=== PATIENT | female | born 1990 | race Caucasian/White ===

== ENCOUNTER 2017-01-20 16:10 | Emergency (ER) | payer MEDICAID ==
[~2017-01-20] VITALS: Ht 160 cm; Wt 70.3 kg
[~2017-01-20 16:10] MED LIST: ACHYD1T PO; CPR500T PO; CYCL10TA9 PO; DCS100C PO; DIPH25CA79 PO; FRS325T PO; HYDR-3583 PO; HYDR118S10 PO; HYDR1TAB PO; IBP600T1 PO; LEVE500T PO; LORazepam INJ 2 MG/ML (ATIVAN) VIAL ONE; MELO-195 PO; NAPR-243 PO; OMEP-10 PO; ONDA4TAB8 PO; PENI500T PO; PHEN100C4 PO; PRD50T PO; PREG50C PO; TR1O15 TP; TRAM50TA2 PO; TRM50T PO
[2017-01-20] MEDS: LORazepam INJ 2 MG/ML (ATIVAN) VIAL IVP ONE (16:10)
[2017-01-20] MEDS: NS IV 1000 ML 1,000 ML ONE (16:11)
[2017-01-20 16:22] LABS: BASOPHILS % (AUTO) 0 % (0-10); EOSINOPHILS # (AUTO) 0.1 10^3/uL (0.0-0.3); EOSINOPHILS % (AUTO) 1 % (0-10); LYMPHOCYTES # (AUTO) 2.3 X 10^3 (1.0-4.0); LYMPHOCYTES % (AUTO) 20 % (12-44); MEAN CORPUSCULAR HEMOGLOBIN 23 PG (25-34); MEAN CORPUSCULAR HGB CONC 31 G/DL (32-36); MEAN CORPUSCULAR VOLUME 74 FL (80-99); MEAN PLATELET VOLUME 10.8 FL (7.4-10.4); MONOCYTES # (AUTO) 0.7 X 10^3 (0.0-1.0); MONOCYTES % (AUTO) 6 % (0-12); NEUTROPHILS # (AUTO) 8.2 X 10^3 (1.8-7.8); NEUTROPHILS % (AUTO) 72 % (42-75); PLATELET COUNT 557 10^3/uL (130-400); RED BLOOD COUNT 4.76 10^6/uL (4.35-5.85); RED CELL DISTRIBUTION WIDTH 18.2 % (10.0-14.5); WHITE BLOOD COUNT 11.3 10^3/uL (4.3-11.0)
[2017-01-20 16:26] LABS: BILIRUBIN,URINE NEGATIVE (NEGATIVE); KETONES,URINE NEGATIVE (NEGATIVE); LEUKOCYTE ESTERASE ,URINE NEGATIVE (NEGATIVE); NITRITE,URINE NEGATIVE (NEGATIVE); PH,URINE 7 (5-9); PROTEIN,URINE NEGATIVE (NEGATIVE); UROBILINOGEN,URINE NORMAL (NORMAL)
[2017-01-20] MEDS: DIAZEPAM INJ 10 MG/2 ML (VALIUM) SYR ONE ×2 (16:26→17:54)
[2017-01-20] MEDS: PROMETHAZINE INJ 25 MG/ML (PHENERGAN) AMP ONE (16:34)
[2017-01-20 16:36] LABS: ALANINE AMINOTRANSFERASE 39 U/L (0-55); ALBUMIN 4.4 G/DL (3.2-4.5); ANION GAP 11 MMOL/L (5-14); ASPARTATE AMINO TRANSFERASE 39 U/L (5-34); BILIRUBIN,TOTAL 0.3 MG/DL (0.1-1.0); BLOOD UREA NITROGEN 9 MG/DL (7-18); BUN/CREATININE RATIO 11; CALCIUM 9.1 MG/DL (8.5-10.1); CARBON DIOXIDE 21 MMOL/L (21-32); CHLORIDE 110 MMOL/L (98-107); CREATINE KINASE 1204 U/L (29-168); CREATININE SERUM 0.81 MG/DL (0.60-1.30); GFR ESTIMATED > 60; GLUCOSE 95 MG/DL (70-105); POTASSIUM 3.6 MMOL/L (3.6-5.0); SODIUM 142 MMOL/L (135-145); TOTAL PROTEIN 7.3 G/DL (6.4-8.2)
[2017-01-20 16:39] LABS: SQUAMOUS EPITHELIAL CELL,UR 0-2 /HPF; WBC,URINE RARE /HPF
[2017-01-20] MEDS: IOHEXOL 350 MG/ML 100 ML (OMNIPAQUE 350) VIAL IV ONE (17:55)
[2017-01-20] MEDS: NS 100 ML (IVPB) BAG IV ONE (17:55)
--- NOTE | 2017-01-20 18:11 | Diagnostic Imaging Report ---
PROCEDURE: CT abdomen and pelvis with and without contrast. TECHNIQUE: Precontrast acquisitions were acquired through the abdomen and pelvis. Multiple contiguous axial images were obtained through the abdomen and pelvis after the administration of intravenous contrast. INDICATION: Right-sided abdominal pain. FINDINGS: The lung bases are clear. There is diffuse fatty infiltration of the liver. The gallbladder is absent. The bile ducts are not dilated. The pancreas appears normal as does the spleen. The adrenal glands are normal. Kidneys show no evidence of obstruction or masses. There is normal enhancement of the abdominal organs and vessels following IV contrast. No retroperitoneal adenopathy. The stomach is not distended. There are isolated loops of dilated small bowel in the left midabdomen measuring approximately 3 cm. The ileum is not distended. Terminal ileum appears normal. The appendix is not identified. No dilated structures or appendicoliths are seen. No fluid is seen surrounding the terminal ileum or cecum. Pelvis shows Dobson catheter present with decompression of bladder. The uterus is not enlarged. There are no adnexal masses. Tampon is present in the vagina. There is no free air or free fluid. IMPRESSION: 1. Nonspecific mildly dilated loops of small bowel in the left midabdomen. No associated free fluid or free air. 2. The appendix not visualized though no changes are seen to indicate acute appendicitis. Dictated by: Dictated on workstation # [id number]
--- NOTE | 2017-01-20 18:13 | Diagnostic Imaging Report ---
PROCEDURE: CT head without contrast. TECHNIQUE: Multiple contiguous axial images were obtained through the brain without the use of intravenous contrast. INDICATION: Seizure. COMPARISON: 01/31/2015. FINDINGS: The ventricles appear normal. Cortical gyral pattern is normal. There is no intracranial hemorrhage or mass effect. There are no extra axial fluid collections. Basal cisterns and CP angles appear normal. Pituitary is not enlarged. Mastoid air cells are well-aerated. IMPRESSION: Negative CT head without contrast. No significant change has occurred since previous exam. Dictated by: Dictated on workstation # [id number]
[2017-01-20] MEDS ORDERED: CLONIDINE (18:16)
[2017-01-20] MEDS ORDERED: CLONAZEPAM (18:17)
[2017-01-20] MEDS ORDERED: GABAPENTIN (18:17)
[2017-01-20] MEDS ORDERED: AMOXICILLIN (18:17)
[2017-01-20] MEDS ORDERED: CLARITHROMYCIN (18:18)
[2017-01-20] MEDS: fentaNYL INJECTION 100 MCG/2 ML AMP IVP STA (18:50)
[2017-01-20] MEDS: FAMOTIDINE 20MG/2ML IV (PEPCID) IV STA (18:50)
--- NOTE | 2017-01-20 19:12 | ED Neurological Problem ---
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 STAFF LOWERED HER TO FLOOR. PT WAS DISCHARGED TODAY FROM [facility] TODAY DUE TO SEIZURES. PT RECIEVED A UNIT OF BLOOD YESTERDAY ET MOM STATES HER HMG TODAY WAS 6. PT REMAINED HAVING A SEIZURE WHILE COMING TO ER ON CART. PT HAS OXYGEN ON AT 15L VIA NRB. Nursing Sepsis Screen: No Definite Risk History of Present Illness Time seen by provider: 16:00 Initial Comments Patient brought on cart from the OB floor to emergency department for seizure activity. The patient was admitted at [facility] 01/13/17 until earlier today. She went home to [place] briefly and then came here to see her sister who delivered a baby yesterday. She has a history of seizure disorders, reported by her mother. She was sitting in a chair when she began to have some wheezing and snoring noises and then began to have seizure activity. History obtained by her mother as the patient is unable to respond. Severity: mild Associated Symptoms: seizures Allergies and Home Medications Allergies Coded Allergies: adhesive tape (Verified Allergy, Severe, RASH, 01/20/17) metoclopramide (Verified Allergy, Severe, HIVES, VOMITING, 01/20/17) ondansetron (Verified Allergy, Severe, HIVES, VOMITING, 01/20/17) Sulfa (Sulfonamide Antibiotics) (Verified Allergy, Unknown, 01/20/17) ketorolac (Verified Allergy, Unknown, 01/20/17) morphine (Verified Allergy, Unknown, 01/20/17) Home Medications [Amoxicillin] , (Reported) [Clarithromycin] , (Reported) [Clonazepam] , (Reported) [Clonidine] , (Reported) [Gabapentin] , (Reported) Constitutional: no symptoms reported, see HPI Eyes: No Symptoms Reported, See HPI Ears, Nose, Mouth, Throat: no symptoms reported, see HPI Respiratory: no symptoms reported, see HPI Cardiovascular: no symptoms reported, see HPI Gastrointestinal: no symptoms reported, see HPI Genitourinary: no symptoms reported, see HPI LMP: Jan 20, 2017 Musculoskeletal: no symptoms reported, see HPI Skin: no symptoms reported, see HPI Psychiatric/Neurological: See HPI, [place] Seizures Endocrine: No Symptoms Reported, See HPI Hematologic/Lymphatic: No Symptoms Reported, See HPI All Other Systems Reviewed Negative Unless Noted: Yes Past Ytcnttx-Jfwwpi-Vesjsw Hx Patient Social History Former Smoker/When Quit: Nov 14, 2011 Recent Foreign Travel: No Contact w/Someone Who Travel: No Recent Infectious Disease Expo: No Recent Hopitalizations: Yes Immunizations Up To Date Tetanus Booster (TDap): More than 5yrs PED Vaccines UTD: Yes Surgeries HX Surgeries: Yes (RUPTURED OVARIAN CYST) Surgeries: Section, Gallbladder, Tubal Ligation Respiratory Hx Respiratory Disorders: No Cardiovascular Hx Cardiac Disorders: No Neurological Hx Neurological Disorders: Yes Neurological Disorders: Seizure Disorder Reproductive System : No Hx Reproductive Disorders: Yes (CERVICAL DYSPLASIA--S/P LEEP) Female Reproductive Disorders: Denies Genitourinary Hx Genitourinary Disorders: No Genitourinary Disorders: Kidney Stones Gastrointestinal Hx Gastrointestinal Disorders: No Gastrointestinal Disorders: Ulcer Musculoskeletal Hx Musculoskeletal Disorders: Yes Musculoskeletal Disorders: Fibromyalgia Endocrine Hx Endocrine Disorders: No HEENT HX ENT Disorders: No Cancer Hx Cancer: No Psychosocial Hx Psychiatric Problems: No Integumentary HX Skin/Integumentary Disorder: No Blood Transfusions Hx Blood Disorders: No Adverse Reaction to a Blood Tr: No Reviewed Nursing Assessment Reviewed/Agree w Nursing PMH: Yes Family Medical History Family Medial History: Family history: Cardiovascular disease maternal gma Heart disease maternal gma No Family History of: Abdominal aortic aneurysm Dunn's disease Alcoholism Aphasia Cancer Cancer of colon Cataract Chest pain Congenital heart disease Congestive heart failure Cystic fibrosis Dementia Dysphagia Family history: Allergy Family history: Alzheimer's disease Family history: Arthritis Family history: Asthma Family history: Breast disease Family history: Coronary thrombosis Family history: Diabetes mellitus Family history: Gastrointestinal disease Family history: Glaucoma Family history: Hypertension Family history: Osteoporosis Family history: Thyroid disorder Headache Hearing loss Hereditary disease History of - anemia History of - disorder History of - respiratory disease History of drug abuse Human immunodeficiency virus (HIV) seropositivity Hypercholesterolemia Infertile Kidney disease Malignant neoplasm of lung Myocardial infarction Parkinson's disease Prostate cancer Psychotic disorder Seizure disorder Stroke Tuberculosis Visual impairment Physical Exam Vital Signs Vital Sign - Last 12Hours 01/20/17 16:10 Temp 98.0 Pulse 122 Resp 18 B/P (MAP) 173/141 Pulse Ox 100 O2 Delivery Non Rebreather O2 Flow Rate 15.00 Capillary Refill : Less Than 3 Seconds General Appearance: WD/WN, no apparent distress HEENT: normal ENT inspection, TMs normal, pharynx normal, other (PERRL, no ability to follow eye commands) Neck: normal inspection, No lymphadenopathy (R), No lymphadenopathy (L) Respiratory: chest non-tender, lungs clear, normal breath sounds Cardiovascular: normal peripheral pulses, regular rate, rhythm, no JVD Gastrointestinal: normal bowel sounds, non tender, soft Neurologic/Psychiatric: No alert, aphasia, No facial droop, motor weakness Crainal Nerves: No normal hearing, No normal speech Motor/Sensory: negative Babinski's sign, sensory deficit Skin: normal color, warm/dry Comments No verbal response, unable to follow commands with seizure-like activity present. Progress/Results/Core Measures Results/Orders Lab Results Laboratory Tests Test 01/20/17 16:10 01/20/17 16:20 Range/Units White Blood Count 11.3 H 4.3-11.0 10^3/uL Red Blood Count 4.76 4.35-5.85 10^6/uL Hemoglobin 10.9 L 11.5-16.0 G/DL Hematocrit 35 35-52 % Mean Corpuscular Volume 74 L 80-99 FL Mean Corpuscular Hemoglobin 23 L 25-34 PG Mean Corpuscular Hemoglobin Concent 31 L 32-36 G/DL Red Cell Distribution Width 18.2 H 10.0-14.5 % Platelet Count 557 H 130-400 10^3/uL Mean Platelet Volume 10.8 H 7.4-10.4 FL Neutrophils (%) (Auto) 72 42-75 % Lymphocytes (%) (Auto) 20 12-44 % Monocytes (%) (Auto) 6 0-12 % Eosinophils (%) (Auto) 1 0-10 % Basophils (%) (Auto) 0 0-10 % Neutrophils # (Auto) 8.2 H 1.8-7.8 X 10^3 Lymphocytes # (Auto) 2.3 1.0-4.0 X 10^3 Monocytes # (Auto) 0.7 0.0-1.0 X 10^3 Eosinophils # (Auto) 0.1 0.0-0.3 10^3/uL Basophils # (Auto) 0.0 0.0-0.1 10^3/uL Sodium Level 142 135-145 MMOL/L Potassium Level 3.6 3.6-5.0 MMOL/L Chloride Level 110 H 98-107 MMOL/L Carbon Dioxide Level 21 21-32 MMOL/L Anion Gap 11 5-14 MMOL/L Blood Urea Nitrogen 9 7-18 MG/DL Creatinine 0.81 0.60-1.30 MG/DL Estimat Glomerular Filtration Rate > 60 BUN/Creatinine Ratio 11 Glucose Level 95 70-105 MG/DL Calcium Level 9.1 8.5-10.1 MG/DL Total Bilirubin 0.3 0.1-1.0 MG/DL Aspartate Amino Transf (AST/SGOT) 39 H 5-34 U/L Alanine Aminotransferase (ALT/SGPT) 39 0-55 U/L Alkaline Phosphatase 84 40-136 U/L Total Creatine Kinase 1204 H 29-168 U/L Total Protein 7.3 6.4-8.2 G/DL Albumin 4.4 3.2-4.5 G/DL Serum Test, Qualitative NEGATIVE NEGATIVE Urine Color YELLOW Urine Clarity CLEAR Urine pH 7 5-9 Urine Specific [place] 1.005 L 1.016-1.022 Urine Protein NEGATIVE NEGATIVE Urine Glucose (UA) NEGATIVE NEGATIVE Urine Ketones NEGATIVE NEGATIVE Urine Nitrite NEGATIVE NEGATIVE Urine Bilirubin NEGATIVE NEGATIVE Urine Urobilinogen NORMAL NORMAL MG/DL Urine Leukocyte Esterase NEGATIVE NEGATIVE Urine RBC (Auto) NEGATIVE NEGATIVE Urine RBC RARE /HPF Urine WBC RARE /HPF Urine Squamous Epithelial Cells 0-2 /HPF Urine Crystals NONE /LPF Urine Bacteria NEGATIVE /HPF Urine Casts NONE /LPF Urine Mucus NEGATIVE /LPF Urine Culture Indicated NO Urine Opiates Screen NEGATIVE NEGATIVE Urine Oxycodone Screen NEGATIVE NEGATIVE Urine Methadone Screen NEGATIVE NEGATIVE Urine Propoxyphene Screen NEGATIVE NEGATIVE Urine Barbiturates Screen NEGATIVE NEGATIVE Ur Tricyclic Antidepressants Screen NEGATIVE NEGATIVE Urine Phencyclidine Screen NEGATIVE NEGATIVE Urine Amphetamines Screen NEGATIVE NEGATIVE Urine Methamphetamines Screen NEGATIVE NEGATIVE Urine Benzodiazepines Screen POSITIVE H NEGATIVE Urine Cocaine Screen NEGATIVE NEGATIVE Urine Cannabinoids Screen NEGATIVE NEGATIVE My Orders Orders - ANDRY,NIKKY [employer] Cbc With Automated Diff (01/20/17 16:14) Comprehensive Metabolic Panel (01/20/17 16:14) Creatine Kinase (01/20/17 16:14) Ua Culture If Indicated (01/20/17 16:14) Drug Screen Stat (Urine) (01/20/17 16:14) Diazepam Injection (Valium Injection) (01/20/17 16:19) Promethazine Injection (Phenergan Injec (01/20/17 16:27) Lorazepam Injection (Ativan Injection) (01/20/17 17:00) Lorazepam Injection (Ativan Injection) (01/20/17 16:05) Ct Head Wo (01/20/17 16:57) Diazepam Injection (Valium Injection) (01/20/17 16:58) Hcg,Qualitative Serum (01/20/17 17:03) Iohexol Injection (Omnipaque 350 Mg/Ml 1 (01/20/17 17:15) Ns (Ivpb) (Sodium Chloride 0.9% Ivpb Bag (01/20/17 17:15) Ct Abdomen/Pelvis W Wo (01/20/17 17:30) Famotidine Injection (Pepcid Injection) (01/20/17 18:34) Fentanyl Injection (Sublimaze Injection (01/20/17 18:34) Diphenhydramine Injection (Benadryl Inje (01/20/17 19:13) Medications Given in ED Current Medications Medications Dose Ordered Sig/Karolina Route Start Time Stop Time Status Last Admin Dose Admin Diazepam 10 mg STK-MED ONCE .ROUTE 01/20/17 16:19 01/20/17 16:24 DC 01/20/17 16:26 10 MG Diazepam 10 mg STK-MED ONCE .ROUTE 01/20/17 16:58 01/20/17 17:03 DC 01/20/17 17:54 5 MG Iohexol 100 ml ONCE ONCE IV 01/20/17 17:15 01/20/17 17:16 DC 01/20/17 17:55 100 ML Lorazepam 2 mg ONCE ONCE IVP 01/20/17 17:00 01/20/17 17:01 DC 01/20/17 16:10 2 MG Promethazine HCl 25 mg STK-MED ONCE .ROUTE 01/20/17 16:27 01/20/17 16:32 DC 01/20/17 16:34 25 MG Sodium Chloride 100 ml ONCE ONCE IV 01/20/17 17:15 01/20/17 17:16 DC 01/20/17 17:55 80 ML Sodium Chloride 1,000 ml @ ud STK-MED ONCE .ROUTE 01/20/17 16:10 01/20/17 16:16 DC 01/20/17 16:11 1,000 MLS/HR Vital Signs/I&O Vital Sign - Last 12Hours 01/20/17 01/20/17 16:10 20:00 Temp 98.0 98.0 Pulse 122 102 Resp 18 18 B/P (MAP) 173/141 Pulse Ox 100 100 O2 Delivery Non Rebreather O2 Flow Rate 15.00 Blood Pressure Mean: 152 Progress Note : Time: 16:00 Progress Note Initial evaluation started. Patient nonresponsive to painful or verbal stimuli. Patient's mother is present and history is obtained from her. She does report that her hemoglobin was low yesterday and she possibly received a blood transfusion yesterday at [facility]. She also had GI bleeding and had an EGD and colonoscopy. Prior to feeding at [facility], she was admitted to [facility]. 1610 IV access obtained, Ativan 2 mg IV given. Side rails padded, oxygen per nonrebreather mask. 1620 continued seizure-like activity, Valium 5 mg IV 1630 Phenergan 25 mg IV for nausea and gagging. Patient kept on right side and suction equipment ready. Labs are all essentially normal, WBC 11.3, hemoglobin 10.9, total CK 1204, toxicology negative except benzodiazepines. 1640 seizure activity ceased. Received records from [facility]. These were reviewed, HGB 9.[address] for [address] head and abdomen. She became coherent during this CT and answer questions appropriately. 1655 seizure-like activity resumed. 1700 Ativan 2 mg IV for continued seizure-like activity. 1710 seizure-like activity stopped. The patient was coherent and answering questions appropriately, she was alert and oriented 3. Pupils equal round reactive to light. She was able to follow incomplete all commands. Discussed the need for further neurological assessment of the patient. 1740 discussed the patient by phone with Dr. Diaz for consideration of admission for observation. She felt the patient would be better suited at a facility with neurological consultations. Contacted [facility] no beds available for transfer. The patient refused to be transferred [facility]. She sees a neurologist in [place] or [place], and would prefer to be transferred there. [address] Mac the attending hospitalist for [facility], agreed to accept the transfer. Spoke with the FANCY STITCHER, for hospitalist Dr. Bradshaw, agreed to accept transfer for neuro and psych evaluation and treatment of pseudoseizure disorder. 1820 discussed plans to transfer the patient to [facility] with patient and her mother, they agree with this plan of care. [facility] notified of transfer. 1830 Pepcid 20 mg IV for nausea and fentanyl 25 g IV for headache. 1920 Benadryl 50 mg IV for itching secondary to tape. Diagnostic Imaging Diagonstic Imaging: CT Plain Films/CT/US/NM/MRI: abdomen, pelvis Comments NAME: GOKUL LOCKWOOD [facility] REC#: [id number] PT STATUS: REG ER : 1990 PHYSICIAN: NIKKY WILDE ADMIT DATE: 01/20/17/ER Draft Date of Exam:01/20/17 CT ABDOMEN/PELVIS W WO PROCEDURE: CT abdomen and pelvis with and without contrast. TECHNIQUE: Precontrast acquisitions were acquired through the abdomen and pelvis. Multiple contiguous axial images were obtained through the abdomen and pelvis after the administration of intravenous contrast. INDICATION: Right-sided abdominal pain. FINDINGS: The lung bases are clear. There is diffuse fatty infiltration of the liver. The gallbladder is absent. The bile ducts are not dilated. The pancreas appears normal as does the spleen. The adrenal glands are normal. Kidneys show no evidence of obstruction or masses. There is normal enhancement of the abdominal organs and vessels following IV contrast. No retroperitoneal adenopathy. The stomach is not distended. There are isolated loops of dilated small bowel in the left midabdomen measuring approximately 3 cm. The ileum is not distended. Terminal ileum appears normal. The appendix is not identified. No dilated structures or appendicoliths are seen. No fluid is seen surrounding the terminal ileum or cecum. Pelvis shows Dobson catheter present with decompression of bladder. The uterus is not enlarged. There are no adnexal masses. Tampon is present in the vagina. There is no free air or free fluid. IMPRESSION: 1. Nonspecific mildly dilated loops of small bowel in the left midabdomen. No associated free fluid or free air. 2. The appendix not visualized though no changes are seen to indicate acute appendicitis. Dictated on workstation # [id number] Dict: 01/20/17 1801 Trans: 01/20/17 1811 [facility] [id number] Interpreted by: JENNIFER CHARLES MD Electronically signed by: Reviewed: Reviewed by Me Diagonstic Imaging: CT Plain Films/CT/US/NM/MRI: head Comments NAME: GOKUL LOCKWOOD [facility] REC#: [id number] PT STATUS: REG ER : 1990 PHYSICIAN: NIKKY WILDE ADMIT DATE: 01/20/17/ER Draft Date of Exam:01/20/17 CT HEAD WO PROCEDURE: CT head without contrast. TECHNIQUE: Multiple contiguous axial images were obtained through the brain without the use of intravenous contrast. INDICATION: Seizure. COMPARISON: 01/31/2015. FINDINGS: The ventricles appear normal. Cortical gyral pattern is normal. There is no intracranial hemorrhage or mass effect. There are no extra axial fluid collections. Basal cisterns and CP angles appear normal. Pituitary is not enlarged. Mastoid air cells are well-aerated. IMPRESSION: Negative CT head without contrast. No significant change has occurred since previous exam. Dictated on workstation # [id number] Dict: 01/20/17 1804 Trans: 01/20/17 1813 [facility] [id number] Interpreted by: JENNIFER CHARLES MD Electronically signed by: Reviewed: Reviewed by Me Departure Impression Impression: Primary Impression: Pseudoseizure Disposition: XFER SHT-TRM HOSP Condition: Stable Transfer Method of Transfer: EMS Departure-Patient Inst. Referrals: WASHINGTON COYNE DO (PCP/Family) Primary Care Physician NIKKY WILDE Jan 20, 2017 19:12
[2017-01-20] MEDS: diphenhydrAMINE 50 MG/ML INJ (BENADRYL) IV STA (19:21)
[2017-01-20 20:00] VITALS: BP 129/96
== END 2017-01-20 20:00 | disposition short-term general hospital (02) ==
LOC: EDUNIT# 16:10 → ER 16:11
DX: G40.909 Epilepsy, unspecified, not intractable, without status epilepticus (principal); R10.9 Unspecified abdominal pain
CPT/HCPCS: 36415; 51702; 70450; 74178; 80053; 80306; 81000; 82550; 84703; 85025

== ENCOUNTER 2017-04-10 15:38 | Emergency (ER) | payer MEDICAID ==
[~2017-04-10] VITALS: Ht 160 cm; Wt 70.4 kg
[~2017-04-10 15:38] MED LIST changes: +AMOXICILLIN; +CLARITHROMYCIN; +CLONAZEPAM; +CLONIDINE; +GABAPENTIN; -LORazepam INJ 2 MG/ML (ATIVAN) VIAL ONE
[2017-04-10] MEDS ORDERED: LORazepam INJ 2 MG/ML (ATIVAN) VIAL ONE ×2 (16:35→16:49)
[2017-04-10] MEDS ORDERED: AMMONIA INHALATION 0.33 ML AMP ONE (16:45)
[2017-04-10] MEDS ORDERED: NS IV 1000 ML 1,000 ML IV ONE (16:56)
[2017-04-10] MEDS ORDERED: LORazepam INJ 2 MG/ML (ATIVAN) VIAL IVP ONE (17:00)
[2017-04-10 17:02] LABS: BASOPHILS # (AUTO) 0.1 10^3/uL (0.0-0.1); BASOPHILS % (AUTO) 1 % (0-10); EOSINOPHILS # (AUTO) 0.2 10^3/uL (0.0-0.3); EOSINOPHILS % (AUTO) 2 % (0-10); LYMPHOCYTES # (AUTO) 2.9 X 10^3 (1.0-4.0); LYMPHOCYTES % (AUTO) 30 % (12-44); MEAN CORPUSCULAR HEMOGLOBIN 27 PG (25-34); MEAN CORPUSCULAR HGB CONC 32 G/DL (32-36); MEAN CORPUSCULAR VOLUME 84 FL (80-99); MEAN PLATELET VOLUME 10.8 FL (7.4-10.4); MONOCYTES # (AUTO) 0.6 X 10^3 (0.0-1.0); MONOCYTES % (AUTO) 6 % (0-12); NEUTROPHILS # (AUTO) 5.8 X 10^3 (1.8-7.8); NEUTROPHILS % (AUTO) 61 % (42-75); PLATELET COUNT 339 10^3/uL (130-400); RED BLOOD COUNT 4.19 10^6/uL (4.35-5.85); RED CELL DISTRIBUTION WIDTH 18.9 % (10.0-14.5); WHITE BLOOD COUNT 9.6 10^3/uL (4.3-11.0)
[2017-04-10 17:25] LABS: ALANINE AMINOTRANSFERASE 33 U/L (0-55); ALBUMIN 4.1 GM/DL (3.2-4.5); ALCOHOL < 10 MG/DL (<10); ANION GAP 14 MMOL/L (5-14); ASPARTATE AMINO TRANSFERASE 23 U/L (5-34); BILIRUBIN,TOTAL 0.1 MG/DL (0.1-1.0); BLOOD UREA NITROGEN 8 MG/DL (7-18); BUN/CREATININE RATIO 12; CARBON DIOXIDE 18 MMOL/L (21-32); CHLORIDE 106 MMOL/L (98-107); CREATININE SERUM 0.66 MG/DL (0.60-1.30); GFR ESTIMATED > 60; GLUCOSE 92 MG/DL (70-105); POTASSIUM 3.8 MMOL/L (3.6-5.0); SODIUM 138 MMOL/L (135-145); TOTAL PROTEIN 6.7 GM/DL (6.4-8.2)
[2017-04-10 17:26] LABS: ACETAMINOPHEN < 10 UG/ML (10-30)
[2017-04-10] MEDS ORDERED: LORazepam INJ 2 MG/ML (ATIVAN) VIAL IM ONE (17:30)
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
[2017-04-10 18:22] LABS: BILIRUBIN,URINE NEGATIVE (NEGATIVE); KETONES,URINE NEGATIVE (NEGATIVE); LEUKOCYTE ESTERASE ,URINE 2+ (NEGATIVE); NITRITE,URINE NEGATIVE (NEGATIVE); PH,URINE 7 (5-9); PROTEIN,URINE NEGATIVE (NEGATIVE); UROBILINOGEN,URINE NORMAL (NORMAL)
[2017-04-10 18:37] LABS: SQUAMOUS EPITHELIAL CELL,UR 0-2 /HPF
--- NOTE | 2017-04-10 19:12 | Diagnostic Imaging Report ---
INDICATION: Fall with right hand injury and pain. EXAMINATION: AP, oblique and lateral views of the right hand were obtained. COMPARISON: Study of 07/25/2011. FINDINGS: No acute fracture or dislocation is identified. No abnormal lytic or sclerotic focus is seen, and there is no radiopaque foreign body. IMPRESSION: No acute abnormality. Dictated by: Dictated on workstation # [id number]
[2017-04-10] MEDS ORDERED: FAMOTIDINE 20 MG (PEPCID) TABLET PO ONE (19:15)
[2017-04-10] MEDS ORDERED: PREGABALIN 75 MG (LYRICA) CAP PO ONE (19:15)
[2017-04-10] MEDS ORDERED: CEPH500C PO (19:22)
[2017-04-10 19:35] VITALS: BP 118/89
== END 2017-04-10 19:35 | disposition home or self-care (01) ==
LOC: EDUNIT# 15:38 → ER 15:39
DX: S60.221A Contusion of right hand, initial encounter (principal); G40.909 Epilepsy, unspecified, not intractable, without status epilepticus; N39.0 Urinary tract infection, site not specified; Z87.42 Personal history of other diseases of the female genital tract; Z87.11 Personal history of peptic ulcer disease; Z87.59 Personal history of other complications of pregnancy, childbirth and the puerperium; Z98.51 Tubal ligation status; W22.09XA Striking against other stationary object, initial encounter
CPT/HCPCS: 36415; 73130; 80053; 80306; 80320; 80329; 81000; 84443; 84703; 85025; 87077; 87088; 87186; 96360; 96361; 96372

== ENCOUNTER 2017-04-18 20:59 | Emergency (ER) | payer MEDICAID ==
[~2017-04-18] VITALS: Ht 160 cm; Wt 70.4 kg
[~2017-04-18 20:59] MED LIST changes: +CEPH500C PO
--- OUTSIDE RECORDS SUMMARY | 2017-04-18 21:04 | XMS REPORT | Referral Summary ---
Author Author [facility] Organization [facility] Address Unknown Phone Unavailable Encounter [facility] [id number] Date(s): 01/11/17 - 01/12/[address] [phone] Discharge Diagnosis: Left knee pain Discharge Diagnosis: Left ankle pain Final: Pain in left knee Final: Pain in left ankle and joints of left foot Final: Fall on same level, unspecified, initial encounter Discharge Disposition: 01 O/P Home Attending Physician: Rizwan James Admitting Physician: Rizwan James Vital Signs Most recent to 1 2 oldest [Reference Range]: Height FT 5.09 ft (01/11/17 10:26 PM) Height 155 cm (01/11/17 10:26 PM) Blood Pressure 124 / 85 Display (01/12/17 12:22 AM) Peripheral Pulse 96 bpm 108 bpm Rate [60-100 bpm] (01/12/17 12:21 AM) *HI* (01/11/17 10:26 PM) Temperature Oral 36.9 DegC 36.8 DegC [35.8-37.3 DegC] (01/12/17 12:21 AM) (01/11/17 10:26 PM) Problem List Condition Effective Dates Status Health Status Informant Tobacco use, Active continuous(Confirmed )1 1Automatically added based on charted X tobacco use status. Allergies, Adverse Reactions, Alerts Substance Reaction Severity Status Reglan Active Zofran Active Medications gabapentin 600 mg oral tablet 600 mg=1 tab, PO, TID, THERAPEUTIC DUPLICATION WITH LYRICA, # 270 tab, 0 Refill( s) Start Date: 11/13/16 Status: Ordered ibuprofen 800 mg oral tablet 800 mg=1 tab, PO, TID, for pain, # 30 tab, 0 Refill(s) Start Date: 11/13/16 Status: Ordered ibuprofen 800 mg oral tablet 800 mg=1 tab, PO, q8hr, with food or milk, X 10 day, # 30 tab, 0 Refill(s) Start Date: 01/11/17 Stop Date: 01/21/17 Status: Ordered lactobacillus acidophilus oral tablet 2 tab, PO, qDay, # 20 tab, 0 Refill(s) Start Date: 11/13/16 Stop Date: 11/23/16 Status: Ordered Lyrica 50 mg oral capsule 50 mg=1 cap, PO, TID, THERAPEUTIC DUPLICATION WITH GABAPENTIN, # 90 cap, 0 Refill(s) Start Date: 11/13/16 Status: Ordered Percocet 10/325 oral tablet 1 tab, PO, q6hr, # 20 tab, 0 Refill(s) Start Date: 11/13/16 Status: Ordered Phenergan 25 mg oral tablet 25 mg=1 tab, PO, q6hr, NAUSEA/VOMITING | for Nausea, # 30 tab, 2 Refill(s) Start Date: 11/13/16 Status: Ordered Phenergan 25 mg oral tablet 25 mg=1 tab, PO, q6hr, NAUSEA/VOMITING, # 10 tab, 0 Refill(s) Start Date: 01/11/17 Stop Date: 01/21/17 Status: Ordered phenytoin 100 mg oral capsule, extended release 100 mg=1 cap, PO, TID, #30 filled on 10/01/16 per Ernestina in [place], 0 Refill (s) Start Date: 11/13/16 Status: Ordered Zofran 4 mg oral tablet 4 mg=1 tab, PO, q8hr, Nausea/Vomiting, 0 Refill(s) Start Date: 11/13/16 Status: Ordered Results No data available for this section Immunizations No data available for this section Procedures No data available for this section Social History Social History Type Response Smoking Status Current some day smoker Functional Status COGNITIVE 01/11/17 Orientation Oriented x 3 Assessment and Plan No data available for this section Hospital Discharge Instructions Patient Education Ankle Pain Knee Pain Follow Up Care 01/11/2017 22:24:39 With: Alan Barreto Address: [address] [place] [id number] Business (1) When: 5 to 7 days Comments: Call the office to schedule follow up Return to ED for worsening symptoms Take medication as directed May apply ice to the left knee and ankle as needed May be weightbearing as tolerated at the left lower extremity May use left knee immobilizer and crutches as needed Elevate left knee and ankle above your heart Follow-up with orthopedics as discussed Follow-up with any change or worsening of symptoms"
--- OUTSIDE RECORDS SUMMARY | 2017-04-18 21:04 | XMS REPORT | Referral Summary ---
Author Author [facility] Organization [facility] Address Unknown Phone Unavailable Encounter [facility] [id number] Date(s): 02/12/17 - 02/13/[address] [phone] Discharge Diagnosis: Pseudoseizures Discharge Disposition: O/P Home Attending Physician: Khalif Dodd MD Admitting Physician: Khalif Dodd MD Vital Signs 1 2 3 Most recent to oldest [Reference Range]: 155 cm (02/12/17 11:46 PM) Height 127 / 99 (02/13/17 12:10 AM) 102 / 82 (02/12/17 11:46 PM) 94 / 68 (02/12/17 10:32 PM) Blood Pressure Display 96 bpm (02/13/17 12:09 AM) 100 bpm (02/12/17 11:46 PM) 99 bpm (02/12/17 10:32 PM) Peripheral Pulse Rate [60-100 bpm] Problem List Condition Effective Dates Status Health Status Informant Tobacco use, Active continuous(Confirmed )1 1Automatically added based on charted SHX tobacco use status. Allergies, Adverse Reactions, Alerts Substance Reaction Severity Status Reglan Active Zofran Active Medications gabapentin 600 mg oral tablet 600 mg=1 tab, PO, TID, THERAPEUTIC DUPLICATION WITH LYRICA, # 270 tab, 0 Refill( s) Start Date: 11/13/16 Status: Ordered ibuprofen 800 mg oral tablet 800 mg=1 tab, PO, TID, for pain, # 30 tab, 0 Refill(s) Start Date: 11/13/16 Status: Ordered lactobacillus acidophilus oral tablet 2 [...] 2 Refill(s) Start Date: 11/13/16 Status: Ordered phenytoin 100 mg oral capsule, extended release 100 mg=1 cap, PO, TID, #30 filled on 10/01/16 per [facility] in [place], 0 Refill (s) Start Date: 11/13/16 Status: Ordered Zofran 4 mg oral tablet 4 mg=1 tab, PO, q8hr, Nausea/Vomiting, 0 Refill(s) Start Date: 11/13/16 Status: Ordered Results No data available for this section Immunizations No data available for this section Procedures No data available for this section Social History Social History Type Response Smoking Status Current some day smoker Functional Status COGNITIVE 02/12/17 Orientation Not oriented to place Assessment and Plan No data available for this section Hospital Discharge Instructions Patient Education Nonepileptic Seizures Follow Up Care 02/12/2017 21:36:31 With: Follow up with primary care provider Address: Unknown When: 7-10 days Comments: Call the office to schedule follow up with your neurologist as scheduled."
--- OUTSIDE RECORDS SUMMARY | 2017-04-18 21:04 | XMS REPORT | Referral Summary ---
Author Author [facility] Organization [facility] Address Unknown Phone Unavailable Encounter Hospital Date(s): 11/27/16 - 11/27/[address] [phone] Discharge Diagnosis: Non-compliance Discharge Diagnosis: Seizure Discharge Diagnosis: Right elbow pain Discharge Disposition: 01 O/P Home Attending Physician: Aftab Figueroa DO Admitting Physician: Aftab Figueroa DO Vital Signs 1 2 3 Most recent to oldest [Reference Range]: 132 / 95 (11/27/16 8:34 PM) 126 / 94 (11/27/16 8:30 PM) 114 / 77 (11/27/16 7:09 PM) Blood Pressure Display 96 bpm (11/27/16 8:34 PM) 88 bpm (11/27/16 8:30 PM) 98 bpm (11/27/16 7:30 PM) Peripheral Pulse Rate [60-100 bpm] 36.9 DegC (11/27/16 5:40 PM) Temperature Oral [35.8-37.3 DegC] Problem List Condition Effective Dates Status Health Status Informant Tobacco use, Active continuous(Confirmed )1 1Automatically added based on charted X tobacco use status. Allergies, Adverse Reactions, Alerts Substance Reaction Severity Status Reglan Active Zofran Active Medications ciprofloxacin 500 mg oral tablet 500 mg=1 tab, PO, q12hr, from [facility], # 20 tab, 0 Refill(s) Start Date: 11/27/16 Stop Date: 12/07/16 Status: Ordered Colace 100 mg oral capsule 100 mg=1 cap, PO, BID, as needed for constipation, # 30 tab, 1 Refill(s) Start Date: 11/13/16 Stop Date: 12/13/16 Status: Ordered gabapentin 600 mg oral tablet 600 mg=1 tab, PO, TID, THERAPEUTIC DUPLICATION WITH LYRICA, # 270 tab, 0 Refill( s) Start Date: 11/13/16 Status: Ordered hyoscyamine 0.125 mg oral tablet 0.125 mg=1 tab, PO, QID, for spasm, # 40 tab, 0 Refill(s) Start Date: 11/13/16 Stop Date: 12/13/16 Status: Ordered ibuprofen 800 mg oral tablet 800 mg=1 tab, PO, TID, for pain, # 30 tab, 0 Refill(s) Start Date: 11/13/16 Status: Ordered lactobacillus acidophilus oral tablet 2 tab, PO, qDay, # 20 tab, 0 Refill(s) Start Date: 11/13/16 Stop Date: 11/23/16 Status: Ordered Lortab 5 mg-325 mg oral tablet 1 tab, PO, q6hr, from [facility], X 3 Day(s) day Start Date: 11/27/16 Stop Date: 11/30/16 Status: Ordered Lyrica 50 mg oral capsule 50 mg=1 cap, PO, TID, THERAPEUTIC DUPLICATION WITH GABAPENTIN, # 90 cap, 0 Refill(s) Start Date: 11/13/16 Status: Ordered Butternut 5 mg-325 mg oral tablet 1 tab, PO, q4hr, [id number], X 3 Day(s) day, # 18 tab, 0 Refill(s) Start Date: 11/27/16 Stop Date: 11/30/16 Status: Ordered Percocet 10/325 oral tablet 1 tab, PO, q6hr, # 20 tab, 0 Refill(s) Start Date: 11/13/16 Status: Ordered Phenergan 25 mg oral tablet 25 mg=1 tab, PO, q6hr, NAUSEA/VOMITING | for Nausea, # 30 tab, 2 Refill(s) Start Date: 11/13/16 Status: Ordered phenytoin 100 mg oral capsule, extended release 300 mg=3 cap, PO, qHS, # 90 cap, 0 Refill(s) Start Date: 11/27/16 Stop Date: 12/27/16 Status: Ordered phenytoin 100 mg oral capsule, extended release 100 mg=1 cap, PO, TID, #30 filled on 10/01/16 per [facility] [place], 0 Refill (s) Start Date: 11/13/16 Status: Ordered Protonix 40 mg oral delayed release tablet 40 mg=1 tab, PO, acBreakfst, # 30 tab, 0 Refill(s) Start Date: 11/13/16 Status: Ordered sertraline 50 mg oral tablet 50 mg=1 tab, PO, qAM, # 30 tab, 0 Refill(s) Start Date: 11/13/16 Status: Ordered Zofran 4 mg oral tablet 4 mg=1 tab, PO, q8hr, Nausea/Vomiting, 0 Refill(s) Start Date: 11/13/16 Status: Ordered Results Hematology Most recent to 1 oldest [Reference Range]: WBC Count [4.0-10.5 8.3 x10^3 cmm x10^3 cmm] (11/27/16 6:00 PM) RBC Count [4.00-5.40 3.91 X10^6 cmm X10^6 cmm] *LOW* (11/27/16 6:00 PM) Hemoglobin 8.9 g/dL [12.0-16.0 g/dL] *LOW* (11/27/16 6:00 PM) Hematocrit 29.4 % [37.0-47.0 %] *LOW* (11/27/16 6:00 PM) MCV [78-100 fL] 75.2 fL *LOW* (11/27/16 6:00 PM) MCH [27.0-31.0 pg] 22.8 pg *LOW* (11/27/16 6:00 PM) MCHC [32.0-36.0 30.3 g/dL g/dL] *LOW* (11/27/16 6:00 PM) RDW [11.5-14.0 %] 16.9 % *HI* (11/27/16 6:00 PM) Platelet Count 455 x10^3 cmm [150-450 x10^3 cmm] *HI* (11/27/16 6:00 PM) MPV [8.0-11.7 fL] 11.0 fL (11/27/16 6:00 PM) Neutrophil % 56.3 % [43.0-65.0 %] (11/27/16 6:00 PM) Lymphocyte % 35.3 % [20.5-45.5 %] (11/27/16 6:00 PM) Monocyte % [5.5-11.7 6.2 % %] (11/27/16 6:00 PM) Eosinophil % 1.3 % [0.9-2.9 %] (11/27/16 6:00 PM) Basophil % [0.2-1.0 0.8 % %] (11/27/16 6:00 PM) Immature Granulocyte 0.1 % (11/27/16 6:00 PM) Immature Grans 0.0 X10^3 Absolute [0.00-0.05 (11/27/16 6:00 PM) X10^3] Neutrophil Abs Auto 4.7 X10^3 [1.72-6.83 X10^3] (11/27/16 6:00 PM) Lymphocyte Abs Auto 2.9 X10^3 [0.84-4.83 X10^3] (11/27/16 6:00 PM) Monocyte Abs Auto 0.5 X10^3 [0.24-1.26 X10^3] (11/27/16 6:00 PM) Eosinophil Abs Auto 0.1 X10^3 [0.04-0.32 X10^3] (11/27/16 6:00 PM) Basophil Abs Auto 0.1 X10^3 [0.00-0.11 X10^3] (11/27/16 6:00 PM) Differential Type AUTOMATED (11/27/16 6:00 PM) Chemistry Most recent to 1 oldest [Reference Range]: Sodium [135-145 134 mmol/L mmol/L] *LOW* (11/27/16 6:00 PM) Potassium [3.6-5.0 3.7 mmol/L mmol/L] (11/27/16 6:00 PM) Chloride [101-111 99 mmol/L mmol/L] *LOW* (11/27/16 6:00 PM) Carbon Dioxide Total 19 mmol/L [21-31 mmol/L] *LOW* (11/27/16 6:00 PM) Anion Gap 16 mmol/L 1 (11/27/16 6:00 PM) Glucose Level 89 mg/dL [70-100 mg/dL] (11/27/16 6:00 PM) Blood Urea Nitrogen 9 mg/dL [6-20 mg/dL] (11/27/16 6:00 PM) Creatinine [0.5-1.2 0.7 mg/dL mg/dL] (11/27/16 6:00 PM) Calcium [8.5-10.5 8.6 mg/dL mg/dL] (11/27/16 6:00 PM) Total Protein 7.2 g/dL [6.0-8.0 g/dL] (11/27/16 6:00 PM) Albumin [3.2-5.5 4.3 g/dL g/dL] (11/27/16 6:00 PM) Alkaline Phosphatase 97 unit/L [42-121 unit/L] (11/27/16 6:00 PM) AST (SGOT) [10-42 15 unit/L unit/L] (11/27/16 6:00 PM) ALT (SGPT) [10-60 14 unit/L unit/L] (11/27/16 6:00 PM) Bilirubin Total <0.2 mg/dL [0.2-1.0 mg/dL] *LOW* (11/27/16 6:00 PM) Calculated GFR [>60] >60.0 2 (11/27/16 6:00 PM) 1Result Comment: ANION GAP CALCULATION=NA-(CL+CO2) No reference range has been established. Value needs to be correlated with clinical evaluation. 2Result Comment: AVERAGE GFR FOR 20-29 YEARS OLD=116 mL/min/1.73 square meters CHRONIC KIDNEY DISEASE <60 mL/min/1.73 square meters KIDNEY FAILURE <15 mL/min/1.73 square meters MULTIPLY RESULT BY 1.210 IF PATIENT IS . GFR calculation (based on the modified MDRD Study Equation for IDMS calibrated creatinine) includes creatinine, age and sex only. This may NOT be accurate in cases of acute kidney failure, extremes in body size or muscle mass or unusually low or high creatine intake. Immunizations No data available for this section Procedures No data available for this section Social History Social History Type Response Smoking Status Current every day smoker Functional Status COGNITIVE 11/27/16 Orientation Oriented x 3 Assessment and Plan No data available for this section Hospital Discharge Instructions Patient Education Acute Compartment Syndrome Nonepileptic Seizures Follow Up Care 11/27/2016 17:39:50 With: Grover Hall Address: [address] [place], [place] [phone] Business (1) When: 2-3 days Comments: Call the office to schedule follow up Return to ED for worsening symptoms Take your seizure medication as prescribed. You can use ice on your elbow 20 minutes out of the hour, do not leave it on longer than 20 minutes at a time. Keep her arm elevated to prevent further swelling. Do not take Tylenol in addition to the Butternut you were prescribed. With: [facility] Address: [address] [place] [address] [address] [place] [phone] Business (1) When: 7-10 days Comments: Call the office to schedule follow up Return to ED for worsening symptoms"
--- OUTSIDE RECORDS SUMMARY | 2017-04-18 21:04 | XMS REPORT | Referral Summary ---
Author Author [facility] Organization [facility] Address Unknown Phone Unavailable Encounter [facility] [id number] Date(s): 11/13/16 - 11/13/16 [facility] [address] [place] [phone] Discharge Diagnosis: Acute abdominal pain syndrome Discharge Diagnosis: Seizure-like activity Discharge Disposition: 01 O/P Home Attending Physician: Keanu Purdy MD Admitting Physician: Keanu Purdy MD Vital Signs 1 2 3 Most recent to oldest [Reference Range]: 155 cm (11/13/16 6:28 PM) 155 cm (11/13/16 6:05 PM) 155 cm (11/13/16 5:30 PM) Height 121 / 80 (11/13/16 6:40 PM) 134 / 92 (11/13/16 5:41 PM) 96 / 63 (11/13/16 2:39 PM) Blood Pressure Display 77 bpm (11/13/16 6:28 PM) 84 bpm (11/13/16 6:05 PM) 117 bpm *HI* (11/13/16 5:30 PM) Peripheral Pulse Rate [60-100 bpm] Problem List Condition Effective Dates Status Health Status Informant Tobacco use, Active continuous(Confirmed )1 1Automatically added based on charted X tobacco use status. Allergies, Adverse Reactions, Alerts No Known Medication Allergies Medications Colace 100 mg oral capsule 100 mg=1 [...] 0 Refill(s) Start Date: 11/13/16 Status: Ordered ondansetron 8 mg oral tablet, disintegrating 8 mg=1 tab, SL, q6hr, Nausea/Vomiting, # 10 tab, 1 Refill(s) Start Date: 11/13/16 Stop Date: 12/13/16 Status: Ordered Percocet 10/325 oral tablet 1 tab, PO, q6hr, # 20 tab, 0 Refill(s) Start Date: 11/13/16 Status: Ordered Phenergan 25 mg oral tablet 25 mg=1 tab, PO, q6hr, NAUSEA/VOMITING | for Nausea, # 30 tab, 2 Refill(s) Start Date: 11/13/16 Status: Ordered phenytoin 100 mg oral capsule, extended release 100 mg=1 cap, PO, TID, #30 filled on 10/01/16 per [facility] in [place], 0 Refill (s) Start Date: 11/13/16 Status: [...] 1 oldest [Reference Range]: WBC Count [4.0-10.5 9.9 x10^3 cmm x10^3 cmm] (4/1/17 2:36 PM) RBC Count [4.00-5.40 4.15 X10^6 cmm X10^6 cmm] (11/13/16 2:36 PM) Hemoglobin 9.5 g/dL [12.0-16.0 g/dL] *LOW* (11/13/16 2:36 PM) Hematocrit 30.7 % [37.0-47.0 %] *LOW* (11/13/16 2:36 PM) MCV [78-100 fL] 74.0 fL *LOW* (11/13/16 2:36 PM) MCH [27.0-31.0 pg] 22.9 pg *LOW* (11/13/16 2:36 PM) MCHC [32.0-36.0 30.9 g/dL g/dL] *LOW* (11/13/16 2:36 PM) RDW [11.5-14.0 %] 17.2 % *HI* (11/13/16 2:36 PM) Platelet Count 342 x10^3 cmm [150-450 x10^3 cmm] (11/13/16 2:36 PM) MPV [8.0-11.7 fL] 10.8 fL (11/13/16 2:36 PM) Neutrophil % 54.2 % [43.0-65.0 %] (11/13/16 2:36 PM) Lymphocyte % 35.1 % [20.5-45.5 %] (11/13/16 2:36 PM) Monocyte % [5.5-11.7 8.5 % %] (11/13/16 2:36 PM) Eosinophil % 1.4 % [0.9-2.9 %] (11/13/16 2:36 PM) Basophil % [0.2-1.0 0.6 % %] (11/13/16 2:36 PM) Immature Granulocyte 0.2 % (11/13/16 2:36 PM) Immature Grans 0.0 X10^3 Absolute [0.00-0.05 (11/13/16 2:36 PM) X10^3] Neutrophil Abs Auto 5.4 X10^3 [1.72-6.83 X10^3] (11/13/16 2:36 PM) Lymphocyte Abs Auto 3.5 X10^3 [0.84-4.83 X10^3] (11/13/16 2:36 PM) Monocyte Abs Auto 0.8 X10^3 [0.24-1.26 X10^3] (11/13/16 2:36 PM) Eosinophil Abs Auto 0.1 X10^3 [0.04-0.32 X10^3] (11/13/16 2:36 PM) Basophil Abs Auto 0.1 X10^3 [0.00-0.11 X10^3] (11/13/16 2:36 PM) Differential Type AUTOMATED (11/13/16 2:36 PM) Chemistry Most recent to 1 oldest [Reference Range]: Sodium [135-145 141 mmol/L mmol/L] (11/13/16 2:36 PM) Potassium [3.6-5.0 3.7 mmol/L mmol/L] (11/13/16 2:36 PM) Chloride [101-111 105 mmol/L mmol/L] (11/13/16 2:36 PM) Carbon Dioxide Total 20 mmol/L [21-31 mmol/L] *LOW* (11/13/16 2:36 PM) Anion Gap 16 mmol/L 1 (11/13/16 2:36 PM) Glucose Level 82 mg/dL [70-100 mg/dL] (11/13/16 2:36 PM) Blood Urea Nitrogen 8 mg/dL [6-20 mg/dL] (11/13/16 2:36 PM) Creatinine [0.5-1.2 0.5 mg/dL mg/dL] (11/13/16 2:36 PM) Calcium [8.5-10.5 8.3 mg/dL mg/dL] *LOW* (11/13/16 2:36 PM) Total Protein 7.2 g/dL [6.0-8.0 g/dL] (11/13/16 2:36 PM) Albumin [3.2-5.5 4.2 g/dL g/dL] (11/13/16 2:36 PM) Alkaline Phosphatase 86 unit/L [42-121 unit/L] (11/13/16 2:36 PM) AST (SGOT) [10-42 24 unit/L unit/L] (11/13/16 2:36 PM) ALT (SGPT) [10-60 17 unit/L unit/L] (11/13/16 2:36 PM) Bilirubin Total <0.2 mg/dL [0.2-1.0 mg/dL] *LOW* (11/13/16 2:36 PM) Lipase [8-57 unit/L] 50 unit/L (11/13/16 2:36 PM) Calculated GFR [>60] >60.0 2 (11/13/16 2:36 PM) Procalcitonin <0.05 ng/mL 3 [0.00-0.49 ng/mL] (11/13/16 2:36 PM) 1Result Comment: ANION GAP CALCULATION=NA-(CL+CO2) No [...] or unusually low or high creatine intake. 3Result Comment: Concentrations <0.5 ng/mL represent a low risk of severe sepsis and/or septic shock. Concentrations >2 ng/mL represent a high risk of severe sepsis and/or septic shock. Nevertheless, concentrations <0.5 ng/mL do not exclude an infection, on account of localized infections (without systemic signs) which can be associated with such low concentrations, or a systemic infection in its initial stages (<6 hours). Furthermore, increased procalcitonin can occur without infection. PCT concentrations between 0.5 and 2.0 ng/mL should be interpreted taking into account the patient's history. It is recommended to retest PCT within 6 to 24 hours if any concentrations <2 ng/mL are obtained. Immunizations No data available for this section Procedures No data available for this section Social History Social History Type Response Smoking Status Current every day smoker Functional Status COGNITIVE 11/13/16 Orientation Oriented x 3 Assessment and Plan No data available for this section Hospital Discharge Instructions Patient Education Abdominal Pain, Adult Follow Up Care 11/13/2016 14:35:04 With: [facility] Address: [address] [place] [address] [address] [place] [address] Business (1) When: As Needed With: [facility] Address: [address] [place] [address] [address] [place] [address] Business (1) When: This week Comments: Return to ED for worsening symptoms"
--- OUTSIDE RECORDS SUMMARY | 2017-04-18 21:04 | XMS REPORT | Continuity of Care Document ---
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 Diagnosis 07/18/2016 [facility] Anxiety (finding) Active Problem 07/21/2016 [facility], [facility] Dissociative convulsions (disorder) Active Problem 2015 [facility], [facility] Medications Medication Details Route Status Patient Instructions Ordering Provider Order Date Source No Known Medications No known medications Active [facility] Allergies, Adverse Reactions, Alerts Substance Category Reaction Severity Reaction type Status Date Reported Comments Source Metoclopramide Assertion "makes me sick" and "anxious, hot, N/V, felt like I wanted to run away", makes her sick Drug allergy [facility], [facility] Ondansetron Assertion Drug allergy [facility], [facility] Immunizations Immunization Date Given Site Status Last Updated Comments Source No data available for this section No data available for this section [facility], [facility] Results Vital Signs Encounters Location Location Details Encounter Type Encounter Number Reason For Visit Attending Provider ADM Date DC Date Status Source OM [id number] Inpatient [id number] Arely Jennings 07/12/2016 07/14/2016 Active [facility], [facility] [id number] Emergency [id number] Maximus Garcia 07/16/2016 07/16/2016 Active [facility], [facility]. Emergency [id number] . No Family Physician 11/22/2016 11/24/2016 [facility], [facility]. [facility] [id number] Emergency [id number] Kilo Callawayricci 01/07/2017 01/07/2017 Active [facility], [facility]. [facility] Cancel/No Show [id number] Nyasia Dave 01/13/2017 01/13/2017 [facility] Procedures Procedure Code Date Perfomer Comments Source No data available for this section [facility] delivery [id number] [facility], [facility]. Cholecystectomy; [id number] [facility], [facility]. tubal ligation [facility] Plan of Care Social History Assessment and Plan Family History Value Date Source Advance Directives Order Name Results Value Date Source
--- OUTSIDE RECORDS SUMMARY | 2017-04-18 21:04 | XMS REPORT | Referral Summary ---
Author Author [facility] Organization [facility] Address Unknown Phone Unavailable Encounter [facility] [id number] Date(s): 07/11/16 - 07/11/16 [facility] [address] [place] [phone] Discharge Diagnosis: Medication refill Discharge Disposition: 01 O/P Home Attending Physician: Ag Harper PA-C Admitting Physician: Ag Harper PA-C Vital Signs Most recent to 1 oldest [Reference Range]: Height 155 cm (07/11/16 3:25 PM) Blood Pressure 135 / 93 Display (07/11/16 3:29 PM) BMI 25.39 (07/11/16 3:29 PM) Peripheral Pulse 64 bpm Rate [60-100 bpm] (07/11/16 3:25 PM) Temperature Oral 36.2 DegC [35.8-37.3 DegC] (07/11/16 3:25 PM) Problem List No data available for this section Allergies, Adverse Reactions, Alerts No Known Medication Allergies Medications Dilantin 100 mg oral capsule, extended release 100 mg=1 cap, PO, TID, # 90 cap, 0 Refill(s) Start Date: 07/11/16 Stop Date: 08/10/16 Status: Ordered gabapentin 600 mg oral tablet 600 mg=1 tab, PO, TID, # 90 tab, 0 Refill(s) Start Date: 07/11/16 Stop Date: 08/10/16 Status: Ordered Results No data available for this section Immunizations No data available for this section Procedures No data available for this section Social History No data available for this section Functional Status COGNITIVE 07/11/16 Orientation Oriented x 3 Assessment and Plan No data available for this section Hospital Discharge Instructions Patient Education Medicine Refill at the Emergency Department Follow Up Care 07/11/2016 15:22:44 With: Rogerio Cobb Address: [address] [place] [phone] Business (1) When: 5 to 7 days Comments: Call the office to schedule follow up Return to ED for worsening symptoms or concerns TAKE MEDICINES DIRECTED FOLLOW UP WITH PCP FOR FURTHER EVALUATION AND MEDICATION REFILLS
--- OUTSIDE RECORDS SUMMARY | 2017-04-18 21:05 | XMS REPORT ---
Author Ruthie Carlisle [facility] Address [address] [place] [address] Care Team Providers Care Orthopedic Designer Name Role Phone Ruthie Oliavs Unavailable PROBLEMS Type Condition ICD9-CM Code [id number] Code Onset Dates Condition Status SNOMED Code Problem Asthma exacerbation J45.901 Active 080345998 Problem Bipolar 1 disorder F31.9 Active 975034927 Problem Fibromyalgia M79.7 Active 163357706 Problem Seizure disorder G40.909 Active 920885855 ALLERGIES Unknown Allergies SOCIAL HISTORY No smoking Hx information available PLAN OF CARE VITAL SIGNS MEDICATIONS Unknown Medications RESULTS No Results PROCEDURES No Known procedures IMMUNIZATIONS No Known Immunizations
--- OUTSIDE RECORDS SUMMARY | 2017-04-18 21:05 | XMS REPORT ---
Author Ruthie Carlisle [facility] Address [address] [place] [address] Care Team Providers Care Embedded Software Developer Name Role Phone Ruthie Olivas Unavailable PROBLEMS Type Condition ICD9-CM Code LTO06-HL Code Onset Dates Condition Status SNOMED Code Problem Asthma exacerbation J45.901 Active 829985470 Problem Bipolar 1 disorder F31.9 Active 990564060 Problem Fibromyalgia M79.7 Active 409188772 Problem Seizure disorder G40.909 Active 408588494 ALLERGIES Substance Reaction Event Type Date Status N.K.D.A. Unknown Non Drug Allergy Jan, Unknown SOCIAL HISTORY No smoking Hx information available PLAN OF CARE Activity Details Follow Up prn Reason: VITAL SIGNS Heart Rate 74 /min 2017-02-10 Respiratory Rate 17 /min 2017-02-10 Oximetry 99 % 2017-02-10 BMI 34.63 kg/m2 2017-02-10 Height 55 in 2017-02-10 Weight 149 lbs 2017-02-10 Blood pressure systolic 102 mm Hg 2017-02-10 Blood pressure diastolic 80 mm Hg 2017-02-10 MEDICATIONS Medication Instructions Dosage Frequency Start Date End Date Duration Status Lyrica 50 MG Orally Three times a day with a 25 mg for total of 75 mg 1 capsule Active Hyoscyamine Sulfate 0.125 MG Orally every 4 hrs 1 tablet on the tongue and allow to dissolve before meals as needed 4h 10 Nov, 2016 Active Omeprazole 20 MG Orally Twice a day 1 capsule 12h 18 Nov, 2016 14 day(s ) Active Pantoprazole Sodium 40 MG Orally Once a day 1 tablet 24h Active Dilantin 100 MG Orally Three times a day 1 capsule 8h Active Gabapentin 600 MG Orally Three times a day 1 tablet 8h Aug, Active Promethazine HCl 25 MG Orally every 12 hrs 1 tablet as needed 12h Active Hyoscyamine Sulfate 0.125 MG Orally every 4 hrs 1 tablet on the tongue and allow to dissolve before meals as needed 4h Active Omeprazole 20 MG Orally Twice a day 1 capsule 12h 14 Active Sertraline HCl 50 MG Orally Once a day 1 tablet 24h 30 Jul, 2016 Active Lyrica 75 MG Orally Three times a day 1 capsule 8h 19 Nov, 2016 Active ProAir HFA 108 (90 Base) MCG/ACT Inhalation every 4 - 6 hrs as needed 2 puffs December, Active RESULTS No Results PROCEDURES Procedure Date Ordered Related Diagnosis Body Site OFFICEOUTPATIENT VISIT EST OFFICE OR OTHER OUTPATIENT VISIT FOR THE EVALUATION AND MANAGEMENT OF AN ESTABLISHED PATIENT, WHICHREQUIRES AT LEAST 2 OF THESE 3 LARSON COMPONENTS, AN EXPANDED PROBLEM FOCUSED HISTORY,AN EXPANDED PROBLEM FOCUSED EXAMINATION February 10, 2017 IMMUNIZATIONS No Known Immunizations
--- OUTSIDE RECORDS SUMMARY | 2017-04-18 21:05 | XMS REPORT ---
Author Ruthie Carlisle [facility] Address [address] [place] [address] Care Team Providers Care Pain Management Physician Name Role Phone Ruthie Olivas Unavailable PROBLEMS Type Condition ICD9-CM Code IIA84-NI Code Onset Dates Condition Status SNOMED Code Problem Asthma exacerbation J45.901 Active 726968588 Problem Bipolar 1 disorder F31.9 Active 994898766 Problem Fibromyalgia M79.7 Active 447075335 Problem Seizure disorder G40.909 Active 334886301 ALLERGIES Unknown Allergies SOCIAL HISTORY No smoking Hx information available PLAN OF CARE VITAL SIGNS MEDICATIONS Medication Instructions Dosage Frequency Start Date End Date Duration Status Gabapentin 600 MG Orally Three times a day 1 tablet 8h Aug, Active Omeprazole 20 MG Orally Twice a day 1 capsule 12h 14 Active Hyoscyamine Sulfate 0.125 MG Orally every 4 hrs 1 tablet on the tongue and allow to dissolve before meals as needed 4h Active Promethazine HCl 25 MG Orally every 12 hrs 1 tablet as needed 12h Active Dilantin 100 MG Orally Three times a day 1 capsule 8h Active Lyrica 75 MG Orally Three times a day 1 capsule 8h Nov, Active Hyoscyamine Sulfate 0.125 MG Orally every 4 hrs 1 tablet on the tongue and allow to dissolve before meals as needed 4h 10 Nov, 2016 Active Pantoprazole Sodium 40 MG Orally Once a day 1 tablet 24h Active ProAir HFA 108 (90 Base) MCG/ACT Inhalation every 4 - 6 hrs as needed 2 puffs December, Active Sertraline HCl 50 MG Orally Once a day 1 tablet 24h 30 Jul, 2016 Active Omeprazole 20 MG Orally Twice a day 1 capsule 12h Nov, 14 day(s ) Active RESULTS No Results PROCEDURES No Known procedures IMMUNIZATIONS No Known Immunizations
--- OUTSIDE RECORDS SUMMARY | 2017-04-18 21:05 | XMS REPORT | Clinical Summary ---
Author Author [facility] Organization [facility] Address Unknown Phone Unavailable Care Team Providers Care Cloth Dyeing Range Tender Name Role Phone PCP Unavailable Source Comments Some departments are not documenting in the electronic medical record. If you do not see the information that you expected, contact Release of Information in the Health Information Management department at [phone] for further assistance in locating additional records.[facility] Allergies Active Allergy Reactions Severity Noted Date Comments Ondansetron HIVES Medium 11/16/2016 Metoclopramide SEE COMMENTS Low 07/27/2016 Causes nausea, vomiting, diarhea Current Medications Prescription Sig. Disp. Refills Start End Date Status Date pregabalin (LYRICA) 100 Take 100 mg by mouth Active mg capsule twice daily. gabapentin (NEURONTIN) Take 100 mg by mouth Active 100 mg capsule every 8 hours. TREPROSTINIL DIOLAMINE PO Take by mouth. Active CLONAZEPAM (KLONOPIN PO) Take by mouth. Active Active Problems Problem Noted Date Epilepsy (HCC) 07/27/2016 Fibromyalgia 07/27/2016 Social History Tobacco Use Types Packs/Day Years Used Date Current Some Day Smoker Cigarettes 1 Alcohol Use Drinks/Week oz/Week Comments No 0 Standard 0.0 drinks or equivalent Sex Assigned at Date Recorded Not on file Last Filed Vital Signs Vital Sign Reading Time Taken Blood Pressure 142/73 01/13/2017 10:00 AM CDT Pulse 91 11/16/2016 10:30 PM CDT Temperature 36.8 C (98.2 F) 01/13/2017 9:20 AM CDT Respiratory Rate - - Oxygen Saturation 99% 01/13/2017 10:00 AM CDT Inhaled Oxygen - - Concentration Weight 66.2 kg (146 lb) 01/13/2017 9:20 AM CDT Height 157.5 cm (5' 2") 01/13/2017 9:20 AM CDT Body Mass Index 26.7 01/13/2017 9:20 AM CDT Plan of Treatment Health Maintenance Due Date Last Done Comments PHYSICAL (COMPREHENSIVE) 11/03/1995 EXAM PERTUSSIS VACCINE 11/03/1999 TETANUS VACCINE 2005 CERVICAL CANCER SCREENING 2009 INFLUENZA VACCINE 04/15/2017 Results Not on filefrom Last 3 Months
--- OUTSIDE RECORDS SUMMARY | 2017-04-18 21:06 | XMS REPORT | Continuity of Care Document ---
Author Author [facility] Organization [facility] Address [address] [place] [address] Phone Unavailable Care Team Providers Care Primer Assembler Name Role Phone SEAMUS BARBER APRN PCP tel: Advance Directives Directive Response Recorded Date/Time Advance Directives No 02/15/17 7:49pm Advance Directive on File No 02/15/17 7:15pm Durable POA for HC No 02/15/17 7:15pm Power of Pharmaceutical Botanist No 02/15/17 7:15pm Organ Donor Yes 02/15/17 7:15pm Living Will No 02/15/17 7:15pm Chief Complaint and Reason for Visit Chief Complaint Seizure Reason for Visit Minor head injury Seizure disorder Problems Active Problems Medical Problem Onset Date Status Minor head injury Unknown Acute Seizure disorder Unknown Acute Medications No medication information available. Social History Social History Problem Response Recorded Date/Time Smoking Status Current every day smoker 02/15/2017 7:17pm Smoked in the last 12 months? Yes 02/15/2017 7:17pm Do you dip or chew tobacco? No 02/15/2017 7:17pm Approx how many cigs per day? 2 02/15/2017 7:17pm Level of Dependence Low 02/15/2017 7:17pm Former smoker, last day smoked? T 02/15/2017 7:17pm Query Response Start Date Stop Date Smoking Status Current every day smoker 02/16/2017 Hospital Discharge Instructions No hospital discharge instructions. Plan of Care Discharge Date 02/15/17 10:50pm Disposition 01 D/C HOME Condition at Discharge Stable and Improved Instructions/Education Provided Recurrent Seizures in Adults (ED) Forms Provided ER Discharge Phone Call Check Prescriptions See Medication Section Referrals SEAMUS BARBER APRN - Additional Instructions/Education Since you have declined admission (transfer to neurology) I want you to call your neurologist in the morning to schedule rapid follow up Get plenty of sleep Do not miss your seizure medication Return to ED as needed for any worsening or concerning symptoms Functional Status Query Response Date Recorded Activities of Daily Living Performs w/o Assistance February 15, 2017 7:15pm Cognitive Function Intact February 15, 2017 7:15pm Allergies, Adverse Reactions, Alerts Allergen Type Severity Reaction Status Last Updated Metoclopramide Allergy Intermediate NAUSEA Active 02/15/17 Ondansetron Allergy Intermediate RASH, ITCHY Active 02/15/17 Immunizations No immunization records. Vital Signs Acute Vital Signs Vital Response Date/Time Temperature (Fahrenheit) 98.1 degrees F (97.6 - 99.5) 02/15/2017 10:30pm Temperature (Calculated Celsius) 36.31981 degrees C (36.4 - 37.5) 02/15/2017 10:30pm Temperature Source Temporal Artery Scan 02/15/2017 10:30pm Pulse Pulse Ox Pulse Rate (adult) 74 beats per minute (60 - 90) 02/15/2017 10:30pm Pulse Location Modifier Left 02/15/2017 10:30pm Oxygen Saturation Respiratory Rate 16 breaths per minute (12 - 24) 02/15/2017 10:30pm O2 Sat by Pulse Oximetry 96 % (90 - 100) 02/15/2017 10:30pm Blood Pressure 132/91 mm Hg 02/15/2017 10:30pm Blood Pressure Mean 105 mm Hg 02/15/2017 10:30pm Height 5 ft 2 in Weight 130 lb Body Mass Index 23.8 kg/m^2 Results Laboratory Results Test Name Result Units Flags Reference Collection Date/Time Result Date/ Time Comments White Blood Count 9.1 x10^3/uL 4.0-11.0 02/15/2017 7:30pm 02/15/2017 7: 57pm Red Blood Count 4.31 10^6/uL 3.80-5.80 02/15/2017 7:30pm 02/15/2017 7: 57pm Hematocrit 34.4 % L 37.0-47.0 02/15/2017 7:30pm 02/15/2017 7:57pm Mean Corpuscular Volume 80 fl 76-96 02/15/2017 7:30pm 02/15/2017 7: 57pm Mean Corpuscular Hemoglobin 24.8 pg *L 27.0-32.0 02/15/2017 7:30pm 2016 7:57pm Mean Corpuscular Hemoglobin Concent 31.1 g/dl 31.0-35.0 02/15/2017 7: 30pm 02/15/2017 7:57pm Red Cell Distribution Width 22.5 % H 11.0-16.0 02/15/2017 7:30pm 2016 7:57pm Platelet Count 333 10^3/uL 150-500 02/15/2017 7:30pm 02/15/2017 7:57pm Mean Platelet Volume 11.2 fl H 6.0-10.0 02/15/2017 7:30pm 02/15/2017 7: 57pm Neutrophils (%) (Auto) 79.6 % *H 45.0-70.0 02/15/2017 7:30pm 02/15/2017 7 :57pm Lymphocytes (%) (Auto) 13.3 % *L 20.0-40.0 02/15/2017 7:30pm 02/15/2017 7 :57pm Monocytes (%) (Auto) 6.9 % 3.0-10.0 02/15/2017 7:30pm 02/15/2017 7: 57pm Eosinophils (%) (Auto) 0.0 % L 1.0-5.0 02/15/2017 7:30pm 02/15/2017 7: 57pm Basophils (%) (Auto) 0.2 % 0.0-0.5 02/15/2017 7:30pm 02/15/2017 7:57pm Neutrophils # (Auto) 7.22 x10^3/uL 2.00-7.50 02/15/2017 7:30pm 2016 7:57pm Lymphocytes # (Auto) 1.21 x10^3/uL L 1.50-4.00 02/15/2017 7:30pm 2016 7:57pm Monocytes # (Auto) 0.63 x10^3/uL 0.20-0.80 02/15/2017 7:30pm 2016 7:57pm Eosinophils # (Auto) 0.00 x10^3/uL L 0.04-0.40 02/15/2017 7:30pm 2016 7:57pm Basophils # (Auto) 0.02 x10^3/uL 0.02-0.10 02/15/2017 7:30pm 2016 7:57pm Volume Urine Centrifuged 12 ml 02/15/2017 7:30pm 02/15/2017 10:45pm Test based ON 12 ml volume. Urine Color STRAW STRAW 02/15/2017 7:30pm 02/15/2017 10:45pm Urine Clarity CLEAR CLEAR 02/15/2017 7:30pm 02/15/2017 10:45pm Urine Specific [place] 1.025 A 1.010-1.020 02/15/2017 7:30pm 2016 10:45pm Urine pH 6.0 5.0-6.0 02/15/2017 7:30pm 02/15/2017 10:45pm Urine Leukocyte Esterase NEGATIVE NEGATIVE 02/15/2017 7:30pm 2016 10:45pm Urine Nitrite NEGATIVE NEGATIVE 02/15/2017 7:30pm 02/15/2017 10:45pm Urine Protein TRACE A NEGATIVE 02/15/2017 7:30pm 02/15/2017 10:45pm Urine Glucose (UA) NEGATIVE NEGATIVE 02/15/2017 7:30pm 02/15/2017 10: 45pm Urine Ketones NEGATIVE NEGATIVE 02/15/2017 7:30pm 02/15/2017 10:45pm Urine Urobilinogen 0.2 0.2-1.0 02/15/2017 7:30pm 02/15/2017 10:45pm Urine Bilirubin NEGATIVE NEGATIVE 02/15/2017 7:30pm 02/15/2017 10: 45pm Urine Occult Blood NEGATIVE NEGATIVE 02/15/2017 7:30pm 02/15/2017 10: 45pm Urine WBC NONE #/HPF OCCASIONAL 02/15/2017 7:30pm 02/15/2017 10:45pm Urine RBC NONE #/HPF OCCASIONAL 02/15/2017 7:30pm 02/15/2017 10:45pm Urine Epithelial Cells NONE #/HPF OCCASIONAL 02/15/2017 7:30pm 2016 10:45pm Urine Other Casts NONE #/LPF NEGATIVE 02/15/2017 7:3002/15/2017 10: 45pm Urine Bacteria NONE NONE 02/15/2017 7:3002/15/2017 10:45pm Urine Other Crystals NONE NONE 02/15/2017 7:3002/15/2017 10:45pm Urine Mucus NONE NONE 02/15/2017 7:3002/15/2017 10:45pm Urine Culture Indicated NO NO 02/15/2017 7:3002/15/2017 10:45pm Sodium Level 142 mmol/L 137-145 02/15/2017 7:02/15/2017 8:08pm Potassium Level 3.7 mmol/L 3.5-5.1 02/15/2017 7:3002/15/2017 8:08pm Carbon Dioxide Level 23.3 mmol/L 02/15/2017 7:02/15/2017 8: 08pm Anion Gap 16.4 mEq/L H 8-16 02/15/2017 7:02/15/2017 8:08pm Blood Urea Nitrogen 10 mg/dL 02-2802/15/2017 7:02/15/2017 8:08pm Creatinine 0.95 mg/dl 0.52-1.04 02/15/2017 7:02/15/2017 8:08pm Est Glomerular Filtrat Rate mL/min 70.05 02/15/2017 7:2016 8:08pm GFR NORMALS: Stage I: GFR >90 Stage II GFR 60-89 Stage III GFR 30-60 Stage IV: GFR 15-29 Stage V: GFR <15 BUN/Creatinine Ratio 10.52 02/15/2017 7:02/15/2017 8:08pm Glucose Level 145 mg/dL H 74-106 02/15/2017 7:02/15/2017 8:08pm Calculated Osmolality 295.5 mosm/kg 273-304 02/15/2017 7:2016 8:08pm Calcium Level 8.2 mg/dL L 8.4-10.2 02/15/2017 7:02/15/2017 8:08pm Magnesium Level 2.1 mg/dl 1.6-2.3 02/15/2017 7:02/15/2017 8:08pm Total Bilirubin 0.2 mg/dL 0.2-1.3 02/15/2017 7:30pm 02/15/2017 8:08pm Aspartate Amino Transf (AST/SGOT) 24 U/L 14-36 02/15/2017 7:30pm 2016 8:08pm Alanine Aminotransferase (ALT/SGPT) 39 U/L 9-52 02/15/2017 7:30pm 02/15 8:08pm Alkaline Phosphatase 128 U/L H 38-126 02/15/2017 7:30pm 02/15/2017 8: 08pm Total Protein 7.2 g/dL 6.4-8.4 02/15/2017 7:30pm 02/15/2017 8:08pm Albumin 3.6 g/dL 3.4-5.5 02/15/2017 7:30pm 02/15/2017 8:08pm Globulin 3.6 H 2.3-3.5 02/15/2017 7:30pm 02/15/2017 8:08pm Albumin/Globulin Ratio 1.000 02/15/2017 7:30pm 02/15/2017 8:08pm Phencyclidine (PCP) Screen NEGATIVE NEGATIVE 02/15/2017 7:30pm 2016 10:46pm Propoxyphene Screen NEGATIVE NEGATIVE 02/15/2017 7:30pm 02/15/2017 10 :46pm Procedures No known history of procedures. Encounters Encounter Location Arrival/Admit Date Discharge/Depart Date Attending Provider Registered Emergency Room [facility] 02/15/17 7:12pm JEN AREVALO PA-C Recent Diagnosis
--- OUTSIDE RECORDS SUMMARY | 2017-04-18 21:06 | XMS REPORT ---
Author Ruthie Carlisle [facility] Address [address] [place] [address] Care Team Providers Care Supervisor Boat Outfitting Name Role Phone Ruthie Olivas Unavailable PROBLEMS Type Condition ICD9-CM Code [id number] Code Onset Dates Condition Status SNOMED Code Problem Asthma exacerbation J45.901 Active 389078349 Problem Bipolar 1 disorder F31.9 Active 171370215 Problem Fibromyalgia M79.7 Active 629876048 Problem Seizure disorder G40.909 Active 547772023 ALLERGIES Unknown Allergies SOCIAL HISTORY No smoking Hx information available PLAN OF CARE VITAL SIGNS MEDICATIONS Unknown Medications RESULTS No Results PROCEDURES No Known procedures IMMUNIZATIONS No Known Immunizations
--- OUTSIDE RECORDS SUMMARY | 2017-04-18 21:06 | XMS REPORT ---
Author Ruthie Carlisle [facility] Address [address] [place] [address] Care Team Providers Care Consulting Psychologist Name Role Phone Ruthie Olivas Unavailable PROBLEMS Type Condition ICD9-CM Code [id number] Code Onset Dates Condition Status SNOMED Code Problem Asthma exacerbation J45.901 Active 567254562 Problem Bipolar 1 disorder F31.9 Active 579758578 Problem Fibromyalgia M79.7 Active 855263026 Problem Seizure disorder G40.909 Active 595766834 ALLERGIES Unknown Allergies SOCIAL HISTORY No smoking Hx information available PLAN OF CARE VITAL SIGNS MEDICATIONS Medication Instructions Dosage Frequency Start Date End Date Duration Status Promethazine HCl 25 MG Orally every 12 hrs 1 tablet as needed 12h Active Gabapentin 600 MG Orally Three times a day 1 tablet 8h Aug, Active Hyoscyamine Sulfate 0.125 MG Orally every 4 hrs 1 tablet on the tongue and allow to dissolve before meals as needed 4h Active Dilantin 100 MG Orally Three times a day 1 capsule 8h Active Hyoscyamine Sulfate 0.125 MG Orally every 4 hrs 1 tablet on the tongue and allow to dissolve before meals as needed 4h Nov, Active Lyrica 75 MG Orally Three times a day 1 capsule 8h Nov, Active Pantoprazole Sodium 40 MG Orally Once a day 1 tablet 24h Active ProAir HFA 108 (90 Base) MCG/ACT Inhalation every 4 - 6 hrs as needed 2 puffs December, Active Sertraline HCl 50 MG Orally Once a day 1 tablet 24h Jul, Active RESULTS No Results PROCEDURES No Known procedures IMMUNIZATIONS No Known Immunizations
--- OUTSIDE RECORDS SUMMARY | 2017-04-18 21:06 | XMS REPORT ---
Author Ruthie Carlisle [facility] Address [address] [place] [address] Care Team Providers Care Esl Tutor Name Role Phone Ruthie Olivas Unavailable PROBLEMS Type Condition ICD9-CM Code IOU09-PF Code Onset Dates Condition Status SNOMED Code Problem Asthma exacerbation J45.901 Active 199708218 Problem Bipolar 1 disorder F31.9 Active 770191624 Problem Fibromyalgia M79.7 Active 545581929 Problem Seizure disorder G40.909 Active 040474113 ALLERGIES Unknown Allergies SOCIAL HISTORY No smoking Hx information available PLAN OF CARE VITAL SIGNS MEDICATIONS Unknown Medications RESULTS No Results PROCEDURES No Known procedures IMMUNIZATIONS No Known Immunizations
[2017-04-18] MEDS ORDERED: SERT100T8 (21:18)
[2017-04-18] MEDS ORDERED: CLON1TAB3 (21:18)
[2017-04-18] MEDS ORDERED: NS IV 1000 ML 1,000 ML IV ONE (21:19)
[2017-04-18] MEDS ORDERED: PANTOPRAZOLE 40 MG/10 ML (PROTONIX) VIAL IV ONE (21:30)
[2017-04-18] MEDS ORDERED: PROMETHAZINE INJ 25 MG/ML (PHENERGAN) AMP IVP ONE (21:30)
[2017-04-18 21:39] LABS: BASOPHILS % (AUTO) 1 % (0-10); EOSINOPHILS # (AUTO) 0.1 10^3/uL (0.0-0.3); EOSINOPHILS % (AUTO) 2 % (0-10); LYMPHOCYTES # (AUTO) 2.2 X 10^3 (1.0-4.0); LYMPHOCYTES % (AUTO) 32 % (12-44); MEAN CORPUSCULAR HEMOGLOBIN 27 PG (25-34); MEAN CORPUSCULAR HGB CONC 33 G/DL (32-36); MEAN CORPUSCULAR VOLUME 83 FL (80-99); MEAN PLATELET VOLUME 10.7 FL (7.4-10.4); MONOCYTES # (AUTO) 0.5 X 10^3 (0.0-1.0); MONOCYTES % (AUTO) 7 % (0-12); NEUTROPHILS % (AUTO) 59 % (42-75); PLATELET COUNT 369 10^3/uL (130-400); RED CELL DISTRIBUTION WIDTH 17.5 % (10.0-14.5); WHITE BLOOD COUNT 6.9 10^3/uL (4.3-11.0)
[2017-04-18 21:49] LABS: INR 0.9 (0.8-1.4); PROTHROMBIN TIME PATIENT 12.5 SEC (12.2-14.7)
[2017-04-18 22:06] LABS: ACETAMINOPHEN < 10 UG/ML (10-30); ALANINE AMINOTRANSFERASE 14 U/L (0-55); ALBUMIN 4.1 GM/DL (3.2-4.5); ALCOHOL < 10 MG/DL (<10); AMYLASE 36 U/L (25-125); ANION GAP 12 MMOL/L (5-14); ASPARTATE AMINO TRANSFERASE 18 U/L (5-34); BILIRUBIN,TOTAL 0.3 MG/DL (0.1-1.0); BLOOD UREA NITROGEN 10 MG/DL (7-18); BUN/CREATININE RATIO 15; CALCIUM 8.8 MG/DL (8.5-10.1); CARBON DIOXIDE 18 MMOL/L (21-32); CHLORIDE 110 MMOL/L (98-107); CREATININE SERUM 0.66 MG/DL (0.60-1.30); GFR ESTIMATED > 60; GLUCOSE 95 MG/DL (70-105); LIPASE 12 U/L (8-78); MAGNESIUM 2.3 MG/DL (1.8-2.4); POTASSIUM 4.1 MMOL/L (3.6-5.0); SODIUM 140 MMOL/L (135-145); TOTAL PROTEIN 6.8 GM/DL (6.4-8.2)
[2017-04-18] MEDS ORDERED: LORazepam INJ 2 MG/ML (ATIVAN) VIAL ONE (22:07)
[2017-04-18 22:19] VITALS: BP 118/99
[2017-04-18] MEDS ORDERED: diphenhydrAMINE 50 MG/ML INJ (BENADRYL) IVP ONE (22:45)
[2017-04-18 22:59] LABS: BILIRUBIN,URINE NEGATIVE (NEGATIVE); KETONES,URINE 1+ (NEGATIVE); LEUKOCYTE ESTERASE ,URINE 3+ (NEGATIVE); NITRITE,URINE NEGATIVE (NEGATIVE); PH,URINE 6 (5-9); PROTEIN,URINE 1+ (NEGATIVE); UROBILINOGEN,URINE NORMAL (NORMAL)
[2017-04-18 23:09] LABS: WBC,URINE 25-50 /HPF
[2017-04-18] MEDS ORDERED: NS 100 ML (IVPB) BAG IV ONE (23:30)
[2017-04-18] MEDS ORDERED: IOHEXOL 350 MG/ML 100 ML (OMNIPAQUE 350) VIAL IV ONE (23:30)
[2017-04-19] MEDS ORDERED: RX-HYOSCYAMINE 0.125 MG SL (LEVSIN) PPK#6 SL STA (00:27)
[2017-04-19] MEDS ORDERED: RX-NITROFURANTOIN 100 MG (MACROBID) CAP PPK#2 PO STA (00:27)
[2017-04-19] MEDS ORDERED: RX-PHENERGAN 25 MG SUPP PPK#3 PR STA (00:27)
[2017-04-19] MEDS ORDERED: RX-NITROFURANTOIN 100 MG (MACROBID) CAP PPK#2 PO ONE (00:54)
[2017-04-19] MEDS ORDERED: RX-HYOSCYAMINE 0.125 MG SL (LEVSIN) PPK#6 ONE (00:55)
[2017-04-19] MEDS ORDERED: RX-PHENERGAN 25 MG SUPP PPK#3 ONE (00:55)
[2017-04-19] MEDS ORDERED: PANT40TA2 PO (00:58)
[2017-04-19] MEDS ORDERED: HYOS0.1283 SL (00:58)
[2017-04-19] MEDS ORDERED: PROM25SU43 RC (00:58)
[2017-04-19] MEDS ORDERED: NITR-65 PO (00:58)
--- NOTE | 2017-04-19 00:58 | ED GI ---
General Chief Complaint: Abdominal/GI Problems Stated Complaint: VOMITING BLOOD,DIZZINESS Nursing Triage Note: c/o hematemesis Sepsis Screen: No Definite Risk Allergies and Home Medications Allergies Coded Allergies: adhesive tape (Verified Allergy, Severe, RASH, 01/20/17) metoclopramide (Verified Allergy, Severe, HIVES, VOMITING, 01/20/17) ondansetron (Verified Allergy, Severe, HIVES, VOMITING, 01/20/17) Sulfa (Sulfonamide Antibiotics) (Verified Allergy, Unknown, 01/20/17) ketorolac (Verified Allergy, Unknown, 01/20/17) morphine (Verified Allergy, Unknown, 01/20/17) Home Medications Clonazepam 1 Mg Tablet, (Reported) Sertraline HCl 100 Mg Tablet, (Reported) Past Vojxnkj-[id number]-Vvzltd Hx Patient Social History Alcohol Use: Denies Use Recreational Drug Use: No Recent Foreign Travel: No Contact w/Someone Who Travel: No Recent Infectious Disease Expo: No Recent Hopitalizations: No Physical Abuse: No Sexual Abuse: No Immunizations Up To Date Tetanus Booster (TDap): More than 5yrs PED Vaccines UTD: Yes Surgeries History of Surgeries: Yes (RUPTURED OVARIAN CYST) Surgeries: Section, Gallbladder, Tubal Ligation Respiratory History of Respiratory Disorde: No Cardiovascular History of Cardiac Disorders: No Neurological History of Neurological Disord: Yes Neurological Disorders: Seizure Disorder Reproductive System Hx Reproductive Disorders: Yes (CERVICAL DYSPLASIA--S/P LEEP) Female Reproductive Disorders: Denies Genitourinary History of Genitourinary Disor: Yes Genitourinary Disorders: Kidney Stones Gastrointestinal History of Gastrointestinal Di: Yes (WENDY AMAYA SYNDROME) Gastrointestinal Disorders: Ulcer Musculoskeletal History of Musculoskeletal Dis: Yes Musculoskeletal Disorders: Fibromyalgia Endocrine History of Endocrine Disorders: No Cancer History of Cancer: No Psychosocial History of Psychiatric Problem: No Suicide Risk Score: 0 Integumentary History of Skin or Integumenta: No Blood Transfusions History of Blood Disorders: No Adverse Reaction to a Blood Tr: No Family Medical History Family Medial History: Family history: Cardiovascular disease maternal gma Heart disease maternal gma No Family History of: Abdominal aortic aneurysm Orion's disease Alcoholism Aphasia Cancer Cancer of colon Cataract Chest pain Congenital heart disease Congestive heart failure Cystic fibrosis Dementia Dysphagia Family history: Allergy Family history: Alzheimer's disease Family history: Arthritis Family history: Asthma Family history: Breast disease Family history: Coronary thrombosis Family history: Diabetes mellitus Family history: Gastrointestinal disease Family history: Glaucoma Family history: Hypertension Family history: Osteoporosis Family history: Thyroid disorder Headache Hearing loss Hereditary disease History of - anemia History of - disorder History of - respiratory disease History of drug abuse Human immunodeficiency virus (HIV) seropositivity Hypercholesterolemia Infertile Kidney disease Malignant neoplasm of lung Myocardial infarction Parkinson's disease Prostate cancer Psychotic disorder Seizure disorder Stroke Tuberculosis Visual impairment Physical Exam Vital Signs VS - Last 72 Hours, by Label 04/18/17 04/18/17 04/18/17 21:09 21:51 22:19 Temp 97.4 Pulse 96 82 82 103 122 Resp 18 18 B/P (MAP) 146/96 118/99 Pulse Ox 98 100 O2 Delivery Room Air Non Rebreather Capillary Refill : Less Than 3 Seconds Progress/Results/Core Measures Results/Orders Lab Results Laboratory Tests Test 04/18/17 21:30 04/18/17 22:47 Range/Units White Blood Count 6.9 4.3-11.0 10^3/uL Red Blood Count 4.30 L 4.35-5.85 10^6/uL Hemoglobin 11.7 11.5-16.0 G/DL Hematocrit 36 35-52 % Mean Corpuscular Volume 83 80-99 FL Mean Corpuscular Hemoglobin 27 25-34 PG Mean Corpuscular Hemoglobin Concent 33 32-36 G/DL Red Cell Distribution Width 17.5 H 10.0-14.5 % Platelet Count 369 130-400 10^3/uL Mean Platelet Volume 10.7 H 7.4-10.4 FL Neutrophils (%) (Auto) 59 42-75 % Lymphocytes (%) (Auto) 32 12-44 % Monocytes (%) (Auto) 7 0-12 % Eosinophils (%) (Auto) 2 0-10 % Basophils (%) (Auto) 1 0-10 % Neutrophils # (Auto) 4.0 1.8-7.8 X 10^3 Lymphocytes # (Auto) 2.2 1.0-4.0 X 10^3 Monocytes # (Auto) 0.5 0.0-1.0 X 10^3 Eosinophils # (Auto) 0.1 0.0-0.3 10^3/uL Basophils # (Auto) 0.0 0.0-0.1 10^3/uL Prothrombin Time 12.5 12.2-14.7 SEC INR Comment 0.9 0.8-1.4 Activated Partial Thromboplast Time 33 24-35 SEC Sodium Level 140 135-145 MMOL/L Potassium Level 4.1 3.6-5.0 MMOL/L Chloride Level 110 H 98-107 MMOL/L Carbon Dioxide Level 18 L 21-32 MMOL/L Anion Gap 12 5-14 MMOL/L Blood Urea Nitrogen 10 7-18 MG/DL Creatinine 0.66 0.60-1.30 MG/DL Estimat Glomerular Filtration Rate > 60 BUN/Creatinine Ratio 15 Glucose Level 95 70-105 MG/DL Calcium Level 8.8 8.5-10.1 MG/DL Magnesium Level 2.3 1.8-2.4 MG/DL Total Bilirubin 0.3 0.1-1.0 MG/DL Aspartate Amino Transf (AST/SGOT) 18 5-34 U/L Alanine Aminotransferase (ALT/SGPT) 14 0-55 U/L Alkaline Phosphatase 70 40-136 U/L Total Protein 6.8 6.4-8.2 GM/DL Albumin 4.1 3.2-4.5 GM/DL Amylase Level 36 25-125 U/L Lipase 12 8-78 U/L Serum Test, Qualitative NEGATIVE NEGATIVE Acetaminophen Level < 10 L 10-30 UG/ML Serum Alcohol < 10 <10 MG/DL Urine Color YELLOW Urine Clarity SLIGHTLY CLOUDY Urine pH 6 5-9 Urine Specific [place] 1.015 L 1.016-1.022 Urine Protein 1+ H NEGATIVE Urine Glucose (UA) NEGATIVE NEGATIVE Urine Ketones 1+ H NEGATIVE Urine Nitrite NEGATIVE NEGATIVE Urine Bilirubin NEGATIVE NEGATIVE Urine Urobilinogen NORMAL NORMAL MG/DL Urine Leukocyte Esterase 3+ H NEGATIVE Urine RBC (Auto) 4+ H NEGATIVE Urine RBC 5-10 H /HPF Urine WBC 25-50 H /HPF Urine Squamous Epithelial Cells 2-5 /HPF Urine Crystals NONE /LPF Urine Bacteria NEGATIVE /HPF Urine Casts NONE /LPF Urine Mucus SMALL H /LPF Urine Culture Indicated YES Urine Opiates Screen POSITIVE H NEGATIVE Urine Oxycodone Screen NEGATIVE NEGATIVE Urine Methadone Screen NEGATIVE NEGATIVE Urine Propoxyphene Screen NEGATIVE NEGATIVE Urine Barbiturates Screen NEGATIVE NEGATIVE Ur Tricyclic Antidepressants Screen NEGATIVE NEGATIVE Urine Phencyclidine Screen NEGATIVE NEGATIVE Urine Amphetamines Screen NEGATIVE NEGATIVE Urine Methamphetamines Screen NEGATIVE NEGATIVE Urine Benzodiazepines Screen POSITIVE H NEGATIVE Urine Cocaine Screen NEGATIVE NEGATIVE Urine Cannabinoids Screen NEGATIVE NEGATIVE My Orders Orders - GOKUL SARMIENTO DO Saline Lock/Iv-Start (04/18/17 21:19) Orthostatic Vital Signs (04/18/17 21:19) Monitor-Rhythm Ecg Trace Only (04/18/17 21:19) Acetaminophen (04/18/17 21:19) Alcohol (04/18/17 21:19) Amylase (04/18/17 21:19) Cbc With Automated Diff (04/18/17 21:19) Comprehensive Metabolic Panel (04/18/17 21:19) Drug Screen Stat (Urine) (04/18/17 21:19) Hcg,Qualitative Serum (04/18/17 21:19) Lipase (04/18/17 21:19) Magnesium (04/18/17 21:19) Protime With Inr (04/18/17 21:19) Partial Thromboplastin Time (04/18/17 21:19) Saline Lock/Iv-Start (04/18/17 21:19) Ns Iv 1000 Ml (Sodium Chloride 0.9%) (04/18/17 21:19) Pantoprazole Injection (Protonix Injecti (04/18/17 21:30) Promethazine Injection (Phenergan Injec (04/18/17 21:30) Ua Culture If Indicated (04/18/17 21:39) Lorazepam Injection (Ativan Injection) (04/18/17 22:07) Ct Chest/Abdomen/Pelvis W (04/18/17 22:36) Diphenhydramine Injection (Benadryl Inje (04/18/17 22:45) Urine Culture (04/18/17 22:47) Iohexol Injection (Omnipaque 350 Mg/Ml 1 (04/18/17 23:30) Ns (Ivpb) (Sodium Chloride 0.9% Ivpb Bag (04/18/17 23:30) Wrist, Right, 3 Views Or More (04/19/17 00:27) Hand, Right, 3 Views (04/19/17 00:27) Rx-Nitrofurantoin [place] (Rx-Macrobid) (04/19/17 00:27) Rx-Hyoscyamine Tab (Rx-Levsin Sl) (04/19/17 00:27) Rx-Promethazine Hcl (Rx-Phenergan Supp) (04/19/17 00:27) Medications Given in ED Current Medications Medications Dose Ordered Sig/Karolina Route Start Time Stop Time Status Last Admin Dose Admin Diphenhydramine HCl 50 mg ONCE ONCE IVP 04/18/17 22:45 04/18/17 22:46 DC 04/18/17 23:03 50 MG Iohexol 100 ml ONCE ONCE IV 04/18/17 23:30 04/18/17 23:31 DC 04/18/17 23:25 100 ML Lorazepam 2 mg STK-MED ONCE .ROUTE 04/18/17 22:07 04/18/17 22:15 DC 04/18/17 22:17 2 MG Pantoprazole 80 mg ONCE ONCE IV 04/18/17 21:30 04/18/17 21:31 DC 04/18/17 21:43 80 MG Promethazine HCl 25 mg ONCE ONCE IVP 04/18/17 21:30 04/18/17 21:31 DC 04/18/17 21:43 25 MG Sodium Chloride 100 ml ONCE ONCE IV 04/18/17 23:30 04/18/17 23:31 DC 04/18/17 23:25 80 ML Sodium Chloride 1,000 ml @ 0 mls/hr Q0M ONCE IV 04/18/17 21:19 04/18/17 21:22 DC 04/18/17 21:43 0 MLS/HR Vital Signs/I&O Vital Sign - Last 12Hours 04/18/17 04/18/17 04/18/17 21:09 21:51 22:19 Temp 97.4 Pulse 96 82 82 103 122 Resp 18 18 B/P (MAP) 146/96 118/99 Pulse Ox 98 100 O2 Delivery Room Air Non Rebreather Blood Pressure Mean: 105 Departure Impression Impression: Primary Impression: Gastroenteritis Additional Impressions: SELF-REPORTED HEMATEMESIS Observed seizure-like activity RIGHT WRIST/HAND STRAIN UTI (urinary tract infection) Departure-Patient Inst. Referrals: WASHINGTON COYNE DO (PCP/Family) Primary Care Physician Patient Instructions: Common Wrist Injuries (DC), [id number], Gastritis (DC), Urinary Tract Infection, Adult (DC) Add. Discharge Instructions: CLEAR LIQUIDS--WATER, BROTH, JELLO, GATORADE TOMORROW IF YOU ARE BETTER, ADD BRATS DIET TO CLEAR LIQUIDS--BANANAS, RICE, APPLESAUCE, TOAST, SALTINES TAKE YOUR REGULAR MEDICATIONS PRESCRIBED FOLLOW UP WITH DR COYNE THIS WEEK FOR RECHECK All discharge instructions reviewed with patient and/or family. Voiced understanding. Scripts Nitrofurantoin Monohyd/M-Cryst (Macrobid 100 mg Capsule) 100 Mg Capsule 100 MG PO BID, #30 CAP Prov: GOKUL SARMIENTO DO 04/19/17 Hyoscyamine Sulfate (Levsin-Sl) 0.125 Mg Tab.subl 1-2 TAB SL Q4H for Abdominal Pain, #15 TAB Prov: GOKUL SARMIENTO DO 04/19/17 Promethazine HCl (Phenergan) 25 Mg Supp.rect 25 MG RC Q4H for Nausea/Vomiting, #10 SUPP.RECT Prov: GOKUL SARMIENTO DO 04/19/17 Pantoprazole Sodium (Protonix) 40 Mg Tablet. 40 MG PO DAILY, #15 TAB Prov: GOKUL SARMIENTO DO 04/19/17 GOKUL SARMIENOT DO Apr 19, 2017 00:58
[2017-04-19] MEDS ORDERED: ACETAMINOPHEN 500 MG TAB (TYLENOL) PO ONE (01:00)
[2017-04-19 01:10] VITALS: BP 115/88
--- NOTE | 2017-04-19 06:46 | Diagnostic Imaging Report ---
PROCEDURE: CT chest, abdomen, and pelvis with contrast. TECHNIQUE: Multiple contiguous axial images were obtained through the chest, abdomen, and pelvis after the administration of intravenous contrast. INDICATION: Hematemesis CT chest: Lungs are clear, bilaterally. There is no evidence of pleural or pericardial fluid. No pathologic adenopathy is seen in the chest. Osseous structures are unremarkable. There is no CT evidence of esophageal abnormality. IMPRESSION: Unremarkable thoracic CT CT abdomen and pelvis: Comparison is made to study of 01/20/2017. There is low-density throughout the liver. No focal hepatic or splenic lesion is identified. Gallbladder surgically absent. There is no evidence of adrenal gland, pancreatic or gastric abnormality. There appears to be minimal nonobstructing calculi in the central right kidney. There is no hydronephrosis or ureteric stone. No free fluid is seen in the abdomen or pelvis. There is no evidence of appendiceal inflammation. No organized fluid collection is seen to indicate an abscess. IMPRESSION: Probable nonobstructing calculi within the right kidney. Otherwise, no acute abnormality is identified. Dictated by: Dictated on workstation # [id number]
--- NOTE | 2017-04-19 08:08 | Diagnostic Imaging Report ---
INDICATION: Pain. TECHNIQUE: Three views were obtained. FINDINGS: The alignment is normal. There is no fracture or dislocation. Soft tissues are unremarkable. IMPRESSION: No acute fracture or dislocation. Dictated by: Dictated on workstation # [id number]
--- NOTE | 2017-04-19 08:10 | Diagnostic Imaging Report ---
INDICATION: Pain after fall. TECHNIQUE: Three views of the right wrist were obtained. FINDINGS: The alignment is normal. There is no fracture or dislocation. Soft tissues are unremarkable. IMPRESSION: No acute fracture or dislocation. Dictated by: Dictated on workstation # [id number]
== END 2017-04-19 01:10 | disposition home or self-care (01) ==
LOC: EDUNIT# 20:59 → ER 21:00
DX: K52.9 Noninfective gastroenteritis and colitis, unspecified (principal); N39.0 Urinary tract infection, site not specified; M25.531 Pain in right wrist; G40.909 Epilepsy, unspecified, not intractable, without status epilepticus; Z87.11 Personal history of peptic ulcer disease; Z98.51 Tubal ligation status; Z87.59 Personal history of other complications of pregnancy, childbirth and the puerperium; Z87.42 Personal history of other diseases of the female genital tract; Z82.49 Family history of ischemic heart disease and other diseases of the circulatory system
CPT/HCPCS: 36415; 71260; 73110; 73130; 74177; 80053; 80306; 80320; 80329; 81000; 82150; 83690; 83735; 84703; 85025; 85610; 85730; 87088; 93041; 96361; 96374; 96375

== ENCOUNTER 2017-05-19 00:31 | Emergency (ER) | payer MEDICAID ==
[~2017-05-19] VITALS: Ht 154.9 cm; Wt 65.8 kg
[~2017-05-19 00:31] MED LIST changes: +CLON1TAB3; +HYOS0.1283 SL; +NITR-65 PO; +PANT40TA2 PO; +PROM25SU43 RC; +SERT100T8
--- NOTE | 2017-05-19 00:43 | ED Neurological Problem ---
General Stated Complaint: SEIZURE Source: patient, other (boyfriend) Exam Limitations: no limitations History of Present Illness Time seen by provider: 00:35 Initial Comments Patient came to the ER with her boyfriend for his workup then stepped outside for a brief moment when she came back in the boyfriend went to the bathroom when he came back to the room he said she looked like she was fighting a seizure so he had her lay down in the bed and that she began to have a tonic- clonic seizure. Boyfriend says she has a history of seizures for which she uses gabapentin and Lyrica. He says there is an issue with her having ran out of medicines and they're waiting on a refill from the primary care physician but is not sure how long its been because she lives in [place], [place]. He says she has not had a seizure in front of him for several weeks. She did not fall to floor nor did she strike her head and has had no vomiting. After coming to the patient admits that she was seeing Dr. Jones in over from [place] but he recently left and she has not been reassigned to a new neurologist so she has not had any refills on her medications. Allergies and Home Medications Allergies Coded Allergies: adhesive tape (Verified Allergy, Severe, RASH, 01/20/17) metoclopramide (Verified Allergy, Severe, HIVES, VOMITING, 01/20/17) ondansetron (Verified Allergy, Severe, HIVES, VOMITING, 01/20/17) Sulfa (Sulfonamide Antibiotics) (Verified Allergy, Unknown, 01/20/17) ketorolac (Verified Allergy, Unknown, 01/20/17) morphine (Verified Allergy, Unknown, 01/20/17) Home Medications Clonazepam 1 Mg Tablet, (Reported) Gabapentin 300 Mg Capsule, 300 MG PO TID for 30 Days, #90 Ref 0 Prescribed by: GRIFFIN TYLER on 05/19/17 005 Hyoscyamine Sulfate 0.125 Mg Tab.subl, 1-2 TAB SL Q4H, #15 Prescribed by: GOKUL SARMIENTO on 04/19/17 0058 Nitrofurantoin Monohyd/M-Cryst 100 Mg Capsule, 100 MG PO BID, #30 Prescribed by: GOKUL SARMIENTO on 04/19/17 0058 Pantoprazole Sodium 40 Mg Tablet.dr, 40 MG PO DAILY, #15 Prescribed by: GOKUL SARMIENTO on 04/19/1757 Promethazine HCl 25 Mg Supp.rect, 25 MG RC Q4H, #10 Prescribed by: GOKUL SARMIENTO on 04/19/1757 Sertraline HCl 100 Mg Tablet, (Reported) Constitutional: see HPI (unable to obtain secondary to the patient's clinical status.) Past Dvqwxcg-[id number]-Cuhrpq Hx Patient Social History Recent Foreign Travel: No Contact w/Someone Who Travel: No Recent Hopitalizations: No Immunizations Up To Date Tetanus Booster (TDap): More than 5yrs PED Vaccines UTD: Yes Surgeries History of Surgeries: Yes (RUPTURED OVARIAN CYST; X 1) Surgeries: Section, Gallbladder, Tubal Ligation Respiratory History of Respiratory Disorde: No Cardiovascular History of Cardiac Disorders: No Neurological History of Neurological Disord: Yes (PSUEDOSEIZURES) Neurological Disorders: Seizure Disorder Reproductive System Hx Reproductive Disorders: Yes (CERVICAL DYSPLASIA--S/P LEEP) Female Reproductive Disorders: Denies Genitourinary History of Genitourinary Disor: Yes Genitourinary Disorders: Kidney Stones Gastrointestinal History of Gastrointestinal Di: Yes ("ULI OLIVA SYNDROME" PER PT; S/P FRANCO ) Gastrointestinal Disorders: Ulcer, Gall Bladder Disease Musculoskeletal History of Musculoskeletal Dis: Yes Musculoskeletal Disorders: Fibromyalgia Endocrine History of Endocrine Disorders: No HEENT History of HEENT Disorders: No Cancer History of Cancer: No Psychosocial History of Psychiatric Problem: Yes Behavioral Health Disorders: Pseudo Seizures, Anxiety Integumentary History of Skin or Integumenta: No Blood Transfusions History of Blood Disorders: No Adverse Reaction to a Blood Tr: No Family Medical History Family Medial History: Family history: Cardiovascular disease maternal gma Heart disease maternal gma No Family History of: Abdominal aortic aneurysm Orion's disease Alcoholism Aphasia Cancer Cancer of colon Cataract Chest pain Congenital heart disease Congestive heart failure Cystic fibrosis Dementia Dysphagia Family history: Allergy Family history: Alzheimer's disease Family history: Arthritis Family history: Asthma Family history: Breast disease Family history: Coronary thrombosis Family history: Diabetes mellitus Family history: Gastrointestinal disease Family history: Glaucoma Family history: Hypertension Family history: Osteoporosis Family history: Thyroid disorder Headache Hearing loss Hereditary disease History of - anemia History of - disorder History of - respiratory disease History of drug abuse Human immunodeficiency virus (HIV) seropositivity Hypercholesterolemia Infertile Kidney disease Malignant neoplasm of lung Myocardial infarction Parkinson's disease Prostate cancer Psychotic disorder Seizure disorder Stroke Tuberculosis Visual impairment Physical Exam Vital Signs Capillary Refill : General Appearance: WD/WN, mild distress HEENT: PERRL/EOMI, pharynx normal Neck: non-tender, normal inspection Respiratory: chest non-tender, lungs clear, normal breath sounds Cardiovascular: normal peripheral pulses, regular rate, rhythm, no edema Gastrointestinal: normal bowel sounds, non tender, soft Extremities: non-tender, normal capillary refill Neurologic/Psychiatric: other (not postictal) Progress/Results/Core Measures Results/Orders My Orders Orders - GRIFFIN TYLER Lorazepam Injection (Ativan Injection) (05/19/17 00:45) Diphenhydramine Tablet (Benadryl Tablet) (05/19/17 01:00) Gabapentin Capsule/Tablet (Neurontin Cap (05/19/17 01:00) Progress Note : Time: 00:49 Progress Note Patient experienced about 5 minutes of seizure total before 2 mg of Ativan were given. No vomitus, incontinence, tongue or cheek biting, postictal state. Patient experiencing some itching which she says is usually due to the Ativan and would like some Benadryl for this. She says she typically takes 300 mg gabapentin 3-4 times a day and recently was started on Lyrica 75 mg a day. She does not feel the Lyrica helps. She says she's been off the gabapentin for about 30 days now. Departure Impression Impression: Primary Impression: Observed seizure-like activity Disposition: 01 HOME, SELF-CARE Condition: Stable Departure-Patient Inst. Decision time for Depature: 00:51 Referrals: WASHINGTON COYNE DO (PCP/Family) Primary Care Physician Patient Instructions: Seizures, Adult (DC) Add. 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 Contact your neurology clinic and get an appointment to be followed up this month. Scripts Gabapentin (Gabapentin) 300 Mg Capsule 300 MG PO TID for 30 Days, #90 CAP 0 Refills Prov: GRIFFIN TYLER 05/19/17 Copy Copies To 1: WASHINGTON COYNE TITUS J May 19, 2017 00:43
[2017-05-19] MEDS ORDERED: LORazepam INJ 2 MG/ML (ATIVAN) VIAL IM ONE (00:45)
[2017-05-19] MEDS ORDERED: GABA-488 PO (00:55)
--- OUTSIDE RECORDS SUMMARY | 2017-05-19 00:58 | XMS REPORT | Continuity of Care Document ---
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 Diagnosis 07/18/2016 [facility] Anxiety (finding) Active Problem 07/21/2016 [facility], [facility] Dissociative convulsions (disorder) Active Problem 2015 [facility], [facility] Medications Medication Details Route Status Patient Instructions Ordering Provider Order Date Source No Known Medications No known medications Active [facility] Allergies, Adverse Reactions, Alerts Substance Category Reaction Severity Reaction type Status Date Reported Comments Source Metoclopramide Assertion "makes me sick" and "anxious, hot, N/V, felt like I wanted to run away", makes her sick Drug allergy [facility], [facility] Ondansetron Assertion Drug allergy [facility], [facility] Immunizations Immunization Date Given Site Status Last Updated Comments Source No data available for this section No data available for this section [facility] Results Vital Signs Encounters Location Location Details Encounter Type Encounter Number Reason For Visit Attending Provider ADM Date DC Date Status Source OM [id number] Inpatient [id number] Arely Jennings 07/12/2016 07/14/2016 Active [facility], [facility] [id number] Emergency [id number] Maximus Garcia 07/16/2016 07/16/2016 Active [facility], [facility]. Emergency [id number] . No Family Physician 11/22/2016 11/24/2016 [facility]. [facility] [id number] Emergency [id number] Kilo Callawayricci 01/07/2017 01/07/2017 Active [facility], [facility]. [facility] Cancel/No Show [id number] Nyasia Dave 01/13/2017 01/13/2017 [facility] Procedures Procedure Code Date Perfomer Comments Source No data available for this section [facility] delivery [id number] [facility]. Cholecystectomy; [address] [facility], [facility]. tubal ligation [facility] Plan of Care Social History Assessment and Plan Family History Value Date Source Advance Directives Order Name Results Value Date Source
--- OUTSIDE RECORDS SUMMARY | 2017-05-19 00:59 | XMS REPORT | Clinical Summary ---
Author Author [facility] Organization [facility] Address Unknown Phone Unavailable Care Team Providers Care Slab Grinder Name Role Phone PCP Unavailable Source Comments Some departments are not documenting in the electronic medical record. If you do not see the information that you expected, contact Release of Information in the Health Information Management department at [phone] for further assistance in locating additional records.[facility] Allergies Active Allergy Reactions Severity Noted [...] 2005 CERVICAL CANCER SCREENING 2009 INFLUENZA VACCINE 05/15/2017 Results Not on filefrom Last 3 Months
[2017-05-19] MEDS ORDERED: diphenhydrAMINE 25 MG TAB (BENADRYL) PO ONE (01:00)
[2017-05-19] MEDS ORDERED: GABAPENTIN 300 MG (NEURONTIN) CAP PO ONE (01:00)
--- OUTSIDE RECORDS SUMMARY | 2017-05-19 01:00 | XMS REPORT ---
Author Ruthie Carlisle Organization [facility] Address [address] [place] [address] Care Team Providers Care Cleaner And Presser Name Role Phone Ruthie Olivas Unavailable PROBLEMS Type Condition ICD9-CM Code [id number] Code Onset Dates Condition Status SNOMED Code Problem Asthma exacerbation J45.901 Active 620428085 Problem Bipolar 1 disorder F31.9 Active 761186805 Problem Fibromyalgia M79.7 Active 785681153 Problem Seizure disorder G40.909 Active 825682597 ALLERGIES Unknown Allergies SOCIAL HISTORY No smoking Hx information available PLAN OF CARE VITAL SIGNS MEDICATIONS Medication Instructions Dosage Frequency Start Date End Date Duration Status Pantoprazole Sodium 40 MG Orally Once a [...] as needed 4h 10 Nov, 2016 Active Sertraline HCl 50 MG Orally Once a day 1 tablet 24h 30 Jul, 2016 Active ProAir HFA 108 (90 Base) MCG/ACT Inhalation every 4 - 6 hrs as needed 2 puffs December, Active RESULTS No Results PROCEDURES No Known procedures IMMUNIZATIONS No Known Immunizations
--- OUTSIDE RECORDS SUMMARY | 2017-05-19 01:00 | XMS REPORT ---
Author Ruthie Carlisle Organization [facility] Address [address] [place] [address] Care Team Providers Care Substitute Crossing Guard Name Role Phone Ruthie Olivas Unavailable PROBLEMS Type Condition ICD9-CM Code [id number] Code Onset Dates Condition Status SNOMED Code Problem Asthma exacerbation J45.901 Active 384229633 Problem Bipolar 1 disorder F31.9 Active 824007562 Problem Fibromyalgia M79.7 Active 642365413 Problem Seizure disorder G40.909 Active 921991177 ALLERGIES No Information SOCIAL HISTORY Never Assessed PLAN OF CARE VITAL SIGNS MEDICATIONS Unknown Medications RESULTS No Results PROCEDURES No Known procedures IMMUNIZATIONS No Known Immunizations MEDICAL (GENERAL) HISTORY Type Description Date Medical History Fibromyalgia Medical History seizures Surgical History cyst removal Surgical History Surgical History tubal ligation Surgical History gallbladder Hospitalization History seizures Hospitalization History [facility] seizures 06/2016 Hospitalization History [facility] 5 dys for seizures 10/[address] [facility] seizures 01/13-01/24
--- OUTSIDE RECORDS SUMMARY | 2017-05-19 01:01 | XMS REPORT ---
Author Ruthie Carlisle Organization [facility] Address [address] [place] [address] Care Team Providers Care Insurance Salesperson Name Role Phone Ruthie Olivas Unavailable PROBLEMS Type Condition ICD9-CM Code [id number] Code Onset Dates Condition Status SNOMED Code Problem Asthma exacerbation J45.901 Active 894057243 Problem Bipolar 1 disorder F31.9 Active 699156291 Problem Fibromyalgia M79.7 Active 556504024 Problem Seizure disorder G40.909 Active 467261942 ALLERGIES No Information SOCIAL HISTORY Never Assessed [...]
[2017-05-19] MEDS ORDERED: PROMETHAZINE INJ 25 MG/ML (PHENERGAN) AMP IM ONE (01:15)
[2017-05-19 01:25] VITALS: BP 136/79
== END 2017-05-19 01:25 | disposition home or self-care (01) ==
LOC: EDUNIT# 00:37 → ER 00:39
DX: R25.8 Other abnormal involuntary movements (principal); F41.9 Anxiety disorder, unspecified; Z87.19 Personal history of other diseases of the digestive system; Z98.51 Tubal ligation status; Z87.59 Personal history of other complications of pregnancy, childbirth and the puerperium
CPT/HCPCS: 96372; 99284

== ENCOUNTER 2017-12-16 11:51 | Emergency (ER) | payer MEDICAID ==
[~2017-12-16] VITALS: Ht 160 cm; Wt 72.6 kg
[~2017-12-16 11:51] MED LIST changes: +GABA-488 PO
--- OUTSIDE RECORDS SUMMARY | 2017-12-16 11:57 | XMS REPORT | Referral Summary ---
Author Author [facility] Organization [facility] Address Unknown Phone Unavailable Encounter [facility] [phone] Date(s): 06/18/17 - 06/24/[address] [phone] Discharge Diagnosis: Acute renal failure Discharge Diagnosis: Rhabdomyolysis Discharge Diagnosis: Severe sepsis Discharge Diagnosis: Toxic encephalopathy Discharge Diagnosis: Metabolic acidosis Discharge Diagnosis: Clostridium difficile colitis Discharge Diagnosis: Infected dental caries Discharge Disposition: 01 I/P Home Attending Physician: Jose Alfredo Mejía MD Admitting Physician: Jose Alfredo Mejía MD Vital Signs 1 2 3 Most recent to oldest [Reference Range]: 5.09 ft (06/18/17 8:15 PM) Height FT 155 cm (06/23/17 2:28 AM) 155 cm (06/22/17 5:00 AM) 155 cm (06/21/17 4:13 AM) Height 147.05 lb (06/18/17 8:15 PM) 134.48 lb (06/18/17 4:19 PM) Weight LBS 65.1 kg (06/23/17 2:28 AM) 69.7 kg (06/22/17 5:00 AM) 64.6 kg (06/21/17 4:13 AM) Weight, Measured 139 / 94 (06/24/17 11:43 AM) 149 / 96 (06/24/17 8:27 AM) 122 / 93 (06/24/17 4:00 AM) Blood Pressure Display 27.10 (06/23/17 2:28 AM) 29.01 (06/22/17 5:00 AM) 26.89 (06/21/17 4:15 AM) BMI 70 bpm (06/23/17 2:28 AM) 71 bpm (06/22/17 11:23 PM) 61 bpm (06/22/17 7:12 PM) Peripheral Pulse Rate [60-100 bpm] 36.2 DegC (06/23/17 2:28 AM) Temperature Axillary [35.2-36.7 DegC] 36.5 DegC (06/24/17 11:42 AM) 36.4 DegC (06/24/17 8:26 AM) 36.8 DegC (06/24/17 3:59 AM) Temperature Oral [35.8-37.3 DegC] 37.5 DegC (06/18/17 4:19 PM) Temperature Rectal [36.3-37.8 DegC] 36.9 DegC (06/22/17 8:07 AM) 36.8 DegC (06/22/17 7:54 AM) 36.8 DegC (06/22/17 6:00 AM) Temperature Core [36.3-37.8 DegC] Problem List Condition Effective Dates Status Health Status Informant Clostridium Active difficile carrier(Confirmed)1 Tobacco use, Active continuous(Confirmed )2 1Automatically added due to a confirmed lab result. 2Automatically added based on charted SHX tobacco use status. Allergies, Adverse Reactions, Alerts Substance Reaction Severity Status Reglan Active Zofran Active Medications Augmentin 500 mg-125 mg oral tablet 1 tab, PO, BID, X 10 Day(s) day, # 20 tab, 0 Refill(s) Start Date: 06/24/17 Stop Date: 07/04/17 Status: Ordered clonazePAM 1 mg oral tablet 1 mg=1 tab, PO, BID, ANXIETY, 0 Refill(s) Start Date: 06/18/17 Status: Ordered docusate-senna 50 mg-8.6 mg oral tablet 1 tab, PO, BID, Take while taking pain pills., # 60 tab, 0 Refill(s), Pharmacy [facility] Start Date: 06/24/17 Status: Ordered [place] 10 mg-325 mg oral tablet 1 tab, PO, q4hr, PRN: PAIN SEVERE, # 24 tab, 0 Refill(s) Start Date: 06/24/17 Status: Ordered Phenergan 25 mg oral tablet 25 mg=1 tab, PO, q6hr, NAUSEA/VOMITING | for Nausea, # 30 tab, 0 Refill(s) Start Date: 06/24/17 Status: Ordered vancomycin 125 mg oral capsule 125 mg=1 cap, PO, q6hr, # 40 cap, 0 Refill(s), Pharmacy: [facility] Start Date: 06/24/17 Stop Date: 07/04/17 Status: Ordered Results Hematology Most recent to 1 oldest [Reference Range]: WBC Count [4.0-10.5 12.2 x10^3 cmm x10^3 cmm] *HI* (06/24/17 3:57 AM) RBC Count [4.00-5.40 2.75 X10^6 cmm X10^6 cmm] *LOW* (06/24/17 3:57 AM) Hemoglobin 7.3 g/dL [12.0-16.0 g/dL] *LOW* (06/24/17 3:57 AM) Hematocrit 21.5 % [37.0-47.0 %] *LOW* (06/24/17 3:57 AM) MCV [78-100 fL] 78.2 fL (06/24/17 3:57 AM) MCH [27.0-31.0 pg] 26.5 pg *LOW* (06/24/17 3:57 AM) MCHC [32.0-36.0 34.0 g/dL g/dL] (06/24/17 3:57 AM) RDW [11.5-14.0 %] 16.5 % *HI* (06/24/17 3:57 AM) Platelet Count 194 x10^3 cmm [150-450 x10^3 cmm] (06/24/17 3:57 AM) MPV [8.0-11.7 fL] 11.6 fL (06/24/17 3:57 AM) Nucleated RBC's [0 0.1 #/100 WBC #/100 WBC] *HI* (06/19/17 4:05 AM) Nucleated RBC 0.0 x10^3 cmm Absolute [0 x10^3 (06/19/17 4:05 AM) cmm] Neutrophil % 68.5 % [43.0-65.0 %] *HI* (06/24/17 3:57 AM) Lymphocyte % 17.4 % [20.5-45.5 %] *LOW* (06/24/17 3:57 AM) Monocyte % [5.5-11.7 7.6 % %] (06/24/17 3:57 AM) Eosinophil % 4.3 % [0.9-2.9 %] *HI* (06/24/17 3:57 AM) Basophil % [0.2-1.0 0.2 % %] (06/24/17 3:57 AM) Immature Granulocyte 2.0 % (06/24/17 3:57 AM) Immature Grans 0.2 X10^3 Absolute [0.00-0.05 *HI* X10^3] (06/24/17 3:57 AM) Neutrophil Abs Auto 8.4 X10^3 [1.72-6.83 X10^3] *HI* (06/24/17 3:57 AM) Lymphocyte Abs Auto 2.1 X10^3 [0.84-4.83 X10^3] (06/24/17 3:57 AM) Monocyte Abs Auto 0.9 X10^3 [0.24-1.26 X10^3] (06/24/17 3:57 AM) Eosinophil Abs Auto 0.5 X10^3 [0.04-0.32 X10^3] *HI* (06/24/17 3:57 AM) Basophil Abs Auto 0.0 X10^3 [0.00-0.11 X10^3] (06/24/17 3:57 AM) Nucleated RBC, 1 #/100 WBC Manual (06/18/17 5:56 PM) Neutrophil [43-65 %] 95 % *HI* (06/19/17 4:05 AM) Band Neutrophil [0-7 2 % %] (06/19/17 4:05 AM) Lymphocyte [21-46 %] 2 % *LOW* (06/19/17 4:05 AM) Monocyte [6-12 %] 1 % *LOW* (06/19/17 4:05 AM) Abs Neutrophil 16.9 X10^3 [2.2-4.8 X10^3] *HI* (06/19/17 4:05 AM) Abs Lymph [1.3-2.9 0.3 X10^3 X10^3] *LOW* (06/19/17 4:05 AM) Abs Monocyte 0.2 X10^3 [0.3-0.8 X10^3] *LOW* (06/19/17 4:05 AM) Differential Type AUTOMATED (06/24/17 3:57 AM) Anisocytosis SLIGHT (06/18/17 5:56 PM) [place] Cell MODERATE (06/19/17 4:05 AM) Ovalocytes SLIGHT (06/19/17 4:05 AM) Poikolocytosis MODERATE (06/19/17 4:05 AM) Polychromasia OCCASIONAL (06/18/17 5:56 PM) Vacuolated Cytoplasm SLIGHT (06/19/17 4:05 AM) Platelet Morphology NORMAL (06/19/17 4:05 AM) Platelet Estimate ADEQUATE (06/19/17 4:05 AM) Chemistry Most recent to 1 oldest [Reference Range]: Sodium [135-145 141 mmol/L mmol/L] (06/24/17 3:57 AM) Potassium [3.6-5.0 3.8 mmol/L mmol/L] (06/24/17 3:57 AM) Chloride [101-111 105 mmol/L mmol/L] (06/24/17 3:57 AM) Carbon Dioxide Total 24 mmol/L [21-31 mmol/L] (06/24/17 3:57 AM) Anion Gap 12 mmol/L 1 (06/24/17 3:57 AM) Glucose Level 93 mg/dL [70-100 mg/dL] (06/24/17 3:57 AM) Blood Urea Nitrogen 63 mg/dL [6-20 mg/dL] *HI* (06/24/17 3:57 AM) Creatinine [0.5-1.2 4.8 mg/dL mg/dL] *HI* (06/24/17 3:57 AM) Phosphorous [2.5-4.6 5.0 mg/dL mg/dL] *HI* (06/24/17 3:57 AM) Calcium [8.5-10.5 7.4 mg/dL mg/dL] *LOW* (06/24/17 3:57 AM) Total Protein 5.3 g/dL [6.0-8.0 g/dL] *LOW* (06/22/17 4:07 AM) Albumin [3.2-5.5 2.7 g/dL g/dL] *LOW* (06/24/17 3:57 AM) Alkaline Phosphatase 93 unit/L [42-121 unit/L] (06/22/17 4:07 AM) AST (SGOT) [10-42 78 unit/L unit/L] *HI* (06/22/17 4:07 AM) ALT (SGPT) [10-60 57 unit/L unit/L] (06/22/17 4:07 AM) Bilirubin Total 0.2 mg/dL [0.2-1.0 mg/dL] (06/22/17 4:07 AM) Calculated GFR [>60] 10.8 2 *LOW* (06/24/17 3:57 AM) Lactic Acid [0.5-2.0 0.4 mmol/L mmol/L] *LOW* (06/19/17 4:05 AM) Procalcitonin 2.86 ng/mL 3 [0.00-0.49 ng/mL] *HI* (06/19/17 4:05 AM) Magnesium [1.8-2.5 2.0 mg/dL mg/dL] (06/23/17 3:13 AM) 1Result Comment: ANION GAP CALCULATION=NA-(CL+CO2) No reference [...] to 24 hours if any concentrations <2 ng /mL are obtained. Cardiac Studies Most recent to 1 oldest [Reference Range]: Creatine Kinase 5676 unit/L [22-269 unit/L] *HI* (06/21/17 5:12 AM) Coagulation Most recent to 1 oldest [Reference Range]: PT [11.5-14.5 16.00 second second] *HI* (06/19/17 7:34 AM) INR Calculation 1.28 ratio 1 [0.85-1.13 ratio] *HI* (06/19/17 7:34 AM) 1Result Comment: RECOMMENDED INR FOR ORAL ANTICOAGULANT FOR MECHANICAL HEART VALVES AND RECURRENT SYSTEMIC EMBOLISM: 2.5 TO 3.5...FOR ALL OTHER INDICATIONS : 2.0 TO 3.0. Urine Studies Most recent to 1 oldest [Reference Range]: Color, UA [YELL] LIGHT YELLOW *ABN* (06/18/17 6:07 PM) Clarity, UA [Clear] SLIGHTLY CLOUDY (06/18/17 6:07 PM) Glucose, UA [NEG] NEGATIVE (06/18/17 6:07 PM) Bilirubin, UA [NEG] NEGATIVE (06/18/17 6:07 PM) Ketones, UA [NEG >150 mg/dL mg/dL] *ABN* (06/18/17 6:07 PM) Specific [place], UA 1.012 [1.003-1.030] (06/18/17 6:07 PM) Blood, UA [NEG] MODERATE *ABN* (06/18/17 6:07 PM) pH, UA [5.0-9.0] 6.5 (06/18/17 6:07 PM) Protein, UA [NEG 200 mg/dL mg/dL] *ABN* (06/18/17 6:07 PM) Urobilinogen, UA NORMAL [NORM] (06/18/17 6:07 PM) Nitrites, UA [NEG] NEGATIVE (06/18/17 6:07 PM) Leukocyte Esterase, LARGE UA [NEG] *ABN* (06/18/17 6:07 PM) WBC's, UA [OFIVE] 50 to 100 *ABN* (06/18/17 6:07 PM) RBC, UA [OFIVE] 0-5 (06/18/17 6:07 PM) Bacteria, UA [NEG] FEW *ABN* (06/18/17 6:07 PM) Squamous NEG - FEW Epithelials, UA (06/18/17 6:07 PM) [NEGFEW] Urine Culture SENT FOR CULTURE Indicated [NOCULT] *ABN* (06/18/17 6:07 PM) Blood Gas Most recent to 1 oldest [Reference Range]: pH [7.37-7.44] 7.18 1 *LLOW* (06/19/17 5:00 AM) PCO2 [31-45 mmHG] 21 mmHG *LOW* (06/19/17 5:00 AM) PO2 [75-100 mmHG] 87 mmHG (06/19/17 5:00 AM) HCO3 [20-26 mmol/L] 8 mmol/L *LOW* (06/19/17 5:00 AM) Base Excess, Blood -19 [Neg 2 to 2] (06/19/17 5:00 AM) O2 Saturation [95-98 96 % %] (06/19/17 5:00 AM) O2 Flow Rate ROOM AIR (06/19/17 12:25 AM) O2 Delivery ROOM AIR (06/19/17 5:00 AM) Source ARTERIAL (06/19/17 5:00 AM) Ph, Venous 7.44 [7.31-7.41] *HI* (06/20/17 7:37 AM) PCO2, Venous [40-52 31 mmHG mmHG] *LOW* (06/20/17 7:37 AM) PO2, Venous 92 mmHG 2 (06/20/17 7:37 AM) HCO3, Venous [22-28 21 mmol/L mmol/L] *LOW* (06/20/17 7:37 AM) Venous O2 Saturation 96 % 3 (06/20/17 7:37 AM) Site of Collection ARTERIAL (06/19/17 5:00 AM) 1Result Comment: Successful Call: PH called 06/19/2017 05:14 AM to ICU ([id number]/ LUPE HAIRSTON) by [id number]. Read Back: Yes 2Result Comment: NO REFERENCE RANGE ESTABLISHED 3Result Comment: NO REFERENCE RANGE ESTABLISHED Fecal Studies Most recent to 1 oldest [Reference Range]: C. Difficile by PCR, POSITIVE Toxigenic Strain *ABN* [NEG] (06/20/17 7:50 PM) C. Difficile PRESUMPTIVE NEGATIVE FOR EPIDEMIC STRAIN NAP1/027 Epidemic (06/20/17 7:50 PM) Strain/NAP1/027 [NEPI] Blood Bank Most recent to 1 oldest [Reference Range]: Blood Bank Hold DRAWN (06/18/17 5:56 PM) Specimen Or Xm 06/21/2017 Expiration (06/18/17 5:56 PM) Microbiology Reports TEST: Blood Culture STATUS: Order in Progress BODY SITE: SOURCE: Blood COLLECTED DATE/TIME: 06/20/17 11:39 AM Culture NO GROWTH 4 DAYS ORGANISM:No Growth 4 Days TEST: Blood Culture STATUS: Auth (Verified) BODY SITE: SOURCE: Blood COLLECTED DATE/TIME: 06/18/17 6:20 PM Culture STREPTOCOCCUS MITIS/STREPTOCOCCUS ORALIS (1 of 4 bottles) Gram stain called to Dr. Rachael Lane 11 12 [phone] yoseph readback STREP PNEUMONIAE detected note Strep mitis can cross react with Strep pneumo probes molecular results called to Jesus Manuel Dodd in pharmacy 11 12 29 1310 yoseph readback okay <NOTE> Verigene Gram positive blood culture nucleic acid test detects the following organisms and resistance markers: Staph aureus, Staph epidermidis, Staph lugdunensis, Strep pneumoniae, Strep pyogenes, Strep agalactiae, Strep anginosus group, Ec faecalis, Ec faecium, Listeria species, mecA(MRSA), VRE(Farhat and vanB). 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 PLEASE REPEAT IF CLINICALLY INDICATED. ORGANISM:Mixed gram positive joe TEST: Blood Culture STATUS: Auth (Verified) BODY SITE: SOURCE: Blood COLLECTED DATE/TIME: 06/18/17 5:56 PM Report Status FINAL 06/23/2017 ORGANISM:No Growth 5 Days Immunizations No data available for this section Procedures Procedure Date Related Diagnosis Body Site Arterial puncture, withdrawal of blood for 06/19/17 diagnosis Arterial puncture, withdrawal of blood for 06/19/17 diagnosis Arterial puncture, withdrawal of blood for 06/19/17 diagnosis Arterial puncture, withdrawal of blood for 06/18/17 diagnosis Insertion of non-tunneled centrally inserted 06/18/17 central venous catheter; age 5 years or older Insertion of non-tunneled centrally inserted 06/18/17 central venous catheter; age 5 years or older Placement of needle for intraosseous infusion 06/18/17 Placement of needle for intraosseous infusion 06/18/17 Cholecystectomy Tubal ligation Social History Social History Type Response Smoking Status Current some day smoker Functional Status FUNCTIONAL 06/24/17 Bed Mobility Assistance Independent 06/23/17 Ambulation Assistance Independent COGNITIVE 06/24/17 Level of Consciousness Alert Orientation Oriented x 3 Assessment and Plan No data available for this section Hospital Discharge Instructions Patient Education Bacteremia Follow Up Care 06/18/2017 16:16:57 With: Mari Martinez Address: [address] [place] [address] [address] [place] [address] Business (1) When: 1 to 2 weeks Comments: office should call with an appoinment time. With: Warner Sanchez Address: [address] [place] [address] [address] [place] [address] Business (1) When: 7-10 days Comments: office should call with an appoinment time."
--- OUTSIDE RECORDS SUMMARY | 2017-12-16 11:57 | XMS REPORT | Clinical Summary ---
Author Author 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 Disp. Refills Start End Date Status Date sertraline (ZOLOFT) 100 Take 100 mg by mouth 2 0 06/13/20 Active MG tablet (two) times daily. 17 DOK PLUS 50-8.6 MG 06/24/20 Active 17 promethazine (PHENERGAN) Take 25 mg by mouth every 06/24/20 Active 25 MG tablet 8 (eight) hours as 17 needed. LYRICA 75 MG capsule Take 75 mg by mouth 3 06/26/20 Active (three) times daily. 17 hydrocodone-acetaminophen 06/24/20 Active (NORCO) 10-325 MG 17 clonazePAM (KLONOPIN) 1 Take 1 mg by mouth 2 0 07/04/20 Active MG tablet (two) times daily. 17 doxepin (SINEQUAN) 25 MG TK 1 C PO QHS 0 06/13/20 Active capsule 17 gabapentin (NEURONTIN) TK 1 T PO Q 8 H 0 05/30/20 Active 600 MG tablet 17 VYVANSE 30 MG capsule TK 1 C PO QAM 0 06/15/20 Active 17 Active Problems Problem Noted Date MOLINA (acute kidney injury) (HCC) 07/15/2017 History of rhabdomyolysis 07/15/2017 Social History Tobacco Use Types Packs/Day Years Used Date Current Some Day Smoker Cigarettes Smokeless Tobacco: Never Used Alcohol Use Drinks/Week oz/Week Comments No Sex Assigned at Date Recorded Not on file Last Filed Vital Signs Vital Sign Reading Time Taken Blood Pressure 112/68 07/15/2017 4:11 PM [employer]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 Pulse 80 07/15/2017 4:11 PM [employer]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 Temperature - - Respiratory Rate - - Oxygen Saturation - - Inhaled Oxygen - - Concentration Weight 68.5 kg (151 lb) 07/15/2017 4:11 PM AV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 Height 151.9 cm (4' 11.8") 07/15/2017 4:11 PM AV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 Body Mass Index 29.68 07/15/2017 4:11 PM AV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 Plan of Treatment Health Maintenance Due Date Last Done Comments Varicella Vaccines (1 of 2001 2 - 2 Dose Adolescent Series) DTaP,Tdap,and Td Vaccines 11/03/2007 (1 - Tdap) CERVICAL CANCER SCREENING 2009 Influenza Vaccine (Season 04/15/2018 Ended) Results Not on filefrom Last 3 Months
--- OUTSIDE RECORDS SUMMARY | 2017-12-16 11:58 | XMS REPORT | Referral Summary ---
Author Author [facility] Organization [facility] Address Unknown Phone Unavailable Care Team Providers Care Opener Verifier [employer] Name Role Phone Akash Rader PCP Encounter Hospital [facility] [phone] Date(s): 10/07/17 - 10/08/17 [facility] [address] [place] [address] [phone] Discharge Diagnosis: Rt flank pain Discharge Diagnosis: Microscopic hematuria Discharge Diagnosis: Right knee sprain Discharge Diagnosis: H/O fall Discharge Diagnosis: Pseudoseizure Discharge Disposition: 01 O/P Home Attending Physician: Ramiro Adams MD Admitting Physician: Ramiro Adams MD Vital Signs 1 2 3 Most recent to oldest [Reference Range]: 122 / 97 (10/08/17 12:18 AM) 116 / 95 (10/07/17 11:42 PM) 116 / 106 (10/07/17 11:08 PM) Blood Pressure Display 115 bpm *HI* (10/08/17 12:18 AM) 131 bpm *HI* (10/07/17 11:30 PM) 95 bpm (10/07/17 11:00 PM) Peripheral Pulse Rate [60-100 bpm] 36.3 DegC (10/08/17 12:18 AM) Temperature Oral [35.8-37.3 DegC] Problem List Condition Effective Dates Status Health Status Informant Clostridium Active difficile carrier(Confirmed)1 Tobacco use, Active continuous(Confirmed )2 1Automatically added due to a confirmed lab result. 2Automatically added based on charted SHX tobacco use status. Allergies, Adverse Reactions, Alerts Substance Reaction Severity Status Keppra1 Unknown Active Reglan Active Zofran Active 1"makes her really sick" per mother Medications clonazePAM 1 mg oral tablet 1 mg=1 tab, PO, BID, ANXIETY, 0 Refill(s) Start Date: 06/18/17 Status: Ordered Dilantin 100 mg oral capsule, extended release See Instructions, 1 cap PO BID x 3 days then 1 cap PO Q day x 3 days, # 8 cap, 0 Refill(s), [facility] [id number] Start Date: 07/02/17 Status: Ordered docusate-senna 50 mg-8.6 mg oral tablet 1 tab, PO, BID, PRN: CONSTIPATION, # 60 tab, 0 Refill(s), Pharmacy [facility] Start Date: 06/24/17 Status: Ordered Phenergan 25 mg oral tablet 25 mg=1 tab, PO, q6hr, NAUSEA/VOMITING | for Nausea, # 30 tab, 0 Refill(s) Start Date: 06/24/17 Status: Ordered vancomycin 125 mg oral capsule 125 mg=1 cap, PO, q6hr, # 40 cap, 0 Refill(s), Pharmacy: [facility] Start Date: 06/24/17 Stop Date: 07/04/17 Status: Ordered Zoloft 50 mg oral tablet 50 mg=1 tab, PO, qAM Start Date: 07/02/17 Status: Ordered Results Hematology Most recent to 1 oldest [Reference Range]: WBC Count [4.0-10.5 14.2 x10^3 cmm x10^3 cmm] *HI* (10/07/17 8:05 PM) RBC Count [4.00-5.40 4.27 X10^6 cmm X10^6 cmm] (10/07/17 8:05 PM) Hemoglobin 11.5 g/dL [12.0-16.0 g/dL] *LOW* (10/07/17 8:05 PM) Hematocrit 35.1 % [37.0-47.0 %] *LOW* (10/07/17 8:05 PM) MCV [78-100 fL] 82.2 fL (10/07/17 8:05 PM) MCH [27.0-31.0 pg] 26.9 pg *LOW* (10/07/17 8:05 PM) MCHC [32.0-36.0 32.8 g/dL g/dL] (10/07/17 8:05 PM) RDW [11.5-14.0 %] 14.4 % *HI* (10/07/17 8:05 PM) Platelet Count 405 x10^3 cmm [150-450 x10^3 cmm] (10/07/17 8:05 PM) MPV [8.0-11.7 fL] 10.8 fL (10/07/17 8:05 PM) Neutrophil % 69.7 % [43.0-65.0 %] *HI* (10/07/17 8:05 PM) Lymphocyte % 22.9 % [20.5-45.5 %] (10/07/17 8:05 PM) Monocyte % [5.5-11.7 4.9 % %] *LOW* (10/07/17 8:05 PM) Eosinophil % 1.6 % [0.9-2.9 %] (10/07/17 8:05 PM) Basophil % [0.2-1.0 0.6 % %] (10/07/17 8:05 PM) Immature Granulocyte 0.3 % (10/07/17 8:05 PM) Immature Grans 0.0 X10^3 Absolute [0.00-0.05 (10/07/17 8:05 PM) X10^3] Neutrophil Abs Auto 9.9 X10^3 [1.72-6.83 X10^3] *HI* (10/07/17 8:05 PM) Lymphocyte Abs Auto 3.2 X10^3 [0.84-4.83 X10^3] (10/07/17 8:05 PM) Monocyte Abs Auto 0.7 X10^3 [0.24-1.26 X10^3] (10/07/17 8:05 PM) Eosinophil Abs Auto 0.2 X10^3 [0.04-0.32 X10^3] (10/07/17 8:05 PM) Basophil Abs Auto 0.1 X10^3 [0.00-0.11 X10^3] (10/07/17 8:05 PM) Differential Type AUTOMATED (10/07/17 8:05 PM) Chemistry Most recent to 1 oldest [Reference Range]: Sodium [135-145 134 mmol/L mmol/L] *LOW* (10/07/17 8:38 PM) Potassium [3.6-5.0 4.4 mmol/L mmol/L] (10/07/17 8:38 PM) Chloride [101-111 97 mmol/L mmol/L] *LOW* (10/07/17 8:38 PM) Carbon Dioxide Total 23 mmol/L [21-31 mmol/L] (10/07/17 8:38 PM) Anion Gap 14 mmol/L 1 (10/07/17 8:38 PM) Glucose Level 82 mg/dL [70-100 mg/dL] (10/07/17 8:38 PM) Blood Urea Nitrogen 11 mg/dL [6-20 mg/dL] (10/07/17 8:38 PM) Creatinine [0.5-1.2 <0.2 mg/dL mg/dL] *LOW* (10/07/17 8:38 PM) Calcium [8.5-10.5 8.3 mg/dL mg/dL] *LOW* (10/07/17 8:38 PM) Total Protein 6.5 g/dL [6.0-8.0 g/dL] (10/07/17 8:38 PM) Albumin [3.2-5.5 4.1 g/dL g/dL] (10/07/17 8:38 PM) Alkaline Phosphatase 102 unit/L [42-121 unit/L] (10/07/17 8:38 PM) AST (SGOT) [10-42 35 unit/L 2 unit/L] (10/07/17 8:38 PM) ALT (SGPT) [10-60 110 unit/L 3 unit/L] *HI* (10/07/17 8:38 PM) Bilirubin Total <0.2 mg/dL [0.2-1.0 mg/dL] *LOW* (10/07/17 8:38 PM) Calculated GFR [>60] UNABLE TO CALCULATE 4 (10/07/17 8:38 PM) 1Result Comment: ANION GAP CALCULATION=NA-(CL+CO2) No reference range has been established. Value needs to be correlated with clinical evaluation. 2Result Comment: MODERATE LIPEMIA 3Result Comment: MODERATE LIPEMIA 4Result Comment: AVERAGE GFR FOR 20-29 YEARS OLD=116 [...] or unusually low or high creatine intake. Urine Studies Most recent to 1 oldest [Reference Range]: HCG, Urine Qual NEGATIVE 1 [NEG] (10/07/17 10:06 PM) Specific [place], 1.002 Urine (10/07/17 10:06 PM) Color, UA [YELL] COLORLESS *ABN* (10/07/17 10:06 PM) Clarity, UA [Clear] CLEAR (10/07/17 10:06 PM) Glucose, UA [NEG] NEGATIVE (10/07/17 10:06 PM) Bilirubin, UA [NEG] NEGATIVE (10/07/17 10:06 PM) Ketones, UA [NEG] NEGATIVE (10/07/17 10:06 PM) Specific [place], UA 1.002 [1.003-1.030] *LOW* (10/07/17 10:06 PM) Blood, UA [NEG] LARGE *ABN* (10/07/17 10:06 PM) pH, UA [5.0-9.0] 6.0 (10/07/17 10:06 PM) Protein, UA [NEG] NEGATIVE (10/07/17 10:06 PM) Urobilinogen, UA NORMAL [NORM] (10/07/17 10:06 PM) Nitrites, UA [NEG] NEGATIVE (10/07/17 10:06 PM) Leukocyte Esterase, MODERATE UA [NEG] *ABN* (10/07/17 10:06 PM) WBC's, UA [OFIVE] 10 to 25 *ABN* (10/07/17 10:06 PM) RBC, UA [OFIVE] PACKED *ABN* (10/07/17 10:06 PM) Bacteria, UA [NEG] NEGATIVE (10/07/17 10:06 PM) Squamous NEG - FEW Epithelials, UA (10/07/17 10:06 PM) [NEGFEW] Urine Culture SENT FOR CULTURE Indicated [NOCULT] *ABN* (10/07/17 10:06 PM) 1Result Comment: DILUTE URINE SPECIMENS MAY NOT HAVE DIAGNOSTIC LEVELS OF hCG. Microbiology Reports TEST: Urine Culture With [place] Count STATUS: Order in Progress BODY SITE: SOURCE: Urine COLLECTED DATE/TIME: 10/07/17 10:06 PM Culture NO GROWTH. CULTURE REINCUBATED. ORGANISM:No growth. Culture reincubated Immunizations No data available for this section Procedures Procedure Date Related Diagnosis Body Site Cholecystectomy Tubal ligation Social History Social History Type Response Smoking Status Current some day smoker Functional Status COGNITIVE 10/07/17 Orientation Oriented x 3 Assessment and Plan No data available for this section Hospital Discharge Instructions Patient Education Flank Pain, [id number] Knee Sprain Urinary Tract Infection, Tapy-[id number] Follow Up Care 10/07/2017 19:49:25 With: Man Gabriel Address: [address] [place] [id number] [facility] (1) When: 10/11/2017 Comments: Call the orthopedic office on Tuesday and arrange follow up for knee injury Wear immobilizer when you are up and ambulatory. Ice packs as desired With: Follow up with primary care provider Address: Unknown When: 5 to 7 days Comments: Follow up with your primary physician for a repeat urine test to be done in 5-7 days to reasses that infection and blood have cleared
--- OUTSIDE RECORDS SUMMARY | 2017-12-16 11:58 | XMS REPORT | Referral Summary ---
Author Author Organization Address Unknown Phone Unavailable Care Team Providers Care Lithographic Plate Maker Name Role Phone Akash Rader PCP Encounter Hospital [facility] [id number] Date(s): 09/16/17 - 09/16/[address] [address] [phone] Discharge Diagnosis: Pseudoseizures Discharge Disposition: 01 O/P Home Attending Physician: Ramiro Adams MD Admitting Physician: Ramiro Adams MD Vital Signs 1 2 3 Most recent to oldest [Reference Range]: 158 cm (09/16/17 1:24 PM) 158 cm (09/16/17 10:14 AM) 158 cm (09/16/17 8:48 AM) Height 112 / 78 (09/16/17 5:19 PM) 114 / 84 (09/16/17 4:43 PM) 108 / 82 (09/16/17 4:43 PM) Blood Pressure Display 63 bpm (09/16/17 5:19 PM) 73 bpm (09/16/17 4:42 PM) 76 bpm (09/16/17 4:00 PM) Peripheral Pulse Rate [60-100 bpm] 36.7 DegC (09/16/17 7:30 AM) Temperature Oral [35.8-37.3 DegC] Problem List [...] days, # 8 cap, 0 Refill(s), Pharmacy: [id number] Start Date: 07/02/17 Status: Ordered docusate-senna 50 mg-8.6 mg oral tablet 1 tab, PO, BID, PRN: CONSTIPATION, # 60 tab, 0 Refill(s), Pharmacy [facility] Start Date: 06/24/17 Status: Ordered Phenergan 25 mg oral tablet 25 mg=1 tab, PO, q6hr, NAUSEA/VOMITING | for Nausea, # 30 tab, 0 Refill(s) Start Date: 06/24/17 Status: Ordered vancomycin 125 mg oral capsule 125 mg=1 cap, PO, q6hr, # 40 cap, 0 Refill(s), Pharmacy: [facility] Start Date: 06/24/17 Stop Date: 07/04/17 Status: Ordered Zoloft 50 mg oral tablet 50 mg=1 tab, PO, qAM Start Date: 07/02/17 Status: Ordered Results Hematology Most recent to 1 oldest [Reference Range]: WBC Count [4.0-10.5 9.7 x10^3 cmm x10^3 cmm] (09/16/17 7:18 AM) RBC Count [4.00-5.40 3.95 X10^6 cmm X10^6 cmm] *LOW* (09/16/17 7:18 AM) Hemoglobin 10.8 g/dL [12.0-16.0 g/dL] *LOW* (09/16/17 7:18 AM) Hematocrit 32.4 % [37.0-47.0 %] *LOW* (09/16/17 7:18 AM) MCV [78-100 fL] 82.0 fL (09/16/17 7:18 AM) MCH [27.0-31.0 pg] 27.3 pg (09/16/17 7:18 AM) MCHC [32.0-36.0 33.3 g/dL g/dL] (09/16/17 7:18 AM) RDW [11.5-14.0 %] 15.1 % *HI* (09/16/17 7:18 AM) Platelet Count 309 x10^3 cmm [150-450 x10^3 cmm] (09/16/17 7:18 AM) MPV [8.0-11.7 fL] 11.6 fL (09/16/17 7:18 AM) Neutrophil % 65.1 % [43.0-65.0 %] *HI* (09/16/17 7:18 AM) Lymphocyte % 26.4 % [20.5-45.5 %] (09/16/17 7:18 AM) Monocyte % [5.5-11.7 6.5 % %] (09/16/17 7:18 AM) Eosinophil % 0.9 % [0.9-2.9 %] (09/16/17 7:18 AM) Basophil % [0.2-1.0 0.9 % %] (09/16/17 7:18 AM) Immature Granulocyte 0.2 % (09/16/17 7:18 AM) Immature Grans 0.0 X10^3 Absolute [0.00-0.05 (09/16/17 7:18 AM) X10^3] Neutrophil Abs Auto 6.3 X10^3 [1.72-6.83 X10^3] (09/16/17 7:18 AM) Lymphocyte Abs Auto 2.6 X10^3 [0.84-4.83 X10^3] (09/16/17 7:18 AM) Monocyte Abs Auto 0.6 X10^3 [0.24-1.26 X10^3] (09/16/17 7:18 AM) Eosinophil Abs Auto 0.1 X10^3 [0.04-0.32 X10^3] (09/16/17 7:18 AM) Basophil Abs Auto 0.1 X10^3 [0.00-0.11 X10^3] (09/16/17 7:18 AM) Differential Type AUTOMATED (09/16/1718 AM) Chemistry Most recent to 1 oldest [Reference Range]: Sodium [135-145 138 mmol/L mmol/L] (09/16/17 7:18 AM) Potassium [3.6-5.0 3.7 mmol/L mmol/L] (09/16/17 7:18 AM) Chloride [101-111 105 mmol/L mmol/L] (09/16/17 7:18 AM) Carbon Dioxide Total 19 mmol/L [21-31 mmol/L] *LOW* (09/16/17 7:18 AM) Anion Gap 14 mmol/L 1 (09/16/17 7:18 AM) Glucose Level 90 mg/dL [70-100 mg/dL] (09/16/17 7:18 AM) Blood Urea Nitrogen 25 mg/dL [6-20 mg/dL] *HI* (09/16/17 7:18 AM) Creatinine [0.5-1.2 0.7 mg/dL mg/dL] (09/16/17 7:18 AM) Calcium [8.5-10.5 8.8 mg/dL mg/dL] (09/16/17 7:18 AM) Total Protein 7.0 g/dL [6.0-8.0 g/dL] (09/16/17 7:18 AM) Albumin [3.2-5.5 4.0 g/dL g/dL] (09/16/17 7:18 AM) Alkaline Phosphatase 106 unit/L [42-121 unit/L] (09/16/17 7:18 AM) AST (SGOT) [10-42 16 unit/L unit/L] (09/16/17 7:18 AM) ALT (SGPT) [10-60 26 unit/L unit/L] (09/16/17 7:18 AM) Bilirubin Total <0.2 mg/dL [0.2-1.0 mg/dL] *LOW* (09/16/17 7:18 AM) Calculated GFR [>60] >60.0 2 (09/16/17 7:18 AM) 1Result Comment: ANION GAP CALCULATION=NA-(CL+CO2) No [...] or unusually low or high creatine intake. Cardiac Studies Most recent to 1 oldest [Reference Range]: Creatine Kinase 24 unit/L [22-269 unit/L] (09/16/17 7:18 AM) Urine Studies Most recent to 1 oldest [Reference Range]: Color, UA [YELL] LIGHT YELLOW *ABN* (09/16/17 7:25 AM) Clarity, UA [Clear] CLEAR (09/16/17 7:25 AM) Glucose, UA [NEG] NEGATIVE (09/16/17 7:25 AM) Bilirubin, UA [NEG] NEGATIVE (09/16/17 7:25 AM) Ketones, UA [NEG] NEGATIVE (09/16/17 7:25 AM) Specific [place], UA 1.022 [1.003-1.030] (09/16/17 7:25 AM) Blood, UA [NEG] NEGATIVE (09/16/17 7:25 AM) pH, UA [5.0-9.0] 6.0 (09/16/17 7:25 AM) Protein, UA [NEG 20 mg/dL mg/dL] *ABN* (09/16/17 7:25 AM) Urobilinogen, UA NORMAL [NORM] (09/16/17 7:25 AM) Nitrites, UA [NEG] NEGATIVE (09/16/17 7:25 AM) Leukocyte Esterase, NEGATIVE UA [NEG] (09/16/17 7:25 AM) WBC's, UA [OFIVE] 0-5 (09/16/17 7:25 AM) RBC, UA [OFIVE] 0-5 (09/16/17 7:25 AM) Bacteria, UA [NEG] NEGATIVE (09/16/17 7:25 AM) Squamous MODERATE Epithelials, UA *ABN* [NEGFEW] (09/16/17 7:25 AM) Hyaline Casts [NEG] 5 to 10 *ABN* (09/16/17 7:25 AM) Immunizations No data available for this section Procedures Procedure Date Related Diagnosis Body Site Cholecystectomy Tubal ligation Social History Social History Type Response Smoking Status Current some day smoker Functional Status COGNITIVE 09/16/17 Orientation Oriented x 3 Assessment and Plan No data available for this section Hospital Discharge Instructions Patient Education Nonepileptic Seizures Follow Up Care 09/16/2017 06:52:29 With: Follow up with primary care provider Address: Unknown When: As Needed Comments: If Needed Call the office to schedule follow up
--- OUTSIDE RECORDS SUMMARY | 2017-12-16 11:58 | XMS REPORT | Referral Summary ---
Author Author [facility] Organization [facility] Address Unknown Phone Unavailable Care Team Providers Care Procurement Professional Name Role Phone Akash Rader PCP Encounter Hospital [facility] [phone] Date(s): 06/27/17 - 06/27/17 [facility] [address] [place] [address] Discharge Diagnosis: Pseudoseizures Discharge Diagnosis: Myofacial muscle pain Discharge Diagnosis: Anemia Discharge Diagnosis: Hypomagnesemia Discharge Disposition: 01 O/P Home Attending Physician: Kirstie Golden DO Admitting Physician: Kirstie Golden DO Vital Signs 1 2 3 Most recent to oldest [Reference Range]: 159.83 lb (06/27/17 8:22 AM) Weight LBS 72.5 kg (06/27/17 8:22 AM) Weight, Measured 134 / 97 (06/27/17 11:01 AM) 125 / 95 (06/27/17 10:24 AM) 149 / 99 (06/27/17 9:35 AM) Blood Pressure Display 95 bpm (06/27/17 11:01 AM) 95 bpm (06/27/17 10:24 AM) 98 bpm (06/27/17 9:34 AM) Peripheral Pulse Rate [60-100 bpm] 36.5 DegC (06/27/17 8:22 AM) Temperature Oral [35.8-37.3 DegC] Problem List [...] pills., # 60 tab, 0 Refill(s), Pharmacy [facility] Start Date: 06/24/17 Status: Ordered [place] 10 mg-325 mg oral tablet 1 tab, PO, q4hr, PRN: PAIN SEVERE, # 24 tab, 0 Refill(s) Start Date: 06/24/17 Status: Ordered Phenergan 25 mg oral tablet 25 mg=1 tab, PO, q6hr, NAUSEA/VOMITING | for Nausea, # 30 tab, 0 Refill(s) Start Date: 06/24/17 Status: Ordered vancomycin 125 mg oral capsule 125 mg=1 cap, PO, q6hr, # 40 cap, 0 Refill(s), Pharmacy: [facility] Start Date: 06/24/17 Stop Date: 07/04/17 Status: Ordered Results Hematology Most recent to 1 oldest [Reference Range]: WBC Count [4.0-10.5 9.2 x10^3 cmm x10^3 cmm] (06/27/17 9:21 AM) RBC Count [4.00-5.40 2.84 X10^6 cmm X10^6 cmm] *LOW* (06/27/17 9:21 AM) Hemoglobin 7.5 g/dL [12.0-16.0 g/dL] *LOW* (06/27/17 9:21 AM) Hematocrit 22.8 % [37.0-47.0 %] *LOW* (06/27/17 9:21 AM) MCV [78-100 fL] 80.3 fL (06/27/17 9:21 AM) MCH [27.0-31.0 pg] 26.4 pg *LOW* (06/27/17 9:21 AM) MCHC [32.0-36.0 32.9 g/dL g/dL] (06/27/17 9:21 AM) RDW [11.5-14.0 %] 17.4 % *HI* (06/27/17 9:21 AM) Platelet Count 266 x10^3 cmm [150-450 x10^3 cmm] (06/27/17 9:21 AM) MPV [8.0-11.7 fL] 12.0 fL *HI* (06/27/17 9:21 AM) Neutrophil % 69.4 % [43.0-65.0 %] *HI* (06/27/17 9:21 AM) Lymphocyte % 13.0 % [20.5-45.5 %] *LOW* (06/27/17 9:21 AM) Monocyte % [5.5-11.7 14.0 % %] *HI* (06/27/17 9:21 AM) Eosinophil % 1.6 % [0.9-2.9 %] (06/27/17 9:21 AM) Basophil % [0.2-1.0 0.2 % %] (06/27/17 9:21 AM) Immature Granulocyte 1.8 % (06/27/17 9:21 AM) Immature Grans 0.2 X10^3 Absolute [0.00-0.05 *HI* X10^3] (06/27/17 9:21 AM) Neutrophil Abs Auto 6.4 X10^3 [1.72-6.83 X10^3] (06/27/17 9:21 AM) Lymphocyte Abs Auto 1.2 X10^3 [0.84-4.83 X10^3] (06/27/17 9:21 AM) Monocyte Abs Auto 1.3 X10^3 [0.24-1.26 X10^3] *HI* (06/27/17 9:21 AM) Eosinophil Abs Auto 0.2 X10^3 [0.04-0.32 X10^3] (06/27/17 9:21 AM) Basophil Abs Auto 0.0 X10^3 [0.00-0.11 X10^3] (06/27/17 9:21 AM) Differential Type AUTOMATED (06/27/17 9:21 AM) Chemistry Most recent to 1 oldest [Reference Range]: Sodium [135-145 144 mmol/L mmol/L] (11/13/17 9:21 AM) Potassium [3.6-5.0 3.7 mmol/L mmol/L] (06/27/17 AM) Chloride [101-111 104 mmol/L mmol/L] (06/27/17 AM) Carbon Dioxide Total 20 mmol/L [21-31 mmol/L] *LOW* (06/27/17) Anion Gap 20 mmol/L 1 (06/27/17 AM) Glucose Level 85 mg/dL [70-100 mg/dL] (06/27/17 AM) Blood Urea Nitrogen 39 mg/dL [6-20 mg/dL] *HI* (06/27/17 AM) Creatinine [0.5-1.2 3.6 mg/dL mg/dL] *HI* (06/27/17 AM) Calcium [8.5-10.5 8.3 mg/dL mg/dL] *LOW* (06/27/17 AM) Total Protein 6.2 g/dL [6.0-8.0 g/dL] (06/27/17 AM) Albumin [3.2-5.5 3.2 g/dL g/dL] (06/27/17 AM) Alkaline Phosphatase 100 unit/L [42-121 unit/L] (06/27/17 AM) AST (SGOT) [10-42 14 unit/L unit/L] (06/27/17 AM) ALT (SGPT) [10-60 22 unit/L unit/L] (06/27/17 AM) Bilirubin Total <0.2 mg/dL [0.2-1.0 mg/dL] *LOW* (06/27/17 AM) Calculated GFR [>60] 15.1 2 *LOW* (06/27/17 AM) Lactic Acid [0.5-2.0 0.9 mmol/L mmol/L] (06/27/17: AM) Magnesium [1.8-2.5 1.6 mg/dL mg/dL] *LOW* (06/27/17 AM) 1Result Comment: ANION GAP CALCULATION=NA-(CL+CO2) No [...] or unusually low or high creatine intake. Coagulation Most recent to 1 oldest [Reference Range]: PT [11.5-14.5 13.70 second second] (06/27/17 9:21 AM) INR Calculation 1.06 ratio 1 [0.85-1.13 ratio] (06/27/17 9:21 AM) 1Result Comment: RECOMMENDED INR FOR ORAL ANTICOAGULANT FOR MECHANICAL HEART VALVES AND RECURRENT SYSTEMIC EMBOLISM: 2.5 TO 3.5...FOR ALL OTHER INDICATIONS : 2.0 TO 3.0. Urine Studies Most recent to 1 oldest [Reference Range]: Color, UA [YELL] COLORLESS *ABN* (06/27/17 10:15 AM) Clarity, UA [Clear] CLEAR (06/27/17 10:15 AM) Glucose, UA [NEG] NEGATIVE (06/27/17 10:15 AM) Bilirubin, UA [NEG] NEGATIVE (06/27/17 10:15 AM) Ketones, UA [NEG] NEGATIVE (06/27/17 10:15 AM) Specific [place], UA 1.005 [1.003-1.030] (06/27/17 10:15 AM) Blood, UA [NEG] NEGATIVE (06/27/17 10:15 AM) pH, UA [5.0-9.0] 6.5 (06/27/17 10:15 AM) Protein, UA [NEG] NEGATIVE (06/27/17 10:15 AM) Urobilinogen, UA NORMAL [NORM] (06/27/17 10:15 AM) Nitrites, UA [NEG] NEGATIVE (06/27/17 10:15 AM) Leukocyte Esterase, TRACE UA [NEG] *ABN* (11/13/17 10:15 AM) WBC's, UA [OFIVE] 5 to 10 *ABN* (06/27/17 10:15 AM) RBC, UA [OFIVE] 0-5 (06/27/17 10:15 AM) Bacteria, UA [NEG] NEGATIVE (06/27/17 10:15 AM) Squamous NEG - FEW Epithelials, UA (06/27/17 10:15 AM) [NEGFEW] Urine Culture SENT FOR CULTURE Indicated [NOCULT] *ABN* (06/27/17 10:15 AM) Immunizations No data available for this section Procedures Procedure Date Related Diagnosis Body Site Cholecystectomy Tubal ligation Social History Social History Type Response Smoking Status Current some day smoker Functional Status COGNITIVE 06/27/17 Orientation Oriented x 3 Assessment and Plan No data available for this section Hospital Discharge Instructions Patient Education Anemia, Nonspecific Muscle Pain, Adult Follow Up Care 06/27/2017 08:20:54 With: Akash Rader Address: [address] [place] [id number] [phone] Business (1) When: 2-3 days Comments: Call the office to schedule follow up Do not use Advil or ibuprofen, Aleve or Naprosyn for your pain. You may use acetaminophen or Tylenol one or 2 extra strength every 6 hours for pain. Do not exceed 3 g in any 24-hour period Alternate ice and heat to your back and neck. Continue to take your antibiotics as directed Follow-up with nephrology, infectious disease and your behavioral health caregivers as scheduled."
--- OUTSIDE RECORDS SUMMARY | 2017-12-16 11:58 | XMS REPORT | Referral Summary ---
Author Author [facility] Organization [facility] Address Unknown Phone Unavailable Care Team Providers Care Solar Project Engineer Name Role Phone Akash Rader PCP Encounter Hospital [facility] [id number] Date(s): 07/04/17 - 07/04/17 [facility] [address] [place] [address] Discharge Diagnosis: Seizure Discharge Diagnosis: Pseudoseizure Discharge Disposition: 01 O/P Home Attending Physician: Ramiro Adams MD Admitting Physician: Ramiro Adams MD Vital Signs 1 2 3 Most recent to oldest [Reference Range]: 121 / 75 (07/04/17 5:31 PM) 113 / 87 (07/04/17 5:14 PM) 127 / 93 (07/04/17 4:46 PM) Blood Pressure Display 96 bpm (07/04/17 5:30 PM) 93 bpm (07/04/17 5:00 PM) 85 bpm (07/04/17 4:45 PM) Peripheral Pulse Rate [60-100 bpm] 36.6 DegC (07/04/17 2:20 PM) Temperature Rectal [36.3-37.8 DegC] Problem List Condition Effective Dates [...] 0 Refill(s) Start Date: 06/18/17 Status: Ordered clonazePAM 1 mg oral tablet 1 mg=1 tab, PO, BID, # 60 tab, 0 Refill(s) Start Date: 07/04/17 Stop Date: 08/03/17 Status: Ordered Dilantin 100 mg oral capsule, extended release See Instructions, 1 cap PO BID x 3 days then 1 cap PO Q day x 3 days, # 8 cap, 0 Refill(s), Pharmacy: [id number] Start Date: 07/02/17 Status: Ordered docusate-senna 50 mg-8.6 mg oral tablet 1 tab, PO, BID, PRN: CONSTIPATION, # 60 tab, 0 Refill(s), Pharmacy [facility] Start Date: 06/24/17 Status: Ordered [place] 5 mg-325 mg oral tablet 1 tab, PO, q6hr, PRN: PAIN MODERATE, # 20 tab, 0 Refill(s) Start Date: 07/02/17 Stop Date: 07/08/17 Status: Ordered Phenergan 25 mg oral tablet 25 mg=1 tab, PO, q6hr, NAUSEA/VOMITING | for Nausea, # 30 tab, 0 Refill(s) Start Date: 06/24/17 Status: Ordered vancomycin 125 mg oral capsule 125 mg=1 cap, PO, q6hr, # 40 cap, 0 Refill(s), Pharmacy: [facility] Start Date: 06/24/17 Stop Date: 07/04/17 Status: Ordered Zoloft 50 mg oral tablet 50 mg=1 tab, PO, qAM Start Date: 07/02/17 Status: Ordered Results Hematology Most recent to 1 oldest [Reference Range]: WBC Count [4.0-10.5 9.7 x10^3 cmm x10^3 cmm] (07/04/17 2:46 PM) RBC Count [4.00-5.40 3.38 X10^6 cmm X10^6 cmm] *LOW* (07/04/17 2:46 PM) Hemoglobin 9.2 g/dL [12.0-16.0 g/dL] *LOW* (07/04/17 2:46 PM) Hematocrit 28.0 % [37.0-47.0 %] *LOW* (07/04/17 2:46 PM) MCV [78-100 fL] 82.8 fL (07/04/17 2:46 PM) MCH [27.0-31.0 pg] 27.2 pg (07/04/17 2:46 PM) MCHC [32.0-36.0 32.9 g/dL g/dL] (07/04/17 2:46 PM) RDW [11.5-14.0 %] 17.6 % *HI* (07/04/17 2:46 PM) Platelet Count 302 x10^3 cmm [150-450 x10^3 cmm] (07/04/17 2:46 PM) MPV [8.0-11.7 fL] 11.8 fL *HI* (07/04/17 2:46 PM) Neutrophil % 69.2 % [43.0-65.0 %] *HI* (07/04/17 2:46 PM) Lymphocyte % 21.4 % [20.5-45.5 %] (07/04/17 2:46 PM) Monocyte % [5.5-11.7 6.0 % %] (07/04/17 2:46 PM) Eosinophil % 1.0 % [0.9-2.9 %] (07/04/17 2:46 PM) Basophil % [0.2-1.0 1.1 % %] *HI* (07/04/17 2:46 PM) Immature Granulocyte 1.3 % (07/04/17 2:46 PM) Immature Grans 0.1 X10^3 Absolute [0.00-0.05 *HI* X10^3] (07/04/17 2:46 PM) Neutrophil Abs Auto 6.7 X10^3 [1.72-6.83 X10^3] (07/04/17 2:46 PM) Lymphocyte Abs Auto 2.1 X10^3 [0.84-4.83 X10^3] (07/04/17 2:46 PM) Monocyte Abs Auto 0.6 X10^3 [0.24-1.26 X10^3] (07/04/17 2:46 PM) Eosinophil Abs Auto 0.1 X10^3 [0.04-0.32 X10^3] (07/04/17 2:46 PM) Basophil Abs Auto 0.1 X10^3 [0.00-0.11 X10^3] (07/04/17 2:46 PM) Differential Type AUTOMATED (07/04/17 2:46 PM) Chemistry Most recent to 1 oldest [Reference Range]: Sodium [135-145 135 mmol/L mmol/L] (07/04/17 2:46 PM) Potassium [3.6-5.0 5.1 mmol/L 1 mmol/L] *HI* (07/04/17 2:46 PM) Chloride [101-111 101 mmol/L mmol/L] (07/04/17 2:46 PM) Carbon Dioxide Total 18 mmol/L [21-31 mmol/L] *LOW* (07/04/17 2:46 PM) Anion Gap 16 mmol/L 2 (07/04/17 2:46 PM) Glucose Level 91 mg/dL [70-100 mg/dL] (07/04/17 2:46 PM) Blood Urea Nitrogen 21 mg/dL [6-20 mg/dL] *HI* (07/04/17 2:46 PM) Creatinine [0.5-1.2 1.1 mg/dL mg/dL] (07/04/17 2:46 PM) Calcium [8.5-10.5 8.6 mg/dL mg/dL] (07/04/17 2:46 PM) Total Protein 6.9 g/dL [6.0-8.0 g/dL] (07/04/17 2:46 PM) Albumin [3.2-5.5 3.5 g/dL g/dL] (07/04/17 2:46 PM) Alkaline Phosphatase 109 unit/L [42-121 unit/L] (07/04/17 2:46 PM) AST (SGOT) [10-42 36 unit/L 3 unit/L] (07/04/17 2:46 PM) ALT (SGPT) [10-60 35 unit/L unit/L] (07/04/17 2:46 PM) Bilirubin Total <0.2 mg/dL [0.2-1.0 mg/dL] *LOW* (07/04/17 2:46 PM) Calculated GFR [>60] 59.1 4 *LOW* (07/04/17 2:46 PM) Lactic Acid [0.5-2.0 1.0 mmol/L mmol/L] (07/04/17 3:03 PM) Procalcitonin 0.12 ng/mL 5 [0.00-0.49 ng/mL] (07/04/17 2:46 PM) 1Result Comment: SLIGHT HEMOLYSIS 2Result Comment: ANION GAP CALCULATION=NA-(CL+CO2) No reference range has been established. Value needs to be correlated with clinical evaluation. 3Result Comment: SLIGHT HEMOLYSIS 4Result Comment: AVERAGE GFR FOR 20-29 YEARS [...] or unusually low or high creatine intake. 5Result Comment: Concentrations <0.5 ng/mL represent a low [...] any concentrations <2 ng /mL are obtained. Coagulation Most recent to 1 oldest [Reference Range]: PT [11.5-14.5 12.40 second second] (07/04/17 2:46 PM) INR Calculation 0.93 ratio 1 [0.85-1.13 ratio] (07/04/17 2:46 PM) 1Result Comment: RECOMMENDED INR FOR ORAL ANTICOAGULANT FOR MECHANICAL HEART VALVES AND RECURRENT SYSTEMIC EMBOLISM: 2.5 TO 3.5...FOR ALL OTHER INDICATIONS : 2.0 TO 3.0. Urine Studies Most recent to 1 oldest [Reference Range]: Color, UA [YELL] LIGHT YELLOW *ABN* (07/04/17 3:25 PM) Clarity, UA [Clear] CLEAR (07/04/17 3:25 PM) Glucose, UA [NEG] NEGATIVE (07/04/17 3:25 PM) Bilirubin, UA [NEG] NEGATIVE (07/04/17 3:25 PM) Ketones, UA [NEG] NEGATIVE (07/04/17 3:25 PM) Specific [place], UA 1.008 [1.003-1.030] (07/04/17 3:25 PM) Blood, UA [NEG] NEGATIVE (07/04/17 3:25 PM) pH, UA [5.0-9.0] 6.0 (07/04/17 3:25 PM) Protein, UA [NEG] NEGATIVE (07/04/17 3:25 PM) Urobilinogen, UA NORMAL [NORM] (07/04/17 3:25 PM) Nitrites, UA [NEG] NEGATIVE (07/04/17 3:25 PM) Leukocyte Esterase, NEGATIVE UA [NEG] (07/04/17 3:25 PM) Urine Culture NO CULTURE NEEDED Indicated [NOCULT] (07/04/17 3:25 PM) Immunizations No data available for this section Procedures Procedure Date Related Diagnosis Body Site Cholecystectomy Tubal ligation Social History Social History Type Response Smoking Status Current some day smoker Functional Status COGNITIVE 07/04/17 Orientation Oriented x 3 Assessment and Plan No data available for this section Hospital Discharge Instructions Patient Education Nonepileptic Seizures Seizure, Adult Follow Up Care 07/04/2017 14:12:58 With: Return to Emergency Department Address: Unknown When: As Needed Comments: If Needed Return to ED for worsening symptoms See your therapist as scheduled Resume dilantin at previous dosess With: Emery Terrell Address: [address] [place] [id number] Accruent (1) When: 7-10 days Comments: Call the office to schedule follow up for neurological consulatation
--- OUTSIDE RECORDS SUMMARY | 2017-12-16 11:59 | XMS REPORT | Clinical Summary ---
Author Author [facility] Organization [facility] Address Unknown Phone Unavailable Care Team Providers Care Community Assistant Name Role Phone Ruthie Olivas APRN PCP Source Comments Some departments are not documenting in the electronic medical record. If you do not see the information that you expected, contact Release of Information in the Health Information Management department at [phone] for further assistance in locating additional records.[facility] Allergies Active Allergy Reactions Severity Noted Date Comments Metoclopramide SEE COMMENTS Low 07/27/2016 Causes nausea, vomiting, diarhea Ondansetron HIVES Medium 11/16/2016 Current Medications Prescription Sig. Disp. Refills Start [...] PHYSICAL (COMPREHENSIVE) 11/03/1995 EXAM PERTUSSIS VACCINE 11/03/1999 HIV SCREENING 11/03/2003 TETANUS VACCINE 2005 CERVICAL CANCER SCREENING 2009 INFLUENZA VACCINE 05/15/2018 Results Not on filefrom Last 3 Months
--- OUTSIDE RECORDS SUMMARY | 2017-12-16 11:59 | XMS REPORT ---
Author Author [facility] Organization [facility] Address Unknown Phone Unavailable Care Team Providers Care Flute Teacher Name Role Phone No Family Physician, . PCP Unavailable Encounter [id number] Date(s): 07/16/16 - 07/17/16 [facility] [phone] [place] [address] [facility] Discharge Disposition: Home Attending Physician: Maximus Garcia MD Admitting Physician: Maximus Garcia MD Referring Physician: No Family Physician, . Non-Staff Vital Signs No data available for this section Problem List Condition Effective Dates Status Health Status Informant Anxiety(Confirmed) Active Pseudoseizure(Confir Active med) Diagnosis Diagnosis Type Effective Dates Health Status Clinical Service Informant History of Discharge 07/16/16 Non-Specified pseudoseizure Diagnosis Allergies, Adverse Reactions, Alerts Substance Reaction Severity Status Reglan "makes me sick" and "anxious, hot, N/V, felt Active like I wanted to run away" makes her sick Medications No data available for this section Results No data available for this section Immunizations No data available for this section Procedures No data available for this section Social History No data available for this section Assessment and Plan No data available for this section
--- OUTSIDE RECORDS SUMMARY | 2017-12-16 11:59 | XMS REPORT ---
Author 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 PCP Unavailable Encounter [facility] [id number] Date(s): 07/12/16 - 07/14/16 [facility] [address] [address] Discharge Disposition: Home Attending Physician: Arely Jennings MD Admitting Physician: Arely Jennings MD Referring Physician: No Family Physician, . Non-Staff Vital Signs No data available for this section Problem List Condition Effective Dates Status Health Status Informant Anxiety(Confirmed) Active Pseudoseizure(Confir Active med) Diagnosis Diagnosis Type Effective Dates Health Status Clinical Service Informant Anxiety Discharge 07/14/16 Non-Specified Diagnosis Pseudoseizure Discharge 07/14/16 Non-Specified Diagnosis Allergies, Adverse Reactions, Alerts Substance Reaction Severity Status Reglan "makes me sick" and "anxious, hot, N/V, felt Active like I wanted to run away" makes her sick Medications No data available for this section Results No data available for this section Immunizations No data available for this section Procedures Procedure Date Related Diagnosis Body Site delivery Cholecystectomy; tubal ligation Social History No data available for this section Assessment and Plan No data available for this section
--- OUTSIDE RECORDS SUMMARY | 2017-12-16 11:59 | XMS REPORT | Continuity of Care Document ---
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/2016 Diagnosis 07/18/2016 [facility] Anxiety (finding) Active Problem 01/17/2017 [facility] Dissociative convulsions (disorder) Active Problem 2016 [facility] Medications Medication Details Route Status Patient Instructions Ordering Provider Order Date Source No Known Medications No known medications [facility] Allergies, Adverse Reactions, Alerts Substance Category Reaction Severity Reaction type Status Date Reported Comments Source Metoclopramide Assertion "makes me sick" and "anxious, hot, N/V, felt like I wanted to run away", makes her sick Drug allergy [facility] Ondansetron Assertion Drug allergy [facility] Immunizations Results Vital Signs Encounters Location Location Details Encounter Type Encounter Number Reason For Visit Attending Provider ADM Date DC Date Status Source [facility] [id number] Inpatient [id number] Arely Jennings 07/12/2016 07/14/2016 [id number] Inpatient [id number] Arely Jennings 07/12/2016 07/14/2016 Active [facility] [id number] Emergency [id number] Maximus Garcia 07/16/2016 07/16/2016 Active [facility] [id number] Emergency [id number] Maximus Garcia 07/16/2016 07/16/2016 Active [facility] [id number] Emergency [id number] Anum Salomon 11/22/201605/2017 Active [facility]. [facility] [id number] Emergency [id number] Kilo Parks 01/07/2017 01/07/2017 Active [facility]. [facility] Cancel/No Show [id number] Nyasia Dave 01/13/2017 01/13/2017 [facility] [id number] Emergency [id number] Lance Bernardo 10/08/2017 Active [facility] Procedures Procedure Code Date Perfomer Comments Source delivery only; 34492 [facility]. Cholecystectomy; 18513 [facility]. tubal ligation [facility]. Plan of Care Social History Assessment and Plan Family History Advance Directives Functional Status
--- OUTSIDE RECORDS SUMMARY | 2017-12-16 11:59 | XMS REPORT | Referral Summary ---
Author Author [facility] Organization [facility] Address Unknown Phone Unavailable Care Team Providers Care Clinical Data Assistant Name Role Phone Akash Rader PCP Encounter Hospital [facility] [id number] Date(s): 06/29/17 - 07/02/17 [facility] [address] [place] [address] Discharge Diagnosis: Status epilepticus Discharge Diagnosis: Grand mal seizure Discharge Diagnosis: MOLINA (acute kidney injury) Discharge Diagnosis: Facial cellulitis Discharge Diagnosis: Pseudoseizure Discharge Diagnosis: Pneumothorax Discharge Diagnosis: Hypomagnesemia Discharge Diagnosis: Metabolic encephalopathy Discharge Disposition: 01 I/P Home Attending Physician: Sherlyn Arechiga DO Admitting Physician: Sherlyn Arechiga DO Vital Signs 1 2 3 Most recent to oldest [Reference Range]: 5.18 ft (06/29/17 3:30 PM) Height FT 158 cm (07/01/17 4:12 AM) 158 cm (06/30/17 5:20 AM) 158 cm (06/29/17 3:30 PM) Height 160.94 lb (06/29/17 3:30 PM) Weight LBS 73.3 kg (07/01/17 4:12 AM) 73 kg (06/30/17 5:20 AM) 73 kg (06/29/17 3:30 PM) Weight, Measured 123 / 79 (07/02/17 4:20 AM) 131 / 91 (07/01/17 9:36 PM) 123 / 78 (07/01/17 3:20 PM) Blood Pressure Display 29.36 (07/01/17 4:12 AM) 29.24 (06/30/17 5:20 AM) 29.24 (06/29/17 3:31 PM) BMI 72 bpm (07/02/17 4:17 AM) 80 bpm (07/01/17 9:36 PM) 83 bpm (07/01/17 3:20 PM) Peripheral Pulse Rate [60-100 bpm] 37.0 DegC *HI* (07/02/17 4:17 AM) Temperature Axillary [35.2-36.7 DegC] 37.1 DegC (07/01/17 9:36 PM) 36.6 DegC (07/01/17 3:20 PM) 36.7 DegC (07/01/17 7:59 AM) Temperature Oral [35.8-37.3 DegC] 37.8 DegC (06/30/17 3:59 PM) 37.1 DegC (06/30/17 12:20 PM) 37.5 DegC (06/30/17 12:00 PM) Temperature Core [36.3-37.8 DegC] Problem List Condition Effective Dates Status Health Status Informant Clostridium Active difficile carrier(Confirmed)1 Tobacco use, Active continuous(Confirmed )2 1Automatically added due to a confirmed lab result. 2Automatically added based on charted SHX tobacco use status. Allergies, Adverse Reactions, Alerts Substance Reaction Severity Status Keppra1 Unknown Active Reglan Active Zofran Active 1"makes her really sick" per mother Medications Augmentin 500 mg-125 mg oral tablet [...] days, # 8 cap, 0 Refill(s), Pharmacy: [id number] Start Date: 07/02/17 Status: Ordered docusate-senna 50 mg-8.6 mg oral tablet 1 tab, PO, BID, PRN: CONSTIPATION, # 60 tab, 0 Refill(s), Pharmacy [facility] Start Date: 06/24/17 Status: Ordered Jay 5 mg-325 mg oral tablet 1 tab, [...] q6hr, # 40 cap, 0 Refill(s), Pharmacy: [facility] Start Date: 06/24/17 Stop Date: 07/04/17 Status: Ordered Zoloft 50 mg oral tablet 50 mg=1 tab, PO, qAM Start Date: 07/02/17 Status: Ordered Results Hematology Most recent to 1 oldest [Reference Range]: WBC Count [4.0-10.5 10.9 x10^3 cmm x10^3 cmm] *HI* (07/02/17 6:36 AM) RBC Count [4.00-5.40 3.07 X10^6 cmm X10^6 cmm] *LOW* (07/02/17 6:36 AM) Hemoglobin 8.4 g/dL [12.0-16.0 g/dL] *LOW* (07/02/17 6:36 AM) Hematocrit 24.9 % [37.0-47.0 %] *LOW* (07/02/17 6:36 AM) MCV [78-100 fL] 81.1 fL (07/02/17 6:36 AM) MCH [27.0-31.0 pg] 27.4 pg (07/02/17 6:36 AM) MCHC [32.0-36.0 33.7 g/dL g/dL] (07/02/17 6:36 AM) RDW [11.5-14.0 %] 17.1 % *HI* (07/02/17 6:36 AM) Platelet Count 314 x10^3 cmm [150-450 x10^3 cmm] (07/02/17 6:36 AM) MPV [8.0-11.7 fL] 11.5 fL (07/02/17 6:36 AM) Neutrophil % 83.2 % [43.0-65.0 %] *HI* (06/30/17 1:58 PM) Lymphocyte % 10.7 % [20.5-45.5 %] *LOW* (06/30/17 1:58 PM) Monocyte % [5.5-11.7 4.3 % %] *LOW* (06/30/17 1:58 PM) Eosinophil % 1.0 % [0.9-2.9 %] (06/30/17 1:58 PM) Basophil % [0.2-1.0 0.2 % %] (06/30/17 1:58 PM) Immature Granulocyte 0.6 % (06/30/17 1:58 PM) Immature Grans 0.1 X10^3 Absolute [0.00-0.05 *HI* X10^3] (06/30/17 1:58 PM) Neutrophil Abs Auto 9.8 X10^3 [1.72-6.83 X10^3] *HI* (06/30/17 1:58 PM) Lymphocyte Abs Auto 1.3 X10^3 [0.84-4.83 X10^3] (06/30/17 1:58 PM) Monocyte Abs Auto 0.5 X10^3 [0.24-1.26 X10^3] (06/30/17 1:58 PM) Eosinophil Abs Auto 0.1 X10^3 [0.04-0.32 X10^3] (06/30/17 1:58 PM) Basophil Abs Auto 0.0 X10^3 [0.00-0.11 X10^3] (06/30/17 1:58 PM) Differential Type AUTOMATED (06/30/17 1:58 PM) Chemistry Most recent to 1 oldest [Reference Range]: Sodium [135-145 136 mmol/L mmol/L] (07/02/17 6:36 AM) Potassium [3.6-5.0 3.6 mmol/L mmol/L] (07/02/17 6:36 AM) Chloride [101-111 98 mmol/L mmol/L] *LOW* (07/02/17 6:36 AM) Carbon Dioxide Total 24 mmol/L [21-31 mmol/L] (07/02/17 6:36 AM) Anion Gap 14 mmol/L 1 (07/02/17 6:36 AM) Glucose Level 78 mg/dL [70-100 mg/dL] (07/02/17 6:36 AM) Blood Urea Nitrogen 20 mg/dL [6-20 mg/dL] (07/02/17 6:36 AM) Creatinine [0.5-1.2 1.4 mg/dL mg/dL] *HI* (07/02/17 6:36 AM) Phosphorous [2.5-4.6 4.2 mg/dL mg/dL] (07/02/17 6:36 AM) Calcium [8.5-10.5 8.3 mg/dL mg/dL] *LOW* (07/02/17 6:36 AM) Total Protein 5.6 g/dL [6.0-8.0 g/dL] *LOW* (06/30/17 3:11 AM) Albumin [3.2-5.5 3.1 g/dL g/dL] *LOW* (07/02/17 6:36 AM) Alkaline Phosphatase 85 unit/L [42-121 unit/L] (06/30/17 3:11 AM) AST (SGOT) [10-42 16 unit/L unit/L] (06/30/17 3:11 AM) ALT (SGPT) [10-60 12 unit/L unit/L] (06/30/17 3:11 AM) Bilirubin Total <0.2 mg/dL [0.2-1.0 mg/dL] *LOW* (06/30/17 3:11 AM) Calculated GFR [>60] 44.8 2 *LOW* (07/02/17 6:36 AM) Magnesium [1.8-2.5 1.5 mg/dL mg/dL] *LOW* (07/02/17 6:36 AM) Iron [42-135 mcg/dL] 54 mcg/dL (06/30/17 6:42 AM) Total Iron Binding 200 mcg/dL Capacity Calculated *LOW* [250-400 mcg/dL] (06/30/17 6:42 AM) Transferrin 27 % 3 Saturation (06/30/17 6:42 AM) 1Result Comment: ANION GAP CALCULATION=NA-(CL+CO2) No [...] low or high creatine intake. 3Result Comment: NO REFERENCE RANGE ESTABLISHED Cardiac Studies Most recent to 1 oldest [Reference Range]: Creatine Kinase 147 unit/L [22-269 unit/L] (06/29/17 12:05 PM) Urine Studies Most recent to 1 oldest [Reference Range]: Color, UA [YELL] COLORLESS *ABN* (06/30/17 1:45 PM) Clarity, UA [Clear] CLEAR (06/30/17 1:45 PM) Glucose, UA [NEG] NEGATIVE (06/30/17 1:45 PM) Bilirubin, UA [NEG] NEGATIVE (06/30/17 1:45 PM) Ketones, UA [NEG] NEGATIVE (06/30/17 1:45 PM) Specific [place], UA 1.003 [1.003-1.030] (06/30/17 1:45 PM) Blood, UA [NEG] NEGATIVE (06/30/17 1:45 PM) pH, UA [5.0-9.0] 7.0 (06/30/17 1:45 PM) Protein, UA [NEG] NEGATIVE (06/30/17 1:45 PM) Urobilinogen, UA NORMAL [NORM] (06/30/17 1:45 PM) Nitrites, UA [NEG] NEGATIVE (06/30/17 1:45 PM) Leukocyte Esterase, NEGATIVE UA [NEG] (06/30/17 1:45 PM) Urine Culture NO CULTURE NEEDED Indicated [NOCULT] (06/30/17 1:45 PM) Blood Gas Most recent to 1 oldest [Reference Range]: pH [7.37-7.44] 7.37 (06/29/17 4:20 PM) PCO2 [31-45 mmHG] 38 mmHG (06/29/17 4:20 PM) PO2 [75-100 mmHG] 109 mmHG *HI* (06/29/17 4:20 PM) HCO3 [20-26 mmol/L] 21 mmol/L (06/29/17 4:20 PM) Base Excess, Blood -4 [Neg 2 to 2] (06/29/17 4:20 PM) O2 Saturation [95-98 97 % %] (06/29/17 4:20 PM) O2 % Administered 30% (06/29/17 4:20 PM) O2 Delivery VENT (06/29/17 4:20 PM) Source ARTERIAL (06/29/17 4:20 PM) Ph, Venous 7.45 [7.31-7.41] *HI* (06/30/17 3:12 AM) PCO2, Venous [40-52 33 mmHG mmHG] *LOW* (06/30/17 3:12 AM) PO2, Venous 97 mmHG 1 (06/30/17 3:12 AM) HCO3, Venous [22-28 22 mmol/L mmol/L] (06/30/17 3:12 AM) Venous O2 Saturation 97 % 2 (06/30/17 3:12 AM) Site of Collection LEFT RADIAL ARTERY (06/29/17 4:20 PM) 1Result Comment: NO REFERENCE RANGE ESTABLISHED 2Result Comment: NO REFERENCE RANGE ESTABLISHED Fecal Studies Most recent to 1 oldest [Reference Range]: C. Difficile by PCR, NEGATIVE Toxigenic Strain (06/30/17 8:22 PM) [NEG] C. Difficile PRESUMPTIVE NEGATIVE FOR EPIDEMIC STRAIN NAP1/027 Epidemic (06/30/17 8:22 PM) Strain/NAP1/027 [NEPI] Blood Bank Most recent to 1 oldest [Reference Range]: ABO/Rh O POS (06/30/17 8:04 AM) Antibody Screen NEG (06/30/17 8:04 AM) Specimen Or Xm 07/03/2017 Expiration (06/30/17 8:04 AM) Blood Component Type PCLR (06/30/17 8:04 AM) Unit Number [id number] (06/30/17 8:04 AM) Unit Division 00 (06/30/17 8:04 AM) Crossmatch Interp APPEARS COMPATIBLE (06/30/17 8:04 AM) Status Of Unit TRANSFUSED (06/30/17 8:04 AM) Microbiology Reports TEST: Blood Culture STATUS: Order in Progress BODY SITE: SOURCE: Blood COLLECTED DATE/TIME: 06/29/17 5:18 PM Culture NO GROWTH 3 DAYS ORGANISM:No Growth 3 Days TEST: Blood Culture STATUS: Order in Progress BODY SITE: SOURCE: Blood COLLECTED DATE/TIME: 06/29/17 5:00 PM Culture NO GROWTH 3 DAYS ORGANISM:No Growth 3 Days Immunizations No data available for this section Procedures Procedure Date Related Diagnosis Body Site Arterial puncture, withdrawal of blood for 06/29/17 diagnosis Insertion of non-tunneled centrally inserted 06/29/17 central venous catheter; age 5 years or older Insertion of non-tunneled centrally inserted 06/29/17 central venous catheter; age 5 years or older Intubation, endotracheal, emergency procedure 06/29/17 Intubation, endotracheal, emergency procedure 06/29/17 Cholecystectomy Tubal ligation Social History Social History Type Response Smoking Status Current some day smoker Functional Status FUNCTIONAL 07/02/17 Bed Mobility Assistance Independent Ambulation Assistance Standby assistance 06/29/17 Sensory Deficits None COGNITIVE 07/02/17 Level of Consciousness Alert Orientation Oriented x 3 Assessment and Plan No data available for this section Hospital Discharge Instructions Patient Education Blood Transfusion, [id number] Follow Up Care 06/29/2017 12:02:53 With: Neurologist of choice Address: Unknown When: 1 to 2 weeks Comments: Call the office to schedule follow up With: Akash Rader Address: [address] [facility] [place] [phone] [facility] (1) When: One week Comments: Call the office to schedule follow up With: Daja Starr Address: Unknown When: As Needed
--- OUTSIDE RECORDS SUMMARY | 2017-12-16 12:00 | XMS REPORT ---
Author Author ANKUR MURPHY [facility] Address Unknown Care Team Providers Care Certified Flex Endoscope Reprocessor Name Role Phone ANKUR MURPHY Unavailable PROBLEMS Type Condition ICD9-CM Code [id number] Code Onset Dates Condition Status SNOMED Code Problem Acute pharyngitis 462 Active 358627786 Problem Acute upper respiratory infections of unspecified site 465.9 Active 35447284 ALLERGIES Substance Reaction Event Type Date Status Zofran Unknown Drug Allergy Mar, Active Reglan Unknown Drug Allergy Mar, Active ENCOUNTERS Encounter Location Date Diagnosis [facility] [id number] [id number] Mar, Dental examination Z01.20 and Dental caries K02.9 [facility] [id number] [place] [phone] Nov, [facility] [id number] [place] [phone] Nov, [facility] [id number] [place] [phone] Jun, [facility] [address] [address] Jun, [facility] [id number] [place] [address] Jun, [facility] [address] [place] [address] Jun, [facility] [id number] [place] [phone] Jun, [facility] [address] [address] December, [facility] [id number] [place] [address] Jun, [facility] [address] [facility] [id number] [place] [address] Jun, [facility] [address] [facility] [id number] [place] [address] Aug, IMMUNIZATIONS No Known Immunizations SOCIAL HISTORY Never Assessed REASON FOR VISIT FRANKIE PLAN OF CARE VITAL SIGNS Height 61 in 2017-04-14 Blood pressure systolic 102 mmHg 2017-04-14 Blood pressure diastolic 68 mmHg 2017-04-14 MEDICATIONS No Known Medications RESULTS No Results PROCEDURES Procedure Date Ordered Result Body Site LTD ORAL EVALUATION - PROBLEM FOCUS Apr 14, 2017 INTRAORL-PERIAPICAL 1 FILM [id number] Apr 14, 2017 EXTRAC ERUPTED TOOTH/EXPOSED ROOT Apr 14, 2017 INSTRUCTIONS MEDICATIONS ADMINISTERED No Known Medications MEDICAL (GENERAL) HISTORY Type Description Date Medical History Anemia Surgical History Tubes tied Surgical History Gall bladder removed Hospitalization History Previous surgeries
[2017-12-16 12:32] LABS: BILIRUBIN,URINE NEGATIVE (NEGATIVE); CLARITY,URINE CLEAR; COLOR,URINE YELLOW; GLUCOSE, URINE (UA) NEGATIVE (NEGATIVE); KETONES,URINE NEGATIVE (NEGATIVE); LEUKOCYTE ESTERASE ,URINE 2+ (NEGATIVE); NITRITE,URINE NEGATIVE (NEGATIVE); PH,URINE 6 (5-9); PROTEIN,URINE 2+ (NEGATIVE); UROBILINOGEN,URINE NORMAL (NORMAL)
[2017-12-16] MEDS ORDERED: fentaNYL INJECTION 100 MCG/2 ML AMP IVP ONE ×2 (12:45→14:15)
[2017-12-16] MEDS ORDERED: NS IV 1000 ML 1,000 ML IV SCH (12:45)
[2017-12-16 12:47] LABS: BACTERIA,URINE MODERATE /HPF; RBC,URINE TNTC /HPF; WBC,URINE 0-2 /HPF
--- NOTE | 2017-12-16 12:47 | ED GU-Female ---
General Chief Complaint: -Female Stated Complaint: SEVERE KIDNEY PAIN Source: patient Exam Limitations: no limitations History of Present Illness Date Seen by Provider: December 16, 2017 Time Seen by Provider: 12:46 Initial Comments To ER with reports of severe bilateral kidney pain noticed this morning. For the past few days she's had urinary frequency and only going a small amount. No nausea no fever no chills. She states that in April she was admitted to a hospital in [facility] with "kidney failure" for 9 days. Timing/Duration: constant Severity/Quality: moderate Location: right flank, left flank Radiation: none Activities at Onset: none Prior Genitourinary Problems: none Associated Symptoms: dysuria, urinary frequency Allergies and Home Medications Allergies Coded Allergies: adhesive tape (Verified Allergy, Severe, RASH, 01/20/17) metoclopramide (Verified Allergy, Severe, HIVES, VOMITING, 01/20/17) ondansetron (Verified Allergy, Severe, HIVES, VOMITING, 01/20/17) Sulfa (Sulfonamide Antibiotics) (Verified Allergy, Unknown, 01/20/17) ketorolac (Verified Allergy, Unknown, 01/20/17) morphine (Verified Allergy, Unknown, 01/20/17) Home Medications Gabapentin 300 Mg Capsule, 300 MG PO TID Prescribed by: GRIFFIN TYLRE on 05/19/1754 Hyoscyamine Sulfate 0.125 Mg Tab.subl, 1-2 TAB SL Q4H Prescribed by: GOKUL SARMIENTO on 04/19/1757 Nitrofurantoin Monohyd/M-Cryst 100 Mg Capsule, 100 MG PO BID Prescribed by: GOKUL SARMIENTO on 04/19/1757 Pantoprazole Sodium 40 Mg Tablet.dr, 40 MG PO DAILY Prescribed by: GOKUL SARMIENTO on 04/19/1757 Promethazine HCl 25 Mg Supp.rect, 25 MG RC Q4H Prescribed by: GOKUL SARMIENTO on 04/19/1757 Patient Home Medication List Home Medication List Reviewed: Yes Review of Systems Constitutional: see HPI; No chills, No fever EENTM: see HPI Respiratory: no symptoms reported Genitourinary: see HPI, frequency, flank pain Musculoskeletal: no symptoms reported Skin: no symptoms reported Psychiatric/Neurological: No Symptoms Reported Past [id number]-Wlejzc Hx Patient Social History Type Used: Cigarettes 2nd Hand Smoke Exposure: Yes Recent Foreign Travel: No Contact w/Someone Who Travel: No Recent Hopitalizations: No Immunizations Up To Date Tetanus Booster (TDap): More than 5yrs PED Vaccines UTD: Yes Seasonal Allergies Seasonal Allergies: No Past Medical History Surgeries: Yes (RUPTURED OVARIAN CYST; X 1) Section, Gallbladder, Tubal Ligation Respiratory: No Cardiac: No Neurological: Yes (PSEUDOSEIZURES) Seizure Disorder Reproductive Disorders: Yes (CERVICAL DYSPLASIA--S/P LEEP) Female Reproductive Disorders: Denies Genitourinary: Yes Kidney Stones 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; S/P FRANCO) Ulcer, Gall Bladder Disease Musculoskeletal: Yes Fibromyalgia Endocrine: No HEENT: No Cancer: No Psychosocial: Yes Pseudo Seizures, Anxiety Integumentary: No Blood Disorders: No Adverse Reaction/Blood Tranf: No Family Medical History Family history: Cardiovascular disease maternal gma Heart disease maternal gma No Family History of: Abdominal aortic aneurysm Warner's disease Alcoholism Aphasia Cancer Cancer of colon Cataract Chest pain Congenital heart disease Congestive heart failure Cystic fibrosis Dementia Dysphagia Family history: Allergy Family history: Alzheimer's disease Family history: Arthritis Family history: Asthma Family history: Breast disease Family history: Coronary thrombosis Family history: Diabetes mellitus Family history: Gastrointestinal disease Family history: Glaucoma Family history: Hypertension Family history: Osteoporosis Family history: Thyroid disorder Headache Hearing loss Hereditary disease History of - anemia History of - disorder History of - respiratory disease History of drug abuse Human immunodeficiency virus (HIV) seropositivity Hypercholesterolemia Infertile Kidney disease Malignant neoplasm of lung Myocardial infarction Parkinson's disease Prostate cancer Psychotic disorder Seizure disorder Stroke Tuberculosis Visual impairment Physical Exam Vital Signs Capillary Refill : General Appearance: WD/WN, no apparent distress HEENT: PERRL/EOMI, normal ENT inspection Neck: non-tender, full range of motion Cardiovascular: regular rate, rhythm, no murmur Respiratory: normal breath sounds, no respiratory distress, no accessory muscle use Gastrointestinal: normal bowel sounds, non tender, soft Back: CVA tenderness (R), CVA tenderness (L) Extremities: normal range of motion, non-tender Neurologic/Psychiatric: alert, normal mood/affect, oriented x 3 Skin: normal color, warm/dry Progress/Results/Core Measures Suspected Sepsis SIRS Temperature: Pulse: Respiratory Rate: Laboratory Tests 12/16/17 12:55: White Blood Count 6.3 Blood Pressure / Mean: Laboratory Tests 12/16/17 12:55: Creatinine 0.81, Platelet Count 328, Total Bilirubin 0.3 Results/Orders Lab Results Laboratory Tests Test 12/16/17 12:05 12/16/17 12:55 Range/Units Urine Color YELLOW Urine Clarity CLEAR Urine pH 6 5-9 Urine Specific [place] 1.015 L 1.016-1.022 Urine Protein 2+ H NEGATIVE Urine Glucose (UA) NEGATIVE NEGATIVE Urine Ketones NEGATIVE NEGATIVE Urine Nitrite NEGATIVE NEGATIVE Urine Bilirubin NEGATIVE NEGATIVE Urine Urobilinogen NORMAL NORMAL MG/DL Urine Leukocyte Esterase 2+ H NEGATIVE Urine RBC (Auto) 5+ H NEGATIVE Urine RBC TNTC H /HPF Urine WBC 0-2 /HPF Urine Squamous Epithelial Cells 10-25 H /HPF Urine Crystals NONE /LPF Urine Bacteria MODERATE H /HPF Urine Casts NONE /LPF Urine Mucus LARGE H /LPF Urine Culture Indicated YES Urine Test NEGATIVE NEGATIVE Urine Opiates Screen NEGATIVE NEGATIVE Urine Oxycodone Screen NEGATIVE NEGATIVE Urine Methadone Screen NEGATIVE NEGATIVE Urine Propoxyphene Screen NEGATIVE NEGATIVE Urine Barbiturates Screen NEGATIVE NEGATIVE Ur Tricyclic Antidepressants Screen NEGATIVE NEGATIVE Urine Phencyclidine Screen NEGATIVE NEGATIVE Urine Amphetamines Screen POSITIVE H NEGATIVE Urine Methamphetamines Screen NEGATIVE NEGATIVE Urine Benzodiazepines Screen POSITIVE H NEGATIVE Urine Cocaine Screen NEGATIVE NEGATIVE Urine Cannabinoids Screen NEGATIVE NEGATIVE White Blood Count 6.3 4.3-11.0 10^3/uL Red Blood Count 4.40 4.35-5.85 10^6/uL Hemoglobin 11.7 11.5-16.0 G/DL Hematocrit 37 35-52 % Mean Corpuscular Volume 83 80-99 FL Mean Corpuscular Hemoglobin 27 25-34 PG Mean Corpuscular Hemoglobin Concent 32 32-36 G/DL Red Cell Distribution Width 15.9 H 10.0-14.5 % Platelet Count 328 130-400 10^3/uL Mean Platelet Volume 11.0 H 7.4-10.4 FL Neutrophils (%) (Auto) 65 42-75 % Lymphocytes (%) (Auto) 28 12-44 % Monocytes (%) (Auto) 6 0-12 % Eosinophils (%) (Auto) 1 0-10 % Basophils (%) (Auto) 1 0-10 % Neutrophils # (Auto) 4.1 1.8-7.8 X 10^3 Lymphocytes # (Auto) 1.8 1.0-4.0 X 10^3 Monocytes # (Auto) 0.4 0.0-1.0 X 10^3 Eosinophils # (Auto) 0.0 0.0-0.3 10^3/uL Basophils # (Auto) 0.0 0.0-0.1 10^3/uL Sodium Level 139 135-145 MMOL/L Potassium Level 3.7 3.6-5.0 MMOL/L Chloride Level 108 H 98-107 MMOL/L Carbon Dioxide Level 26 21-32 MMOL/L Anion Gap 5 5-14 MMOL/L Blood Urea Nitrogen 20 H 7-18 MG/DL Creatinine 0.81 0.60-1.30 MG/DL Estimat Glomerular Filtration Rate > 60 BUN/Creatinine Ratio 25 Glucose Level 90 70-105 MG/DL Calcium Level 8.8 8.5-10.1 MG/DL Total Bilirubin 0.3 0.1-1.0 MG/DL Aspartate Amino Transf (AST/SGOT) 15 5-34 U/L Alanine Aminotransferase (ALT/SGPT) 13 0-55 U/L Alkaline Phosphatase 71 40-136 U/L Total Protein 7.0 6.4-8.2 GM/DL Albumin 4.5 3.2-4.5 GM/DL My Orders Orders - PRANETEH SCANLON APRN Drug Screen Stat (Urine) (12/16/17 12:43) Cbc With Automated Diff (12/16/17 12:43) Comprehensive Metabolic Panel (12/16/17 12:43) [id number] (Order) (12/16/17 12:43) Ns Iv 1000 Ml (Sodium Chloride 0.9%) (12/16/17 12:45) Fentanyl Injection (Sublimaze Injection (12/16/17 12:45) Ct Abd/Pelvis Wo(Kidney Stone) (12/16/17 12:50) Promethazine Injection (Phenergan Injec (12/16/17 13:45) Fentanyl Injection (Sublimaze Injection (12/16/17 13:42) Medications Given in ED Current Medications Medications Dose Ordered Sig/Karolina Route Start Time Stop Time Status Last Admin Dose Admin Promethazine HCl 12.5 mg ONCE ONCE IVP 12/16/17 13:45 12/16/17 13:46 DC 12/16/17 13:52 12.5 MG Vital Signs/I&O Capillary Refill : Departure Impression Primary Impression: Bilateral flank pain Disposition: 01 HOME, SELF-CARE Condition: Stable Departure-Patient Inst. Decision time for Depature: 13:59 Referrals: AYAH NAVARRETE MD (PCP/Family) Primary Care Physician Patient Instructions: NO INSTRUCTIONS GIVEN Add. Discharge Instructions: 1. If your urine culture indicates need for antibiotic we will call you. Follow- up with Dr. Navarrete later this week. Return to ER for any concerns. All discharge instructions reviewed with patient and/or family. Voiced understanding. Scripts Orphenadrine Citrate (Orphenadrine Citrate) 100 Mg Tablet.er 100 MG PO BID PRN for PAIN-MODERATE TO SEVERE, #10 TAB Prov: PRANEETH SCANLON PROGRAM MANAGEMENT PROFESSIONAL 12/16/17 Naproxen (Naprosyn) 500 Mg Tablet 500 MG PO BID PRN for PAIN-MODERATE, #20 TAB Prov: PRANEETH SCANLON PROGRAM MANAGEMENT PROFESSIONAL 12/16/17 PRANEETH SCANLON APRN December 16, 2017 12:47
[2017-12-16 12:57] LABS: HCG,QUALITATIVE URINE NEGATIVE (NEGATIVE)
[2017-12-16 13:06] LABS: BENZODIAZEPINES SCREEN URINE POSITIVE (NEGATIVE)
[2017-12-16 13:07] LABS: AMPHETAMINE SCREEN, URINE POSITIVE (NEGATIVE); BARBITURATE SCREEN URINE NEGATIVE (NEGATIVE); CANNABINOID SCREEN, URINE NEGATIVE (NEGATIVE); COCAINE SCREEN URINE NEGATIVE (NEGATIVE); METHADONE STAT NEGATIVE (NEGATIVE); METHAMPHETAMINE SCREEN URINE S NEGATIVE (NEGATIVE); OPIATE SCREEN URINE NEGATIVE (NEGATIVE); OXYCODONE STAT NEGATIVE (NEGATIVE); PROPOXYPHENE STAT NEGATIVE (NEGATIVE); TRICYCLIC ANTIDEPRESSANTS SCRE NEGATIVE (NEGATIVE)
[2017-12-16 13:08] LABS: BASOPHILS % (AUTO) 1 % (0-10); EOSINOPHILS % (AUTO) 1 % (0-10); HEMATOCRIT 37 % (35-52); HEMOGLOBIN 11.7 G/DL (11.5-16.0); LYMPHOCYTES # (AUTO) 1.8 X 10^3 (1.0-4.0); LYMPHOCYTES % (AUTO) 28 % (12-44); MEAN CORPUSCULAR HEMOGLOBIN 27 PG (25-34); MEAN CORPUSCULAR HGB CONC 32 G/DL (32-36); MEAN CORPUSCULAR VOLUME 83 FL (80-99); MONOCYTES # (AUTO) 0.4 X 10^3 (0.0-1.0); MONOCYTES % (AUTO) 6 % (0-12); NEUTROPHILS # (AUTO) 4.1 X 10^3 (1.8-7.8); NEUTROPHILS % (AUTO) 65 % (42-75); PLATELET COUNT 328 10^3/uL (130-400); RED CELL DISTRIBUTION WIDTH 15.9 % (10.0-14.5); WHITE BLOOD COUNT 6.3 10^3/uL (4.3-11.0)
[2017-12-16] MEDS ORDERED: MIDAZOLAM INJECTION FOR DRIPS 50 MG in NS (IVPB) 90 ML IV SCH (13:15)
[2017-12-16] MEDS ORDERED: fentaNYL INJECTION 1,250 MCG in NS (IVPB) 225 ML IV SCH (13:15)
[2017-12-16 13:28] LABS: ALANINE AMINOTRANSFERASE 13 U/L (0-55); ALBUMIN 4.5 GM/DL (3.2-4.5); ALKALINE PHOSPHATASE 71 U/L (40-136); BILIRUBIN,TOTAL 0.3 MG/DL (0.1-1.0); BUN/CREATININE RATIO 25; CALCIUM 8.8 MG/DL (8.5-10.1); CARBON DIOXIDE 26 MMOL/L (21-32); CHLORIDE 108 MMOL/L (98-107); CREATININE SERUM 0.81 MG/DL (0.60-1.30); GFR ESTIMATED > 60; GLUCOSE 90 MG/DL (70-105); POTASSIUM 3.7 MMOL/L (3.6-5.0); SODIUM 139 MMOL/L (135-145)
[2017-12-16] MEDS ORDERED: fentaNYL INJECTION 100 MCG/2 ML AMP ONE (13:42)
[2017-12-16] MEDS ORDERED: PROMETHAZINE INJ 25 MG/ML (PHENERGAN) AMP IVP ONE (13:45)
--- NOTE | 2017-12-16 13:57 | Diagnostic Imaging Report ---
PROCEDURE: CT urinary tract, rule out kidney stone. TECHNIQUE: Multiple contiguous axial images were obtained through the abdomen and pelvis without the use of intravenous contrast. INDICATION: Right flank pain. Hematuria. Renal failure. COMPARISON: 04/18/2017 FINDINGS: Included portions of lung bases are clear. CT abdomen: Multiple bilateral nonobstructive renal calculi identified. Ureters cannot be followed in their entirety, but no calculi are seen along the expected course of the ureters. Additionally, there is no hydroureteronephrosis or other evidence of obstruction. No renal mass type lesions are seen on this noncontrast exam. There is focal fatty infiltration along the falciform ligament of the liver. Otherwise, the liver, spleen, pancreas, and adrenal glands have an unremarkable noncontrast CT appearance. Small bowel loops are nondistended. Normal appendix is identified. There is no loculated fluid collection, free fluid, nor free air within the abdomen. No abnormal mesenteric or retroperitoneal adenopathy is seen. Bony structures show no acute abnormalities. CT pelvis: Bilateral ovarian cysts are identified. Cyst on the right measures 4.3 x 3 cm and cyst in the left measures 1.7 x 1.6 cm. Urinary bladder is unopacified. No calculi seen within the urinary bladder. There is no loculated fluid collection, free fluid, or free air within the pelvis. No abnormal lymph nodes are seen. Bony structures show no acute abnormalities. IMPRESSION: 1. Bilateral ovarian cysts, largest on the right and small on the left. 2. Bilateral nonobstructive renal calculi. 3. No appreciable ureteral calculi or evidence of obstruction is seen on either side. Dictated by: Dictated on workstation # [id number]
[2017-12-16] MEDS ORDERED: ORPH100T PO (14:01)
[2017-12-16] MEDS ORDERED: NAPR-1071 PO (14:01)
[2017-12-16 14:14] VITALS: BP 128/82
== END 2017-12-16 14:14 | disposition home or self-care (01) ==
LOC: EDUNIT# 11:51 → ER 11:53
DX: R10.9 Unspecified abdominal pain (principal); F41.9 Anxiety disorder, unspecified; G40.909 Epilepsy, unspecified, not intractable, without status epilepticus; F17.210 Nicotine dependence, cigarettes, uncomplicated; Z87.19 Personal history of other diseases of the digestive system; Z87.442 Personal history of urinary calculi; Z87.42 Personal history of other diseases of the female genital tract; Z87.59 Personal history of other complications of pregnancy, childbirth and the puerperium; Z98.51 Tubal ligation status; Z88.2 Allergy status to sulfonamides; Z88.5 Allergy status to narcotic agent; Z88.8 Allergy status to other drugs, medicaments and biological substances; Z88.6 Allergy status to analgesic agent; Z91.048 Other nonmedicinal substance allergy status
CPT/HCPCS: 36415; 74176; 80053; 80306; 81000; 84703; 85025; 87077; 87088; 87186; 96361; 96374; 96375

== ENCOUNTER 2019-07-19 20:02 | Emergency (ER) | payer MEDICAID ==
[~2019-07-19] VITALS: Ht 154.9 cm; Wt 59.1 kg
[~2019-07-19 20:02] MED LIST changes: +CLON1TAB13; -CLON1TAB3; +NAPR-1071 PO; +ORPH100T PO
[2019-07-19 20:53] LABS: BILIRUBIN,URINE NEGATIVE (NEGATIVE); CLARITY,URINE CLEAR; COLOR,URINE YELLOW; GLUCOSE, URINE (UA) NEGATIVE (NEGATIVE); KETONES,URINE NEGATIVE (NEGATIVE); LEUKOCYTE ESTERASE ,URINE NEGATIVE (NEGATIVE); NITRITE,URINE NEGATIVE (NEGATIVE); PROTEIN,URINE NEGATIVE (NEGATIVE)
[2019-07-19] MEDS ORDERED: NS IV 500 ML 500 ML IV ONE (20:57)
[2019-07-19] MEDS ORDERED: KETOROLAC 30 MG/ML VIAL IVP ONE (21:00)
[2019-07-19] MEDS ORDERED: ACETAMINOPHEN 500 MG TAB (TYLENOL) PO ONE (21:00)
[2019-07-19] MEDS ORDERED: diphenhydrAMINE 50 MG/ML INJ (BENADRYL) IVP ONE (21:00)
[2019-07-19] MEDS ORDERED: PROMETHAZINE INJ 25 MG/ML (PHENERGAN) AMP IVP ONE (21:00)
--- NOTE | 2019-07-19 21:02 | ED Headache ---
General Chief Complaint: Head/Cervical Problems Stated Complaint: MIGRAINE Nursing Triage Note: Pt amb to room #9 with c/o migraine. Pt reports on this day between [id number] she began to experience ache in the dorsal aspect of her head. Pt reports discomfort to be associated with nausea and dizziness. Denies fever or chills. Nursing Sepsis Screen: No Definite Risk Source: patient Exam Limitations: no limitations History of Present Illness Date Seen by Provider: Jul 19, 2019 Time Seen by Provider: 20:45 Initial Comments Patient presents to the headache in the right occiput that is throbbing feeling like a crowbar is crying up the back of her scalp. She's had some runny nose for the past few days but no fevers chills discharge nasal congestion or sore throat. She has a history of intermittent migraine headaches that Phenergan and Benadryl has helped in the past. She says she has a deadly allergy to Zofran. The headache started at noon today and has been persistent. She took Tylenol when she got home around 2:00 in the afternoon. She tried to take a nap but the headache persisted even after she woke up. She endorses photophobia and phonophobia. Allergies and Home Medications Allergies Coded Allergies: adhesive tape (Verified Allergy, Severe, RASH, 01/20/17) metoclopramide (Verified Allergy, Severe, HIVES, VOMITING, 01/20/17) ondansetron (Verified Allergy, Severe, HIVES, VOMITING, 01/20/17) Sulfa (Sulfonamide Antibiotics) (Verified Allergy, Unknown, 01/20/17) ketorolac (Verified Allergy, Unknown, 01/20/17) morphine (Verified Allergy, Unknown, 01/20/17) Home Medications Cephalexin 500 Mg Capsule, 500 MG PO BID Prescribed by: GRIFFIN TYLER on 07/19/192123 Gabapentin 300 Mg Capsule, 300 MG PO TID Prescribed by: GRIFFIN TYLER on 05/19/17 0055 Hyoscyamine Sulfate 0.125 Mg Tab.subl, 1-2 TAB SL Q4H Prescribed by: GOKUL SARMIENTO on 04/19/17 0058 Naproxen 500 Mg Tablet, 500 MG PO BID PRN for PAIN-MODERATE Prescribed by: PRANEETH SCANLON on 12/16/17 1401 Nitrofurantoin Monohyd/M-Cryst 100 Mg Capsule, 100 MG PO BID Prescribed by: GOKUL SARMIENTO on 04/19/1757 Orphenadrine Citrate 100 Mg Tablet.er, 100 MG PO BID PRN for PAIN-MODERATE TO SEVERE Prescribed by: PRANEETH SCANLON on 12/16/17 1401 Pantoprazole Sodium 40 Mg Tablet.dr, 40 MG PO DAILY Prescribed by: GOKUL SARMIENTO on 04/19/1757 Promethazine HCl 25 Mg Supp.rect, 25 MG RC Q4H Prescribed by: GOKUL SARMIENTO on 04/19/1757 Promethazine HCl 25 Mg Tablet, 25 MG PO Q6H PRN for NAUSEA/VOMITING Prescribed by: GRIFFIN TYLER on 07/19/192123 Patient Home Medication List Home Medication List Reviewed: Yes Review of Systems Review of Systems Constitutional: No chills, No fever Eyes: Denies Blindness, Denies Blurred Vision Ears, Nose, Mouth, Throat: denies ear pain, denies ear discharge Respiratory: No cough, No short of breath Cardiovascular: No edema, No Hx of Intervention Gastrointestinal: No abdominal pain, No constipation, No diarrhea; nausea, vomiting Genitourinary: No discharge; dysuria All Other Systems Reviewed Negative Unless Noted: Yes Past Kytahqr-Idtkot-Gmnejo Hx Patient Social History Alcohol Use: Denies Use Recreational Drug Use: No Smoking Status: Current Everyday Smoker Type Used: Cigarettes 2nd Hand Smoke Exposure: Yes Recent Foreign Travel: No Contact w/Someone Who Travel: No Recent Infectious Disease Expo: No Recent Hopitalizations: No Immunizations Up To Date Tetanus Booster (TDap): More than 5yrs PED Vaccines UTD: Yes Seasonal Allergies Seasonal Allergies: No Past Medical History Surgeries: Yes (RUPTURED OVARIAN CYST; X 1) Section, Gallbladder, Tubal Ligation Respiratory: No Cardiac: No Neurological: Yes (PSEUDOSEIZURES) Seizure Disorder Reproductive Disorders: Yes (CERVICAL DYSPLASIA--S/P LEEP) Female Reproductive Disorders: Denies Genitourinary: Yes Kidney Stones 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; S/P FRANCO) Ulcer, Gall Bladder Disease Musculoskeletal: Yes Fibromyalgia Endocrine: No HEENT: No Cancer: No Psychosocial: Yes Pseudo Seizures, Anxiety Integumentary: No Blood Disorders: No Adverse Reaction/Blood Tranf: No Family Medical History Family history: Cardiovascular disease maternal gma Heart disease maternal gma No Family History of: Abdominal aortic aneurysm [place]'s disease Alcoholism Aphasia Cancer Cancer of colon Cataract Chest pain Congenital heart disease Congestive heart failure Cystic fibrosis Dementia Dysphagia Family history: Allergy Family history: Alzheimer's disease Family history: Arthritis Family history: Asthma Family history: Breast disease Family history: Coronary thrombosis Family history: Diabetes mellitus Family history: Gastrointestinal disease Family history: Glaucoma Family history: Hypertension Family history: Osteoporosis Family history: Thyroid disorder Headache Hearing loss Hereditary disease History of - anemia History of - disorder History of - respiratory disease History of drug abuse Human immunodeficiency virus (HIV) seropositivity Hypercholesterolemia Infertile Kidney disease Malignant neoplasm of lung Myocardial infarction Parkinson's disease Prostate cancer Psychotic disorder Seizure disorder Stroke Tuberculosis Visual impairment Physical Exam Vital Signs Vital Signs - First Documented 07/19/19 20:20 Temp 36.9 Pulse 60 Resp 18 B/P (MAP) 140/102 (115) Pulse Ox 99 O2 Delivery Room Air Capillary Refill : Less Than 3 Seconds Height, Weight, BMI Height: 5'3.00" Weight: 160lbs. 2.0oz. 72.606278pe; 24.00 BMI Method:Stated General Appearance: WD/WN, mild distress HEENT: PERRL/EOMI, normal ENT inspection, TMs normal, pharynx normal, other (no tenderness to palpation over the sinuses) Neck: non-tender, full range of motion, supple, normal inspection Cardiovascular: normal peripheral pulses, regular rate, rhythm, no edema Respiratory: lungs clear, normal breath sounds, no respiratory distress, no accessory muscle use Psychiatric: alert, oriented x 3 Cra[place] Nerves: normal hearing, normal speech, PERRL Coordination/Gait: normal finger to nose, normal gait Motor/Sensory: no motor deficit, no sensory deficit Skin: normal color, warm/dry Progress/Results/Core Measures Results/Orders Lab Results Laboratory Tests Test 07/19/19 20:42 Range/Units Urine Color YELLOW Urine Clarity CLEAR Urine pH 6.0 5-9 Urine Specific [place] >=1.030 1.016-1.022 Urine Protein NEGATIVE NEGATIVE Urine Glucose (UA) NEGATIVE NEGATIVE Urine Ketones NEGATIVE NEGATIVE Urine Nitrite NEGATIVE NEGATIVE Urine Bilirubin NEGATIVE NEGATIVE Urine Urobilinogen 0.2 < = 1.0 MG/DL Urine Leukocyte Esterase NEGATIVE NEGATIVE Urine RBC (Auto) TRACE-I NEGATIVE Urine RBC 0-2 /HPF Urine WBC 10-25 H /HPF Urine Crystals NONE /LPF Urine Bacteria FEW H /HPF Urine Casts NONE /LPF Urine Mucus LARGE H /LPF Urine Culture Indicated YES My Orders Orders - GRIFFIN TYLER Ua Culture If Indicated (07/19/19 20:11) Hcg,Qualitative Urine (07/19/19 20:50) Acetaminophen Tablet (Tylenol Tablet) (07/19/19 21:00) Ketorolac Injection (Toradol Injection) (07/19/19 21:00) Promethazine Injection (Phenergan Injec (07/19/19 21:00) Diphenhydramine Injection (Benadryl Inje (07/19/19 21:00) Ed Iv/Invasive Line Start (07/19/19 20:57) Ns Iv 500 Ml (Sodium Chloride 0.9%) (07/19/19 20:57) Urine Culture (07/19/19 20:42) Rocephin 1 Gm Iv (1x Dose) (07/19/19 21:45) Medications Given in ED Current Medications Medications Dose Ordered Sig/Karolina Route Start Time Stop Time Status Last Admin Dose Admin Acetaminophen 1,000 mg ONCE ONCE PO 07/19/19 21:00 07/19/19 21:01 DC 07/19/19 21:09 1,000 MG Diphenhydramine HCl 25 mg ONCE ONCE IVP 07/19/19 21:00 07/19/19 21:02 DC 07/19/19 21:08 25 MG Ketorolac Tromethamine 30 mg ONCE ONCE IVP 07/19/19 21:00 07/19/19 21:01 DC 07/19/19 21:08 30 MG Promethazine HCl 25 mg ONCE ONCE IVP 07/19/19 21:00 07/19/19 21:02 DC 07/19/19 21:08 25 MG Sodium Chloride 500 ml @ 0 mls/hr Q0M ONCE IV 07/19/19 20:57 07/19/19 21:01 DC 07/19/19 21:08 0 MLS/HR Vital Signs/I&O 07/19/19 20:20 Temp 36.9 Pulse 60 Resp 18 B/P (MAP) 140/102 (115) Pulse Ox 99 O2 Delivery Room Air Blood Pressure Mean: 115 POS Progress Progress Note : Time: 21:20 Progress Note The patient is seeing some benefit as the Phenergan and fluids running in. She does seem to have a bladder infection on urinalysis. We called microscopy and they related that they did not see any squamous cells so this most likely does not represent contamination. We'll give her a gram of Rocephin today and put her on 5 days of Keflex. Departure Impression Primary Impression: Migraine Qualified Codes: G43.009 - Migraine without aura, not intractable, without status migrainosus Additional Impression: UTI (urinary tract infection) Qualified Codes: N30.00 - Acute cystitis without hematuria Disposition: HOME, SELF-CARE Condition: Stable Departure-Patient Inst. Decision time for Depature: 21:45 Referrals: AYAH NAVARRETE MD (PCP/Family) Primary Care Physician Patient Instructions: Migraine Headache (DC), Urinary Tract Infections in Adults Add. Discharge Instructions: Push lots of fluids. Use Phenergan 1 tablet every 6 hours as needed for nausea or vomiting. Benadryl, Tylenol and ibuprofen as necessary for headache. Get plenty of sleep tonight. Keflex one capsule twice a day for the next 5 days. All discharge instructions reviewed with patient and/or family. Voiced understanding. Scripts Promethazine HCl (Promethazine Tablet) 25 Mg Tablet 25 MG PO Q6H PRN for NAUSEA/VOMITING, #10 TAB 0 Refills Prov: GRIFFIN TYLER 07/19/19 Cephalexin (Keflex) 500 Mg Capsule 500 MG PO BID for 5 Days, #10 CAP 0 Refills Prov: GRIFFIN TYLER 07/19/19 GRIFFIN TYLER Jul 19, 2019 21:02 POS
[2019-07-19 21:06] LABS: RBC,URINE 0-2 /HPF
[2019-07-19 21:07] LABS: BACTERIA,URINE FEW /HPF
[2019-07-19] MEDS ORDERED: PROM25TA14 PO (21:24)
[2019-07-19] MEDS ORDERED: CEPH-507 PO (21:24)
[2019-07-19] MEDS ORDERED: cefTRIAXone FOR IV USE 1,000 MG in WATER (STERILE) FOR INJECTION 10 ML IV ONE (21:45)
[2019-07-19 21:58] VITALS: BP 131/94
--- OUTSIDE RECORDS SUMMARY | 2019-08-15 02:42 | XMS REPORT | Encounter Summary ---
Author Author [facility] Organization [facility] Address Unknown Phone Unavailable Care Team Providers Care Mortgage Clerk Name Role Phone PCP Unavailable Encounter Details Care Team Description Date Type [place] [id number] [place] [address] 01/21/2017 Telephone [facility] [id number] [facility] [address] [place] [address] Social History Date Tobacco Use Types Packs/Day Years Used Started: 2004 Current Some Day Smoker Cigarettes 1.5 12 Drinks/Week oz/Week Comments Alcohol Use No Sex Assigned at Date Recorded Not on file Industry Job Start Date Occupation Not on file Not on file Not on file Travel End Travel History Travel Start No recent travel history available. documented as of this encounter Miscellaneous Notes * Telephone Encounter - Verónica Dallas MA - 01/21/2017 4:11 PM CDT Attempted to contact pt to schedule for capsule study documented in this encounter Plan of Treatment Not on filedocumented as of this encounter Visit Diagnoses Not on filedocumented in this encounter
--- OUTSIDE RECORDS SUMMARY | 2019-08-15 02:42 | XMS REPORT | Clinical Summary ---
Author Author [facility] Organization [facility] Address Unknown Phone Unavailable Care Team Providers Care Corporate Webmaster Name Role Phone PCP Unavailable Allergies Comments Active Allergy Reactions Severity Noted Date Morphine Itching Low 01/14/2017 Ondansetron 01/13/2017 Metoclopramide Hcl 01/13/2017 Sulfa (Sulfonamide Swelling 01/16/2017 Antibiotics) Ketorolac Angioedema 01/14/2017 Medications End Date Status Medication Sig Dispensed Refills Start Date Active gabapentin (NEURONTIN) Take 600 mg 0 300 MG capsule by mouth 3 (three) times a day. Active clonazePAM (KLONOPIN) 1 Take 1 mg by 0 MG tablet mouth 2 (two) times a day. Active chlorproMAZINE Take 25 mg by 0 (THORAZINE) 25 MG tablet mouth nightly. Active dicyclomine (BENTYL) 10 Take 2 120 capsule 0 MG capsule capsules (20 7 mg total) by mouth 4 (four) times a day. Active ferrous sulfate 325 (65 Take 1 tablet 30 tablet 0 FE) MG tablet (325 mg 7 total) by mouth daily with breakfast. Active promethazine (PHENERGAN) Take 1 tablet 60 tablet 0 25 MG tablet (25 mg total) 7 by mouth every 6 (six) hours as needed for nausea. Active Problems Problem Noted Date Anemia 01/18/2017 Last Assessment & Plan: Hemoglobin 7.1. Patient symptomatic. Blood transfusion. Check hemoglobin tomorrow. Acute upper GI bleed 01/14/2017 Last Assessment & Plan: No prior history, hgb 7.3 on admit ? Malgorzata Klein - GI consult - NPO - Protonix gtt - Serial H&H Intractable cyclical vomiting with nausea 01/14/2017 Last Assessment & Plan: Etiology unknown - Anti-emetics - Supportive care, IVF's - NPO Seizures 01/14/2017 Last Assessment & Plan: Most recent seizure 01/10 Unable to recall name of anti-epileptic , mother to provide in AM - Seizure precautions - Resume antiepileptic when confirmed Flank pain 01/14/2017 Last Assessment & Plan: Acute on chronic, prior history of ovar lalo cysts CT abd shows tiny nonobstructive puncta te renal calculi seen bilaterally, no distal obstructive uropathy. UA with small bacteria, neg nitrite and leuko-esterace, no dysuria - Urine reflex pending - Pain management - Continue IVF's Family History Medical History Relation Name Comments No Known Problems Father Depression Mother Hypertension Mother Relation Name Status Comments Father Alive Mother Alive Social History Date Tobacco Use Types Packs/Day Years Used Started: 2004 Current Some Day Smoker Cigarettes 1.5 12 Drinks/Week oz/Week Comments Alcohol Use No Sex Assigned at Date Recorded Not on file Industry Job Start Date Occupation Not on file Not on file Not on file Travel End Travel History Travel Start No recent travel history available. Last Filed Vital Signs Reading Time Taken Comments Vital Sign 115/80 01/20/2017 7:14 AM CDT Blood Pressure 56 01/20/2017 7:14 AM CDT Pulse 36.8 C (98.2 F) 01/20/2017 7:14 AM CDT Temperature 16 01/20/2017 7:14 AM CDT Respiratory Rate 99% 01/20/2017 7:14 AM CDT Oxygen Saturation - - Inhaled Oxygen Concentration 66.3 kg (146 lb 3.2 oz) 01/16/2017 5:05 AM CDT Weight 157.5 cm (5' 2") 01/14/2017 2:15 PM CDT Height 26.74 01/14/2017 2:15 PM CDT Body Mass Index Plan of Treatment Health Maintenance Due Date Last Done Comments Td # 1988 Tobacco Cessation 1988 Counseling # Pneumococcal Vaccine: 1994 Pediatrics (0 to 5 Years) and At-Risk Patients (6 to 64 Years) (1 of 1 - PPSV23) Cervical Cancer Screening 2009 via Pap Smear Influenza Vaccine (#1) 2019 Results Not on filefrom Last 3 Months Insurance Type Payer Benefit Subscriber ID Effective Phone Address Plan / Dates Group MEDICAID MANAGED CARE [place] xxxxxxxxxxx 2017 -P (BILL) [place] resent [place] [id number] Seema Bui Personal/F Self 1990 [address] (Home) [place], [place] [address] Seema Bui Personal/F Self 1990 [address] (Home) [place], [place] [address] Advance Directives For more information, please contact: [phone] 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
--- OUTSIDE RECORDS SUMMARY | 2019-08-15 02:42 | XMS REPORT | Encounter Summary ---
Author Author [facility] Organization [facility] Address Unknown Phone Unavailable Care Team Providers Care Poker Prop Player Name Role Phone PCP Unavailable Reason for Visit * Reason Comments Results Discuss path results and fu rther tests Encounter Details Care Team Description Date Type Department Di Renee RN Results (Discuss path results and furthe r tests) 02/02/2017 Telephone [facility] [address] [place], [place] [address] Social History Date Tobacco Use Types Packs/Day [...] encounter Miscellaneous Notes * Telephone Encounter - Di Renee RN - 02/02/2017 12:[address] Sandoval's result letter: Gastritis with Heliobacter pylori: The biopsies obtained during your recent uppe r endoscopy detected the presence of inflammation in the biopsies from your stom ach and the presence of a bacteria called H. pylori. Inflammation of the lining of the stomach is a benign condition but the bacterial infection of the lining of the stomach can be associated with the development of ulcers. Antibiotic the rapy is recommended to eradicate this infection and our office staff will make a rrangements for your treatment. I recommend a stool study to confirm eradication of the H. pyloi germ in 3 months. DUODENUM: Partial villous atrophy was noted. I recommend a celiac screen to exc lude celiac disease (Ordered in the hospital. ) Attempted to reach Pt but contact number doesn't work. Added note to Pt's resul t letter to call this RN to discuss results, treatment and pharmacy for her meds . H pylori stool order mailed to Pt along with the result letter. documented in this encounter Plan of Treatment Order Schedule Name Type Priority Associated Diag noses Expected: 05/05/2017 (Approximate), Expi res: 02/02/2018 H pylori Ag Stool Lab Routine Helicobacter pylori infection documented as of this encounter Visit Diagnoses Diagnosis Helicobacter pylori infection Helicobacter pylori (H. pylori) documented in this encounter
--- OUTSIDE RECORDS SUMMARY | 2019-08-15 02:42 | XMS REPORT | Clinical Summary ---
Author Author [facility] Address Unknown Phone Unavailable Care Team Providers Care Abstractor Name Role Phone PP Unavailable Allergies Comments Active Allergy Reactions Severity Noted Date Morphine Itching Low 01/14/2017 Ondansetron Hives, Other Medium 11/16/2016 (See Comments) Sulfa Antibiotics Swelling 01/16/2017 Medications End Date Status Medication Sig Dispensed Refills Start Date Active sertraline (ZOLOFT) 100 Take 100 mg 0 06/13/ 201 MG tablet by mouth 2 7 (two) times daily. Active DOK PLUS 50-8.6 MG 0 7 Active promethazine (PHENERGAN) Take 25 mg by 0 06/24 25 MG tablet mouth every 8 7 (eight) hours as needed. Active LYRICA 75 MG capsule Take 75 mg by 0 mouth 3 7 (three) times daily. Active hydrocodone-acetaminophen 0 (NORCO) 10-325 MG 7 Active clonazePAM (KLONOPIN) 1 Take 1 mg by 0 MG tablet mouth 2 (two) 7 times daily. Active doxepin (SINEQUAN) 25 MG TK 1 C PO QHS 0 06/13 capsule 7 Active gabapentin (NEURONTIN) TK 1 T PO Q 8 0 01 600 MG tablet H 7 Active VYVANSE 30 MG capsule TK 1 C PO QAM 0 06/15/20 1 7 Active Problems Problem Noted Date MOLINA (acute kidney injury) 07/15/2017 History of rhabdomyolysis 07/15/2017 Social History Date Tobacco Use Types Packs/Day Years Used Current Some Day Smoker Cigarettes Smokeless Tobacco: Never Used Drinks/Week oz/Week Comments Alcohol Use No Sex Assigned at Date Recorded Not on file Industry Job Start Date Occupation Not on file Not on file Not on file Travel End Travel History Travel Start No recent travel history available. Last Filed Vital Signs Reading Time Taken Comments Vital Sign 112/68 07/15/2017 4:11 PM MANAGER OF SCHOOL Blood Pressure 80 07/15/2017 4:11 PM MANAGER OF SCHOOL Pulse - - Temperature - - Respiratory Rate - - Oxygen Saturation - - Inhaled Oxygen Concentration 68.5 kg (151 lb) 07/15/2017 4:11 PM MANAGER OF SCHOOL Weight 151.9 cm (4' 11.8") 07/15/2017 4:11 PM MANAGER OF SCHOOL Height 29.68 07/15/2017 4:11 PM MANAGER OF SCHOOL Body Mass Index Plan of Treatment Health Maintenance Due Date Last Done Comments Pneumo-Vaccine: Peds (0-5 1994 Yrs) & At-Risk Patients (6-64 Yrs) (1 of 3 - PCV13) Varicella Vaccines (1 of 2001 2 - 13+ 2-dose series) DTaP,Tdap,and Td Vaccines 11/03/2007 (1 - Tdap) MMR Vaccines-Adult 11/03/2007 Cervical Cancer Screening 2009 Influenza Vaccine (#1) 2019 Results Not on filefrom Last 3 Months Insurance Type Payer Benefit Subscriber ID Effective Phone Address Plan / Dates Group [employer] KANCARE 19 xxxxxxxxxxx 2017- [phone] [address] [place] Present [address] [place] [id number] Advance Directives For more information, please contact: [phone] Patient 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
--- OUTSIDE RECORDS SUMMARY | 2019-08-15 02:43 | XMS REPORT | Encounter Summary ---
Author Author 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 Name Role Phone PCP Unavailable Reason for Visit * Auth/Cert (Routine) Referred By Contact Referred To Contact Status Reason Specialty Diagnoses / Procedures Khalif Snowden MD [address] [address] Procedures Case request operating room: ESOPHAGOGASTRODUOD ENOSCOPY (EGD) Encounter Details Care Team Description Date Type Department Melina Day MD [address] [place] [address] [place] [address] [phone] 01/17/2017 [place] [address] Anesthesia Record Responsible Anesthesiologist Anesthesia Start Time Anesthesi a Stop Time Procedure Name Melina Day MD 01/17/17 1219 01/17/17 1240 COLONOSCOPY (N/A ) Date Time Event Comment 1147 Anesthesia 2017 Initial Contact 1153 1204 AN Equip Check 1219 In room 1219 An Start 1219 An Start Data 1219 Anesthesia Ready 1219 Oxygen per nasal cannula 1222 Patient Positioned Self 1222 Pt eval immediately prior to anesthesia 1222 Sedation begin 1224 Spontaneous respirations 1224 Procedure start - Primary Case 1225 Procedure stop - Primary case 1229 Procedure start - Secondary case 1239 Procedure stop - Secondary case 1239 Responds to Verbal 1240 an stop data 1240 Out of Room 1240 An Stop Meds Name Total propofol 10mg/mL 400 mg lidocaine 2% (PF) 100 mg lactated ringers infusion 0 mL lactated ringers infusion 500 mL * Name Cell Saver Blood Intake O2 N2O Air EtSEVO EtISO EtDES EtN2O * No blood administrations on file. Removal Type Details Placement 01/20/17 111 by Rosy Loaiza RN PICC Date: 01/14/17; Time: 454; Size (FR): 5 01/14/17 045 by Kathleen Lee Fr; Description: PICC; Initial External ENRIQUE Banks Lumen Cath Length: 0 cm; Insertio n Attempts: 1; Removal Date: 01/20/17; Removal Time : 1114 documented in this encounter Social History Date Tobacco Use Types Packs/Day [...] as of this encounter Miscellaneous Notes * Anesthesia Postprocedure Evaluation - Melina Day MD - 01/17/2017 12:56 PM CDT Patient: Seema Bui Procedure(s): COLONOSCOPY ESOPHAGOGASTRODUODENOSCOPY (EGD) Final Anesthesia Type Performed: MAC *Block Type (if peripheral regional or epidural used): No value filed. Patient location: PACU Last Vitals: ANE Post Eval Vitals Flowsheet Row Most Recent Value BP 112/66 filed at 01/17/2017 1245 Pulse 81 filed at 01/17/2017 1245 Temp 36.9 C (98.5 F) filed at 01/17/2017 1119 Resp 16 filed at 01/17/2017 1245 SpO2 94 % filed at 01/17/2017 1245 Level of consciousness: awake, alert and oriented Post-anesthesia pain: adequate analgesia Airway patency: patent Respiratory: unassisted Cardiovascular: stable and blood pressure at baseline Hydration: adequate PostOp Nausea/Vomiting: controlled Difficult Airway: no Anesthetic complications: no Discharge from anesthesia care: Appropriate for discharge from anesthesia care, no apparent anesthesia related complications * Anesthesia Preprocedure Evaluation - Melina Day MD - 01/17/2017 11:50 AM CDT Relevant Problems No active problems are marked relevant to this note. Anesthesia Evaluation Airway Mallampati: I TM distance: >3 FB Neck ROM: full Dental Pulmonary - normal exam Cardiovascular - normal exam Rhythm: regular Rate: normal Neuro/Psych (+) seizures, GI/Hepatic/Renal Endo/Other Abdominal Obstetrics HEENT Musculoskeletal Anesthesia Plan ASA 2 Type: MAC () Anesthetic plan and risks discussed with patient. Plan discussed with COLOR WORKER. Recovery plan: Phase II Notes HGB 7.7 documented in this encounter Plan of Treatment Not on filedocumented as of this encounter Visit Diagnoses Not on filedocumented in this encounter Administered Medications Action Date Dose Rate Site Medication Order MAR Action 01/17/2017 12:22 PM CDT 100 mg lidocaine (pf) (XYLOCAINE-MPF) 20 mg/mL Given (2 %) injection As needed, Starting 01/17/17 at 1222, Anesthesia Intra-op 01/17/2017 12:36 PM CDT 50 mg propofol (DIPRIVAN) injection Given As needed, Starting 01/17/17 at 1222, Anesthesia Intra-op 40 mg Given 01/17/2017 12:34 PM CDT 50 mg Given 01/17/2017 12:32 PM CDT documented in this encounter
--- OUTSIDE RECORDS SUMMARY | 2019-08-15 02:43 | XMS REPORT | Encounter Summary ---
Author Author [facility] Organization [facility] Address Unknown Phone Unavailable Care Team Providers Care Operations Inspector Name Role Phone PCP Unavailable Reason for Referral * Auth/Cert (Routine) Referred By Contact Referred To Contact Status Reason Specialty Diagnoses / [place] [id number] [facility] [address] [place] [address] Pending Review Procedures Case request operating room: EGD, DIAGNOSTIC, WITH SPECIMEN COLLECTION, COLONOSCOPY * Auth/Cert (Routine) Referred By Contact Referred To Contact Status Reason Specialty Diagnoses / Procedures Khalif Snowden MD [id number] [facility] [address] [place] [address] Procedures Case request operating room: ESOPHAGOGASTRODUOD ENOSCOPY (EGD) Reason for Visit * Reason Comments Back Pain Pt states she has been havi ng mid to lower back pain since this am. * Auth/Cert (Routine) Referred By Contact Referred To Contact Status Reason Specialty Diagnoses / Procedures Khalif Snowden MD [address] [facility] [address] [place] [address] Procedures Case request operating room: ESOPHAGOGASTRODUOD ENOSCOPY (EGD) Encounter Details Care Team Description Date Type Department Ricardo Rosario DO [address] [place] [address] Kellie Sullivan DO [address] [place], [place] [address] Lei Wang MD [address] [place] [address] [phone] Willy Soriano DO [address] [place] [address] [phone] Kim Banks MD [address] [place] [address] [phone] Upper GI bleeding (Primary Dx); Uli-Oliva syndrome; Right flank pain; Urinary tract infection, site unspecified; Acute upper GI bleed; Flank pain; Intractable cyclical vomiting with nausea; Convulsions, unspecified convulsion type (HCC); Anemia, unspecified type 01/13/2017 [facility] 01/20/[address] [place] [address] Social History Date Tobacco Use Types Packs/Day Years Used Started: 2004 Current Some Day Smoker Cigarettes 1.5 12 Drinks/Week oz/Week Comments Alcohol Use No Sex Assigned at Date Recorded Not on file Industry Job Start Date Occupation Not on file Not on file Not on file Travel End Travel History Travel Start No recent travel history available. documented as of this encounter Last Filed Vital Signs Reading Time Taken [...] 01/14/2017 2:15 PM CDT Body Mass Index documented in this encounter Discharge Summaries * Kim Banks MD - 01/20/2017 7:44 AM CDT [facility] Hospitalist - Discharge Summary Patient Name: Seema Bui Account No: [id number] Date of : 1990 Date of Admission: 01/13/2017 6:08 PM Date of Discharge: 01/20/2017 8:31 AM Length of Stay: 7 Days LACE Score: LACE Score: (!) 10 Primary Care Physician: No primary care provider on file.; Phone: None Reason for Hospital Admission and Brief Hospital Course: 26 y/o female with hist ory of anxiety and seizure disorder presents 01/13/17 with c/o n/v and bloody emes is x3 days. GI has seen the patient in consultation and recommended EGD and colonoscopy each was negative or any pathology. GI also recommended to continue iron supplement ation. Her hemoglobin continued to drop. Patient was transfused a unit of blood . Her Hb on discharge was 9.1. GI started treatment for HP with amoxicillin and clarithromycin. She was also st arted on protonix, dicyclomine and iron for anemia. Pt refused antibiotics. She is allergic to morphine, toradol, zofran and reglan and has complained of persis tent nausea. She got phenergan while in the hospital. She will be discharge on p henergan PO. Pt had a seizure. She has a history of pseudoseizures. Neurology ev aluated her. She requested to be discharge. She will follow up with GI as an outpatient. She will see as an outpatient regarding iron deficiency anemia, gastric emptying study as an outpatient (off narcotics). Repeat colonoscopy in 5 years for screening due to family history of colon cancer. Social work tried to help h er find a primary care physician, but she refused. The patient's discharge plan was discussed fully with the patient. All questions were answered. Disposition: Discharged in stable condition to home. Problems Addressed During This Admission: Principal Problem: Acute upper GI bleed Active Problems: Intractable cyclical vomiting with nausea Flank pain Seizures (HCC) Code Status: Full Code Recommended Diet: Diet-Regular Activity/Restrictions: activity as tolerated Scheduled Follow Up Appointments/Studies ([facility] Providers): No future appointments. Additional Discharge Follow Up: Dr Bueno primary care provider on file., primary care physician in [address] Sandoval as an outpatient regarding iron deficiency anemia. Gastric empt zainab study as an outpatient (off narcotics). Repeat colonoscopy in 5 years for screening due to family history of colon cance r. Allergies Allergen Reactions Ondansetron Reglan [Metoclopramide Hcl] Sulfa (Sulfonamide Antibiotics) Swelling Toradol [Ketorolac] Angioedema Morphine Itching Discharge Medications New Medications Indication(s) amoxicillin 500 MG capsule Commonly known as: AMOXIL 1,000 mg, Oral, 2 times daily Indication: HELICOBACTER PYLORI clarithromycin 500 MG tablet Commonly known as: BIAXIN 500 mg, Oral, Every 12 hours Indication: HELICOBACTER PYLORI dicyclomine 10 MG capsule Commonly known as: BENTYL 20 mg, Oral, 4 times daily ferrous sulfate 325 (65 FE) MG tablet 325 mg, Oral, Daily with breakfast promethazine 25 MG tablet Commonly known as: PHENERGAN 25 mg, Oral, Every 6 hours PRN Medications To Continue Indication(s) chlorproMAZINE 25 MG tablet Commonly known as: THORAZINE 25 mg, Oral, Nightly clonazePAM 1 MG tablet Commonly known as: KlonoPIN 1 mg, Oral, 2 times daily gabapentin 300 MG capsule Commonly known as: NEURONTIN 600 mg, Oral, 3 times daily Vital Signs: Blood Pressure: BP: 115/80 Pulse: Pulse: 56 Temperature: Temp: 36.8 C (98.2 F) Respirations: Resp: 16 Admission Weight: Weight: 70.8 kg (156 lb) O2 Saturation: SpO2: 99 % Discharge Weight: Weight: 66.3 kg (146 lb 3.2 oz) BMI: Body mass index is 26.74 kg/m. Physical Exam: Gen: Calm, cooperative, less pale CV: RRR, S1 & S2 normal, no murmurs, gallops, or rubs Resp: CTAB, no wheezes, crackles, or rhonchi Abd: S/ND/NT, +BS Ext: No c/c/e Skin: Warm, dry, & intact with no obvious rashes or significant lesions Neuro: A/Ox4, no focal neurologic deficits Labs - Last 36 hours: Recent Results (from the past 36 hour(s)) CBC and Diff (manual diff if necessary) Collection Time: 01/19/17 4:20 AM Result Value Ref Range WBC 9.65 4.00 - 11.00 TH/uL RBC 4.07 4.00 - 5.00 MIL/uL Hemoglobin 9.4 (L) 12.0 - 15.0 g/dL Hematocrit 30 (L) 36 - 45 % MCV 73 (L) 80 - 99 fL MCH 23 (L) 27 - 34 pg MCHC 32 32 - 36 % RDW 16.6 (H) 9.0 - 14.5 % Platelet Count 433 (H) 140 - 400 TH/uL MPV 11.1 9.4 - 12.3 fL Nucleated RBCs 0 0 - 0 /100 %Segmented Neutrophils 61 45 - 78 % %Lymphocytes 29 15 - 47 % %Monocytes 6 0 - 12 % %Eosinophils 3 0 - 7 % %Basophils 1 0 - 2 % % Imm Grans 1 0 - 1 % # Granulocytes 5.94 1.70 - 6.80 TH/uL # Lymphocytes 2.75 1.00 - 3.30 TH/uL # Monocytes 0.61 0.20 - 0.90 TH/uL # Eosinophils 0.30 0.00 - 0.40 TH/uL # Basophils 0.05 0.00 - 0.10 TH/uL Basic Metabolic Panel Collection Time: 01/19/17 4:20 AM Result Value Ref Range Sodium 141 133 - 147 MEQ/L Potassium 4.3 3.5 - 5.3 MEQ/L Chloride 108 96 - 112 MEQ/L Carbon Dioxide 25 20 - 32 MEQ/L Anion Gap 8 5 - 17 Calcium 9.0 8.4 - 10.5 mg/dL Glucose 84 70 - 100 mg/dL Blood Urea Nitrogen 15 7 - 26 mg/dL Creatinine 0.7 0.4 - 1.1 mg/dL GFR Female AA 120 60 - 200 GFR Female Non-AA 100 60 - 200 CBC and Diff (manual diff if necessary) Collection Time: 01/20/17 3:00 AM Result Value Ref Range WBC 7.84 4.00 - 11.00 TH/uL RBC 3.88 (L) 4.00 - 5.00 MIL/uL Hemoglobin 9.1 (L) 12.0 - 15.0 g/dL Hematocrit 29 (L) 36 - 45 % MCV 74 (L) 80 - 99 fL MCH 24 (L) 27 - 34 pg MCHC 32 32 - 36 % RDW 17.2 (H) 9.0 - 14.5 % Platelet Count 421 (H) 140 - 400 TH/uL MPV 11.1 9.4 - 12.3 fL Nucleated RBCs 0 0 - 0 /100 %Segmented Neutrophils 62 45 - 78 % %Lymphocytes 29 15 - 47 % %Monocytes 6 0 - 12 % %Eosinophils 2 0 - 7 % %Basophils 1 0 - 2 % % Imm Grans 0 0 - 1 % # Granulocytes 4.91 1.70 - 6.80 TH/uL # Lymphocytes 2.27 1.00 - 3.30 TH/uL # Monocytes 0.43 0.20 - 0.90 TH/uL # Eosinophils 0.18 0.00 - 0.40 TH/uL # Basophils 0.05 0.00 - 0.10 TH/uL Basic Metabolic Panel Collection Time: 01/20/17 3:00 AM Result Value Ref Range Sodium 142 133 - 147 MEQ/L Potassium 3.6 3.5 - 5.3 MEQ/L Chloride 110 96 - 112 MEQ/L Carbon Dioxide 23 20 - 32 MEQ/L Anion Gap 9 5 - 17 Calcium 8.1 (L) 8.4 - 10.5 mg/dL Glucose 84 70 - 100 mg/dL Blood Urea Nitrogen 13 7 - 26 mg/dL Creatinine 0.6 0.4 - 1.1 mg/dL GFR Female AA >130 60 - 200 GFR Female Non-AA 119 60 - 200 Imaging during this encounter: Ct Abdomen Pelvis Wo Contrast Result Date: 01/13/2017 Previous cholecystectomy. Bilateral nonobstructive renal calculi. Tubal ligation. Nonvisualized appendix without secondary signs acute appendicitis. Stool gas distribution suggesting constipation. One or more of the following dose reduction techniques were utilized: *Automated exposure control (AEC) *Adjustment of mA and/or kV according to patient size -Use of iterative reconstruction technique -CT scan done according to ALARA, or ALARA/IMAGE GENTLY Xr Chest Single View Frontal Result Date: 01/14/2017 1. Satisfactory placement of right PICC. 2. No acute cardiopulmonary process. Cardiac Studies during this encouter: No results found. Time spent on this inpatient discharge was greater than 30 minutes. Kim Martinez MD [facility] Hospitalist Please page through physician paging. . C DT * Sandie Del Angel RN - 01/16/2017 1:36 PM CDT Offered assistance with obtaining a PCP, refused assistance stating she will get one after discharge. Informed her that care coordination will assist if she ch anges her mind. documented in this encounter Medications at Time of Discharge Start Date End Date Medication Sig Dispensed Refills chlorproMAZINE Take 25 mg by 0 (THORAZINE) 25 MG tablet mouth nightly. clonazePAM (KLONOPIN) 1 Take 1 mg by 0 MG tablet mouth 2 (two) times a day. 01/18/2017 dicyclomine (BENTYL) 10 Take 2 120 capsule 0 MG capsule capsules (20 mg total) by mouth 4 (four) times a day. 01/18/2017 ferrous sulfate 325 (65 Take 1 tablet 30 tablet 0 FE) MG tablet (325 mg total) by mouth daily with breakfast. gabapentin (NEURONTIN) Take 600 mg 0 300 MG capsule by mouth 3 (three) times a day. 01/20/2017 promethazine (PHENERGAN) Take 1 tablet 60 tablet 0 25 MG tablet (25 mg total) by mouth every 6 (six) hours as needed for nausea. 01/20/2017 01/30/2017 amoxicillin (AMOXIL) 500 Take 2 10 capsule 0 MG capsuleIndications: capsules HELICOBACTER PYLORI (1,000 mg total) by mouth 2 (two) times a day. 01/20/2017 01/30/2017 clarithromycin (BIAXIN) Take 1 tablet 20 tablet 0 500 MG tabletIndications: (500 mg HELICOBACTER PYLORI total) by mouth every 12 (twelve) hours. documented as of this encounter Progress Notes * Kim Banks MD - 01/19/2017 2:49 PM CDT [facility] Patient Name: Seema Bui Account No: [id number] Date of : 1990 Date of Admission: 01/13/2017 6:08 PM Subjective Follow up regarding anemia, nausea and vomit Continues to have nausea and vomit, however flushed vomit and nurse was not able to see it She continues to say she is not feeling well which is a barrier for discharge D/c narcotics If she continues to vomit - NPO Pt refused antibiotics Objective Vital Signs: Temp: 37 C (98.6 F) Pulse: 65 Resp: 14 BP: 110/74 SpO2: 100 % H eight: 157.5 cm (5' 2") Weight: 66.3 kg (146 lb 3.2 oz) I/O last 24 Hours: In: 1152.1 [P.O.:960; I.V.:192.1] Out: - Physical Exam: Gen: Calm, cooperative, less pale. CV: RRR, S1 & S2 normal, no murmurs, gallops, or rubs Resp: CTAB, no wheezes, crackles, or rhonchi Abd: S/ND/NT, +BS Ext: No c/c/e Skin: Warm, dry, & intact with no obvious rashes or significant lesions Neuro: A/Ox4, no focal neurologic deficits I have personally reviewed the patient's vital signs, laboratory/pathology/cultu re results (as indicated), current inpatient medications and integrated logistics support manager notes with pertainent findings noted within the assessment/plan. Assessment/Plan Ms. Seema Bui is a 26 y.o. female who was admitted on 01/13/2017 with Back P ain. Problems addressed with today's visit include: Intractable cyclical vomiting with nausea Etiology unknown - Anti-emetics - Supportive care, IVF's - NPO No narcotics * Acute upper GI bleed Hb improved after transfusion No pathology found on EGD Monitor Hb Seizures (HCC) Most recent seizure 01/10 Unable to recall name of anti-epileptic, mother to provide in AM - Seizure precautions - Resume antiepileptic Anemia Hemoglobin improved after transfusion Monitor Hb Iron supplements See my orders for additional details regarding this patients treatment plan. Room: Diet: Diet-Regular Diet - Regular Code Status: Full Code VTE Prevention: Appropriate VTE orders and/or documentation has been completed for this patient. Dobson Catheter: N/A Scheduled Meds: amoxicillin 1,000 mg Oral BID chlorproMAZINE 25 mg Oral Nightly clarithromycin 500 mg Oral Q12H YOSI dicyclomine 20 mg Oral 4x Daily gabapentin 600 mg Oral TID iron sucrose 300 mg Intravenous Q3 Days pantoprazole 40 mg Oral QAM AC Continuous Infusions: sodium chloride 75 mL/hr (01/19/17 0553) PRN Meds: acetaminophen OR acetaminophen, benzocaine, clonazePAM, diphenhydrAMINE, fen taNYL, potassium chloride, potassium chloride, promethazine, sodium chloride 0.9 % Kim Martinez MD [facility] Hospitalist Please page through physician paging. . C Gino Roman MD - 01/18/2017 3:34 PM CDT [facility] GASTROINTESTINAL PROGRESS NOTE HPI: Abdominal pain, nausea and vomiting Interval History: Patient claims that she can't keep anything down. She complai ns of right midabdominal pain Review of Systems: 10 point ROS was obtained and was negative except for what is mentioned above. Past Medical History: Past Medical History: Diagnosis Date Anxiety Fibromyalgia Hypertension Hypothyroidism Myocardial infarction (HCC) Seizures (HCC) Past Surgical Hsitory: Past Surgical History: Procedure Laterality Date CHOLECYSTECTOMY COLONOSCOPY N/A 01/17/2017 Procedure: COLONOSCOPY; Surgeon: Mauricio Harrison MD; Location: [facility] GI; Servic e: Gastroenterology; Laterality: N/A; ESOPHAGO-GASTRO DUODENOSCOPY WITH BIOPSY POLYP OR TISSUE MULTIPLE WITH FORCE P N/A 01/14/2017 Procedure: ESOPHAGO-GASTRO DUODENOSCOPY WITH BIOPSY POLYP OR TISSUE MULTIPLE WI TH FORCEP; Surgeon: Rashaun Sandoval MD; Location: [facility] GI; Service: Gastr oenterology; Laterality: N/A; ESOPHAGOGASTRODUODENOSCOPY (EGD) N/A 01/17/2017 Procedure: ESOPHAGOGASTRODUODENOSCOPY (EGD); Surgeon: Mauricio Harrison MD; Loca tion: [facility] GI; Service: Gastroenterology; Laterality: N/A; TUBAL LIGATION Family History: family history includes Depression in her mother; Hypertension in her mother; No Known Problems in her father. Med List: amoxicillin 1,000 mg Oral BID chlorproMAZINE 25 mg Oral Nightly clarithromycin 500 mg Oral Q12H OYSI dicyclomine 20 mg Oral 4x Daily gabapentin 600 mg Oral TID iron sucrose 300 mg Intravenous Q3 Days pantoprazole 40 mg Oral QAM AC Lab Results: Most Recent Result within the last 7 days Lab Units 01/18/17 0315 WBC TH/uL 6.98 HEMOGLOBIN g/dL 7.1* HEMATOCRIT % 23* PLATELET COUNT TH/uL 337 Most Recent Result within the last 7 days Lab Units 01/18/17 1408 01/18/17 0315 01/13/17 1936 SODIUM MEQ/L -- 140 < > 141 POTASSIUM MEQ/L 4.4 3.4* < > 3.9 CHLORIDE MEQ/L -- 111 < > 111 CARBON DIOXIDE MEQ/L -- 20 < > 22 BLOOD UREA NITROGEN mg/dL -- 3* < > 11 CALCIUM mg/dL -- 7.7* < > 7.4* PROTEIN TOTAL SERUM g/dL -- -- -- 6.1 ALKALINE PHOSPHATASE IU/L -- -- -- 116 ALANINE AMINOTRANSFERASE IU/L -- -- -- 48 ASPARTATE AMINOTRANSFERASE IU/L -- -- -- 55* < > = values in this interval not displayed. No lab components to display Physical Exam: VS: Vitals: 01/18/17 1015 01/18/17 1256 BP: 115/71 128/90 Pulse: 59 72 Resp: 18 18 Temp: 36.7 C (98 F) 36.8 C (98.2 F) SpO2: 100% 100% GEN: Alert, no acute distress Eye: Anicteric sclerae Neck: Supple CV: RRR Chest: Clear Abdomen: BS+, soft, not distended or tender, no hepatosplenomegaly or ascites Ext: No cyanosis, edema or clubbing Skin: No rash or spider angiomata NM: No focal deficits, no asterixis Psych: Euthymic mood Imaging Results: Ct Abdomen Pelvis Wo Contrast Result Date: 01/13/2017 Previous cholecystectomy. Bilateral nonobstructive renal calculi. Tubal ligation. Nonvisualized appendix without secondary signs acute appendicitis. Stool gas distribution suggesting constipation. One or more of the following dose reduction techniques were utilized: *Automated exposure control (AEC) *Adjustment of mA and/or kV according to patient size -Use of iterative reconstruction technique -CT scan done according to ALARA, or SERGIO/IMAGE GENTLY Xr Chest Single View Frontal Result Date: 01/14/2017 1. Satisfactory placement of right PICC. 2. No acute cardiopulmonary process. Endoscopy Results During This Admission: EGD and colonoscopy yesterday EGD Impressions: Normal esophagus. No edema, erythema, friability, erosions, ulcerations, ulcers, rings, strictures, masses, tumors, esophageal varices, etc. The squamocolumnar junction was located at the gastroesophageal junction and was very regular in appearance. Normal stomach. No edema, erythema, friability, erosions, ulcerations, ulcers, masses, tumors, arteriovenous malformations, or gastric varices. Retroflexed examination of the proximal stomach did not demonstrate significant structural abnormalities. Normal duodenum. No duodenitis, bulboduodenitis, masses, scarring, erosions, or ulcers and the duodenal folds had a normal appearance. Colonoscopy Impressions: Normal colon. EGD 01/14/17 Impressions: Normal mucosa in the whole esophagus. Food in the stomach body suggestive of gastroparesis. Normal mucosa in the whole examined duodenum. (Biopsy). Erosions in the pre-pyloric region. (Biopsy). Assessment: - Recurrent complaints of nausea, vomiting and nonspecific abdominal pain. 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 Stool H pylori Ag in 6 weeks to confirm eradication - Relistor 12 mg SC x 1 - Recommend to stop all narcotics - Antiemetics as needed, per primary team - Outpatient PillCam - Outpatient 4 hour gastric emptying test (off any narcotics) - Colonoscopy in 5 years or sooner if clinically indicated - We have no further recommendations for this patient who has been evaluated ext ensively by our service. If patient continues to complain of intractable nausea and vomiting then Dobbhoff should be placed and tubefeeding should be started If you have questions please call and do not reconsult Gino López M.D. Disclaimer: Part of this note is generated using Button voice recognition [employer]. Please excuse any uncorrected grammatical or typographical error. Electronically signed by Gino López 01/18/2017 3:34 PM * Kim Banks MD - 01/18/2017 2:31 PM CDT [facility] Hospitalist - Progress Note Patient Name: Seema Bui Account No: [id number] Date of : 1990 Date of Admission: 01/13/2017 6:08 PM Subjective Follow up regarding GI bleed and abdominal pain Patient had an episode of emesis. The nurse saw blood in the emesis. Her hemoglo bin dropped to 7.1. Continues to complain of abdominal pain. She did agree to blood transfusion. We will reconsult GI. ROS: A 12 point review of systems was completed and was negative except as per vidal barfield. Objective Vital Signs: Temp: 36.8 C (98.2 F) Pulse: 72 Resp: 18 BP: 128/90 SpO2: 100 % Height: 157.5 cm (5' 2") Weight: 66.3 kg (146 lb 3.2 oz) I/O last 24 Hours: In: 3177.2 [P.O.:480; I.V.:2403.8; Blood:293.3] Out: 1 [Emesis/NG output:1] Physical Exam: Gen: Calm, cooperative, pale, uncomfortable. CV: RRR, S1 & S2 normal, no murmurs, gallops, or rubs, 2+ pulses all extremities Resp: CTAB, no wheezes, crackles, or rhonchi Abd: +BS, distended, tender in the center of the abdomen. No peritoneal signs. Ext: No c/c/e Skin: Warm, dry, & intact with no obvious rashes or significant lesions Neuro: A/Ox4, no focal neurologic deficits I have personally reviewed the patient's vital signs, laboratory/pathology/cultu re results (as indicated), current inpatient medications and integrated logistics support manager notes with pertainent findings noted within the assessment/plan. Assessment/Plan Ms. Seema Bui is a 26 y.o. female who was admitted on 01/13/2017 with Back P ain. Problems addressed with today's visit include: Intractable cyclical vomiting with nausea Etiology unknown - Anti-emetics - Supportive care, IVF's -Reconsult GI. * Acute upper GI bleed No prior history, hgb 7.3 on admit Workup has been negative so far. Reconsult GI. Flank pain Acute on chronic, prior history of ovarian cysts CT abd shows tiny nonobstructive punctate renal calculi seen bilaterally, no dis cindy obstructive uropathy. UA with small bacteria, neg nitrite and leuko-esterace, no dysuria - Urine reflex pending - Pain management - Continue IVF's Seizures (HCC) Most recent seizure 01/10 Resume antiepileptic when confirmed Anemia Hemoglobin 7.1. Patient symptomatic. Blood transfusion. Check hemoglobin tomorrow. See my orders for additional details regarding this patients treatment plan. Room: [address] [place] [address] Diet: Diet-Regular Diet - Regular Code Status: Full Code VTE Prevention: Appropriate VTE orders and/or documentation has been completed for this patient. Dobson Catheter: N/A Scheduled Meds: chlorproMAZINE 25 mg Oral Nightly dicyclomine 20 mg Oral 4x Daily gabapentin 600 mg Oral TID iron sucrose 300 mg Intravenous Q3 Days pantoprazole 40 mg Oral QAM AC Continuous Infusions: PRN Meds: acetaminophen OR acetaminophen, benzocaine, clonazePAM, diphenhydrAMINE, fen taNYL, potassium chloride, potassium chloride, promethazine, sodium chloride 0.9 %, sodium chloride 0.9% Kim Martinez MD [facility] Hospitalist Please page through physician paging. . C DT * Sandie Del Angel, ENRIQUE - 01/17/2017 2:57 PM CDT 01/17/17 1456 Discharge Planning Anticipated discharge destination Home Self Care Multidisciplinary Discharge Rounds Disciplines Present Hot Patcher;Hospitalist RN;Physician;Social Work Discharge Comments 6-6 * Kim Banks MD - 01/17/2017 7:45 AM CDT [facility] Patient Name: Seema Bui Account No: [id number] Date of : 1990 Date of Admission: 01/13/2017 6:08 PM Subjective Follow up regarding intractable vomit and GI bleed Awaiting for endoscopy Denied nausea and vomit. No fever. Pt is symptomatic, she complained of feeling lightheaded and dizzy when she rosenthal ges positions. Mild sob with minimal efforts We will consider blood transfusion if Hb not improving and after endoscopic resu lts are available Review of Systems: ROS: A 12 point review of systems was completed and was negat tricia except as per above. Objective Vital Signs: Temp: 36.8 C (98.2 F) Pulse: 83 Resp: 18 BP: 126/81 SpO2: 99 % Height: 157.5 cm (5' 2") Weight: 66.3 kg (146 lb 3.2 oz) I/O last 24 Hours: In: 1556.1 [P.O.:520; I.V.:1036.1] Out: - Physical Exam: Gen: Calm, pale, cooperative CV: RRR, S1 & S2 normal, no murmurs, gallops, or rubs, 2+ pulses all extremities Resp: CTAB, no wheezes, crackles, or rhonchi Abd: S/ND/NT, +BS Ext: No c/c/e Skin: Warm, dry, & intact with no obvious rashes or significant lesions Neuro: A/Ox4, no focal neurologic deficits I have personally reviewed the patient's vital signs, laboratory/pathology/cultu re results (as indicated), current inpatient medications and integrated logistics support manager notes with pertainent findings noted within the assessment/plan. Assessment/Plan Ms. Seema Bui is a 26 y.o. female who was admitted on 01/13/2017 with Back P ain. Problems addressed with today's visit include: Anemia Pt is symptomatic Continue Iron replacement monitor Hb Consider Blood transfusion pending endoscopy results Intractable cyclical vomiting with nausea Etiology unknown - Anti-emetics - Supportive care, IVF's * Acute upper GI bleed No prior history, hgb 7.3 on admit -- 7.7 - GI consult - NPO - Protonix gtt - Serial H&H Flank pain Acute on chronic, prior history of ovarian cysts CT abd shows tiny nonobstructive punctate renal calculi seen bilaterally, no dis cindy obstructive uropathy. UA with small bacteria, neg nitrite and leuko-esterace, no dysuria Seizures (HCC) Most recent seizure 01/10 - Resume antiepileptic See my orders for additional details regarding this patients treatment plan. Room: - Diet: Diet NPO Code Status: Full Code VTE Prevention: Appropriate VTE orders and/or documentation has been completed for this patient. Dobson Catheter: N/A Scheduled Meds: chlorproMAZINE 25 mg Oral Nightly gabapentin 600 mg Oral TID iron sucrose 300 mg Intravenous Q3 Days Continuous Infusions: lactated Ringers Stopped (01/16/17 1030) pantoprozole (PROTONIX) infusion 8 mg/hr (01/17/17 0723) sodium chloride 75 mL/hr (01/17/17 0722) PRN Meds: acetaminophen OR acetaminophen, benzocaine, clonazePAM, diphenhydrAMINE, fen taNYL, potassium chloride, promethazine, sodium chloride 0.9% Kim Martinez MD [facility]ist Please page through physician paging. . Willy Mo DO - 01/16/2017 9:46 AM CDT [facility] REAL ESTATE DIRECTOR Hospitalist Progress Note Encounter Date: 01/16/2017 9:46 AM Current Admission: Admit Date: 01/13/2017 Admitting Physician: Lei Wang MD Length of Stay: 3 Days Note Author: Willy Soriano Assessment/plan: 26 y.o. female with: Acute anemia, right sided abdominal pain and flank pain, takes NSAIDs, JARVIS - CT abdomen negative - FHx of colon cancer in brother in his 20s - plans for EGD and Colonoscopy Tuesday - ferritin is 8, MCV is 72 suggestive of JARVIS that likely has been present for so me time - Venofer 300mg today, has 1000mg deficit. Anxiety, fibromyalgia, - stable Full code, ppi ggt, monitor hgb, CLD, Tuesday possible discharge after endoscopy with outpatient protonix and carafate DVT PPx: Yes Code Status: Full Code Time: Spent 40 minutes on chart review, patient interview/exam, and treatment pl an formation. Electronically signed by Willy Soriano 01/16/2017 9:46 AM [facility] [address] [place] [address] [address] [place] [address] T:[phone] F:[phone] Subjective: No acute events overnight.Patient reports feeling ok. She reports a dark stool yesterday. No syncope or presyncope. Objective: Vital Signs: Temp: [36.4 C (97.5 F)-37.7 C (99.8 F)] 36.8 C (98.2 F) Pulse: [69-122] 75 Resp: [16-18] 16 BP: (108-127)/(67-94) 117/82 Intake/Output Summary (Last 24 hours) at 01/16/17 0914 Last data filed at 01/16/17 0559 Gross per 24 hour Intake 3013.24 ml Output 0 ml Net 3013.24 ml Weight: Wt Readings from Last 3 Encounters: 01/16/17 66.3 kg (146 lb 3.2 oz) BMI: Body mass index is 26.74 kg/m. Physical Exam: Gen: A/Ox3, NAD, appears non-toxic CV: RRR, no murmurs, clicks, or rub, 2+ peripheral pulses in all extremities Pulm: CTAB, no wheezes, rales, or rhonchi Abd: S/NT/ND, +BS, no HSM, no r/r/g Skin: Warm, dry, intact, appears well without erythema, exudate, induration, or drainage Ext: No c/c/e Laboratory Data: CBC with Diff: Lab Results Component Value Date WBC 7.74 01/16/2017 RBC 3.58 (L) 01/16/2017 HGB 7.9 (L) 01/16/2017 HCT 25 (L) 01/16/2017 RDW 16.2 (H) 01/16/2017 MCH 22 (L) 01/16/2017 MCHC 31 (L) 01/16/2017 MCV 70 (L) 01/16/2017 PLT 326 01/16/2017 MPV 11.4 01/16/2017 LYMPHSABS 2.32 01/16/2017 MONOSABS 0.53 01/16/2017 EOSABS 0.17 01/16/2017 NEUTOPHILPCT 60 01/16/2017 LYMPHOPCT 30 01/16/2017 MONOPCT 7 01/16/2017 EOSPCT 2 01/16/2017 BASOPCT 0 01/16/2017 NRBC 0 01/16/2017 CMP: Lab Results Component Value Date NA 136 01/14/2017 K 4.2 01/14/2017 CL 111 01/14/2017 CO2 19 (L) 01/14/2017 GAP 6 01/14/2017 GLU 81 01/14/2017 BUN 8 01/14/2017 CREAT 0.5 01/14/2017 GFRFAA >130 01/14/2017 GFRFNAA >130 01/14/2017 CALCIUM 7.5 (L) 01/14/2017 BILITOTAL 0.3 01/13/2017 ALKPHOS 116 01/13/2017 ALT 48 01/13/2017 AST 55 (H) 01/13/2017 ALBUMIN 3.4 (L) 01/13/2017 PROT 6.1 01/13/2017 Coags: No results found for: PROTIME, INR, APTT, FIBRINOGEN Lipids: No results found for: CHOLHDL, HDL, NONHDL, HPP, LDLCHOL, TRIG, CHOL Urinalysis: Lab Results Component Value Date APPEARUA Yellow 01/13/2017 GLUCOSEU Negative 01/13/2017 KETONESU Negative 01/13/2017 BILIUA Negative 01/13/2017 HGBUA Large (A) 01/13/2017 SPECGRAV >=1.030 01/13/2017 PHURINE 6.0 01/13/2017 PROTUA 30 (A) 01/13/2017 UROBILIUA Negative 01/13/2017 LEUKOUA Negative 01/13/2017 NITRITEUA Negative 01/13/2017 WBCUA 6 - 10 (A) 01/13/2017 RBCUA >40 (A) 01/13/2017 Urine : Lab Results Component Value Date UCGURINE Negative 01/15/2017 HgbA1c: No results found for: HGBA1C Radiology Results: Ct Abdomen Pelvis Wo Contrast Result Date: 01/13/2017 Previous cholecystectomy. Bilateral nonobstructive renal calculi. Tubal ligation. Nonvisualized appendix without secondary signs acute appendicitis. Stool gas distribution suggesting constipation. One or more of the following dose reduction techniques were utilized: *Automated exposure control (AEC) *Adjustment of mA and/or kV according to patient size -Use of iterative reconstruction technique -CT scan done according to ALARA, or ALARA/IMAGE GENTLY Xr Chest Single View Frontal Result Date: 01/14/2017 1. Satisfactory placement of right PICC. 2. No acute cardiopulmonary process. Medications: Scheduled Meds: chlorproMAZINE 25 mg Oral Nightly erythromycin 250 mg Intravenous Once gabapentin 600 mg Oral TID peg 9480-[id number] C 1 Bottle Oral Once [START ON 01/17/2017] peg 2657-[id number] C 1 Bottle Oral Once Continuous Infusions: pantoprozole (PROTONIX) infusion 8 mg/hr (01/16/17 3300) sodium chloride 75 mL/hr (01/16/17 0747) PRN Meds: acetaminophen OR acetaminophen, benzocaine, clonazePAM, diphenhydr AMINE, fentaNYL, potassium chloride, promethazine * Rashaun Sandoval MD - 01/16/2017 9:14 AM CDT [facility] GASTROINTESTINAL PROGRESS NOTE Subjective: Chief Complaint: Abdominal pain Interval History: No change in symptoms. Review of systems: No change: Same as noted in GI consult note. Objective: BP 117/82 (BP Location: Left arm, Patient Position: Sitting) | Pulse 75 | Temp 36.8 C (98.2 F) (Oral) | Resp 16 | Ht 1.575 m (5' 2") | Wt 66.3 kg (146 lb 3.2 oz) | LMP 12/31/2016 | SpO2 95% | BMI 26.74 kg/m Med List: Scheduled Meds: chlorproMAZINE 25 mg Oral Nightly gabapentin 600 mg Oral TID Continuous Infusions: pantoprozole (PROTONIX) infusion 8 mg/hr (01/16/17 0582) sodium chloride 75 mL/hr (01/16/17 0569) PRN Meds:.acetaminophen OR acetaminophen, benzocaine, clonazePAM, diphenhydr AMINE, fentaNYL, potassium chloride, promethazine LAB RESULTS: Last CBC: Most Recent Result within the last 7 days Lab Units 01/16/17 0300 WBC TH/uL 7.74 HEMOGLOBIN g/dL 7.9* HEMATOCRIT % 25* PLATELET COUNT TH/uL 326 Last BMP: Most Recent Result within the last 7 days Lab Units 01/14/17 0756 SODIUM MEQ/L 136 POTASSIUM MEQ/L 4.2 CHLORIDE MEQ/L 111 CARBON DIOXIDE MEQ/L 19* BLOOD UREA NITROGEN mg/dL 8 CREATININE mg/dL 0.5 CALCIUM mg/dL 7.5* Last CMP: Most Recent Result within the last 7 days Lab Units 01/14/17 0756 01/13/17 1936 SODIUM MEQ/L 136 141 POTASSIUM MEQ/L 4.2 3.9 CHLORIDE MEQ/L 111 111 CARBON DIOXIDE MEQ/L 19* 22 BLOOD UREA NITROGEN mg/dL 8 11 CREATININE mg/dL 0.5 0.6 CALCIUM mg/dL 7.5* 7.4* PROTEIN TOTAL SERUM g/dL -- 6.1 ALKALINE PHOSPHATASE IU/L -- 116 ALANINE AMINOTRANSFERASE IU/L -- 48 ASPARTATE AMINOTRANSFERASE IU/L -- 55* Last Lipase: Most Recent Result within the last 7 days Lab Units 01/14/17 0756 LIPASE IU/L 35 Last Protime/INR: No lab components to display RADIOLOGY RESULTS: Ct Abdomen Pelvis Wo Contrast Result Date: 01/13/2017 Previous cholecystectomy. Bilateral nonobstructive renal calculi. Tubal ligation. Nonvisualized appendix without secondary signs acute appendicitis. Stool gas distribution suggesting constipation. One or more of the following dose reduction techniques were utilized: *Automated exposure control (AEC) *Adjustment of mA and/or kV according to patient size -Use of iterative reconstruction technique -CT scan done according to ALARA, or TRERA/IMAGE GENTLY Xr Chest Single View Frontal Result Date: 01/14/2017 1. Satisfactory placement of right PICC. 2. No acute cardiopulmonary process. Physical Exam: BP 117/82 (BP Location: Left arm, Patient Position: Sitting) | Pulse 75 | Temp 36.8 C (98.2 F) (Oral) | Resp 16 | Ht 1.575 m (5' 2") | Wt 66.3 kg (146 lb 3.2 oz) | LMP 12/31/2016 | SpO2 95% | BMI 26.74 kg/m General appearance: alert, appears stated age and cooperative Lungs: clear to auscultation bilaterally Heart: regular rate and rhythm, S1, S2 normal, no murmur, click, rub or gallop Abdomen: soft, non-tender; bowel sounds normal; no masses, no organomegaly Extremities: extremities normal, atraumatic, no cyanosis or edema Neurologic: Grossly normal Assessment/Plan: Epigastric pain, nausea, vomiting, hematemesis with retained gastric contents on EGD Tuesday. Anemia, iron deficiecy, with strong FHx colon cancer (brother at very young age) Rec: EGD and colonoscopy tomorrow. Informed consent obtained. One dose of IV erythromycin later today to clear gastric contents. Electronically signed by Rashaun Sandoval MD 01/16/2017 9:15 AM * Willy Soriano DO - 01/15/2017 8:54 AM CDT [facility] REAL ESTATE DIRECTOR Hospitalist Progress Note Encounter Date: 01/15/2017 8:55 AM Current Admission: Admit Date: 01/13/2017 Admitting Physician: Lei Wang MD Length of Stay: 2 Days Note Author: Willy Soriano Assessment/plan: 26 y.o. female with: Acute anemia, right sided abdominal pain and flank pain, takes NSAIDs, JARVIS - CT abdomen negative - FHx of colon cancer in brother in his 20s - plans for EGD and Colonoscopy - ferritin is 8, MCV is 72 suggestive of JARVIS that likely has been present for so me time - Seems like the source is more of a slow ooze, PUD, AVM, or SB etiology given t he MCV and ferritin, unlikely acute bleed Anxiety, fibromyalgia, - I spoke with her about spacing her fentanyl out more to prevent addiction. Unl ikely a GI source is causing her that much pain. I discussed carafate with her a nd its mechanism to help with pain, but she didn't think it would help. Full code, ppi ggt, monitor hgb, CLD, Tuesday possible discharge after endoscopy with outpatient protonix and carafate DVT PPx: Yes Code Status: Full Code Time: Spent 40 minutes on chart review, patient interview/exam, and treatment pl an formation. Electronically signed by Willy Soriano 01/15/2017 8:55 AM [facility] [address] [place] [address] [address] [place] [address] T:[phone] F:[phone] Subjective: No acute events overnight.Patient reports feeling ok other than this right low er quadrant abdominal pain that is unrelated to diet. She is taking fentanyl dorothy und the clock to help with pain. Objective: Vital Signs: Temp: [36.5 C (97.7 F)-37.2 C (99 F)] 36.8 C (98.3 F) Pulse: [70-80] 75 Resp: [12-20] 18 BP: (111-129)/(74-88) 114/80 Intake/Output Summary (Last 24 hours) at 01/15/17 0855 Last data filed at 01/15/17 0846 Gross per 24 hour Intake 1949.2 ml Output 1700 ml Net 249.2 ml Weight: Wt Readings from Last 3 Encounters: 01/15/17 69.9 kg (154 lb 3.2 oz) BMI: Body mass index is 28.2 kg/m. Physical Exam: Gen: A/Ox3, NAD, appears non-toxic CV: RRR, no murmurs, clicks, or rub, 2+ peripheral pulses in all extremities Pulm: CTAB, no wheezes, rales, or rhonchi Abd: S/NT/ND, +BS, no HSM, no r/r/g Skin: Warm, dry, intact, appears well without erythema, exudate, induration, or drainage Ext: No c/c/e Laboratory Data: CBC with Diff: Lab Results Component Value Date WBC 6.30 01/14/2017 RBC 3.30 (L) 01/14/2017 HGB 7.8 (L) 01/15/2017 HCT 25 (L) 01/15/2017 RDW 16.2 (H) 01/14/2017 MCH 22 (L) 01/14/2017 MCHC 31 (L) 01/14/2017 MCV 72 (L) 01/14/2017 PLT 236 01/14/2017 MPV 11.6 01/14/2017 LYMPHSABS 1.76 01/13/2017 MONOSABS 0.49 01/13/2017 EOSABS 0.27 01/13/2017 NEUTOPHILPCT 59 01/13/2017 LYMPHOPCT 28 01/13/2017 MONOPCT 8 01/13/2017 EOSPCT 4 01/13/2017 BASOPCT 0 01/13/2017 NRBC 0 01/14/2017 CMP: Lab Results Component Value Date NA 136 01/14/2017 K 4.2 01/14/2017 CL 111 01/14/2017 CO2 19 (L) 01/14/2017 GAP 6 01/14/2017 GLU 81 01/14/2017 BUN 8 01/14/2017 CREAT 0.5 01/14/2017 GFRFAA >130 01/14/2017 GFRFNAA >130 01/14/2017 CALCIUM 7.5 (L) 01/14/2017 BILITOTAL 0.3 01/13/2017 ALKPHOS 116 01/13/2017 ALT 48 01/13/2017 AST 55 (H) 01/13/2017 ALBUMIN 3.4 (L) 01/13/2017 PROT 6.1 01/13/2017 Coags: No results found for: PROTIME, INR, APTT, FIBRINOGEN Lipids: No results found for: CHOLHDL, HDL, NONHDL, HPP, LDLCHOL, TRIG, CHOL Urinalysis: Lab Results Component Value Date APPEARUA Yellow 01/13/2017 GLUCOSEU Negative 01/13/2017 KETONESU Negative 01/13/2017 BILIUA Negative 01/13/2017 HGBUA Large (A) 01/13/2017 SPECGRAV >=1.030 01/13/2017 PHURINE 6.0 01/13/2017 PROTUA 30 (A) 01/13/2017 UROBILIUA Negative 01/13/2017 LEUKOUA Negative 01/13/2017 NITRITEUA Negative 01/13/2017 WBCUA 6 - 10 (A) 01/13/2017 RBCUA >40 (A) 01/13/2017 Urine : Lab Results Component Value Date UCGURINE Negative 01/15/2017 HgbA1c: No results found for: HGBA1C Radiology Results: Ct Abdomen Pelvis Wo Contrast Result Date: 01/13/2017 Previous cholecystectomy. Bilateral nonobstructive renal calculi. Tubal ligation. Nonvisualized appendix without secondary signs acute appendicitis. Stool gas distribution suggesting constipation. One or more of the following dose reduction techniques were utilized: *Automated exposure control (AEC) *Adjustment of mA and/or kV according to patient size -Use of iterative reconstruction technique -CT scan done according to ALARA, or SERGIO/IMAGE GENTLY Xr Chest Single View Frontal Result Date: 01/14/2017 1. Satisfactory placement of right PICC. 2. No acute cardiopulmonary process. Medications: Scheduled Meds: chlorproMAZINE 25 mg Oral Nightly gabapentin 600 mg Oral TID Continuous Infusions: pantoprozole (PROTONIX) infusion 8 mg/hr (01/15/17 0870) sodium chloride 75 mL/hr (01/14/17 8342) PRN Meds: acetaminophen OR acetaminophen, benzocaine, clonazePAM, diphenhydr AMINE, fentaNYL, potassium chloride, promethazine documented in this encounter H&P Notes * Mauricio Harrison MD - 01/17/2017 12:19 PM CDT PRE ENDOSCOPIC PROCEDURE HISTORY AND PHYSICAL Procedure: EGD/Colonoscopy Indication for Procedure: Abdominal pain, iron deficiency anemia Past surgical history: Past Surgical History: Procedure Laterality Date CHOLECYSTECTOMY ESOPHAGO-GASTRO DUODENOSCOPY WITH BIOPSY POLYP OR TISSUE MULTIPLE WITH FORCE P N/A 01/14/2017 Procedure: ESOPHAGO-GASTRO DUODENOSCOPY WITH BIOPSY POLYP OR TISSUE MULTIPLE WI TH FORCEP; Surgeon: Rashaun Sandoval MD; Location: [facility] GI; Service: Gastr oenterology; Laterality: N/A; TUBAL LIGATION Past medical history: Past Medical History: Diagnosis Date Anxiety Fibromyalgia Hypertension Hypothyroidism Myocardial infarction (HCC) Seizures (HCC) Social history: Social History Substance Use Topics Smoking status: Current Some Day Smoker Packs/day: 1.50 Years: 12.00 Types: Cigarettes Start date: 2004 Smokeless tobacco: Not on file Alcohol use No Allergies: Allergies Allergen Reactions Ondansetron Reglan [Metoclopramide Hcl] Sulfa (Sulfonamide Antibiotics) Swelling Toradol [Ketorolac] Angioedema Morphine Itching Home medications: Prior to Admission medications Medication Sig Start Date End Date Taking? Authorizing Provider chlorproMAZINE (THORAZINE) 25 MG tablet Take 25 mg by mouth nightly. Yes Histo rical Provider, clonazePAM (KLONOPIN) 1 MG tablet Take 1 mg by mouth 2 (two) times a day as need ed for anxiety. Yes Historical Provider, gabapentin (NEURONTIN) 300 MG capsule Take 600 mg by mouth 3 (three) times a day . Yes Historical Provider, ASA Class: Per anesthesia Airway assessment: Per anesthesia Anesthesia/Sedation: Per anesthesia/Conscious sedation Preprocedure Examination: Blood pressure 100/62, pulse 83, temperature 36.9 C (98.5 F), temperature so urce Oral, resp. rate 16, height 1.575 m (5' 2"), weight 66.3 kg (146 lb 3.2 oz) , last menstrual period 12/31/2016, SpO2 99 %. HEENT: normal atraumatic, no neck masses, normal thyroid, no jvd Chest: Normal chest wall and respirations. Clear to auscultation. Cardiac: Regular rate and rhythm, no murmurs Abdomen: soft, non-tender; bowel sounds normal; no masses, no organomegaly Neurologic: normal without focal findings, mental status, speech normal, alert a nd oriented x3, RONDA and reflexes normal and symmetric Other: Vitals stable. Attestations: - I have explained the procedure, principal risk(s), benefit(s), and alternative (s) to the patient/advocate, that individual had the opportunity to ask question s, and appeared to understand the procedure/risk(s)/benefit(s)/alternative(s). - I have explained the principal risks including but not limited to Perforation, bleeding, aspiration, slowing of breathing or heart rate, and missed lesions/pa thology. - I have reviewed the patient history including medications, allergies and relev ant diagnostic studies. - The sedation plan and principal risk(s)/complication(s) have been discussed wi th the patient/advocate. Electronically signed by Mauricio Harrison 01/17/2017 12:19 PM * Kellie Sullivan DO - 01/14/2017 2:34 AM CDT [facility] Patient Name: Seema Bui Account No: [id number] Date of : 1990 Date of Admission: 01/13/2017 6:08 PM Primary Care Physician: No primary care provider on file.; Phone: None Subjective Chief Complaint: Back Pain History of Present illness: Ms. Seema Bui is a 26 y.o. female with history of fibromyalgia and seizure disorder, who presented 01/13/17 with c/o n/v, and bl oody emesis. Onset of symptoms was abrupt and started 3 days ago. She had not been ill prior. She states she just started vomiting and noted faint blood stre aks in emesis at the time. The amount of blood noted has increased over the pas t 3 days to where it appears nicole and contains clots. She also notes developin g right flank pain that is sharp in nature and radiates to her RLQ. Pain is sim ilar to that experienced with prior ovarian cyst rupture. She has had a low gra de temp of 99.7, no chills. Denies associated light headedness, CP, dyspnea, di arrhea or constipation. No bloody or dark stools. She does take NSAIDS, either ibuprofen or naproxen a "couple times a week" for headaches. She does not drin k alcohol and has never experienced cyclical vomiting before. No history of FLAQUITA D or PUD. She has not been able to eat or take her prescribed medications for the last 3 d ays. Does report a history of seizure disorder, most recent occurring 01/10/17. She states she was told the type of seizures she has are pseudoseizures or a po ssible side effect from a vitamin deficiency. She is unable to recall the name of her antiepileptic or her neurologist. CT abd was negative for acute findings. Labs are significant for hgb of 7.3. G astric contents negative for occult blood. Presently dozing, reports improved f lank pain and nausea. Review of Systems: A 10-point review of systems was performed and was negative e xcept as noted above. Past Medical History: She has a past medical history of Anxiety; Fibromyalgia; a nd Seizures (HCC). Past Surgical History: She has a past surgical history that includes Cholecystec chantelle and Tubal ligation. Family History: She indicated that her mother is alive. She indicated that her f ather is alive. Her family history includes Depression in her mother; Hypertension in her mothe r; No Known Problems in her father. Social History: She reports that she has been smoking Cigarettes. She started s moking about 12 years ago. She has been smoking about 1.50 packs per day. She do es not have any smokeless tobacco history on file. She reports that she does not drink alcohol or use drugs. Allergies: She is allergic to ondansetron; reglan [metoclopramide hcl]; and morp hector. Prior to Admission medications Medication Sig clonazePAM (KLONOPIN) 1 MG tablet Take 1 mg by mouth 2 (two) times a day as need ed for anxiety. gabapentin (NEURONTIN) 300 MG capsule Take 600 mg by mouth 3 (three) times a day . Objective Triage Vital Signs: Temp: 36.4 C (97.6 F) Pulse: 99 Resp: 16 BP: 147/90 SpO2 : 100 % Height: 157.5 cm (5' 2") Weight: 70.8 kg (156 lb) Physical Exam: Gen: Calm, cooperative HEENT: NC/AT, PERRLA, EOMI, MMM's CV: RRR, S1 & S2 normal, no murmurs, gallops, or rubs, 2+ pulses all extremities Resp: CTAB, no wheezes, crackles, or rhonchi, normal effort Abd: Soft with mild distention, mild RLQ tenderness, +BS, no guarding or rebou nd Ext: No c/c/e Skin: Warm, dry, & intact with no obvious rashes or significant lesions Neuro: A/Ox4, CN's II-XII grossly intact, strength and sensation intact, no fo seven neurologic deficits No ECG needed/obtained. I have personally reviewed the patient's vital signs, laboratory/pathology/cultu re results (as indicated), imaging studies (results were not discussed with the performing provider), current inpatient medications, integrated logistics support manager notes and gunnar or to admission medications with pertainent findings noted within the assessment /plan. I have personally reviewed and updated the patient's past medical history , past surgical history, family history and social history as appropriate. Assessment/Plan Ms. Seema Bui is a 26 y.o. female who was admitted on 01/13/2017 with compla int of Back Pain. Intractable cyclical vomiting with nausea Etiology unknown - Anti-emetics - Supportive care, IVF's - NPO * Acute upper GI bleed No prior history, hgb 7.3 on admit ? Uli Oliva - GI consult - NPO - Protonix gtt - Serial H&H Flank pain Acute on chronic, prior history of ovarian cysts CT abd shows tiny nonobstructive punctate renal calculi seen bilaterally, no dis cindy obstructive uropathy. UA with small bacteria, neg nitrite and leuko-esterace, no dysuria - Urine reflex pending - Pain management - Continue IVF's Seizures (HCC) Most recent seizure 01/10 Unable to recall name of anti-epileptic, mother to provide in AM - Seizure precautions - Resume antiepileptic when confirmed In addition, see my orders for additional details regarding this patients treatm ent plan. Diet: Diet NPO VTE Prevention: Appropriate VTE orders and/or documentation has been completed for this patient. The patient does not have an advanced directive. Her mother is her surrogate dec ision maker/DPOA. Code Status: Full Code Disp: Admit the patient as Inpatient to [facility] with telemetry with telemet ry for treatment as noted above. Lucy Mccord NP [facility] Hospitalist Please page through physician paging. . REAL ESTATE DIRECTOR Hospitalist Attestation: I personally interviewed and examined the Ms. Seema Bui. I discussed the f indings with nurse practitioner and reviewed the nurse practitioners note. I agr ee the findings with exceptions noted. I interviewed Seema briefly prior to her EGD this afternoon. She has a dry mouth and reports poor intake for days. RN reports after her procedure gastroparesis was seen, and GI would like repeat eval on Tuesday. No bleeding noted. Objective findings and Assessment/Plan are as follows: Vital Signs: Blood pressure 128/81, pulse 71, temperature 36.7 C (98 F), temperature sour ce Oral, resp. rate 18, height 1.575 m (5' 2"), weight 70.7 kg (155 lb 14.4 oz), last menstrual period 12/31/2016, SpO2 100 %. SpO2: 100 % Physical Exam: Alert and oriented x person, place, year HEENT: Pupils equal, sclera clear, dry MM, Cardiovascular: Regular rate, regular rhythm, no murmur, no S3 Lungs: no wheezes, no crackles, no rhonchi Abdomen: Soft, mild distention, Bowel sounds normal active Extremities: No lower extremity edema, pulses palpable Skin: No rashes, no jaundice Neuro: No focal findings, Upper and Lower extremities strength, proximal and dis cindy, 5/5 bilateral and equal Dobson Catheter: No Assessment/Plan: Principal Problem: Acute upper GI bleed Active Problems: Intractable cyclical vomiting with nausea Flank pain Seizures (HCC) gi plan with repeat scopes as desired protonix gtt ivf Keep npo and poss clear liquids asa tolerated hgb q8h Iron studies requested for add on venofer if appropriate Observation over the weekend and resume oral meds when able. DVT PPx: scds with gi bleed Code Status: Full Code Kellie Sullivan DO [facility] Program [phone] Electronically signed by Kellie Sullivan DO 01/14/2017 2:20 PM cc: No primary care provider on file. documented in this encounter Consult Notes * Magali Cedillo MD - 01/20/2017 9:00 AM CDT Associated Order(s): IP CONSULT TO NEUROLOGY NEUROLOGY CONSULT Name: Seema Bui Gender: female Date of : 1990 Age: 26 y.o. Date/Time of Admit: 01/13/2017 6:08 PM Code Status: Full Code Primary Care Provider / Referring Physician: No primary care provider on file. Informant: Patient Assessment & Plan Active Hospital Problems Anemia-noted at ER 01/13/17-Hb 8.4, attributed to non occlusive kidney stones . Now found to have H. Pylori as probable source. 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 Had an even t lasting 30 min last night with no postictal state. Had head/shoulder jerking w ith eyes open. Sees an CREATIVE STRATEGIST at [facility], who prescribes her gabapentin. Takes clonaze violet 1 mg wafer after spells prescribed by a "therapist" No treatment needed. Has been seen in several hospitals for this. She reports "I won't be able to keep my seizure meds down, everyone is mean here, they want me to go home, and you will probably see me when I have my next seizure" Flank pain Current History Chief Complaint: "Seizure" HPI: This patient is a 26 y.o. female Who reports a past medical history remarkable f or "seizures" even though these are actually pseudoseizures according to the pat pricilla's father. I was called last night by Dr. Villatoro, who stated that the patient had an episode lasting for 30 minutes. She was upset about being told that she was going to be discharged from the hospital. She presented to the emergency r oom on 01/14/2017. It appears that she had been at [facility] just the d ay before, noted to have a hemoglobin of 8.4, attributed to non-occlusive kidney stones. It appears that she came here immediately after. She complained of un controlled vomiting, with faint blood streaks in the emesis. She was saying michaela t the amount of emesis had worsened. She was also having right flank pain radia ting to her right lower quadrant. She said that this was similar to a prior ova ted cyst rupture. She stated that she had not been able to take her medication s for the prior 3 days, reporting a history of seizure disorder. She has been t old that these are pseudoseizures. She has been unable to say the name of her n eurologist, but actually could finally tell me today that she sees a nurse pract itioner at [facility] who "prescribes her gabapentin." Patient also takes Thorazine at night, clonazepam wafer 1 mg b.i.d. She tells me that the c lonazepam is prescribed "by a therapist." Patient does report chronic pain synd matt secondary to fibromyalgia. She does smoke about a pack of cigarettes a day . She reports that she does not use alcohol. Patient reports that she recalls having a protracted seizure yesterday. She was crying after the event. I spoke to Dr. Villatoro. He tells me that her head and shoulders were rocking back and for th, and her arms were jerking. She states that she has not been able to take an y of her medications while she has been here. The episode lasted from about 183 0 until about 1900. She was able to calm down as he was talking to her and rhett hart to calm her. He stated that when she has these spells, he waits it out, and then will give her a clonazepam wafer. Patient denies any abuse history. She maintains that these are "seizures." She tells me that she was pacing around the room when I came in. She told me that "everyone is mean here." She tells me, "they are making me go home, even though I haven't been able to keep any of my seizure medicine down." She reports "at 9:00 p.m., they are going to give me a nausea medicine, then try to give me my s eizure medicine." I told her that I hope that that will go well and that she wi ll be able to keep the medication down. She states "you'll probably see me kisha n when I have my next seizure." Patient would not permit neurology examination. She is pacing about the room. She states "there's nothing you can do, I'm just going to have another seizure." Review of Systems Patient reports that she has been having intractable nausea an d vomiting, some blood in her emesis. She reports the ongoing right flank pain. She reports headaches. She states that she has chronic total body pain second nathan to her fibromyalgia. She reports that she is losing weight, as she has not been able to eat. She reports that she has frequent seizures, and that the last one prior to yesterday was January 10. She denies any fractures or any significa nt injury from "seizures." Scheduled Meds: amoxicillin 1,000 mg Oral BID chlorproMAZINE 25 mg Oral Nightly clarithromycin 500 mg Oral Q12H YOSI clonazePAM 1 mg Oral BID dicyclomine 20 mg Oral 4x Daily gabapentin 600 mg Oral TID iron sucrose 300 mg Intravenous Q3 Days pantoprazole 40 mg Oral QAM AC Prior to Admission medications Medication Sig Start Date End Date Taking? Authorizing Provider chlorproMAZINE (THORAZINE) 25 MG tablet Take 25 mg by mouth nightly. Yes Histo rical Provider, clonazePAM (KLONOPIN) 1 MG tablet Take 1 mg by mouth 2 (two) times a day. Yes Historical Provider, gabapentin (NEURONTIN) 300 MG capsule Take 600 mg by mouth 3 (three) times a day . Yes Historical Provider, amoxicillin (AMOXIL) 500 MG capsule Take 2 capsules (1,000 mg total) by mouth 2 (two) times a day. 01/20/17 01/30/17 Kim Martinez MD clarithromycin (BIAXIN) 500 MG tablet Take 1 tablet (500 mg total) by mouth ever y 12 (twelve) hours. 01/20/17 01/30/17 Kim Martinez MD dicyclomine (BENTYL) 10 MG capsule Take 2 capsules (20 mg total) by mouth 4 (fou r) times a day. 01/18/17 Kim Martinez MD ferrous sulfate 325 (65 FE) MG tablet Take 1 tablet (325 mg total) by mouth gold y with breakfast. 01/18/17 Kim Martinez MD promethazine (PHENERGAN) 25 MG tablet Take 1 tablet (25 mg total) by mouth every 6 (six) hours as needed for nausea. 01/20/17 Kim Martinez MD prochlorperazine (COMPAZINE) 5 MG tablet Take 1 tablet (5 mg total) by mouth luis ry 8 (eight) hours as needed for nausea. 01/20/17 01/20/17 Kmi avalos MD Past History Past Medical History: Diagnosis Date Anxiety Fibromyalgia Hypertension Hypothyroidism Myocardial infarction (HCC) Seizures (HCC) Past Surgical History: Procedure Laterality Date CHOLECYSTECTOMY COLONOSCOPY N/A 01/17/2017 Procedure: COLONOSCOPY; Surgeon: Mauricio Harrison MD; Location: [facility]; Servic e: Gastroenterology; Laterality: N/A; ESOPHAGO-GASTRO DUODENOSCOPY WITH BIOPSY POLYP OR TISSUE MULTIPLE WITH FORCE P N/A 01/14/2017 Procedure: ESOPHAGO-GASTRO DUODENOSCOPY WITH BIOPSY POLYP OR TISSUE MULTIPLE WI TH FORCEP; Surgeon: Rashaun Sandoval MD; Location: [facility]; Service: Gastr oenterology; Laterality: N/A; ESOPHAGOGASTRODUODENOSCOPY (EGD) N/A 01/17/2017 Procedure: ESOPHAGOGASTRODUODENOSCOPY (EGD); Surgeon: Mauricio Harrison MD; Loca tion: [facility]; Service: Gastroenterology; Laterality: N/A; TUBAL LIGATION Family History Problem Relation Age of Onset Hypertension Mother Depression Mother No Known Problems Father Social History Social History Narrative Lives with parents. Ambulatory without assistance. Lists mother as DPOA. Wishes to be a full code. Social History Social History Main Topics Smoking status: Current Some Day Smoker Packs/day: 1.50 Years: 12.00 Types: Cigarettes Start date: 2004 Smokeless tobacco: Not on file Alcohol use No Drug use: No Sexual activity: Not on file Medications and Allergies ALLERGIES/SENSITIVITIES: Allergies Allergen Reactions Ondansetron Reglan [Metoclopramide Hcl] Sulfa (Sulfonamide Antibiotics) Swelling Toradol [Ketorolac] Angioedema Morphine Itching Physical Vitals Blood Pressure: BP: 115/80 Pulse: Pulse: 56 Temperature: Temp: 36.8 C (98.2 F) Respirations: Resp: 16 Admission Weight: Weight: 70.8 kg (156 lb) O2 Saturation: SpO2: 99 % Today's Weight: Weight: 66.3 kg (146 lb 3.2 oz) Exam 01/20/2017 General:Patient is alert, able to provide details of history. Speech is not dys arthric at all. Speech is fluent. She will not permit neurological examination , but is pacing about the room, ambulating normally, normal arm swing. Is able to bend over and get things without any dizziness. Diagnostics Lab Most Recent Result within the last 7 days Lab Units 01/20/17 0300 SODIUM MEQ/L 142 POTASSIUM MEQ/L 3.6 CHLORIDE MEQ/L 110 CARBON DIOXIDE MEQ/L 23 BLOOD UREA NITROGEN mg/dL 13 CREATININE mg/dL 0.6 GLUCOSE mg/dL 84 CALCIUM mg/dL 8.1* Most Recent Result within the last 7 days Lab Units 01/20/17 0300 WBC TH/uL 7.84 HEMOGLOBIN g/dL 9.1* HEMATOCRIT % 29* PLATELET COUNT TH/uL 421* % SEGMENTED NEUTROPHILS % 62 % LYMPHOCYTES % 29 % MONOCYTES % 6 % EOSINOPHILS % 2 No lab components to display No lab components to display No lab components to display No results found. Imaging: No results found. 25 minutes spent on consultation, with over 50% being spent in counseling, coord ination of care, discussion with patient, Dr Villagomez. Degree of medical complexity high based on formulation and discussion of differe ntial diagnosis, reviewing history with patient and detailed examination, review ing medical records. Thank your for involving me in this patient's care. I will sign off. Please seven medley for questions or concerns. Magali Cedillo MD Pager [phone] * Gino López MD - 01/18/2017 3:56 PM CDT Associated Order(s): IP CONSULT TO GASTROENTEROLOGY This note was created to satisfy [facility] consult request. Please refer to progress note from same date for recommendations. * Rashaun Sandoval MD - 01/14/2017 11:28 AM CDT Associated Order(s): IP CONSULT TO GASTROENTEROLOGY [facility] GASTROINTESTINAL CONSULT NOTE Patient: Seema Bui Age: 26 y.o. : 1990 PRIMARY CARE PROVIDER: No primary care provider on file. ATTENDING PHYSICIAN: Kellie Sullivan DO CONSULTING PHYSICIAN: Rashaun Sandoval MD DATE OF CONSULTATION: 01/14/17 CHIEF COMPLAINT: Hematemesis, anemia REASON FOR CONSULTATION: As above HISTORY OF PRESENT ILLNESS: 26 yr old female - hx fibromyalgia, sz disorder, presented with R mid abd and fl ank pain. Takes NSAIDs. Hematemesis noted with clots over the past 3 days. FH x rectal cancer in a brother who at age 24. No hematochezia, melena. Does not usually have stomach issues. CT abd and pelvis negative except for signs o f prior cholecystectomy. REVIEW OF SYSTEMS: Negative on 10 pt review except as above MEDICAL HISTORY: Current Facility-Administered Medications Medication Dose Route Frequency Provider Last Rate Last Dose [OCT Hold] acetaminophen (TYLENOL) tablet 325-650 mg 325-650 mg Oral Q6H SD N Lucy Mccord NP Or [OCT Hold] acetaminophen (TYLENOL) suppository 325-650 mg 325-650 mg Rectal Q6H PRN Lucy Mccord NP [OCT Hold] benzocaine (HURRICAINE) 20 % mouth spray 2 spray 2 spray Mouth/T hroat 4x Daily PRN Ricardo Rosario DO 2 spray at 01/13/172057 [OCT Hold] fentaNYL (SUBLIMAZE) injection 25 mcg 25 mcg Intravenous Q3H PRN Liset Whatley, DO 25 mcg at 01/14/17743 [OCT Hold] lactated ringers infusion 50 mL/hr Intravenous Continuous Khalif Snowden MD [OCT Hold] pantoprazole (PROTONIX) 80 mg in sodium chloride (NS) 0.9 % 100 m L infusion 8 mg/hr Intravenous Continuous Ricardo Rosario DO 10 mL/hr at 01/14 8 mg/hr at 01/14/17730 [OCT Hold] potassium chloride 20 mEq in 100 mL IVPB 20 mEq Intravenous PRN Lucy Mccord NP [Oct] promethazine (PHENERGAN) injection 6.25-12.5 mg 6.25-12.5 mg Int ramuscular Q6H PRN Ricardo Rosario DO 6.25 mg at 01/14/17745 [OCT Hold] sodium chloride 0.9% infusion 75 mL/hr Intravenous Continuous Tr wai Mccord NP 75 mL/hr at 01/14/17222 75 mL/hr at 01/14/17222 Past Medical History: Diagnosis Date Anxiety Fibromyalgia Seizures (HCC) SURGICAL HISTORY: Past Surgical History: Procedure Laterality Date CHOLECYSTECTOMY TUBAL LIGATION PRIOR TO ADMISSION MEDICATIONS: Prescriptions Prior to Admission Medication Sig clonazePAM (KLONOPIN) 1 MG tablet Take 1 mg by mouth 2 (two) times a day as needed for anxiety. gabapentin (NEURONTIN) 300 MG capsule Take 600 mg by mouth 3 (three) times a day. MED LIST: Scheduled Meds: Continuous Infusions: [OCT Hold] lactated Ringers [OCT Hold] pantoprozole (PROTONIX) infusion 8 mg/hr (01/14/17730) [OCT Hold] sodium chloride 75 mL/hr (01/14/17222) PRN Meds:.[OCT Hold] acetaminophen OR [OCT Hold] acetaminophen, [OCT Hold] b enzocaine, [OCT Hold] fentaNYL, [MAR Hold] potassium chloride, [MAR Hold] promet hazine ALLERGIES: Allergies Allergen Reactions Ondansetron Reglan [Metoclopramide Hcl] Toradol [Ketorolac] Angioedema Morphine Itching SOCIAL HISTORY: Social History Social History Marital status: Single Spouse name: N/A Number of children: N/A Years of education: N/A Occupational History [employer] Social History Main Topics Smoking status: Current Some Day Smoker Packs/day: 1.50 Years: 12.00 Types: Cigarettes Start date: 2004 Smokeless tobacco: Not on file Alcohol use No Drug use: No Sexual activity: Not on file Other Topics Concern Not on file Social History Narrative Lives with parents. Ambulatory without assistance. Lists mother as DPOA. Wishes to be a full code. FAMILY HISTORY: Family History Problem Relation Age of Onset Hypertension Mother Depression Mother No Known Problems Father PHYSICAL EXAM: General appearance: alert, appears stated age and cooperative Lungs: clear to auscultation bilaterally Heart: regular rate and rhythm, S1, S2 normal, no murmur, click, rub or gallop Extremities: extremities normal, atraumatic, no cyanosis or edema Neurologic: Grossly normal Abd mod tender, L mid abd to flank LAB RESULTS: Last CBC: Most Recent Result within the last 7 days Lab Units 01/14/17 0756 01/14/17 0215 WBC TH/uL -- 6.30 HEMOGLOBIN g/dL 7.7* 7.3* HEMATOCRIT % 25* 24* PLATELET COUNT TH/uL -- 236 Last BMP: Most Recent Result within the last 7 days Lab Units 01/14/17 0756 SODIUM MEQ/L 136 POTASSIUM MEQ/L 4.2 CHLORIDE MEQ/L 111 CARBON DIOXIDE MEQ/L 19* BLOOD UREA NITROGEN mg/dL 8 CREATININE mg/dL 0.5 CALCIUM mg/dL 7.5* Last CMP: Most Recent Result within the last 7 days Lab Units 01/14/17 0756 01/13/17 1936 SODIUM MEQ/L 136 141 POTASSIUM MEQ/L 4.2 3.9 CHLORIDE MEQ/L 111 111 CARBON DIOXIDE MEQ/L 19* 22 BLOOD UREA NITROGEN mg/dL 8 11 CREATININE mg/dL 0.5 0.6 CALCIUM mg/dL 7.5* 7.4* PROTEIN TOTAL SERUM g/dL -- 6.1 ALKALINE PHOSPHATASE IU/L -- 116 ALANINE AMINOTRANSFERASE IU/L -- 48 ASPARTATE AMINOTRANSFERASE IU/L -- 55* Last Lipase: Most Recent Result within the last 7 days Lab Units 01/14/17 0756 LIPASE IU/L 35 Last Protime/INR: No lab components to display RADIOLOGY RESULTS: Ct Abdomen Pelvis Wo Contrast Result Date: 01/13/2017 Previous cholecystectomy. Bilateral nonobstructive renal calculi. Tubal ligation. Nonvisualized appendix without secondary signs acute appendicitis. Stool gas distribution suggesting constipation. One or more of the following dose reduction techniques were utilized: *Automated exposure control (AEC) *Adjustment of mA and/or kV according to patient size -Use of iterative reconstruction technique -CT scan done according to ALARA, or ALARA/IMAGE GENTLY Xr Chest Single View Frontal Result Date: 01/14/2017 1. Satisfactory placement of right PICC. 2. No acute cardiopulmonary process. ASSESSMENT/PLAN: L mid abd pain, hematemesis- exclude NSAID ulcer, MW tear. FHx colon cancer in a brother in his early 20s. Rec: EGD- see results. Retained gastric food, few prepyloric erosions. No lik kiel cause of hematemesis or anemia noted. Rec repeat EGD and proceed with addition of colonoscopy Tuesday. Electronically signed by Rashaun Sandoval MD 01/14/2017 11:28 AM documented in this encounter Nursing Notes * Sonia Vogt, RN - 01/19/2017 7:49 PM CDT At 1835, I was in pt's room speaking with her and her father. Pt's father state d pt will start having seizures within 12-24 hrs of not having her anti-seizure medication. Per pt, she vomited the seizure medication she was given this morni ng and would not be able to take tonight's dose because she has been nauseated a ll day and having burning stomach pain. At 1838, pt began seizing. Pt's father stated she has psuedo-seizures. He and I tried to calm pt. She began to calm within 2 minutes. Pt's father stated, "If she doesn't get her medication now wh ile she is calm, the seizures will start again and keep going." Pt immediately started seizing again. A rapid response was called. I placed pt on 2L O2, lele ls were taken, Dr. Villatoro notified. See rapid response charting for vitals and me ds. * Sonia Vogt RN - 01/19/2017 11:29 AM CDT Pt did not want to eat breakfast, stated she still felt nauseated even after phe nergan and benadryl administration. She was also unable to take her antibiotics . Stated they would cause her intense stomach pain, then nausea and vomiting. I explained that the antibiotics would start to heal the H. Pylori and make her feel better, but she did not want to take them. She reported that she threw up bile streaked with blood this morning as well. She flushed vomit so was not obs erved by staff. * Sania Fernandez RN - 01/15/2017 5:10 AM CDT Pt woke up, drowsy, and requested fentanyl, benadryl and phenergan to be given t ogether. RN checked on pt 5 minutes later and pt sleeping soundly. * Brianna Gaston RN - 01/14/2017 12:21 PM CDT Report given to ER nurse. Will transfer back to ER bed 6. * Kathleen Banks RN - 01/14/2017 2:12 AM CDT Msg left for GI lab regarding Add-on EDG in am. Kathleen Banks documented in this encounter ED Notes * Lupe Bailey RN - 01/14/2017 1:17 PM CDT [facility] Expected date: Expected time: Means of arrival: Comments: GI patient * April Wise RN - 01/14/2017 1:15 PM CDT Pt ambulatory to and from restroom w/this RN for standby assist. Tolerated well. * Ricardo Rosario, - 01/13/2017 6:54 PM CDT Associated Order(s): CRITICAL CARE 01/13/2017 [facility] History Chief Complaint Patient presents with Back Pain Pt states she has been having mid to lower back pain since this am. This is a 26-year-old female who denies past medical history presenting with 3 day history of right flank pain. Patient states she has had this symptom before and thought she had a kidney stone when she was . Patient states she wa s vomiting and vomited so much that it began to look like blood, patient states she had a lot of blood in her vomitus. Patient states she had clots as well. Pat ient's lips are pale, vital signs at this point are stable. Patient states she h as a history of having ovarian cysts that required surgery. Patient denies abdom inal pain or pelvic pain, she denies vaginal bleeding. The history is provided by the patient and medical records. Back Pain Pain location: right flank pain. Radiates to: right side. Pain severity: Severe Duration: 3 days Context: not emotional stress Relieved by: Nothing Worsened by: Nothing Ineffective treatments: None tried Associated symptoms: no abdominal pain, no abdominal swelling, no chest pain and no fever Associated symptoms comment: Vomiting for three days - now vomiting blood Feel like "lady parts" are falling out Past Medical History: Diagnosis Date Seizures (HCC) Past Surgical History: Procedure Laterality Date CHOLECYSTECTOMY History reviewed. No pertinent family history. Social History Substance Use Topics Smoking status: Current Some Day Smoker Smokeless tobacco: Not on file Alcohol use No Review of Systems Constitutional: Negative for fever. Cardiovascular: Negative for chest pain. Gastrointestinal: Negative for abdominal pain. Musculoskeletal: Positive for back pain. All other systems reviewed and are negative. Physical Exam BP 147/90 (BP Location: Right arm) | Pulse 99 | Temp 36.4 C (97.6 F) (Temp oral) | Resp 16 | Ht 1.575 m (5' 2") | Wt 70.8 kg (156 lb) | LMP 12/31/2016 | SpO2 100% | BMI 28.53 kg/m Physical Exam Constitutional: She is oriented to person, place, and time. She appears well-dev eloped and well-nourished. She appears distressed. HENT: Head: Normocephalic and atraumatic. Eyes: Conjunctivae and EOM are normal. Pupils are equal, round, and reactive to light. Neck: Normal range of motion. Neck supple. Cardiovascular: Normal rate and normal heart sounds. Pulmonary/Chest: Effort normal. Abdominal: Soft. Bowel sounds are normal. She exhibits no distension. There is n o tenderness. There is CVA tenderness. There is no rebound. Musculoskeletal: Normal range of motion. She exhibits no edema or tenderness. Neurological: She is alert and oriented to person, place, and time. No cranial n erve deficit. Coordination normal. Skin: Skin is warm and dry. Psychiatric: She has a normal mood and affect. Her behavior is normal. Judgment and thought content normal. Nursing note and vitals reviewed. ED Course Critical Care Performed by: RICARDO ROSARIO Authorized by: RICARDO ROSARIO Total critical care time: 30 minutes Critical care time was exclusive of separately billable procedures and treating other patients. 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 Patient had no retu rn on her nasogastric tube, after an initial return of dark substance that appea red to be coffee-ground type material. That was sent to the lab for evaluation, NG tube was pulled. Patient still has slight flank pain although the pain medic ations were working. Patient's vital signs are stable and she will be admitted f or evaluation of upper GI bleed following a protracted vomiting episodes. Leandro card's CAT scan did not reveal source of her flank pain which will also be further evaluated in the inpatient setting. Amount and/or Complexity of Data Reviewed Clinical lab tests: reviewed and ordered Tests in the radiology section of CPT: ordered and reviewed Decide to obtain previous medical records or to obtain history from someone othe r than the patient: yes Review and summarize past medical records: yes Independent visualization of images, tracings, or specimens: yes ED Course The patient's vitals signs are BP 147/90 (BP Location: Right arm) | Pulse 99 | Temp 36.4 C (97.6 F) (Temp oral) | Resp 16 | Ht 1.575 m (5' 2") | Wt 70.8 kg (156 lb) | LMP 12/31/2016 | SpO2 100% | BMI 28.53 kg/m The labs from this visit are Results for orders placed or performed during the hospital encounter of 01/13/17 (from the past 24 hour(s)) Urinalysis Reflex Result Value Ref Range Appearance, Urine Yellow Glucose Urine Negative Negative mg/dL Bilirubin Urine Negative Negative Ketones Urine Negative Negative mg/dL Specific Wilson, UA >=1.030 1.001 - 1.030 Hemoglobin Urine Large (A) Negative PH Urine 6.0 5.0 - 8.0 Protein Urine Qual 30 (A) Negative mg/dL Urobilinogen Urine Negative Negative EU/dL Nitrite Urine Negative Negative Leukocyte Esterase Negative Negative Urine Test Result Value Ref Range UCG Urine Negative Negative Urinalysis Microscopic Only Result Value Ref Range Microscopic RBC Urine >40 (A) 1 - 5 /hpf Microscopic WBC Urine 6 - 10 (A) 1 - 5 /hpf Epithelial Cells Absent Absent Hyaline Cast Absent Absent Bacteria Small (A) Absent Mucus Large (A) Absent CBC and Diff (manual diff if necessary) Result Value Ref Range WBC 6.21 4.00 - 11.00 TH/uL RBC 3.33 (L) 4.00 - 5.00 MIL/uL Hemoglobin 7.3 (L) 12.0 - 15.0 g/dL Hematocrit 24 (L) 36 - 45 % MCV 73 (L) 80 - 99 fL MCH 22 (L) 27 - 34 pg MCHC 30 (L) 32 - 36 % RDW 16.2 (H) 9.0 - 14.5 % Platelet Count 245 140 - 400 TH/uL MPV 12.0 9.4 - 12.3 fL Nucleated RBCs 0 0 - 0 /100 %Segmented Neutrophils 59 45 - 78 % %Lymphocytes 28 15 - 47 % %Monocytes 8 0 - 12 % %Eosinophils 4 0 - 7 % %Basophils 0 0 - 2 % % Imm Grans 0 0 - 1 % # Granulocytes 3.68 1.70 - 6.80 TH/uL # Lymphocytes 1.76 1.00 - 3.30 TH/uL # Monocytes 0.49 0.20 - 0.90 TH/uL # Eosinophils 0.27 0.00 - 0.40 TH/uL # Basophils 0.02 0.00 - 0.10 TH/uL Comprehensive Metabolic Panel Result Value Ref Range Sodium 141 133 - 147 MEQ/L Potassium 3.9 3.5 - 5.3 MEQ/L Chloride 111 96 - 112 MEQ/L Carbon Dioxide 22 20 - 32 MEQ/L Anion Gap 7 5 - 17 Calcium 7.4 (L) 8.4 - 10.5 mg/dL Glucose 78 70 - 100 mg/dL Protein Total Serum 6.1 6.0 - 8.2 g/dL Albumin 3.4 (L) 3.5 - 5.0 g/dL Alkaline Phosphatase 116 42 - 140 IU/L Alanine Aminotransferase 48 13 - 69 IU/L Aspartate Aminotransferase 55 (H) 15 - 46 IU/L Bilirubin Total 0.3 0.2 - 1.3 mg/dL Blood Urea Nitrogen 11 7 - 26 mg/dL Creatinine 0.6 0.4 - 1.1 mg/dL GFR Female AA >130 60 - 200 GFR Female Non-AA 119 60 - 200 ABORH Type Result Value Ref Range ABORH Type O Positive Antibody Screen Result Value Ref Range Antibody Screen Negative Negative Gastric Blood Result Value Ref Range Gastric Blood Negative The final diagnosis is SNOMED CT(R) 1. Upper GI bleeding UPPER GASTROINTESTINAL HEMORRHAGE 2. Uli-Oliva syndrome ULI-OLIVA SYNDROME 3. Right flank pain RIGHT FLANK PAIN 4. Urinary tract infection, site unspecified URINARY TRACT INFECTIOUS DISEASE No follow-up provider specified. New Prescriptions No medications on file The Xrays from this visit are CT Abdomen Pelvis wo contrast Final Result Previous cholecystectomy. Bilateral nonobstructive renal calculi. Tubal ligation. Nonvisualized appendix without secondary signs acute appendicitis. Stool gas distribution suggesting constipation. One or more of the following dose reduction techniques were utilized: *Automated exposure control (AEC) *Adjustment of mA and/or kV according to patient size -Use of iterative reconstruction technique -CT scan done according to ALARA, or ALARA/IMAGE GENTLY Medications sodium chloride 0.9% (NS) IV Bolus (not administered) benzocaine (HURRICAINE) 20 % mouth spray 2 spray (2 sprays Mouth/Throat Given 08/31) pantoprazole (PROTONIX) injection 80 mg (not administered) pantoprazole (PROTONIX) 80 mg in sodium chloride (NS) 0.9 % 100 mL infusion (not administered) ketorolac (TORADOL) injection 60 mg (60 mg Intramuscular Given 01/13/171840) sodium chloride 0.9% (NS) IV Bolus (1,000 mL Intravenous New Bag 01/13/172021) diphenhydrAMINE (BENADRYL) injection 25 mg (25 mg Intravenous Given 01/13/172020) prochlorperazine (COMPAZINE) injection 5 mg (5 mg Intravenous Given 01/13/172020) fentaNYL (SUBLIMAZE) injection 50 mcg (50 mcg Intravenous Given 01/13/172020) lidocaine (XYLOCAINE) 2 % jelly ( Topical Given 01/13/172057) All labs, xrays, CT's, and EKG's that were performed during this patient's visit were reviewed by me. ED Clinical Impression 1. Upper GI bleeding 2. Uli-Oliva syndrome 3. Right flank pain 4. Urinary tract infection, site unspecified Ricardo Rosario DO 01/13/172201 Ricardo Rosario DO 01/13/172203 * Lupe Bailey RN - 01/13/2017 6:40 PM CDT Pt informs rn that she has been throwing up for days but denies nausea now; I louise ve already updated Dr Rosario on pt and he will evaluate pt shortly documented in this encounter Miscellaneous Notes * Plan of Care - Rosy Loaiza RN - 01/20/2017 8:49 AM CDT Problem: Knowledge Deficit Goal: Patient/Family/Caregiver sets realistic goals Outcome: Progressing Problem: Pain Goal: Patient's pain/discomfort is manageable Outcome: Not Progressing Patient still reports nausea Problem: Safety Goal: Patient will be injury free during hospitalization Outcome: Progressing Problem: Nutrition Goal: Patient's nutritional intake is adequate Outcome: Not Progressing Per patient, no intake for a week, per documentation pt has eaten 90-100% of din ner for two nights * Plan of Care - Dottie Grady RN - 01/19/2017 10:15 PM CDT Problem: Knowledge Deficit Goal: Patient/family/caregiver demonstrates understanding of disease process, tr eatment plan, medications, and discharge instructions Complete learning assessment and assess knowledge base. Outcome: Progressing Goal: Patient/Family/Caregiver sets realistic goals Outcome: Progressing Problem: Pain Goal: Patient's pain/discomfort is manageable Outcome: Progressing Problem: Safety Goal: Patient will be injury free during hospitalization Outcome: Progressing Problem: Nutrition Goal: Patient's nutritional intake is adequate Outcome: Progressing Problem: Potential for Compromised Skin Integrity Goal: Nutritional status is improving Monitor and assess patient for malnutrition (ex- brittle hair, bruises, dry skin , pale skin and conjunctiva, muscle wasting, smooth red tongue, and disorientati on). Collaborate with interdisciplinary team and initiate plan and interventions as ordered. Monitor patient's weight and dietary intake as ordered or per kwame cy. Utilize nutrition screening tool and intervene per policy. Determine patient 's food preferences and provide high-protein, high-caloric foods as appropriate. Outcome: Progressing Problem: Nausea and/or vomiting Goal: Patient's nuasea and/or vomiting signs and symptoms will resolve effective ly Outcome: Progressing * Code Documentation - Mandie Lynn RN - 01/19/2017 8:07 PM CDT Pt stopped seizing and AOX4 . Pt talking no post itical noted * Code Documentation - Mandie Lynn RN - 01/19/2017 7:[address] Villatoro spoke with Dr. Cedillo , pt is having a psuedo seizure related to stress * Significant Event - Prabhjot Villatoro DO - 01/19/2017 7:44 PM CDT [facility] Hospitalist - Significant Event Patient Name: Seema Bui Account No: [id number] Date of : 1990 Date of Admission: 01/13/2017 6:08 PM Ms. Seema Bui is a 26 y.o. female who was admitted on 01/13/2017 with Back Sanket garcia. Notified by the patient's nurse at approximately 1915 that the patient was being rapid responded for seizure. At that time, the patient had been have seizure li ke activity for approximately 30 minutes. She has a history of pseudoseizures an d per her father, who was at bedside, the patient has seizures when ever she for gets to take her medications (Klonipin and Gabapentin) or when she is stressed. He typically watches her and when "she starts to come out of it, I give the the little blue pill and comfort her". The little blue pill is dissolvable Klonopin 1 mg. Her father also reports that she will start crying when she comes out of t he seizure. Her father doesn't know who she see or what medications she might be taking. She does see a Neurologist, but do not know who that is. Upon evaluation, the patient was rhymically moving her head and shoulders. Her e yes were open and she was starring straight ahead. She did not respond to voice, follow commands, or speech. She did have intermittent cough and appeared to be holding her breath at times. She was given Ativan 1 mg IV x 1 which was repeated . Attempted to order Klonopin dissolvable, but it is not formulary here. Ordered daily Klonopin 1 mg. The patient's symptoms resolved with no post-ictal state. The case was discussed with Dr. Cedillo. Episode consistent with pseudoseizures. Acosta Cedillo recommended IV Ativan prn for seizure-like activity. She will see the p atient in the morning. Will place a consult for neurology. Continue to monitor c losely on telemetry. See my orders for additional details regarding this patients treatment plan. Vital Signs: Temp: 36.7 C (98.1 F) Pulse: 77 Resp: 18 BP: 138/58 SpO2: 100 % Height: 157.5 cm (5' 2") Weight: 66.3 kg (146 lb 3.2 oz) I/O last 24 Hours: In: 920 [P.O.:120; I.V.:800] Out: 30 [Emesis/NG output:30] Physical Exam: Gen: Distressed, seizure-like activity CV: Tachycardia, regular rhythm, no murmurs Resp: CTAB Skin: Warm, dry Neuro: Non-responsive to verbal stimuli, upper torso and head with convulsions, intermittent upper extremity shaking, legs at rest,, pupils no lateralized foca l neurologic deficits noted I have personally reviewed the patient's vital signs, laboratory/pathology/cultu re results (as indicated), current inpatient medications, integrated logistics support manager notes, p rior admission/outpatient notes, prior to admission medications and outside [facility] records with pertainent findings noted within the assessment/plan. I have pe rsonally spoken with the patient, another physican and nursing staff regarding t his patient's case. Room: [facility] Diet: Diet-Regular Code Status: Full Code Prabhjot Villatoro DO [facility] Hospitalist Please page through physician paging. * Code Documentation - Tanisha Mott RN - 01/19/2017 7:33 PM CDT Klonopin 1 mg dissolved ordered * Code Documentation - Tanisha Mott RN - 01/19/2017 7:27 PM CDT Family at beside. Family given emotional support. * Code Documentation - Tanisha Mott RN - 01/19/2017 7:[address] Villatoro at bedside orfers to give Ativan * Plan of Care - Sonia Vogt RN - 01/19/2017 9:53 AM CDT Problem: Knowledge Deficit Goal: Patient/family/caregiver demonstrates understanding of disease process, tr eatment plan, medications, and discharge instructions Complete learning assessment and assess knowledge base. Outcome: Progressing Goal: Patient/Family/Caregiver sets realistic goals Outcome: Progressing Problem: Pain Goal: Patient's pain/discomfort is manageable Outcome: Progressing Problem: Safety Goal: Patient will be injury free during hospitalization Outcome: Progressing Problem: Nutrition Goal: Patient's nutritional intake is adequate Outcome: Progressing Problem: Potential for Compromised Skin Integrity Goal: Nutritional status is improving Monitor and assess patient for malnutrition (ex- brittle hair, bruises, dry skin , pale skin and conjunctiva, muscle wasting, smooth red tongue, and disorientati on). Collaborate with interdisciplinary team and initiate plan and interventions as ordered. Monitor patient's weight and dietary intake as ordered or per kwame cy. Utilize nutrition screening tool and intervene per policy. Determine patient 's food preferences and provide high-protein, high-caloric foods as appropriate. Outcome: Progressing Problem: Nausea and/or vomiting Goal: Patient's nuasea and/or vomiting signs and symptoms will resolve effective ly Outcome: Progressing * Plan of Care - Dottie Grady RN - 01/18/2017 9:42 PM CDT Problem: Knowledge Deficit Goal: Patient/family/caregiver demonstrates understanding of disease process, tr eatment plan, medications, and discharge instructions Complete learning assessment and assess knowledge base. Outcome: Progressing Goal: Patient/Family/Caregiver sets realistic goals Outcome: Progressing Problem: Pain Goal: Patient's pain/discomfort is manageable Outcome: Progressing Problem: Safety Goal: Patient will be injury free during hospitalization Outcome: Progressing Problem: Nutrition Goal: Patient's nutritional intake is adequate Outcome: Progressing Problem: Potential for Compromised Skin Integrity Goal: Nutritional status is improving Monitor and assess patient for malnutrition (ex- brittle hair, bruises, dry skin , pale skin and conjunctiva, muscle wasting, smooth red tongue, and disorientati on). Collaborate with interdisciplinary team and initiate plan and interventions as ordered. Monitor patient's weight and dietary intake as ordered or per kwame cy. Utilize nutrition screening tool and intervene per policy. Determine patient 's food preferences and provide high-protein, high-caloric foods as appropriate. Outcome: Progressing * Plan of Care - Ruthie Jarvis RN - 01/18/2017 5:21 PM CDT Problem: Knowledge Deficit Goal: Patient/family/caregiver demonstrates understanding of disease process, tr eatment plan, medications, and discharge instructions Complete learning assessment and assess knowledge base. Outcome: Progressing Pt received blood today. She has d/c orders but was still having severe pain an d had blood in her emesis. GI was reconsulted for further evaluation. She most likely will leave tomorrow. Problem: Pain Goal: Patient's pain/discomfort is manageable Outcome: Not Progressing Continues to have abdominal pain rated 7-8/10 every 3 hours. Relief is temporar y on fentanyl which she is asking for every 3 hours. Problem: Skin Integrity Goal: Skin integrity is maintained or improved Assess and monitor skin integrity. Identify patients at risk for skin breakdown on admission and per policy. Collaborate with interdisciplinary team and initiat e plans and interventions as needed. Outcome: Progressing Problem: Safety Goal: Patient will be injury free during hospitalization Outcome: Progressing Problem: Nutrition Goal: Patient's nutritional intake is adequate Outcome: Not Progressing Having difficulty keeping food down. Problem: Potential for Compromised Skin Integrity Goal: Skin integrity is maintained or improved Assess and monitor skin integrity. Identify patients at risk for skin breakdown on admission and per policy. Collaborate with interdisciplinary team and initiat e plans and interventions as needed. Outcome: Progressing * Assessment & Plan Note - Kim Banks MD - 01/18/2017 2:34 PM CDT Associated Problem(s): Anemia Hemoglobin 7.1. Patient symptomatic. Blood transfusion. Check hemoglobin tomorrow. C DT * Plan of Care - Enid Ivey RN - 01/18/2017 1:10 AM CDT Problem: Knowledge Deficit Goal: Patient/family/caregiver demonstrates understanding of disease process, tr eatment plan, medications, and discharge instructions Complete learning assessment and assess knowledge base. Outcome: Progressing Goal: Patient/Family/Caregiver sets realistic goals Outcome: Progressing Problem: Pain Goal: Patient's pain/discomfort is manageable Outcome: Progressing Problem: Skin Integrity Goal: Skin integrity is maintained or improved Assess and monitor skin integrity. Identify patients at risk for skin breakdown on admission and per policy. Collaborate with interdisciplinary team and initiat e plans and interventions as needed. Outcome: Progressing Problem: Safety Goal: Patient will be injury free during hospitalization Outcome: Progressing Problem: Nutrition Goal: Patient's nutritional intake is adequate Outcome: Progressing Problem: Potential for Compromised Skin Integrity Goal: Nutritional status is improving Monitor and assess patient for malnutrition (ex- brittle hair, bruises, dry skin , pale skin and conjunctiva, muscle wasting, smooth red tongue, and disorientati on). Collaborate with interdisciplinary team and initiate plan and interventions as ordered. Monitor patient's weight and dietary intake as ordered or per kwame cy. Utilize nutrition screening tool and intervene per policy. Determine patient 's food preferences and provide high-protein, high-caloric foods as appropriate. Outcome: Progressing Goal: Skin integrity is maintained or improved Assess and monitor skin integrity. Identify patients at risk for skin breakdown on admission and per policy. Collaborate with interdisciplinary team and initiat e plans and interventions as needed. Outcome: Progressing * Sign-Off Note - Mauricio Harrison MD - 01/17/2017 12:53 PM CDT EGD and colonoscopy negative today for any pathology. Recommend: Await biopsies of duodenum and stomach taken on EGD last week Iron supplementation Recommend capsule study with Dr. Sandoval as an outpatient regarding iron defic iency anemia Recommend gastric emptying study as an outpatient (off narcotics). Repeat colonoscopy in 5 years for screening due to family history of colon cance r. GI team will sign off, please call with any further questions. * Plan of Care - Ruhtie Jarvis RN - 01/17/2017 12:44 PM CDT Problem: Knowledge Deficit Goal: Patient/family/caregiver demonstrates understanding of disease process, tr eatment plan, medications, and discharge instructions Complete learning assessment and assess knowledge base. Outcome: Progressing Reviewed plan of care with pt; she is having an EGD/colonoscopy today. Not sure if she will discharge home afterwards. Goal: Patient/Family/Caregiver sets realistic goals Outcome: Progressing Problem: Pain Goal: Patient's pain/discomfort is manageable Outcome: Progressing Treating abdominal pain as needed. She is requesting pain medication every 3 ho urs. Problem: Skin Integrity Goal: Skin integrity is maintained or improved Assess and monitor skin integrity. Identify patients at risk for skin breakdown on admission and per policy. Collaborate with interdisciplinary team and initiat e plans and interventions as needed. Outcome: Progressing Problem: Safety Goal: Patient will be injury free during hospitalization Outcome: Progressing Problem: Potential for Compromised Skin Integrity Goal: Skin integrity is maintained or improved Assess and monitor skin integrity. Identify patients at risk for skin breakdown on admission and per policy. Collaborate with interdisciplinary team and initiat e plans and interventions as needed. Outcome: Progressing * Operative Note - Mauricio Harrison MD - 01/17/2017 12:00 PM CDT EGD-Colonoscopy Report Date: 01/17/2017 12:00 PM Patient Name: SEEMA BUI Gender: Female (age): 1990 (26) Endoscopist(s): Mauricio Harrison MD EGD Instrument(s): avandeoinon Upper Endoscope [id number]) Colonoscopy Instrument(s): avandeoinon Colonoscope C8([id number]) ASA Information: See Anesthesia Record Administered Medications: See Anesthesia Record EGD Indications: Anemia, Iron Deficiency: 280.9 - D50.9 Abdominal pain - other/multiple sites: 789.09 - R10.30 Colonoscopy Indications: Anemia, Iron Deficiency: 280.9 - D50.9 Abdominal pain - other/multiple sites: 789.09 - R10.30 Physical Exam: Physical exam was performed prior to anesthesia. General Procedure: Prior to the procedure the risk(s), benefit(s), and alternative(s) were reviewed and discussed. The most common complications being, but not limited to; abdominal discomfort, bleeding, perforation, infection, adverse medication reaction, pain or inflammation at the IV site, and lesions not being detected during the procedure. The patient/patients outside medical sales representative appeared to understand the procedure, the potential complications, and alternatives; had the opportunity to ask questions; and informed consent was obtained. The risk/benefit ratio was deemed appropriate to proceed with the procedure. MAC was administered by anesthesiologist. Continuous pulse oximetry and blood pressure monitoring were used throughout the procedure. Supplemental oxygen was used. Estimated blood loss was less than one ml. EGD EGD Procedure: Patient was placed in left lateral decubitus position. The endoscope was introduced through mouth and advanced under direct visualization until second part of the duodenum reached. Patient tolerance to the procedure was good. The procedure was not difficult. EGD Limitations/Complications: There were no apparent limitations or complications EGD Findings: Esophagus Normal esophagus. No edema, erythema, friability, erosions, ulcerations, ulcers, rings, strictures, masses, tumors, esophageal varices, etc. The squamocolumnar junction was located at the gastroesophageal junction and was very regular in appearance. Stomach Normal stomach. No edema, erythema, friability, erosions, ulcerations, ulcers, masses, tumors, arteriovenous malformations, or gastric varices. Retroflexed examination of the proximal stomach did not demonstrate significant structural abnormalities. Duodenum Normal duodenum. No duodenitis, bulboduodenitis, masses, scarring, erosions, or ulcers and the duodenal folds had a normal appearance. Colonoscopy Colonoscopy Procedure: The quality of preparation was Good. Patient was placed in left lateral decubitus position. The colonoscope was introduced through rectum and advanced under direct visualization until cecum and terminal ileum reached. The cecal sling folds were seen. The appendiceal orifice and the ileo-cecal valve were identified. The terminal ileum was identified. The colonoscope was retroflexed within the rectum. Careful visualization was performed as the instrument was withdrawn. Patient tolerance to the procedure was excellent. The procedure was not difficult. Digital exam was normal. Colonoscopy Limitations/Complications: There were no apparent limitations or complications Colonoscopy Findings: Normal colon. EGD Impressions: Normal esophagus. No edema, erythema, friability, erosions, ulcerations, ulcers, rings, strictures, masses, tumors, esophageal varices, etc. The squamocolumnar junction was located at the gastroesophageal junction and was very regular in appearance. Normal stomach. No edema, erythema, friability, erosions, ulcerations, ulcers, masses, tumors, arteriovenous malformations, or gastric varices. Retroflexed examination of the proximal stomach did not demonstrate significant structural abnormalities. Normal duodenum. No duodenitis, bulboduodenitis, masses, scarring, erosions, or ulcers and the duodenal folds had a normal appearance. Colonoscopy Impressions: Normal colon. Plan: Await biopsies of duodenum and stomach taken on EGD last week Iron supplementation Recommend capsule study with Dr. Sandoval as an outpatient regarding iron deficiency anemia Recommend gastric emptying study as an outpatient (off narcotics). Repeat colonoscopy in 5 years for screening due to family history of colon cancer. GI team will sign off, please call with any further questions. Mauricio Harrison MD Electronically signed on 01/17/2017 12:53:23 PM by Mauricio Harrison MD * Plan of Care - Sania Fernandez RN - 01/16/2017 7:54 PM CDT Problem: Knowledge Deficit Goal: Patient/family/caregiver demonstrates understanding of disease process, tr eatment plan, medications, and discharge instructions Complete learning assessment and assess knowledge base. Outcome: Progressing Goal: Patient/Family/Caregiver sets realistic goals Outcome: Progressing Problem: Pain Goal: Patient's pain/discomfort is manageable Outcome: Progressing Problem: Skin Integrity Goal: Skin integrity is maintained or improved Assess and monitor skin integrity. Identify patients at risk for skin breakdown on admission and per policy. Collaborate with interdisciplinary team and initiat e plans and interventions as needed. Outcome: Progressing Problem: Safety Goal: Patient will be injury free during hospitalization Outcome: Progressing Problem: Nutrition Goal: Patient's nutritional intake is adequate Outcome: Progressing Problem: Potential for Compromised Skin Integrity Goal: Nutritional status is improving Monitor and assess patient for malnutrition (ex- brittle hair, bruises, dry skin , pale skin and conjunctiva, muscle wasting, smooth red tongue, and disorientati on). Collaborate with interdisciplinary team and initiate plan and interventions as ordered. Monitor patient's weight and dietary intake as ordered or per kwame cy. Utilize nutrition screening tool and intervene per policy. Determine patient 's food preferences and provide high-protein, high-caloric foods as appropriate. Outcome: Progressing Goal: Skin integrity is maintained or improved Assess and monitor skin integrity. Identify patients at risk for skin breakdown on admission and per policy. Collaborate with interdisciplinary team and initiat e plans and interventions as needed. Outcome: Progressing Problem: Urinary Incontinence Goal: Perineal skin integrity is maintained or improved Assess genitourinary system, perineal skin, labs (urinalysis), and history of in continence to include past management, aggravating, and alleviating factors. Co llaborate with interdisciplinary team and initiate plans and interventions as ne eded. Outcome: Completed Date Met: 01/16/17 Pt is continent * Plan of Care - Cassie Guzman RN - 01/16/2017 11:14 AM CDT Problem: Knowledge Deficit Goal: Patient/family/caregiver demonstrates understanding of disease process, tr eatment plan, medications, and discharge instructions Complete learning assessment and assess knowledge base. Outcome: Progressing Goal: Patient/Family/Caregiver sets realistic goals Outcome: Progressing Problem: Pain Goal: Patient's pain/discomfort is manageable Outcome: Progressing Problem: Skin Integrity Goal: Skin integrity is maintained or improved Assess and monitor skin integrity. Identify patients at risk for skin breakdown on admission and per policy. Collaborate with interdisciplinary team and initiat e plans and interventions as needed. Outcome: Progressing Problem: Safety Goal: Patient will be injury free during hospitalization Outcome: Progressing Problem: Nutrition Goal: Patient's nutritional intake is adequate Outcome: Progressing Problem: Potential for Compromised Skin Integrity Goal: Nutritional status is improving Monitor and assess patient for malnutrition (ex- brittle hair, bruises, dry skin , pale skin and conjunctiva, muscle wasting, smooth red tongue, and disorientati on). Collaborate with interdisciplinary team and initiate plan and interventions as ordered. Monitor patient's weight and dietary intake as ordered or per kwame cy. Utilize nutrition screening tool and intervene per policy. Determine patient 's food preferences and provide high-protein, high-caloric foods as appropriate. Outcome: Progressing Goal: Skin integrity is maintained or improved Assess and monitor skin integrity. Identify patients at risk for skin breakdown on admission and per policy. Collaborate with interdisciplinary team and initiat e plans and interventions as needed. Outcome: Progressing Problem: Urinary Incontinence Goal: Perineal skin integrity is maintained or improved Assess genitourinary system, perineal skin, labs (urinalysis), and history of in continence to include past management, aggravating, and alleviating factors. Co llaborate with interdisciplinary team and initiate plans and interventions as ne eded. Outcome: Progressing * Plan of Care - Sania Fernandez RN - 01/16/2017 12:44 AM CDT Problem: Knowledge Deficit Goal: Patient/family/caregiver demonstrates understanding of disease process, tr eatment plan, medications, and discharge instructions Complete learning assessment and assess knowledge base. Outcome: Progressing Goal: Patient/Family/Caregiver sets realistic goals Outcome: Progressing Problem: Pain Goal: Patient's pain/discomfort is manageable Outcome: Progressing Problem: Skin Integrity Goal: Skin integrity is maintained or improved Assess and monitor skin integrity. Identify patients at risk for skin breakdown on admission and per policy. Collaborate with interdisciplinary team and initiat e plans and interventions as needed. Outcome: Progressing Problem: Safety Goal: Patient will be injury free during hospitalization Outcome: Progressing Problem: Nutrition Goal: Patient's nutritional intake is adequate Outcome: Progressing Problem: Potential for Compromised Skin Integrity Goal: Nutritional status is improving Monitor and assess patient for malnutrition (ex- brittle hair, bruises, dry skin , pale skin and conjunctiva, muscle wasting, smooth red tongue, and disorientati on). Collaborate with interdisciplinary team and initiate plan and interventions as ordered. Monitor patient's weight and dietary intake as ordered or per kwame cy. Utilize nutrition screening tool and intervene per policy. Determine patient 's food preferences and provide high-protein, high-caloric foods as appropriate. Outcome: Progressing Goal: Skin integrity is maintained or improved Assess and monitor skin integrity. Identify patients at risk for skin breakdown on admission and per policy. Collaborate with interdisciplinary team and initiat e plans and interventions as needed. Outcome: Progressing Problem: Urinary Incontinence Goal: Perineal skin integrity is maintained or improved Assess genitourinary system, perineal skin, labs (urinalysis), and history of in continence to include past management, aggravating, and alleviating factors. Co llaborate with interdisciplinary team and initiate plans and interventions as ne eded. Outcome: Progressing * Plan of Care - Alexandria Delgado RN - 01/15/2017 1:29 PM CDT Problem: Knowledge Deficit Goal: Patient/family/caregiver demonstrates understanding of disease process, tr eatment plan, medications, and discharge instructions Complete learning assessment and assess knowledge base. Outcome: Progressing Problem: Pain Goal: Patient's pain/discomfort is manageable Outcome: Not Progressing Pt reports constant lower abdominal pain. Pt requests Fentanyl Q3 hrs. Problem: Skin Integrity Goal: Skin integrity is maintained or improved Assess and monitor skin integrity. Identify patients at risk for skin breakdown on admission and per policy. Collaborate with interdisciplinary team and initiat e plans and interventions as needed. Outcome: Progressing Problem: Safety Goal: Patient will be injury free during hospitalization Outcome: Progressing Problem: Nutrition Goal: Patient's nutritional intake is adequate Outcome: Not Progressing Pt not eating the clear liquid tray; only drinks sprite & apple juice. Problem: Potential for Compromised Skin Integrity Goal: Skin integrity is maintained or improved Assess and monitor skin integrity. Identify patients at risk for skin breakdown on admission and per policy. Collaborate with interdisciplinary team and initiat e plans and interventions as needed. Outcome: Progressing Problem: Urinary Incontinence Goal: Perineal skin integrity is maintained or improved Assess genitourinary system, perineal skin, labs (urinalysis), and history of in continence to include past management, aggravating, and alleviating factors. Co llaborate with interdisciplinary team and initiate plans and interventions as ne eded. Outcome: Progressing * Plan of Care - Saina Fernandez RN - 01/14/2017 10:52 PM CDT Problem: Knowledge Deficit Goal: Patient/family/caregiver demonstrates understanding of disease process, tr eatment plan, medications, and discharge instructions Complete learning assessment and assess knowledge base. Outcome: Progressing Goal: Patient/Family/Caregiver sets realistic goals Outcome: Progressing Problem: Pain Goal: Patient's pain/discomfort is manageable Outcome: Progressing Problem: Skin Integrity Goal: Skin integrity is maintained or improved Assess and monitor skin integrity. Identify patients at risk for skin breakdown on admission and per policy. Collaborate with interdisciplinary team and initiat e plans and interventions as needed. Outcome: Progressing Problem: Safety Goal: Patient will be injury free during hospitalization Outcome: Progressing Problem: Nutrition Goal: Patient's nutritional intake is adequate Outcome: Progressing Problem: Potential for Compromised Skin Integrity Goal: Nutritional status is improving Monitor and assess patient for malnutrition (ex- brittle hair, bruises, dry skin , pale skin and conjunctiva, muscle wasting, smooth red tongue, and disorientati on). Collaborate with interdisciplinary team and initiate plan and interventions as ordered. Monitor patient's weight and dietary intake as ordered or per kwame cy. Utilize nutrition screening tool and intervene per policy. Determine patient 's food preferences and provide high-protein, high-caloric foods as appropriate. Outcome: Progressing Goal: Skin integrity is maintained or improved Assess and monitor skin integrity. Identify patients at risk for skin breakdown on admission and per policy. Collaborate with interdisciplinary team and initiat e plans and interventions as needed. Outcome: Progressing Problem: Urinary Incontinence Goal: Perineal skin integrity is maintained or improved Assess genitourinary system, perineal skin, labs (urinalysis), and history of in continence to include past management, aggravating, and alleviating factors. Co llaborate with interdisciplinary team and initiate plans and interventions as ne eded. Outcome: Progressing * Plan of Care - Mague Matamoros RN - 01/14/2017 2:56 PM CDT Problem: Knowledge Deficit Goal: Patient/family/caregiver demonstrates understanding of disease process, tr eatment plan, medications, and discharge instructions Complete learning assessment and assess knowledge base. Outcome: Progressing Goal: Patient/Family/Caregiver sets realistic goals Outcome: Progressing Problem: Pain Goal: Patient's pain/discomfort is manageable Outcome: Progressing Problem: Skin Integrity Goal: Skin integrity is maintained or improved Assess and monitor skin integrity. Identify patients at risk for skin breakdown on admission and per policy. Collaborate with interdisciplinary team and initiat e plans and interventions as needed. Outcome: Progressing Problem: Safety Goal: Patient will be injury free during hospitalization Outcome: Progressing Problem: Nutrition Goal: Patient's nutritional intake is adequate Outcome: Progressing Problem: Potential for Compromised Skin Integrity Goal: Nutritional status is improving Monitor and assess patient for malnutrition (ex- brittle hair, bruises, dry skin , pale skin and conjunctiva, muscle wasting, smooth red tongue, and disorientati on). Collaborate with interdisciplinary team and initiate plan and interventions as ordered. Monitor patient's weight and dietary intake as ordered or per kwame cy. Utilize nutrition screening tool and intervene per policy. Determine patient 's food preferences and provide high-protein, high-caloric foods as appropriate. Outcome: Progressing Goal: Skin integrity is maintained or improved Assess and monitor skin integrity. Identify patients at risk for skin breakdown on admission and per policy. Collaborate with interdisciplinary team and initiat e plans and interventions as needed. Outcome: Progressing Problem: Urinary Incontinence Goal: Perineal skin integrity is maintained or improved Assess genitourinary system, perineal skin, labs (urinalysis), and history of in continence to include past management, aggravating, and alleviating factors. Co llaborate with interdisciplinary team and initiate plans and interventions as ne eded. Outcome: Progressing * Operative Note - Rashaun Sandoval MD - 01/14/2017 10:30 AM CDT EGD Report Date: 01/14/2017 10:30 AM Patient Name: SEEMA BUI Gender: Female (age): 1990 (26) Endoscopist(s): Rashaun Sandoval MD Instrument(s): WorkHandsn Upper Endoscope G13([id number]) Referring Physician(s): [place] [address] ASA Information: See Anesthesia Record Administered Medications: See Anesthesia Record History of Present Illness: SEEMA BUI is being seen today for an EGD. Indications: Hematemesis - K92.0 Anemia, microcytic Procedure: Prior to the procedure the risk(s), benefit(s), and alternative(s) were reviewed and discussed. The most common complications being, but not limited to; abdominal discomfort, bleeding, perforation, infection, adverse medication reaction, pain or inflammation at the IV site, and lesions not being detected during the procedure. The patient/patients outside medical sales representative appeared to understand the procedure, the potential complications, and alternatives; had the opportunity to ask questions; and informed consent was obtained. The risk/benefit ratio was deemed appropriate to proceed with the procedure. Deep Sedation was administered by nurse weather analyst. Continuous pulse oximetry and blood pressure monitoring were used throughout the procedure. Supplemental oxygen was used. Patient was placed in left lateral decubitus. The endoscope was introduced through mouth and advanced under direct visualization until second part of the duodenum reached. Patient tolerance to the procedure was good. The procedure was not difficult. Estimated Blood Loss (EBL): Less than 1 ml Limitations/Complications: There were no apparent limitations or complications Findings: Esophagus Mucosa Normal mucosa was noted in the whole esophagus. Stomach Contents Solid food was found in the stomach body. A large amount of food in the stomach was noted suggestive of delayed gastric empting. Excavated lesions A few patchy erosions were noted in the pre-pyloric region. Biopsies were obtained to evaluate for H.Pylori infection. Cold forceps biopsies were performed for histology. Duodenum Mucosa Normal mucosa was noted in the whole examined duodenum. Random mucosal biopsies were obtained to evaluate for histologic features of celiac disease. Cold forceps biopsies were performed for histology. Impressions: Normal mucosa in the whole esophagus. Food in the stomach body suggestive of gastroparesis. Normal mucosa in the whole examined duodenum. (Biopsy). Erosions in the pre-pyloric region. (Biopsy). Plan: The area in the gastric body under the retained food could not be adequately evaluated. In addition, the patient has evidence of chronic anemia with microcytic indices and a family history of a brother with rectal cancer at an early age, in his early 20s. I recommend a clear liquid diet over the weekend, a dose of erythromycin on Tuesday, iron studies, and repeat EGD with colonoscopy Tuesday. I will see next on Tuesday to prepare for the procedures Tuesday. Rashaun Sandoval MD Electronically signed on 01/14/2017 11:53:13 AM by Rashaun Sandoval MD * Assessment & Plan Note - Lucy Mccord NP - 01/14/2017 2:30 AM CDT Associated Problem(s): Seizures (HCC) Most recent seizure 01/10 Unable to recall name of anti-epileptic, mother to provide in AM - Seizure precautions - Resume antiepileptic when confirmed * Assessment & Plan Note - Lucy Mccord NP - 01/14/2017 2:19 AM CDT Associated Problem(s): Flank pain Acute on chronic, prior history of ovarian cysts CT abd shows tiny nonobstructive punctate renal calculi seen bilaterally, no dis cindy obstructive uropathy. UA with small bacteria, neg nitrite and leuko-esterace, no dysuria - Urine reflex pending - Pain management - Continue IVF's * Assessment & Plan Note - Lucy Mccord NP - 01/14/2017 2:16 AM CDT Associated Problem(s): Intractable cyclical vomiting with nausea Etiology unknown - Anti-emetics - Supportive care, IVF's - NPO * Assessment & Plan Note - Lucy Mccord NP - 01/14/2017 2:14 AM CDT Associated Problem(s): Acute upper GI bleed No prior history, hgb 7.3 on admit ? Uli Oliva - GI consult - NPO - Protonix gtt - Serial H&H * Hospital Course - Lucy Mccord NP - 01/14/2017 2:14 AM CDT 26 y/o female with history of anxiety and seizure disorder presents 01/13/17 with c/o n/v and bloody emesis x3 days. * Plan of Care - Kathleen Banks RN - 01/14/2017 1:31 AM CDT Problem: Knowledge Deficit Goal: Patient/family/caregiver demonstrates understanding of disease process, tr eatment plan, medications, and discharge instructions Outcome: Progressing Goal: Patient/Family/Caregiver sets realistic goals Outcome: Progressing Problem: Pain Goal: Patient's pain/discomfort is manageable Outcome: Progressing Problem: Skin Integrity Goal: Skin integrity is maintained or improved Outcome: Progressing Problem: Safety Goal: Patient will be injury free during hospitalization Outcome: Progressing Problem: Nutrition Goal: Patient's nutritional intake is adequate Outcome: Progressing documented in this encounter Plan of Treatment Order Schedule Name Type Priority Associated Diag noses 1 Occurrences starting 01/18/2017 until 01/18/2018 Complete Blood Count Lab Routine Acute upp er GI bleed documented as of this encounter Procedures Comments Procedure Name Priority Date/Time Associated Diag nosis CBC AND DIFF (MANUAL DIFF Routine 01/20/2017 IF NECESSARY) 3:00 AM CDT BASIC METABOLIC PANEL Routine 01/20/2017 3:00 AM CDT CBC AND DIFF (MANUAL DIFF Routine 01/19/2017 IF NECESSARY) 4:20 AM CDT CELIAC SCREEN Routine 01/19/2017 4:20 AM CDT BASIC METABOLIC PANEL Routine 01/19/2017 4:20 AM CDT HEMOGLOBIN AND HEMATOCRIT Routine 01/18/2017 2:09 PM CDT POTASSIUM Timed 01/18/2017 2:08 PM CDT XMATCH Routine 01/18/2017 9:20 AM CDT RBCS 1 UNIT Routine 01/18/2017 3:15 AM CDT ANTIBODY SCREEN Routine 01/18/2017 3:15 AM CDT CBC AND DIFF (MANUAL DIFF Routine 01/18/2017 IF NECESSARY) 3:15 AM CDT BASIC METABOLIC PANEL Routine 01/18/2017 3:15 AM CDT ABORH TYPE Routine 01/18/2017 3:15 AM CDT ESOPHAGOGASTRODUODENOSCOP 01/17/2017 Iron defici ency anemia Y (EGD) 12:19 PM CDT Abdominal pain COLONOSCOPY 01/17/2017 Iron deficiency ane sven 12:19 PM CDT Abdominal pain CBC AND DIFF (MANUAL DIFF Routine 01/17/2017 IF NECESSARY) 5:30 AM CDT CBC AND DIFF (MANUAL DIFF Routine 01/16/2017 IF NECESSARY) 3:00 AM CDT URINE TEST Routine 01/15/2017 1:00 AM CDT HEMOGLOBIN AND HEMATOCRIT STAT 01/15/2017 12:25 AM CDT HEMOGLOBIN AND HEMATOCRIT STAT 01/14/2017 3:55 PM CDT TISSUE PATHOLOGY OR Routine 01/14/2017 BIOPSY 1:49 PM CDT CAPNOGRAPHY Routine 01/14/2017 1:29 PM CDT ESOPHAGOGASTRODUODENOSCOP 01/14/2017 hematemesis , N/V, anemia Y, WITH MULTIPLE TISSUE 11:22 AM CDT BIOPSIES OR POLYPECTOMY USING FORCEPS LIPASE STAT 01/14/2017 7:56 AM CDT IRON/TRANSFERRIN STAT 01/14/2017 7:56 AM CDT HEMOGLOBIN AND HEMATOCRIT STAT 01/14/2017 7:56 AM CDT FERRITIN STAT 01/14/2017 7:56 AM CDT BASIC METABOLIC PANEL STAT 01/14/2017 7:56 AM CDT XR CHEST SINGLE VIEW STAT 01/14/2017 FRONTAL 4:41 AM CDT COMPLETE BLOOD COUNT STAT 01/14/2017 2:15 AM CDT RETYPE PATIENT ABORH Routine 01/13/2017 10:22 PM CDT CRITICAL CARE Routine 01/13/2017 10:02 PM CDT GASTRIC BLOOD STAT 01/13/2017 9:[address] ABDOMEN PELVIS WO STAT 01/13/2017 CONTRAST 7:51 PM CDT ANTIBODY SCREEN STAT 01/13/2017 7:36 PM CDT COMPREHENSIVE METABOLIC STAT 01/13/2017 PANEL 7:36 PM CDT CBC AND DIFF (MANUAL DIFF STAT 01/13/2017 IF NECESSARY) 7:36 PM CDT ABORH TYPE STAT 01/13/2017 7:36 PM CDT URINALYSIS MICROSCOPIC STAT 01/13/2017 ONLY 5:53 PM CDT URINE TEST STAT 01/13/2017 5:53 PM CDT URINALYSIS REFLEX STAT 01/13/2017 5:53 PM CDT CULTURE, URINE STAT 01/13/2017 5:53 PM CDT documented in this encounter Results * Basic Metabolic Panel (01/20/2017 3:00 AM CDT) Only the most recent of 4 results within the time period is included. Pathologist [facility] Sodium 142 133 - 147 MEQ/L [facility] Potassium 3.6 3.5 - 5.3 MEQ/L [facility] Chloride 110 96 - 112 MEQ/L [facility] Carbon Dioxide 23 20 - 32 MEQ/L [facility] Anion Gap 9 5 - 17 [facility] Calcium 8.1 (L) 8.4 - 10.5 mg/dL [facility] Glucose 84 70 - 100 mg/dL [facility] Blood Urea 13 7 - 26 mg/dL [facility] Creatinine 0.6 0.4 - 1.1 mg/dL [facility] eGFR Female AA >130 60 - 200 [facility] Comment: [facility] Chronic Kidney Disease less than 60 mL/min/1.73 sq.m Kidney failure less than 15 mL/min/1.73 sq.m eGFR Female 119 60 - 200 [facility] Non-AA Comment: [facility] Chronic Kidney Disease less than 60 mL/min/1.73 sq.m Kidney failure less than 15 mL/min/1.73 sq.m Specimen Blood Performing Organization Address City/State/[facility] Ph one Number [facility] [id number] [place] [address] * CBC and Diff (manual diff if necessary) (01/20/2017 3:00 AM CDT) Only the most recent of 6 results within the time period is included. WBC 7.84 4.00 - 11.00 TH/uL [facility] RBC 3.88 (L) 4.00 - 5.00 MIL/uL [facility] Hemoglobin 9.1 (L) 12.0 - 15.0 g/dL [facility] Hematocrit 29 (L) 36 - 45 % [facility] MCV 74 (L) 80 - 99 fL [facility] MCH 24 (L) 27 - 34 pg [facility] MCHC 32 32 - 36 % [facility] RDW 17.2 (H) 9.0 - 14.5 % [facility] Platelet Count 421 (H) 140 - 400 TH/uL [facility] MPV 11.1 9.4 - 12.3 fL [facility] Nucleated RBCs 0 0 - 0 /100 [facility] % Neutrophils 62 45 - 78 % [facility] %Lymphocytes 29 15 - 47 % [facility] %Monocytes 6 0 - 12 % [facility] %Eosinophils 2 0 - 7 % [facility] %Basophils 1 0 - 2 % [facility] % Imm Grans 0 0 - 1 % [facility] # Granulocytes 4.91 1.70 - 6.80 TH/uL [facility] # Lymphocytes 2.27 1.00 - 3.30 TH/uL [facility] # Monocytes 0.43 0.20 - 0.90 TH/uL [facility] # Eosinophils 0.18 0.00 - 0.40 TH/uL [facility] # Basophils 0.05 0.00 - 0.10 TH/uL [facility] Specimen Blood Performing Organization Address [facility] Ph one Number [facility] [address] [place] [address] * Celiac Screen (01/19/2017 4:20 AM CDT) Pathologist [facility] Celiac Screen 8 U [facility] Comment: REGIONAL Celiac Screen Interpretation: LABORATORIES Negative: <20 Weak Positive: 20 - 30 Positive: >30 Celiac Screen detects IgA and IgG antibodies to deamidated gliadin and tissue transglutaminase. Specimen Blood Performing Organization Address City/[facility] Ph one Number [address] [address] LABORATORIES * Hemoglobin and Hematocrit (01/18/2017 2:09 PM CDT) Only the most recent of 4 results within the time period is included. Hemoglobin 9.5 (L) 12.0 - 15.0 g/dL [facility] Hematocrit 30 (L) 36 - 45 % [facility] Specimen Blood Performing Organization Address City/[facility] one Number [facility] [address] [place] [address] * Potassium (01/18/2017 2:08 PM CDT) [facility] Potassium 4.4 3.5 - 5.3 MEQ/L [facility] Specimen Blood Performing Organization Address [facility] one Number [facility] [address] [place] [address] * XMATCH (01/18/2017 9:20 AM CDT) Specimen Blood Performing Organization Address [facility] one Number RL [address] [place], [place] [address] * RBCs 1 Unit (01/18/2017 3:15 AM CDT) [facility] 01 - PRODUCT ID Red Blood Cells [facility] 01 - UNIT [id number] [facility] 01 - CROSS Compatible [facility] 01 - STATUS Transfused [facility] 01 - PRODUCT [id number] [facility] 01 - BLOOD TYPE O Pos [facility] Specimen Blood Performing Organization Address [facility] one Number [facility] [address] [place] [address] * Antibody Screen (01/18/2017 3:15 AM CDT) Only the most recent of 2 results within the time period is included. [facility] Antibody Screen Negative Negative [facility] Specimen Blood Performing Organization Address [facility] one Number [facility] [address] [place] [address] * ABORH Type (01/18/2017 3:15 AM CDT) Only the most recent of 2 results within the time period is included. [facility] ABORH Type O Positive [facility] Specimen Blood Performing Organization Address [facility] one Number [facility] [address] [place] [address] * Urine Test (01/15/2017 1:00 AM CDT) Only the most recent of 2 results within the time period is included. [facility] Urine NegativeComment: Specific Negative [facility] gravity is <1.005; dilute [facility] urines may cause false negative results. Specimen Urine Performing Organization Address City/State/Zipcode Ph one Number [facility] [address] [place] [address] * Tissue Pathology or Biopsy (01/14/2017 1:49 PM CDT) Specimen Tissue - Small Bowel Tissue - Antrum Narrative Performed At PATIENT: SEEMA BUI [facility] SEX / : F 1990 (Age: 26) 6 VISIT: [id number] SUBMITTING PHYSICIAN: Rashaun meraz M.D. CLIENT: [facility] COLLECTED: 01/14/2017 REPORTED: 01/17/2017 SURGICAL PATHOLOGY REPORT COPATH RECEIVED: 01/14/2017 ACCESSION DATE: 01/14/2017 SPECIMEN: A: Small bowel biopsies B: Antral biopsies FINAL PATHOLOGIC DIAGNOSIS: A. 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 B. Gastric mucosal biopsy, antrum: - Chronic active gastritis associated w ith Helicobacter pylori, confirmed by immunohistochemist ry. COMMENT: The duodenal abnormalities are most lik kiel secondary to Helicobacter gastritis. These finding s were discussed with Dr. Sandoval on 01/17/17. Signed Electronically by: Tera Banks MD 01/17/2017 CLINICAL DATA: Hematemesis, N/V anemia. GROSS DESCRIPTION: A- Received in formalin in a properly labeled container designated "small bowel biopsies, timo roscopic anemia" are six fatima tissue fragments measuring 1.3 x 0.2 x 0.2 cm in aggregate. The specimen is entirely s ubmitted in one cassette. B- Received in formalin in a properly labeled container designated "antral biopsies, erosive gastritis" are three pale fatima tissue fragments measuring 0.6 x 0.2 x 0.1 cm in aggregate. The specimen is entirely s ubmitted in one cassette. BE/giovana Gross performed at [facility] y, [address], [address], [place]. [address] MICROSCOPIC DESCRIPTION: Microscopic examination performed. D3 , S3. [place]: [facility], [address] [place] [address] Where applicable, all positive and nega tive controls demonstrate appropriate and expected re activity. Some or all of the immunoperoxidase tests utilized in this examination were developed and their performance ch aracteristics determined by [facility]. They have not been cleared or approved by the U. S. Food and Drug Administration. The FDA has determ ined that such clearance or approval is not necessary. These tests are used for clinical purposes and should not be regarded as investigational or for research. This l aboratory is certified under the Clinical Laboratory Improvement Amendments of 1988 (CLIA) as qualified to perform high complexity clinical laboratory testing. Performing Laboratory Location: [facility], Gene Banks M.D., Model And Pattern Supervisor, [address] [place] [address] Technical processing at: [facility], Casimiro Almaguer, Model And Pattern Supervisor, [address] [address] [facility] [place] [address] [place] [address] END OF REPORT Performing Organization Address [facility] Ph one Number [facility] * Ferritin (01/14/2017 7:56 AM CDT) Ferritin 8 (L) 20 - 200 ng/mL [facility] Specimen Blood Performing Organization Address [facility] Ph one Number [address] [phone] LABORATORIES * Iron/Transferrin (01/14/2017 7:56 AM CDT) Iron <10 (L) 50 - 180 ug/dL [facility] Transferrin 316 206 - 381 mg/dL [facility] Total 379 204 - 408 ug/dL [facility] Iron-Binding [facility] Capacity LABORATORIES Iron/Transferri Not CalcComment: Result is 15 - 50 % [facility] % Saturation outside linear range. REGIONAL Calculation cannot be LABORATORIES performed Specimen Blood Performing Organization Address [facility] Ph one Number [facility] [address] [place] [address] LABORATORIES * Lipase (01/14/2017 7:56 AM CDT) Lipase 35 23 - 300 IU/L [facility] Specimen Blood Performing Organization Address City/[facility] Ph one Number [facility] [address] [place] [address] * XR Chest single view frontal (01/14/2017 4:41 AM CDT) Specimen Impressions Performed At 1. Satisfactory placement of right PICC. TALA 2. No acute cardiopulmonary process. Narrative Performed At Patient: SEEMA BUI Sex#: F # [id number] [place]#: [id number] Location: [facility] Procedure Requested: [id number] XR CHEST SINGLE VIEW FRONTAL Exam Ordered: 01/14/2017 Exam Date/Time: 01/14/2017440 Begin exam date/time: 01/14/2017437 XR CHEST SINGLE VIEW FRONTAL INDICATION: PICC placement. Pain. COMPARISON STUDY: None. FINDINGS: Life Support Devices: Right PICC is pre sent with catheter terminating at the superior atriocaval junction. Lungs and Pleura: The lung volume is no rmal. No focal airspace disease. Normal pulmonary vasculature. No pleura l effusion or pneumothorax. Heart and Mediastinum: Cardiomediastina l silhouette is normal in size and configuration. Bones: No acute osseous abnormality. Procedure Note Interface, Rad Results In - 01/14/2017 7:09 AM CDT Patient: SEEMA BUI Sex#: F # [id number] [place]#: [id number] Location: [facility] Procedure Requested: [id number] XR CHEST SINGLE VIEW FRONTAL Exam Ordered: 01/14/2017 043 Exam Date/Time: 01/14/2017440 Begin exam date/time: 01/14/2017437 XR CHEST SINGLE VIEW FRONTAL INDICATION: PICC placement. Pain. COMPARISON STUDY: None. FINDINGS: Life Support Devices: Right PICC is present with catheter terminating at the superior atriocaval junction. Lungs and Pleura: The lung volume is normal. No focal airspace disease. Normal pulmonary vasculature. No pleural effusion or pneumothorax. Heart and Mediastinum: Cardiomediastinal silhouette is normal in size and configuration. Bones: No acute osseous abnormality. IMPRESSION 1. Satisfactory placement of right PICC. 2. No acute cardiopulmonary process. Performing Organization Address [facility] one Number [facility] * Complete Blood Count (01/14/2017 2:15 AM CDT) WBC 6.30 4.00 - 11.00 TH/uL [facility] RBC 3.30 (L) 4.00 - 5.00 MIL/uL [facility] Hemoglobin 7.3 (L) 12.0 - 15.0 g/dL [facility] Hematocrit 24 (L) 36 - 45 % [facility] MCV 72 (L) 80 - 99 fL [facility] MCH 22 (L) 27 - 34 pg [facility] MCHC 31 (L) 32 - 36 % [facility] RDW 16.2 (H) 9.0 - 14.5 % [facility] Platelet Count 236 140 - 400 TH/uL [facility] MPV 11.6 9.4 - 12.3 fL [facility] Nucleated RBCs 0 0 - 0 /100 [facility] Specimen Blood Performing Organization Address [facility] one Number [facility] [address] [place] [address] * Retype Patient ABORH (01/13/2017 10:22 PM CDT) ABORH Type O Positive [facility] Confirm Blood Yes [facility] Type [facility] Specimen Performing Organization Address [facility] one Number [facility] [address] [place] [address] * CRITICAL CARE (01/13/2017 10:02 PM CDT) Narrative Performed At Ricardo Rosario DO 01/13/2017 10:0 2 PM Critical Care Performed by: RICARDO ROSARIO Authorized by: RICARDO ROSARIO Total critical care time: 30 minutes Critical care time was exclusive of sep arately billable procedures and treating other patients. * Gastric Blood (01/13/2017 9:04 PM CDT) Gastric Blood Negative [facility] Specimen Gastric Performing Organization Address City/State/Zipcode Ph one Number [facility] [address] [place] [address] * CT Abdomen Pelvis wo contrast (01/13/2017 7:51 PM CDT) Specimen Impressions Performed At Previous cholecystectomy. Bilateral nonobstructive re nal JOEKESSON calculi. Tubal ligation. Nonvisualized appendix without secondary signs acute appendicitis. Stool gas distribut ion suggesting constipation. One or more of the following dose reduc tion techniques were utilized: *Automated exposure control (AEC) *Adjustment of mA and/or kV according t o patient size -Use of iterative reconstruction techni que -CT scan done according to alyssa HILL/[facility] Narrative Performed At Patient: SEEMA BUI Sex#: F # [id number] [place]#: [id number] Location: [facility] Procedure Requested: [id number] CT ABDOM EN PELVIS WO CONTRAST Reason for Exam: abdominal pain Exam Ordered: 01/13/2017 185 4 Exam Date/Time: 01/13/20171950 Begin exam date/time: 01/13/20171946 Reading Site: [place] CT ABDOMEN PELVIS WO CONTRAST Date: 01/13/2017 7:52 PM History: abdominal pain FINDINGS: Noncontrast CT abdomen throug h pelvis. Lung bases clear. Liver normal. Prior cholecystectomy. Spleen n ormal. Pancreas normal. Adrenals normal. Tiny nonobstructive punctate re nal calculi seen bilaterally. Proximal ureters normal caliber. No dis cindy obstructive uropathy. No bladder stones. Nonobstructive bowel ga s pattern. Nonvisualized appendix. No secondary signs acute appe ndicitis. Stool gas distribution suggests constipation. Bladder and pelv ic sidewall structures unremarkable. Changes from tubal ligati on. Procedure Note Interface, Rad Results In - 01/13/2017 8:06 PM CDT Patient: SEEMA BUI Sex#: F # [id number] [place]#: [id number] Location: [facility] Procedure Requested: [id number] CT ABDOMEN PELVIS WO CONTRAST Reason for Exam: abdominal pain Exam Ordered: 01/13/20171853 Exam Date/Time: 01/13/20171950 Begin exam date/time: 01/13/20171946 Reading Site: [place] CT ABDOMEN PELVIS WO CONTRAST Date: 01/13/2017 7:52 PM History: abdominal pain FINDINGS: Noncontrast CT abdomen through pelvis. Lung bases clear. Liver normal. Prior cholecystectomy. Spleen normal. Pancreas normal. Adrenals normal. Tiny nonobstructive punctate renal calculi seen bilaterally. Proximal ureters normal caliber. No distal obstructive uropathy. No bladder stones. Nonobstructive bowel gas pattern. Nonvisualized appendix. No secondary signs acute appendicitis. Stool gas distribution suggests constipation. Bladder and pelvic sidewall structures unremarkable. Changes from tubal ligation. IMPRESSION Previous cholecystectomy. Bilateral nonobstructive renal calculi. Tubal ligation. Nonvisualized appendix without secondary signs acute appendicitis. Stool gas distribution suggesting constipation. One or more of the following dose reduction techniques were utilized: *Automated exposure control (AEC) *Adjustment of mA and/or kV according to patient size -Use of iterative reconstruction techniq ue -CT scan done according to SERGIO, or TRE [facility] Performing Organization Address City/State/Zipcode Ph one Number [place] * Comprehensive Metabolic Panel (01/13/2017 7:36 PM CDT) Sodium 141 133 - 147 MEQ/L [facility] Potassium 3.9 3.5 - 5.3 MEQ/L [facility] Chloride 111 96 - 112 MEQ/L [facility] Carbon Dioxide 22 20 - 32 MEQ/L [facility] Anion Gap 7 5 - 17 [facility] Calcium 7.4 (L) 8.4 - 10.5 mg/dL [facility] Glucose 78 70 - 100 mg/dL [facility] Protein Total 6.1 6.0 - 8.2 g/dL [facility] Albumin 3.4 (L) 3.5 - 5.0 g/dL [facility] Alkaline 116 42 - 140 IU/L [facility] Phosphatase [facility] Alanine 48 13 - 69 IU/L [facility] Aminotransferas [facility] e Aspartate 55 (H) 15 - 46 IU/L [facility] Aminotransferas [facility] e Bilirubin Total 0.3 0.2 - 1.3 mg/dL [facility] Blood Urea 11 7 - 26 mg/dL [facility] Nitrogen [facility] Creatinine 0.6 0.4 - 1.1 mg/dL [facility] eGFR Female AA >130 60 - 200 [facility] Comment: [facility] Chronic Kidney Disease less than 60 mL/min/1.73 sq.m Kidney failure less than 15 mL/min/1.73 sq.m eGFR Female 119 60 - 200 [facility] Non-AA Comment: [facility] Chronic Kidney Disease less than 60 mL/min/1.73 sq.m Kidney failure less than 15 mL/min/1.73 sq.m Specimen Blood Performing Organization Address [facility] one Number [facility] [address] [place] [address] * Culture, Urine (01/13/2017 5:53 PM CDT) Pathologist [facility] Culture Result No growth [facility] Specimen Clean Voided Urine Performing Organization Address [facility] one Number [address] [address] LABORATORIES * Urinalysis Microscopic Only (01/13/2017 5:53 PM CDT) Microscopic RBC >40 (A) 1 - 5 /hpf [facility] Urine [facility] Microscopic WBC 6 - 10 (A) 1 - 5 /hpf [facility] Urine [facility] Epithelial Absent Absent [facility] Cells [facility] Hyaline Cast Absent Absent [facility] Bacteria Small (A) Absent [facility] Mucus Large (A) Absent [facility] Specimen Clean Voided Urine Performing Organization Address [facility] one Number [facility] [address] [place] [address] * Urinalysis Reflex (01/13/2017 5:53 PM CDT) Appearance, Yellow [facility] Urine [facility] Glucose Urine Negative Negative mg/dL [facility] Bilirubin Urine Negative Negative [facility] Ketones Urine Negative Negative mg/dL [facility] Specific >=1.030 1.001 - 1.030 [facility] [place], UA [facility] Hemoglobin Large (A) Negative [facility] Urine [facility] PH Urine 6.0 5.0 - 8.0 [facility] Protein Urine 30 (A) Negative mg/dL [facility] Qual [facility] Urobilinogen Negative Negative EU/dL [facility] Urine [facility] Nitrite Urine NegativeComment: Culture Negative [facility] Ordered [facility] Leukocyte Negative Negative [facility] Esterase [facility] Specimen Clean Voided Urine Performing Organization Address City/State[facility] Ph one Number [facility] [address] [place] [address] documented in this encounter Visit Diagnoses Diagnosis Upper GI bleeding Unspecified, hemorrhage of gastrointest inal tract 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 Right flank pain Abdominal pain, unspecified site Urinary tract infection, site unspecifi ed Acute upper GI bleed Unspecified, hemorrhage of gastrointest inal tract Flank pain Abdominal pain, unspecified site Intractable cyclical vomiting with naus ea Convulsions, unspecified convulsion typ e (HCC) Anemia, unspecified type documented in this encounter Administered Medications Action Date Dose Rate Site Medication Order MAR Action acetaminophen (TYLENOL) suppository 325-650 mg 325-650 mg, Rectal, Every 6 hours PRN, mild pain (pain score 1-3), Starting Fr i 01/14/17 at 0208, Do not exceed 4 GM/DAY of acetaminophen. If 65 or older do no t exceed 3 GM/DAY. If chronic alcoholic d o not exceed 2 GM/DAY., 01/16/2017 3:56 PM CDT 650 mg acetaminophen (TYLENOL) tablet 325-650 Given mg 325-650 mg, Oral, Every 6 hours PRN, mild pain (pain score 1-3), fever, for temperature > 101.5 F, Starting Tue01/14/17 at 0208, Do not exceed 4 GM/DAY of acetaminophen. If 65 or older do no t exceed 3 GM/DAY. If chronic alcoholic d o not exceed 2 GM/DAY., 01/20/2017 10:32 AM CDT 1,000 mg amoxicillin (AMOXIL) capsule 1,000 mg Given 1,000 mg, Oral, 2 times daily, Indications: HELICOBACTER PYLORI, First dose on Tue01/18/17 at 2100, For 10 days 1,000 mg Given 01/19/2017 9:29 PM CDT 1,000 mg Given 01/18/2017 8:03 PM CDT 01/13/2017 8:58 PM CDT 2 sprays benzocaine (HURRICAINE) 20 % mouth spray Given 2 spray 2 spray, Mouth/Throat, 4 times daily PRN, sore throat, Starting Tue01/13/17 a t 202501/13/2017 10:10 PM CDT 1,000 mg 100 mL/hr cefTRIAXone (ROCEPHIN) 1,000 mg in New Bag sodium chloride ADDV (NS) 0.9 % 50 mL IVPB 1,000 mg, Intravenous, at 100 mL/hr, Once, Indications: UTI, Tue01/13/17 at 2206, For 1 dose 01/19/2017 9:31 PM CDT 25 mg chlorproMAZINE (THORAZINE) tablet 25 mg Given 25 mg, Oral, Nightly, First dose on Tue01/14/17 at 2100 25 mg Given 01/18/2017 8:02 PM CDT 25 mg Given 01/17/2017 8:06 PM CDT 01/20/2017 10:32 AM CDT 500 mg clarithromycin (BIAXIN) tablet 500 mg Given 500 mg, Oral, Every 12 hours scheduled, Indications: HELICOBACTER PYLORI, First dose on Tue01/18/17 at 2100, For 10 days 500 mg Given 01/19/2017 9:29 PM CDT 500 mg Given 01/18/2017 8:03 PM CDT 01/19/2017 8:32 AM CDT 1 mg clonazePAM (KlonoPIN) tablet 1 mg Given 1 mg, Oral, 2 times daily PRN, anxiety, Starting Tue01/14/17 at 1920 1 mg Given 01/18/2017 8:02 PM CDT 1 mg Given 01/18/2017 8:32 AM CDT 01/20/2017 10:32 AM CDT 1 mg clonazePAM (KlonoPIN) tablet 1 mg Given 1 mg, Oral, 2 times daily, First dose o n Jessica 01/20/17 at 0900 01/20/2017 10:32 AM CDT 20 mg dicyclomine (BENTYL) capsule 20 mg Given 20 mg, Oral, 4 times daily, First dose on Tue01/17/17 at 1315 20 mg Given 01/19/2017 9:31 PM CDT 20 mg Given 01/19/2017 8:04 AM CDT 01/13/2017 8:21 PM CDT 25 mg diphenhydrAMINE (BENADRYL) injection 25 Given mg 25 mg, Intravenous, Once, Jessica 01/13/17 at 1900, For 1 dose 01/20/2017 9:17 AM CDT 25 mg diphenhydrAMINE (BENADRYL) injection 25 Given mg 25 mg, Intravenous, Every 6 hours PRN, itching, allergies, nausea, allergic reaction, Starting Tue01/14/17 at 1549 25 mg Given 01/20/2017 3:14 AM CDT 25 mg Given 01/19/2017 8:21 PM CDT 01/16/2017 5:47 PM CDT 250 mg 105 mL/hr erythromycin (ERYTHROCIN) 250 mg in New Bag sodium chloride (NS) 0.9 % 100 mL IVPB 250 mg, Intravenous, at 105 mL/hr, Once , Indications: GASTROPARESIS, [place] 01/16/17 at 1800, For 1 dose 01/18/2017 7:32 PM CDT 25 mcg fentaNYL (SUBLIMAZE) injection 25 mcg Given 25 mcg, Intravenous, Every 3 hours PRN, severe pain (pain score 7-10), Starting Tue01/14/17 at 0209, Administer over 2 minutes; max dose for IVP is 2 mcg/kg. Note: Limit does not apply to patients who may be tolerant to opioid therapy o r on continuous IV or PO opiate therapy., 25 mcg Given 01/18/2017 2:40 PM CDT 25 mcg Given 01/18/2017 11:43 AM CDT 01/13/2017 8:21 PM CDT 50 mcg fentaNYL (SUBLIMAZE) injection 50 mcg Given 50 mcg, Intravenous, Once, [facility] 01/13/17 a 2016, For 1 dose, Administer over 2 minutes; max dose for IVP is 2 mcg/kg. Note: Limit does not apply to patients who may be tolerant to opioid therapy o r on continuous IV or PO opiate therapy., 01/20/2017 10:31 AM CDT 600 mg gabapentin (NEURONTIN) capsule 600 mg Given 600 mg, Oral, 3 times daily, First dose on Tue01/14/17 at 2100 600 mg Given 01/19/2017 9:31 PM CDT 600 mg Given 01/19/2017 8:04 AM CDT 01/19/2017 2:02 PM CDT 300 mg 76.67 mL/hr iron sucrose (VENOFER) 300 mg in sodium New Bag chloride (NS) 0.9 % 100 mL IVPB 300 mg, Intravenous, at 76.67 mL/hr, Every 3 days, First dose on Tue01/16/17 at 1200, Infuse over a minimum of 90 minutes. 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 300 mg 76.67 mL/hr New Bag 01/16/2017 1:51 PM CDT 01/13/2017 6:41 PM CDT 60 mg Left Simone trogluteal ketorolac (TORADOL) injection 60 mg Given 60 mg, Intramuscular, Once, Jessica 01/13/17 at 1835, For 1 dose 01/17/2017 11:28 AM CDT 50 mL/hr 50 mL/hr lactated ringers infusion New Bag 50 mL/hr, Intravenous, Continuous, Starting Tue01/17/17 at 1130 01/13/2017 8:58 PM CDT lidocaine (XYLOCAINE) 2 % jelly Given Topical, Once, Jessica 01/13/17 at 2028, For 1 dose, Apply to nare for NG insertion, 01/19/2017 7:18 PM CDT 1 mg LORazepam (ATIVAN) 2 mg/mL injection Given Starting Tue01/19/17 at 1915, For 1 dose , Created by cabinet override Maximum IV push rate of 2 mg/min; max IVP dose is 4 mg., 01/19/2017 7:44 PM CDT 1 mg LORazepam (ATIVAN) 2 mg/mL injection Given Starting Tue01/19/17 at 1942, For 1 dose , Created by cabinet override Maximum IV push rate of 2 mg/min; max IVP dose is 4 mg., 01/19/2017 7:56 PM CDT 1 mg LORazepam (ATIVAN) injection Given Intravenous, Code/trauma/sedation medication, Starting Tue01/19/17 at 1915 1 mg Given 01/19/2017 7:22 PM CDT 1 mg Left Arm Given 01/19/2017 7:15 PM CDT 01/18/2017 4:46 PM CDT 12 mg Abdomina l Tissue methylnaltrexone (RELISTOR) injection 12 Given mg 12 mg, Subcutaneous, Once, Tue01/18/17 a t 1615, For 1 dose 01/14/2017 12:39 AM CDT 4 mg morphine injection 4 mg Given 4 mg, Intravenous, Every 4 hours PRN, severe pain (pain score 7-10), Starting Jessica 01/13/17 at 2324, Administer over 5 min; max dose of IVP is 10 mg. Note: Limit does not apply to patients who ma y be tolerant to opioid therapy or on continuous IV or PO opiate therapy., 01/17/2017 9:18 PM CDT 8 mg/hr 10 mL/hr pantoprazole (PROTONIX) 80 mg in sodium New Bag chloride (NS) 0.9 % 100 mL infusion 8 mg/hr (10 mL/hr), Intravenous, at 10 mL/hr, Continuous, Starting Jessica 01/13/17 at 203, DO NOT REFRIGERATE, 8 mg/hr 10 mL/hr New Bag 01/17/2017 7:23 AM CDT 8 mg/hr 10 mL/hr New Bag 01/16/2017 11:08 PM CDT 01/20/2017 10:32 AM CDT 40 mg pantoprazole (PROTONIX) EC tablet 40 mg Given 40 mg, Oral, Every morning before breakfast, First dose on Tue01/18/17 at 0730, DO NOT CRUSH OR CHEW., 40 mg Given 01/19/2017 8:04 AM CDT 40 mg Given 01/18/2017 8:22 AM CDT 01/13/2017 10:43 PM CDT 80 mg pantoprazole (PROTONIX) injection 80 mg Given 80 mg, Intravenous, Once, Jessica 01/13/17 at 2036, For 1 dose, DO NOT REFRIGERATE, 01/16/2017 5:52 PM CDT 1 Bottle peg [id number] C MOVIPREP Given kit 1 Bottle 1 Bottle, Oral, Once, 01/16/17 at 1700, For 1 dose, Empty Pouch A and Pouch B into the 32 ounce container, ad d 32 ounces of lukewarm water and shake t o dissolve Patient to drink at least 1 glass every 10-15 minutes beginning at 5 PM the evening before the procedure until 32 ounces have been consumed Patient to then drink at least 16 ounce s of the clear liquid of their choice, 01/17/2017 5:26 AM CDT 1 Bottle peg [id number] C MOVIPREP Given kit 1 Bottle 1 Bottle, Oral, Once, 01/17/17 at 0500, For 1 dose, Before 5 AM the morning of the procedure empty Pouch A and Pouch B into the 32 ounce container , add 32 ounces of lukewarm water and shake to dissolve At 5 AM the morning of the procedure and have patient drink at least 1 glass every 10-15 minutes until the 32 ounces have been consumed Patient to then drink at least 16 ounce s of the clear liquid of their choice, 01/18/2017 5:20 AM CDT 40 mEq potassium chloride (KLOR-CON) CR tablet Given 20-60 mEq 20-60 mEq, Oral, As needed, for potassium replacement in non-telemetry patients, Starting Tue01/18/17 at 0359, Administer 40 mEq for potassium level 3.1 to 3.5 mg/dL. Administer 60 mEq for potassium level less than or equal to 3 . (20 mEq every hour for 3 doses). Repeat potassium level 4 hours after last oral dose administered. Administer only if SCr < 2 within the previous 48 hours an d urine output > 60 mL for 2 hours or > 360 mL every 12 hours. DO NOT CRUSH OR CHEW., potassium chloride (KLOR-CON) CR tablet 20-60 mEq 20-60 mEq, Oral, As needed, for potassium replacement in telemetry patients, Starting Tue01/18/17 at 0542, Administer 20 mEq for potassium level 3.6 to 3.9 mg/dL. Repeat potassium leve l in AM. Administer 40 mEq for potassium level 3.1 to 3.5 mg/dL. Repeat potassiu m level 4 hours after last oral dose administered. Administer 60 mEq for potassium level less than or equal to 3 . (20 mEq every hour for 3 doses). Repeat potassium level 4 hours after last oral dose administered. Administer only if SCr < 2 within the previous 48 hours an d urine output > 60 mL for 2 hours or > 360 mL every 12 hours. DO NOT CRUSH OR CHEW., 01/20/2017 4:14 AM CDT 20 mEq 50 mL/hr potassium chloride 20 mEq in 100 mL IVPB New Bag 20 mEq, Intravenous, Administer over 2 Hours, As needed, for potassium replacement in telemetry patients, Starting Tue01/14/17 at 0208, Give if unable to take oral potassium. Administer 20 mEq over 2 hours for potassium level 3.6 to 3.9 mg/dL. Repea t potassium level in AM. Administer 40 mE q over 4 hours for potassium level 3.1 to 3.5 mg/dL. Repeat potassium level 2 hours after infusion is complete. Administer 60 mEq over 6 hours for potassium level less than or equal to 3 . Repeat potassium level 2 hours after infusion is complete. Administer only i f SCr < 2 within the previous 48 hours an d urine output > 60 mL for 2 hours or > 360 mL every 12 hours. Potassium chloride should be infused at a rate of 10 mEq/hr through a peripheral line, or at a rate of 20 mEq/hr through a centra l line., 01/13/2017 8:21 PM CDT 5 mg prochlorperazine (COMPAZINE) injection 5 Given mg 5 mg, Intravenous, Once, Jessica 01/13/17 at 1943, For 1 dose 01/20/2017 10:23 AM CDT 12.5 mg Left Del toid promethazine (PHENERGAN) injection Given 6.25-12.5 mg 6.25-12.5 mg, Intramuscular, Every 6 hours PRN, nausea, vomiting, Starting Jessica 01/13/17 at 2324 12.5 mg Left Anterior Thigh Given 01/20/2017 4:19 AM CDT 12.5 mg Left Deltoid Given 01/19/2017 8:19 PM CDT 01/16/2017 1:49 PM CDT 25 mL 100 mL/hr sodium chloride 0.9% (NS) flush bag New Bag 25 mL, Intravenous, at 100 mL/hr, Continuous PRN, to flush line, Starting 01/16/17 at 1253, Only use a New Ba g action if you are hanging a new bag This bag expires 24 hours after hanging . To be implemented as an intravenous flush following intermittent infusions where there is no primary infusion. Patients with fluid restrictions may be excluded., 01/13/2017 8:22 PM CDT 1,000 mL 2000 mL/hr sodium chloride 0.9% (NS) IV Bolus New Bag 1,000 mL, Intravenous, Administer over 30 Minutes, Once, Jessica 01/13/17 at 1855, For 1 dose 01/18/2017 3:10 AM CDT 75 mL/hr 75 mL/hr sodium chloride 0.9% infusion New Bag 75 mL/hr, Intravenous, Continuous, Starting Tue01/14/17 at 0210 75 mL/hr 75 mL/hr New Bag 01/17/2017 7:58 PM CDT 75 mL/hr 75 mL/hr New Bag 01/17/2017 7:22 AM CDT 01/20/2017 4:19 AM CDT 75 mL/hr 75 mL/hr sodium chloride 0.9% infusion New Bag 75 mL/hr, Intravenous, Continuous, Starting Tu01/18/17 at 1500 75 mL/hr 75 mL/hr New Bag 01/19/2017 6:11 PM CDT 75 mL/hr 75 mL/hr New Bag 01/19/2017 5:53 AM CDT documented in this encounter
--- OUTSIDE RECORDS SUMMARY | 2019-08-15 02:43 | XMS REPORT | Encounter Summary ---
Author Author [facility] Organization [facility] Address Unknown Phone Unavailable Care Team Providers Care Gut Carrier Name Role Phone PCP Unavailable Reason for Visit * Reason Comments Back Pain Pt states she has been havi ng mid to lower back pain since this am. * Auth/Cert (Routine) Referred By Contact Referred To Contact Status Reason Specialty Diagnoses / Procedures Khalif Snowden MD [address] [facility] [address] [place] [address] Procedures Case request operating room: ESOPHAGOGASTRODUOD ENOSCOPY (EGD) Encounter Details Care Team Description [place] [address] [place] [address] [phone] COLONOSCOPY 01/17/2017 Surgery [facility] [id number] [place] [address] Social History Date Tobacco Use Types Packs/Day [...] Banks MD - 01/20/2017 7:44 AM CDT [facility] Hospitalist - Discharge Summary Patient Name: Seema Bui Account No: [id number] Date of : 1990 Date of Admission: [...] activity as tolerated Scheduled Follow Up Appointments/Studies ([facility]): No future appointments. Additional Discharge Follow [...] greater than 30 minutes. Kim Martinez MD [facility] Hospitalist Please page through physician paging. . [...] Banks MD - 01/19/2017 2:49 PM CDT [facility] Hospitalist - Progress Note Patient Name: Seema Bui Account No: [id number] Date of : 1990 Date of Admission: [...] results (as indicated), current inpatient medications and end user support specialist notes with pertainent findings noted within the [...] sodium chloride 0.9 % Kim Martinez MD [facility] Hospitalist Please page through physician paging. . C DT Gino Glez MD - 01/18/2017 3:34 PM CDT [facility] GASTROINTESTINAL PROGRESS NOTE HPI: Abdominal pain, nausea [...] Procedure: COLONOSCOPY; Surgeon: Mauricio Harrison MD; Location: [facility]; Servic e: Gastroenterology; Laterality: N/A; ESOPHAGO-GASTRO DUODENOSCOPY WITH BIOPSY POLYP OR TISSUE MULTIPLE WITH FORCE P N/A 01/14/2017 Procedure: ESOPHAGO-GASTRO DUODENOSCOPY WITH BIOPSY POLYP OR TISSUE MULTIPLE WI TH FORCEP; Surgeon: Rashaun Sandoval MD; Location: [facility]; Service: Gastr oenterology; Laterality: N/A; ESOPHAGOGASTRODUODENOSCOPY (EGD) N/A 01/17/2017 Procedure: ESOPHAGOGASTRODUODENOSCOPY (EGD); Surgeon: Mauricio Harrison MD; Loca tion: [facility]; Service: Gastroenterology; Laterality: N/A; TUBAL LIGATION [...] Part of this note is generated using [employer] recognition [employer]. Please excuse any uncorrected grammatical or typographical error. Electronically signed by Gino López 01/18/2017 3:34 PM * Kim Banks MD - 01/18/2017 2:31 PM CDT [facility] Hospitalist - Progress Note Patient Name: Seema Bui Account No: [id number] Date of : 1990 Date of Admission: [...] results (as indicated), current inpatient medications and end user support specialist notes with pertainent findings noted within the [...] details regarding this patients treatment plan. Room: [address] [place] [address] Diet: Diet-Regular Diet - Regular Code Status: [...] %, sodium chloride 0.9% Kim Martinez MD [facility] Hospitalist Please page through physician paging. . C DT * Sandie Del Angel RN - 01/17/2017 2:57 PM CDT 01/17/17 1456 Discharge Planning Anticipated discharge destination Home Self Care Multidisciplinary Discharge Rounds Disciplines Present Cad Designer Drafter;Hospitalist RN;Physician;Social Work Discharge Comments 6-6 * Kim Banks MD - 01/17/2017 7:45 AM [facility] Patient Name: Seema Bui Account No: [id number] Date of : 1990 Date of Admission: [...] results (as indicated), current inpatient medications and end user support specialist notes with pertainent findings noted within the [...] details regarding this patients treatment plan. Room: [facility] Diet: Diet NPO Code Status: Full Code [...] promethazine, sodium chloride 0.9% Kim Martinez MD [facility] Hospitalist Please page through physician paging. . C JOSE ANTONIO * AhWilly sherwood DO - 01/16/2017 9:46 AM CDT [facility] STAGE BUILDER Hospitalist Progress Note Encounter Date: 01/16/2017 9:46 [...] Soriano 01/16/2017 9:46 AM [facility] [address] [place] [address] [address] [place] [address] T:[phone] F:[phone] Subjective: No acute events overnight.Patient reports feeling ok. She reports a dark stool yesterday. No syncope or presyncope. Objective: Vital Signs: Temp: [36.4 C (97.5 F)-37.7 C (99.8 F)] 36.8 C (98.2 F) Pulse: [69-122] 75 Resp: [16-18] 16 BP: (108-127)/(67-94) 117/82 Intake/Output Summary (Last 24 hours) at 01/16/17 0946 Last data filed at 01/16/17 0559 Gross [...] Once gabapentin 600 mg Oral TID peg 1429-zdwhjlntrphs-uzy C 1 Bottle Oral Once [START ON 01/17/2017] peg 3118-oseufuefbyix-rsx C 1 Bottle Oral Once Continuous Infusions: pantoprozole (PROTONIX) infusion 8 mg/hr (01/16/17557) sodium chloride 75 mL/hr (01/16/17 0505) PRN Meds: acetaminophen OR acetaminophen, benzocaine, clonazePAM, diphenhydr AMINE, fentaNYL, potassium chloride, promethazine * Rashaun Sandoval MD - 01/16/2017 9:14 AM CDT [facility] GASTROINTESTINAL PROGRESS NOTE Subjective: Chief Complaint: Abdominal [...] Continuous Infusions: pantoprozole (PROTONIX) infusion 8 mg/hr (01/16/17557) sodium chloride 75 mL/hr (01/16/17 0505) PRN Meds:.acetaminophen OR acetaminophen, benzocaine, clonazePAM, diphenhydr [...] reconstruction technique -CT scan done according to TRERA, or SERGIO/IMAGE GENTLY Xr Chest Single View [...] Soriano DO - 01/15/2017 8:54 AM CDT [facility] STAGE BUILDER Hospitalist Progress Note Encounter Date: 01/15/2017 8:55 [...] signed by Willy Soriano 01/15/2017 8:55 AM [facility] [address], [facility] [address] [place] [address] T:[phone] F:[phone] Subjective: No acute events overnight.Patient reports feeling [...] Infusions: pantoprozole (PROTONIX) infusion 8 mg/hr (01/15/17 0838) sodium chloride 75 mL/hr (01/14/17 2332) PRN Meds: acetaminophen OR acetaminophen, benzocaine, clonazePAM, diphenhydr AMINE, fentaNYL, potassium chloride, promethazine documented in this encounter H&P Notes * Mauricio Harriosn MD - 01/17/2017 12:19 PM CDT PRE ENDOSCOPIC PROCEDURE HISTORY AND PHYSICAL Procedure: EGD/Colonoscopy Indication for Procedure: Abdominal pain, iron deficiency anemia Past surgical history: Past Surgical History: Procedure Laterality Date CHOLECYSTECTOMY ESOPHAGO-GASTRO DUODENOSCOPY WITH BIOPSY POLYP OR TISSUE MULTIPLE WITH FORCE P N/A 01/14/2017 Procedure: ESOPHAGO-GASTRO DUODENOSCOPY WITH BIOPSY POLYP OR TISSUE MULTIPLE WI TH FORCEP; Surgeon: Rashaun Sandoval MD; Location: [facility]; Service: Gastr oenterology; Laterality: N/A; TUBAL [...] Mauricio Harrison 01/17/2017 12:19 PM * Kellie Sullivan, DO - 01/14/2017 2:34 AM CDT [facility] Hospitalist - History & Physical Patient Name: Seema Bui Account No: [id number] Date of : 1990 Date of Admission: [...] with the performing provider), current inpatient medications, end user support specialist notes and gunnar or to admission medications [...] directive. Her mother is her surrogate dec rubioon maker/DPSALOME. Code Status: Full Code Disp: Admit the patient as Inpatient to intermediate with telemetry with telemet ry for treatment as noted above. Lucy Mccord NP [facility] Hospitalist Please page through physician paging. . STAGE BUILDER Hospitalist Attestation: I personally interviewed and examined [...] Code Status: Full Code Kellie Sullivan DO [facility] Program [phone] Electronically signed by Kellie Sullivan DO 01/14/2017 [...] jerking w ith eyes open. Sees an [employer] at [facility], who prescribes her gabapentin. Takes clonaze violet [...] It appears that she had been at [facility] just the d ay before, noted to [...] today that she sees a nurse pract itionejasper at [facility] who "prescribes her gabapentin." Patient also [...] as he was talking to her and tryi ng to calm her. He stated that when [...] She states "you'll probably see me kisha reyez when I have my next seizure." Patient [...] hours as needed for nausea. 01/20/17 01/20/17 Kim avalos MD Past History Past Medical History: Diagnosis Date Anxiety Fibromyalgia Hypertension Hypothyroidism Myocardial infarction (HCC) Seizures (HCC) Past Surgical History: Procedure Laterality Date CHOLECYSTECTOMY COLONOSCOPY N/A 01/17/2017 Procedure: COLONOSCOPY; Surgeon: Mauricio Harrison MD; Location: [facility]; Servic e: Gastroenterology; Laterality: N/A; ESOPHAGO-GASTRO DUODENOSCOPY WITH BIOPSY POLYP OR TISSUE MULTIPLE WITH FORCE P N/A 01/14/2017 Procedure: ESOPHAGO-GASTRO DUODENOSCOPY WITH BIOPSY POLYP OR TISSUE MULTIPLE WI TH FORCEP; Surgeon: Rashaun Sandoval MD; Location: [facility]; Service: Gastr oenterology; Laterality: N/A; ESOPHAGOGASTRODUODENOSCOPY (EGD) N/A 01/17/2017 Procedure: ESOPHAGOGASTRODUODENOSCOPY (EGD); Surgeon: Mauricio Harrison MD; Loca tion: [facility]; Service: Gastroenterology; Laterality: N/A; TUBAL LIGATION [...] care. I will sign off. Please seven l for questions or concerns. Magali Cedillo MD Pager [phone] * Gino López MD - 01/18/2017 3:56 PM CDT Associated Order(s): IP CONSULT TO GASTROENTEROLOGY This note was created to satisfy [facility] [place] consult request. Please refer to progress note from same date for recommendations. * Rashaun Sandoval MD - 01/14/2017 11:28 AM CDT Associated Order(s): IP CONSULT TO GASTROENTEROLOGY [facility] GASTROINTESTINAL CONSULT NOTE Patient: Seema Bui Age: [...] tablet 325-650 mg 325-650 mg Oral Q6H MS N Lucy Mccord NP Or [OCT Hold] [...] 20 mEq Intravenous PRN Lucy Mccord NP [OCT Hold] promethazine (PHENERGAN) injection 6.25-12.5 mg 6.25-12.5 mg Int ramuscular Q6H PRN Ricardo Rosario DO 6.25 mg at 01/14/1746 [OCT Hold] sodium chloride 0.9% infusion 75 [...] [OCT Hold] b enzocaine, [OCT Hold] fentaNYL, [OCT Hold] potassium chloride, [OCT Hold] promet hazine ALLERGIES: Allergies Allergen Reactions Ondansetron Reglan [Metoclopramide Hcl] Toradol [Ketorolac] Angioedema Morphine Itching SOCIAL HISTORY: Social History Social History Marital status: Single Spouse name: N/A Number of children: N/A Years of education: N/A 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 Tolerated well. * Ricardo Rosario DO - 01/13/2017 6:54 PM CDT Associated Order(s): CRITICAL CARE 01/13/2017 [facility] History Chief Complaint Patient presents with Back [...] Performed by: RICARDO ROSARIO Authorized by: RICARDO ROSAIRO Total critical care time: 30 minutes Critical [...] Negative Ketones Urine Negative Negative mg/dL Specific [place], UA >=1.030 1.001 - 1.030 Hemoglobin Urine [...] 01/13/172201 Ricardo Rosario DO 01/13/172203 * Lupe Bailey, RN - 01/13/2017 6:40 PM CDT Pt [...] to stress * Significant Event - Prabhjot Villatoro, - 01/19/2017 7:44 PM CDT [facility] Event Patient Name: Seema Bui Account No: [id number] Date of : 1990 Date of Admission: 01/13/2017 6:08 PM Ms. Seema Bui is a 26 y.o. female who was admitted on 01/13/2017 with Back P ain. Notified by the patient's nurse at approximately [...] re results (as indicated), current inpatient medications, end user support specialist notes, p rior admission/outpatient notes, prior to admission medications and outside medi [facility] records with pertainent findings noted within the assessment/plan. I have pe rsonally spoken with the patient, another physican and nursing staff regarding t his patient's case. Room: [address] [place] [address] Diet: Diet-Regular Code Status: Full Code Prabhjot Villatoro DO [facility] Hospitalist Please page through physician paging. * [...] further questions. * Plan of Care - Ruthie Jarvis RN - 01/17/2017 12:44 PM CDT [...] (26) Endoscopist(s): Mauricio Harrison MD EGD Instrument(s): Fujinon Upper Endoscope G16([id number]) Colonoscopy Instrument(s): Fujinon Colonoscope C8([id number]) ASA Information: See Anesthesia Record Administered Medications: [...] being detected during the procedure. The patient/patients hr representative appeared to understand the procedure, the [...] of Care - Sania Fernandez RN - 01/14/2017 10:52 PM CDT [...] 1990 (26) Endoscopist(s): Rashaun Sandoval MD Instrument(s): Uniquedun Upper Endoscope G13([id number]) Referring Physician(s): [place] [address] ASA Information: See Anesthesia Record Administered Medications: [...] being detected during the procedure. The patient/patients hr representative appeared to understand the procedure, the potential complications, and alternatives; had the opportunity to ask questions; and informed consent was obtained. The risk/benefit ratio was deemed appropriate to proceed with the procedure. Deep Sedation was administered by nurse technician telecommunication systems. Continuous pulse oximetry and blood pressure monitoring [...] CDT CAPNOGRAPHY Routine 01/14/2017 1:29 PM CDT LIPASE STAT 01/14/2017 7:56 AM CDT IRON/TRANSFERRIN [...] within the time period is included. Pathologist [facility] Sodium 142 133 - 147 MEQ/L [facility] Potassium 3.6 3.5 - 5.3 MEQ/L [facility] Chloride 110 96 - 112 MEQ/L [facility] Carbon Dioxide 23 20 - 32 MEQ/L [facility] Anion Gap 9 5 - 17 [facility] Calcium 8.1 (L) 8.4 - 10.5 mg/dL [facility] Glucose 84 70 - 100 mg/dL [facility] Blood Urea 13 7 - 26 mg/dL [facility] Creatinine 0.6 0.4 - 1.1 mg/dL [facility] eGFR Female AA >130 60 - 200 [facility] Comment: [facility] Chronic Kidney Disease less than 60 mL/min/1.73 sq.m Kidney failure less than 15 mL/min/1.73 sq.m eGFR Female 119 60 - 200 [facility] Non-AA Comment: [facility] Chronic Kidney Disease less than 60 mL/min/1.73 sq.m Kidney failure less than 15 mL/min/1.73 sq.m Specimen Blood Performing Organization Address City/State/Zipcode Ph one Number [facility] [address] [place] [address] * CBC and Diff (manual diff if necessary) (01/20/2017 3:00 AM CDT) Only the most recent of 6 results within the time period is included. Pathologist [facility] WBC 7.84 4.00 - 11.00 TH/uL [facility] RBC 3.88 (L) 4.00 - 5.00 MIL/uL [facility] Hemoglobin 9.1 (L) 12.0 - 15.0 g/dL [facility] Hematocrit 29 (L) 36 - 45 % [facility] MCV 74 (L) 80 - 99 fL [facility] MCH 24 (L) 27 - 34 pg [facility] MCHC 32 32 - 36 % [facility] RDW 17.2 (H) 9.0 - 14.5 % [facility] Platelet Count 421 (H) 140 - 400 TH/uL [facility] MPV 11.1 9.4 - 12.3 fL [facility] Nucleated RBCs 0 0 - 0 /100 [facility] % Neutrophils 62 45 - 78 % [facility] %Lymphocytes 29 15 - 47 % [facility] %Monocytes 6 0 - 12 % [facility] %Eosinophils 2 0 - 7 % [facility] %Basophils 1 0 - 2 % [facility] % Imm Grans 0 0 - 1 % [facility] # Granulocytes 4.91 1.70 - 6.80 TH/uL [facility] # Lymphocytes 2.27 1.00 - 3.30 TH/uL [facility] # Monocytes 0.43 0.20 - 0.90 TH/uL [facility] # Eosinophils 0.18 0.00 - 0.40 TH/uL [facility] # Basophils 0.05 0.00 - 0.10 TH/uL [facility] Specimen Blood Performing Organization Address City/[facility] Ph one Number [facility] [address] [place] [address] * Celiac Screen (01/19/2017 4:20 AM CDT) Celiac Screen 8 U [facility] Comment: REGIONAL Celiac Screen Interpretation: LABORATORIES Negative: <20 Weak Positive: 20 - 30 Positive: >30 Celiac Screen detects IgA and IgG antibodies to deamidated gliadin and tissue transglutaminase. Specimen Blood Performing Organization Address City/State/Zipcode Ph one Number [address] [address] LABORATORIES * Hemoglobin and Hematocrit (01/18/2017 2:09 PM CDT) Only the most recent of 4 results within the time period is included. Pathologist [facility] Hemoglobin 9.5 (L) 12.0 - 15.0 g/dL [facility] Hematocrit 30 (L) 36 - 45 % [facility] Specimen Blood Performing Organization Address [facility] one Number [facility] [address] [place] [address] * Potassium (01/18/2017 2:08 PM CDT) Pathologist [facility] Potassium 4.4 3.5 - 5.3 MEQ/L [facility] Specimen Blood Performing Organization Address [facility] one Number [facility] [address] [place] [address] * XMATCH (01/18/2017 9:20 AM CDT) Specimen Blood Performing Organization Address [facility] one Number [facility] [address] [place], [place] [address] * RBCs 1 Unit (01/18/2017 3:15 AM CDT) [facility] 01 - PRODUCT ID Red Blood Cells [facility] 01 - UNIT [id number] [facility] DELMY [facility] 01 - CROSS Compatible [facility] M[facility] 01 - STATUS Transfused [facility] 01 - PRODUCT [id number] [facility] 01 - BLOOD TYPE O Pos [facility] Specimen Blood Performing Organization Address [facility] one Number [facility] [address] [place] [address] * Antibody Screen (01/18/2017 3:15 AM CDT) Only the most recent of 2 results within the time period is included. [facility] Antibody Screen Negative Negative [facility] Specimen Blood Performing Organization Address [facility] one Number [facility] [address] [place] [address] * ABORH Type (01/18/2017 3:15 AM CDT) Only the most recent of 2 results within the time period is included. AB[facility]H Type O Positive [facility] Specimen Blood Performing Organization Address [facility] one Number [facility] [address] [place] [address] * Urine Test (01/15/2017 1:00 AM CDT) Only the most recent of 2 results within the time period is included. UCG Urine NegativeComment: Specific Negative SHRUTHI Coretta [facility] gravity is <1.005; dilute [facility] urines may cause false negative results. Specimen Urine Performing Organization Address [facility] one Number [facility] [address] [place] [address] * Tissue Pathology or Biopsy (01/14/2017 1:49 PM CDT) Specimen Tissue - Small Bowel Tissue - Antrum Narrative Performed At PATIENT: SEEMA BUI [facility] SEX / : F 1990 (Age: 26) 6 VISIT: [id number] SUBMITTING PHYSICIAN: Rashaun meraz M.D. CLIENT: [facility] COLLECTED: 01/14/2017 REPORTED: 01/17/2017 SURGICAL PATHOLOGY REPORT [...] is entirely s ubmitted in one cassette. BE/mdh Gross performed at [facility] y, [address] [facility], [address], [place] [address] MICROSCOPIC DESCRIPTION: Microscopic examination performed. D3 , S3. [place]: [facility], [address] [place] [address] Where applicable, all positive and nega tive controls demonstrate appropriate and expected re activity. Some or all of the immunoperoxidase tests utilized in this examination were developed and their performance ch aracteristics determined by [facility] gnostic Laboratory. They have not been [...] complexity clinical laboratory testing. Performing Laboratory Location: [facility], Gene Banks M.D., [employer], [address] [place] [address] Technical processing at: [facility], Casimiro Almaguer, [employer], [address] [place] [address] [place] [address] END OF REPORT Performing Organization Address [facility] Ph one Number [facility] * Ferritin (01/14/2017 7:56 AM CDT) Ferritin 8 (L) 20 - 200 ng/mL [facility] Specimen Blood Performing Organization Address [facility] one Number [address] [address] LABORATORIES * Iron/Transferrin (01/14/2017 7:56 AM CDT) Iron <10 (L) 50 - 180 ug/dL [facility] Transferrin 316 206 - 381 mg/dL [facility] Total 379 204 - 408 ug/dL [facility] Iron-Binding REGIONAL Capacity LABORATORIES Iron/Transferri Not CalcComment: Result is 15 - 50 % [facility] % Saturation outside linear range. REGIONAL Calculation cannot be LABORATORIES performed Specimen Blood Performing Organization Address City/State/Zipcode Ph one Number [facility] [address] [place] [address] LABORATORIES * Lipase (01/14/2017 7:56 AM CDT) Lipase 35 23 - 300 IU/L [facility] Specimen Blood Performing Organization Address City/[facility]/Zipcode Ph one Number [facility] [address] [place] [address] * XR Chest single view frontal (01/14/2017 4:41 AM CDT) Specimen Impressions Performed At 1. Satisfactory placement of right PICC. [facility] 2. No acute cardiopulmonary process. Narrative Performed At Patient: SEEMA BUI Sex#: F # [id number] [place]#: [id number] Location: [facility] Procedure Requested: [id number] XR CHEST SINGLE VIEW FRONTAL Exam Ordered: 01/14/2017 043 7 Exam Date/Time: 01/14/2017440 Begin exam date/time: 01/14/20178 XR CHEST SINGLE VIEW FRONTAL INDICATION: PICC [...] SEEMA BUI Sex#: F # 1990 [place]#: [id number] Location: [facility]- Procedure Requested: [id number] XR CHEST SINGLE VIEW FRONTAL Exam Ordered: 01/14/2017 0437 Exam Date/Time: 01/14/2017 0441 Begin exam date/time: 01/14/2017437 XR CHEST SINGLE [...] No acute cardiopulmonary process. Performing Organization Address [facility] one Number [facility] * Complete Blood Count (01/14/2017 2:15 AM CDT) WBC 6.30 4.00 - 11.00 TH/uL [facility] RBC 3.30 (L) 4.00 - 5.00 MIL/uL [facility] Hemoglobin 7.3 (L) 12.0 - 15.0 g/dL [facility] Hematocrit 24 (L) 36 - 45 % [facility] MCV 72 (L) 80 - 99 fL [facility] MCH 22 (L) 27 - 34 pg [facility] MCHC 31 (L) 32 - 36 % [facility] RDW 16.2 (H) 9.0 - 14.5 % [facility] Platelet Count 236 140 - 400 TH/uL [facility] MPV 11.6 9.4 - 12.3 fL [facility] Nucleated RBCs 0 0 - 0 /100 [facility] Specimen Blood Performing Organization Address [facility] one Number [facility] [address] [place] [address] * Retype Patient ABORH (01/13/2017 10:22 PM CDT) [facility] Type O Positive [facility] Confirm Blood Yes [facility] Specimen Performing Organization Address [facility]/Zipcode Ph one Number [facility] [address] [place] [address] * CRITICAL CARE (01/13/2017 10:02 PM CDT) Narrative Performed At Ricardo Rosario DO 01/13/2017 10:0 2 PM Critical Care Performed by: RICARDO ROSARIO Authorized by: RICARDO ROSARIO Total critical care time: 30 minutes Critical care time was exclusive of sep arately billable procedures and treating other patients. * Gastric Blood (01/13/2017 9:04 PM CDT) Gastric Blood Negative [facility] Specimen Gastric Performing Organization Address City/State/Zipcode Ph one Number [facility] [address] [place] [address] * CT Abdomen Pelvis wo contrast (01/13/2017 7:51 PM CDT) Specimen Impressions Performed At Previous cholecystectomy. Bilateral nonobstructive re nal TALA calculi. Tubal ligation. Nonvisualized appendix without secondary signs acute appendicitis. Stool gas distribut ion suggesting constipation. One or more of the following dose reduc tion techniques were utilized: *Automated exposure control (AEC) *Adjustment of mA and/or kV according t o patient size -Use of iterative reconstruction techni que -CT scan done according to alyssa HILL/IMAGE GENTLY Narrative Performed At Patient: SEEMA BUI Sex#: Ismael # [id number] [place]#: [id number] [facility] Procedure Requested: [id number] CT ABDOM EN PELVIS WO CONTRAST Reason for Exam: abdominal pain Exam Ordered: 01/13/2017 185 4 Exam Date/Time: 01/13/20171950 Begin exam date/time: 01/13/20171946 Reading Site: [place] CT ABDOMEN PELVIS WO CONTRAST Date: 01/13/2017 [...] SEEMA BUI Sex#: F # [id number] [place]#: [id number] Location: [place] [address] Procedure Requested: [id number] CT ABDOMEN PELVIS WO CONTRAST Reason for Exam: abdominal pain Exam Ordered: 01/13/2017 185 Exam Date/Time: 01/13/20171950 Begin exam date/time: 01/13/20171946 Reading Site: [place] CT ABDOMEN PELVIS WO CONTRAST Date: 01/13/2017 [...] Performing Organization Address City/State/Zipcode Ph one Number [place] * Comprehensive Metabolic Panel (01/13/2017 7:36 PM CDT) Sodium 141 133 - 147 MEQ/L [facility] Potassium 3.9 3.5 - 5.3 MEQ/L [facility] Chloride 111 96 - 112 MEQ/L [facility] Carbon Dioxide 22 20 - 32 MEQ/L [facility] Anion Gap 7 5 - 17 [facility] Calcium 7.4 (L) 8.4 - 10.5 mg/dL [facility] Glucose 78 70 - 100 mg/dL [facility] Protein Total 6.1 6.0 - 8.2 g/dL [facility] Serum [facility] Albumin 3.4 (L) 3.5 - 5.0 g/dL [facility] Alkaline 116 42 - 140 IU/L [facility] Phosphatase [facility] Alanine 48 13 - 69 IU/L [facility] Aminotransferas [facility] e Aspartate 55 (H) 15 - 46 IU/L [facility] Aminotransferas [facility] e Bilirubin Total 0.3 0.2 - 1.3 mg/dL [facility] Blood Urea 11 7 - 26 mg/dL [facility] Nitrogen [facility] Creatinine 0.6 0.4 - 1.1 mg/dL [facility] eGFR Female AA >130 60 - 200 [facility] Comment: [facility] Chronic Kidney Disease less than 60 mL/min/1.73 sq.m Kidney failure less than 15 mL/min/1.73 sq.m eGFR Female 119 60 - 200 [facility] Non-AA Comment: [facility] Chronic Kidney Disease less than 60 mL/min/1.73 sq.m Kidney failure less than 15 mL/min/1.73 sq.m Specimen Blood Performing Organization Address [facility] one Number [facility] [address] [place] [address] * Culture, Urine (01/13/2017 5:53 PM CDT) Pathologist [facility] Culture Result No growth [facility] Specimen Clean Voided Urine Performing Organization Address City/[facility] Ph one Number [address] [address] LABORATORIES * Urinalysis Microscopic Only (01/13/2017 5:53 PM CDT) Microscopic RBC >40 (A) 1 - 5 /hpf [facility] Urine [facility] Microscopic WBC 6 - 10 (A) 1 - 5 /hpf [facility] Urine [facility] Epithelial Absent Absent [facility] Hyaline Cast Absent Absent [facility] Bacteria Small (A) Absent [facility] Mucus Large (A) Absent [facility] Specimen Clean Voided Urine Performing Organization Address [facility] one Number [facility] [address] [place], [place] [id number] * Urinalysis Reflex (01/13/2017 5:53 PM CDT) Appearance, Yellow [facility] Glucose Urine Negative Negative mg/dL [facility] Bilirubin Urine Negative Negative [facility] Ketones Urine Negative Negative mg/dL [facility] Specific >=1.030 1.001 - 1.030 [facility] [place], [facility]A [facility] Hemoglobin Large (A) Negative [...] Specimen Clean Voided Urine Performing Organization Address [facility] one Number [facility] [address] [place] [address] documented in this encounter Visit Diagnoses Diagnosis Iron deficiency anemia Unspecified iron deficiency anemia Abdominal pain documented in this encounter Administered Medications Action [...] PRN, sore throat, Starting Tue01/13/17 a t 202501/19/2017 9:31 PM CDT 25 mg chlorproMAZINE (THORAZINE) [...] 500 mg Given 01/18/2017 8:03 PM CDT 01/20/2017 10:32 AM CDT 1 mg clonazePAM (KlonoPIN) tablet 1 mg Given 1 mg, Oral, 2 times daily, First dose o n Tue01/20/17 at 0900 01/20/2017 10:32 AM CDT 20 mg dicyclomine (BENTYL) capsule 20 mg Given 20 mg, Oral, 4 times daily, First dose on Tue01/17/17 at 1315 20 mg Given 01/19/2017 9:31 PM CDT 20 mg Given 01/19/2017 8:04 AM CDT 01/20/2017 9:17 AM CDT 25 mg diphenhydrAMINE (BENADRYL) injection 25 Given mg 25 mg, Intravenous, Every 6 hours PRN, itching, allergies, nausea, allergic reaction, Starting Tue01/14/17 at 1549 25 mg Given 01/20/2017 3:14 AM CDT 25 mg Given 01/19/2017 8:21 PM CDT 01/20/2017 10:31 AM CDT 600 mg gabapentin [...] mL/hr New Bag 01/16/2017 1:51 PM CDT 01/20/2017 10:32 AM CDT 40 mg pantoprazole (PROTONIX) EC tablet 40 mg Given 40 mg, Oral, Every morning before breakfast, First dose on Tue01/18/17 at 0730, DO NOT CRUSH OR CHEW., 40 mg Given 01/19/2017 8:04 AM CDT 40 mg Given 01/18/2017 8:22 AM CDT potassium chloride (KLOR-CON) CR tablet 20-60 mEq [...] 20 mEq/hr through a centra l line., 01/20/2017 10:23 AM CDT 12.5 mg Left [...] mL/hr, Continuous PRN, to flush line, Starting [place] 01/16/17 at 1253, Only use a New Ba g action if you are hanging a new bag This bag expires 24 hours after hanging . To be implemented as an intravenous flush following intermittent infusions where there is no primary infusion. Patients with fluid restrictions may be excluded., 01/20/2017 4:19 AM CDT 75 mL/hr 75 mL/hr sodium chloride 0.9% infusion New Bag 75 mL/hr, Intravenous, Continuous, Starting 01/18/17 at 1500 75 mL/hr 75 mL/hr New Bag 01/19/2017 6:11 PM CDT 75 mL/hr 75 mL/hr New Bag 01/19/2017 5:53 AM CDT documented in this encounter
--- OUTSIDE RECORDS SUMMARY | 2019-08-15 02:43 | XMS REPORT | Encounter Summary ---
Author Author [facility] Address Unknown Phone Unavailable Care Team Providers Care Burr Filer Name Role Phone PCP Unavailable Reason for Visit * Auth/Cert (Routine) Referred By Contact Referred To Contact Status Reason Specialty Diagnoses / Procedures Khalif Snowden MD [address] [address] Procedures Case request operating room: ESOPHAGOGASTRODUOD ENOSCOPY (EGD) Encounter Details Care Team Description Date Type Department Melina Day MD [address] [place] [address] [place] [address] [phone] 01/14/2017 [place] [address] Anesthesia Record Responsible Anesthesiologist Anesthesia Start Time Anesthesi a Stop Time Procedure Name Melina Day MD 01/14/17 1122 01/14/17 1142 ESOPHAGO-GASTRO DUODENOSCOPY WITH BIOPSY POLYP OR TISSUE MULTIPLE WITH FORCEP (N/A ) Date Time Event Comment 1052 Anesthesia 2017 Initial Contact 1058 1122 AN Equip Check 1122 In room 1122 An Start 1122 An Start Data 1122 Anesthesia Ready 1122 Spontaneous respirations 1123 Oxygen per nasal cannula 1125 Pt eval immediately prior to anesthesia 1127 Patient Positioned Self 1129 Sedation begin 1132 Procedure start - Primary Case 1138 Procedure stop - Primary case 1139 Spontaneous respirations 1139 Responds to Verbal 1141 an stop data 1142 Out of Room 1142 An Stop Meds Name Total fentaNYL (SUBLIMAZE) injection 50 mcg/mL 50 mcg propofol 10mg/mL 130 mg lidocaine 1% (PF) 50 mg sodium chloride 0.9% infusion 200 mL * Name Cell Saver Blood Intake O2 N2O Air EtSEVO EtISO EtDES EtN2O * No blood administrations on file. Removal Type Details Placement 01/15/171129 by Alexandria Delgado RN Peripheral Date: 01/13/17; Time: 1944; Size 01/13 by Luis IV (gauge): 22 G; Orientation: Left; Coco javed RN Location: Forearm; Site Prep: Chlorhexidine; Technique: Anatomical landmarks, Palpation; Insertion Attempts: Other (6 attempts by 2 nurses); Inserted By: ENRIQUE Smith; Remova l Date: 01/15/17; Removal Time: 112901/14/171999 by Sania Fernandez RN Peripheral Date: 01/13/17; Time: 2224; Size 01/13 by Kathleen Farfan IV (gauge): 20 G; Orientation: Right; Tyler vigil RN Location: Wrist; Site Prep: Chlorhexidine; Local Anesthetic: Topical; Technique: Palpation; Insertio n Attempts: 1; Inserted By: lopez rodriges; Removal Date: 01/14/17; Removal Time: 199901/20/17 111 by Rosy Loaiza RN PICC Date: 01/14/17; Time: 454; Size (FR): 01/14/17454 by Kathleen Lee Fr; Description: PICC; Initial [...] Miscellaneous Notes * Anesthesia Postprocedure Evaluation - Jt Domínguez MD - 01/14/2017 12:12 PM CDT Patient: Seema Bui Procedure(s): ESOPHAGO-GASTRO DUODENOSCOPY WITH BIOPSY POLYP OR TISSUE MULTIPLE WITH FORCEP Final Anesthesia Type Performed: MAC *Block Type (if peripheral regional or epidural used): No value filed. Patient location: PACU Last Vitals: ANE Post Eval Vitals Flowsheet Row Most Recent Value BP 123/77 filed at 01/14/2017 1203 Pulse 74 filed at 01/14/2017 1203 Temp 36.7 C (98 F) filed at 01/14/2017 1203 Resp 16 filed at 01/14/2017 1203 SpO2 98 % filed at 01/14/2017 1203 Level of consciousness: awake, alert and oriented Post-anesthesia pain: adequate analgesia Airway patency: patent Respiratory: unassisted Cardiovascular: stable and blood pressure at baseline Hydration: adequate PostOp Nausea/Vomiting: controlled Difficult Airway: no Anesthetic complications: no Discharge from anesthesia care: Appropriate for discharge from anesthesia care, no apparent anesthesia related complications * Anesthesia Preprocedure Evaluation - Melina Day MD - 01/14/2017 10:54 AM CDT Relevant Problems (+) Acute upper GI bleed (+) Seizures (HCC) Anesthesia Evaluation Airway Mallampati: I TM distance: >3 FB Neck ROM: full Dental Pulmonary - normal exam Cardiovascular - normal exam Rhythm: regular Rate: normal Neuro/Psych (+) seizures, GI/Hepatic/Renal Endo/Other Abdominal Obstetrics HEENT Musculoskeletal Anesthesia Plan ASA 2 Type: MAC () Anesthetic plan and risks discussed with patient. Plan discussed with SUPERVISOR CORDUR[employer] CUTTING. Recovery plan: Phase II Notes HGB 7.7 documented in this encounter Plan of Treatment Not on filedocumented as of this encounter Visit Diagnoses Not on filedocumented in this encounter Administered Medications Action Date Dose Rate Site Medication Order MAR Action 01/14/2017 11:29 AM CDT 50 mcg fentaNYL (SUBLIMAZE) injection Given As needed, Starting Tue01/14/17 at 1129, Anesthesia Intra-op 01/14/2017 11:29 AM CDT 50 mg lidocaine (pf) (XYLOCAINE-MPF) 10 mg/mL Given (1 %) injection Intravenous, As needed, Starting Tue01/14/17 at 1129, Anesthesia Intra-op 01/14/2017 11:35 AM CDT 20 mg propofol (DIPRIVAN) injection Given As needed, Starting Tue01/14/17 at 1129, Anesthesia Intra-op 20 mg Given 01/14/2017 11:33 AM CDT 30 mg Given 01/14/2017 11:31 AM CDT documented in this encounter
--- OUTSIDE RECORDS SUMMARY | 2019-08-15 02:44 | XMS REPORT | Summary of Care ---
Author Author [facility] Organization [facility] Address Unknown Phone Unavailable Encounter [facility] NAV [place] [id number] Date(s): 10/10/16 - 10/10/16 [facility] [address] [address] Discharge Diagnosis: Acute right flank pain Discharge Diagnosis: Renal stones Discharge Diagnosis: Pneumonitis Discharge Diagnosis: Lung nodule Discharge Diagnosis: Seizure disorder Discharge Diagnosis: Medicine refill Discharge Disposition: Home - Attending Physician: RENEE MURPHY DO Admitting Physician: RENEE MURPHY DO Vital Signs Most recent to 1 oldest [Reference Range]: Temperature 98.5 DegF [96.8-99.7 DegF] (10/10/16 5:29 PM) Temp Method Temporal (10/10/16 5:29 PM) Heart Rate 76 bpm (10/10/16 8:00 PM) Heart Rate Location Auto BP (10/10/16 6:50 PM) Respiratory Rate 18 br/min [14-20 br/min] (10/10/16 6:50 PM) Blood Pressure 114/68 mmHg [90-180/50-90 mmHg] (10/10/16 8:00 PM) NIBP MAP 80 mmHg (10/10/16 8:00 PM) NIBP MAP Calc 83 (10/10/16 8:00 PM) Problem List No data available for this section Allergies, Adverse Reactions, Alerts Substance Reaction Severity Status Reglan Active Zofran Active Medications [place] 5 mg-325 mg oral tablet 1 TAB, PO, Q4H (Every 4 hours), PRN Pain, X 3 day, # 18 TAB, 0 Refill(s), RENEE DUMONT DO, Indication: Moderate Pain Start Date: 10/10/16 Stop Date: 10/13/16 Status: Ordered Zithromax Z-Johnathon 250 mg oral tablet 1 TAB, PO, Daily, X 5 day, # 1 pack, 0 Refill(s), Take 2 tablets on Day 1, then 1 tablet daily., Indication: Bacterial Infection Start Date: 10/10/16 Stop Date: 10/15/16 Status: Ordered Results HEMATOLOGY Most recent to 1 oldest [Reference Range]: WBC [4.0-11.0 10.7 x10'3/microL x10'3/microL] (10/10/16 6:45 PM) RBC [3.90-5.60 4.40 x10'6/microL x10'6/microL] (10/10/16 6:45 PM) Hgb [12.0-16.0 g/dL] 9.8 g/dL *LOW* (10/10/16 6:45 PM) Hct [35-47 %] 33 % *LOW* (10/10/16 6:45 PM) Platelet [140-400 445 x10'3/microL x10'3/microL] *HI* (10/10/16 6:45 PM) MCV [81-99 fL] 75 fL *LOW* (10/10/16 6:45 PM) MCH [27-34 pg] 22 pg *LOW* (10/10/16 6:45 PM) MCHC [30-36 g/dL] 30 g/dL (10/10/16 6:45 PM) RDW [<=16.4 %] 17.2 % *HI* (10/10/16 6:45 PM) MPV [6.5-10.4 fL] 10.6 fL *HI* (10/10/16 6:45 PM) Neutrophils % [44-76 74 % %] (10/10/16 6:45 PM) Lymphocytes % [13-43 20 % %] (10/10/16 6:45 PM) Monocytes % [0-13 %] 5 % (10/10/16 6:45 PM) Eosinophils % [0-7 0 % %] (10/10/16 6:45 PM) Basophils % [0-3 %] 0 % (10/10/16 6:45 PM) Neutrophils Abs 7.9 x10'3/microL [1.4-7.2 *HI* x10'3/microL] (10/10/16 6:45 PM) Lymphocytes Abs 2.2 x10'3/microL [1.2-3.4 (10/10/16 6:45 PM) x10'3/microL] Monocytes Abs 0.5 x10'3/microL [0.1-0.6 (10/10/16 6:45 PM) x10'3/microL] Eosinophils Abs 0.0 x10'3/microL [0.0-0.5 (10/10/16 6:45 PM) x10'3/microL] Basophils Abs 0.0 x10'3/microL [0.0-0.2 (10/10/16 6:45 PM) x10'3/microL] Immature Grans Abs 0.0 x10'3/microL [0.0-0.0 (10/10/16 6:45 PM) x10'3/microL] Immature 0 % Granulocytes % [0-0 (10/10/16 6:45 PM) %] CHEMISTRY Most recent to 1 oldest [Reference Range]: Sodium [136-145 139 mmol/L mmol/L] (10/10/16 6:45 PM) Potassium [3.5-5.1 4.1 mmol/L mmol/L] (10/10/16 6:45 PM) Chloride [98-107 104 mmol/L mmol/L] (10/10/16 6:45 PM) CO2 [22-29 mmol/L] 18 mmol/L *LOW* (10/10/16 6:45 PM) AGAP [3-19 mmol/L] 17 mmol/L (10/10/16 6:45 PM) Glucose [70-100 91 mg/dL mg/dL] (10/10/16 6:45 PM) BUN [8-20 mg/dL] 13 mg/dL (10/10/16 6:45 PM) Creatinine [0.7-1.2 0.4 mg/dL mg/dL] *LOW* (10/10/16 6:45 PM) Calcium [8.6-10.2 9.1 mg/dL mg/dL] (10/10/16 6:45 PM) GFR (CKD-EPI) >110.0 mL/min/1.73 m2 1 *NA* (10/10/16 6:45 PM) 1Result Comment: GFR calculated based on CKD-EPI Creatinine Equation (2009). Age(years) Average GFR 20-29 116 mL/min/1.73 m^2 30-39 107 mL/min/1.73 m^2 40-49 99 mL/min/1.73 m^2 50-59 93 mL/min/1.73 m^2 60-69 85 mL/min/1.73 m^2 70+ 75 mL/min/1.73 m^2 Acceptable GFR =>60 mL/min/1.73 m^2 Chronic Kidney Disease <60 mL/min/1.73 m^2 Kidney Failure <15 mL/min/1.73 m^2 URINE Most recent to 1 oldest [Reference Range]: UA Color Dark Yellow (10/10/16 5:28 PM) UA pH [5.0-8.0] 6.0 (10/10/16 5:28 PM) UA Spec Grav >=1.030 [1.001-1.030] (10/10/16 5:28 PM) UA Glucose [Negative Negative mg/dL mg/dL] (10/10/16 5:28 PM) UA Bili [Negative] Negative (10/10/16 5:28 PM) UA Ketones [Negative >=80 mg/dL mg/dL] *ABN* (10/10/16 5:28 PM) UA Blood [Negative] Large *ABN* (10/10/16 5:28 PM) UA Protein [Negative 30 mg/dL mg/dL] *ABN* (10/10/16 5:28 PM) UA Nitrite Negative [Negative] (10/10/16 5:28 PM) UA Leuk Est Positive [Negative] *ABN* (10/10/16 5:28 PM) UA Urobilinogen 0.2 EU per dL [0.2-1.0 EU per dL] (10/10/16 5:28 PM) UA Spec Type Clean Catch (10/10/16 5:28 PM) UA WBC [0-5 /hpf] 0-5 /hpf (10/10/16 5:28 PM) UA RBC [0-2 /hpf] >50 /hpf *ABN* (10/10/16 5:28 PM) UA Bacteria Few /hpf [Negative /hpf] *ABN* (10/10/16 5:28 PM) UA Epithelial Few /hpf [Negative to Few (10/10/16 5:28 PM) /hpf] UA Mucous [None Present Seen] *ABN* (10/10/16 5:28 PM) UA Amorphous Present Crystals [None Seen] *ABN* (10/10/16 5:28 PM) Microscopic? Yes *ABN* (10/10/16 5:28 PM) Culture? Yes *ABN* (10/10/16 5:28 PM) Immunizations No data available for this section Procedures No data available for this section Social History No data available for this section Functional Status No data available for this section Assessment and Plan No data available for this section Hospital Discharge Instructions No data available for this section
--- OUTSIDE RECORDS SUMMARY | 2019-08-15 02:44 | XMS REPORT | Summary of Care ---
Author Author [facility] er Organization [facility] Address Unknown Phone Unavailable Encounter [facility] NAV [place] [id number] Date(s): 10/10/16 - 10/10/16 [facility] [address] [place] [id number] Discharge Diagnosis: Acute right flank pain Discharge Diagnosis: Renal stones Discharge Diagnosis: Pneumonitis Discharge Diagnosis: Lung nodule Discharge Diagnosis: Seizure disorder Discharge Diagnosis: Medicine refill Final: Calculus of kidney Final: Nausea with vomiting, unspecified Final: Right lower quadrant pain Final: Pneumonia, unspecified organism Final: Solitary pulmonary nodule Final: Other specified bacterial agents as the cause of diseases classified else where Final: Umbilical hernia without obstruction or gangrene Final: Encounter for issue of repeat prescription 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, not intractable, with out status epilepticus Discharge Disposition: Home - 01 Attending Physician: RENEE MURPHY DO Admitting Physician: [...] Severity Status Reglan Active Zofran Active Medications No data available for this section Results HEMATOLOGY Most recent to 1 oldest [...]
--- OUTSIDE RECORDS SUMMARY | 2019-08-15 02:44 | XMS REPORT | Encounter Summary ---
Author Author [facility] Organization [facility] Address Unknown Phone Unavailable Care Team Providers Care Savings Counselor Name Role Phone PCP Unavailable Reason for Visit * Reason Comments Back Pain Pt states she has been havi ng mid to lower back pain since this am. * Auth/Cert (Routine) Referred By Contact Referred To Contact Status Reason Specialty Diagnoses / Procedures Khalif Snowden MD [address] [facility] [address] [place] [address] Procedures Case request operating room: ESOPHAGOGASTRODUOD ENOSCOPY (EGD) Encounter Details Care Team Description Date [place] [address] [facility] [address] [place] [address] [phone] ESOPHAGO-GASTRO DUODENOSCOPY WITH BIOPSY POLYP OR TISSUE MULTIPLE WITH FORCEP 01/14/2017 Surgery [facility] [address] [place] [address] Social History Date Tobacco Use Types Packs/Day [...] Banks MD - 01/20/2017 7:44 AM CDT [facility] Hospitalist - Discharge Summary Patient Name: Seema Bui Account No: [id number] Date of : 1990 Date of Admission: [...] activity as tolerated Scheduled Follow Up Appointments/Studies ([facility] Providers): No future appointments. Additional Discharge [...] greater than 30 minutes. Kim Martinez MD [facility] Hospitalist Please page through physician paging. . [...] Banks MD - 01/19/2017 2:49 PM CDT [facility] Hospitalist - Progress Note Patient Name: Seema Bui Account No: [id number] Date of : 1990 Date of Admission: [...] results (as indicated), current inpatient medications and work station support specialist notes with pertainent findings noted [...] details regarding this patients treatment plan. Room: 202/202-01 Diet: Diet-Regular Diet - Regular Code Status: [...] sodium chloride 0.9 % Kim Martinez MD [facility] Hospitalist Please page through physician paging. . C Gino Roman MD - 01/18/2017 3:34 PM CDT [facility] GASTROINTESTINAL PROGRESS NOTE HPI: Abdominal [...] TH FORCEP; Surgeon: Rashaun Sandoval MD; Location: [facility]; Service: Gastr oenterology; Laterality: N/A; ESOPHAGOGASTRODUODENOSCOPY (EGD) N/A 01/17/2017 Procedure: ESOPHAGOGASTRODUODENOSCOPY (EGD); Surgeon: Mauricio Harrison MD; Loca tion: [facility] GI; Service: Gastroenterology; Laterality: N/A; TUBAL LIGATION [...] Part of this note is generated using Calendargod recognition [employer]. Please excuse any uncorrected grammatical or typographical error. Electronically signed by Gino López 01/18/2017 3:34 PM * Kim Banks MD - 01/18/2017 2:31 PM CDT [facility] Hospitalist - Progress Note Patient Name: Seema Bui Account No: [id number] Date of : 1990 Date of Admission: [...] results (as indicated), current inpatient medications and work station support specialist notes with pertainent findings noted [...] details regarding this patients treatment plan. Room: /-01 Diet: Diet-Regular Diet - Regular Code Status: [...] %, sodium chloride 0.9% Kim Martinez MD [facility] Hospitalist Please page through physician paging. . C DT * Sandie Del Angel RN - 01/17/2017 2:57 PM CDT 01/17/17 1456 Discharge Planning Anticipated discharge destination Home Self Care Multidisciplinary Discharge Rounds Disciplines Present Dinkey Driver;Hospitalist RN;Physician;Social Work Discharge Comments 6-6 * Kim Banks MD - 01/17/2017 7:45 AM [facility] Patient Name: Seema Bui Account No: [id number] Date of : 1990 Date of Admission: [...] results (as indicated), current inpatient medications and work station support specialist notes with pertainent findings noted [...] details regarding this patients treatment plan. Room: [address] [place] [address]- Diet: Diet NPO Code Status: Full Code [...] promethazine, sodium chloride 0.9% Kim Martinez MD [facility] Hospitalist Please page through physician paging. . Latanya DT * Willy Soriano DO - 01/16/2017 9:46 AM CDT [facility] DATABASE SPECIALIST Hospitalist Progress Note Encounter Date: 01/16/2017 9:46 [...] Soriano 01/16/2017 9:46 AM [facility] [address] [place] [address] [address] [place] [address] T:[phone] F:[phone] Subjective: No acute events overnight.Patient reports feeling [...] Once gabapentin 600 mg Oral TID peg 2635-yhrrcemohttr-trn C 1 Bottle Oral Once [START ON 01/17/2017] peg 3850-ifelwbesvvmr-uph C 1 Bottle Oral Once Continuous Infusions: pantoprozole (PROTONIX) infusion 8 mg/hr (01/16/17557) sodium chloride 75 mL/hr (01/16/17 0505) PRN Meds: acetaminophen OR acetaminophen, benzocaine, clonazePAM, diphenhydr AMINE, fentaNYL, potassium chloride, promethazine * Rashaun Sandoval MD - 01/16/2017 9:14 AM CDT [facility] GASTROINTESTINAL PROGRESS NOTE Subjective: Chief [...] Soriano DO - 01/15/2017 8:54 AM CDT [facility] DATABASE SPECIALIST Hospitalist Progress Note Encounter Date: 01/15/2017 8:55 [...] Soriano 01/15/2017 8:55 AM [facility] [address] [place] [address], [facility] [address] [place] [address] T:[phone] F:[phone] Subjective: No acute events overnight.Patient reports feeling [...] Infusions: pantoprozole (PROTONIX) infusion 8 mg/hr (01/15/17 0846) sodium chloride 75 mL/hr (01/14/17 2332) PRN [...] TH FORCEP; Surgeon: Rashaun Sandoval MD; Location: [facility] GI; Service: Gastr oenterology; Laterality: N/A; TUBAL [...] Sullivan, DO - 01/14/2017 2:34 AM CDT [facility] Hospitalist - History & Physical Patient Name: Seema Bui Account No: [id number] Date of : 1990 Date of Admission: [...] with the performing provider), current inpatient medications, work station support specialist notes and gunnar or to [...] Disp: Admit the patient as Inpatient to [facility] with telemetry with telemet ry for treatment as noted above. Lucy Mccord NP [facility] Hospitalist Please page through physician paging. . DATABASE SPECIALIST Hospitalist Attestation: I personally interviewed and examined [...] Code Status: Full Code Kellie Sullivan DO [facility] Program [phone] Electronically signed by Kellie Sullivan DO 01/14/2017 [...] jerking w ith eyes open. Sees an CUT LACE MACHINE OPERATOR at [facility], who prescribes her gabapentin. Takes clonaze [...] It appears that she had been at [facility] just the d ay before, noted [...] she sees a nurse pract itioner at [facility] who "prescribes her gabapentin." Patient also takes [...] down. She states "you'll probably see me agai n when I have my next seizure." [...] 1 tablet (5 mg total) by mouth lius ry 8 (eight) hours as needed for [...] TH FORCEP; Surgeon: Rashaun Sandoval MD; Location: [facility]; Service: Gastr oenterology; Laterality: N/A; ESOPHAGOGASTRODUODENOSCOPY (EGD) N/A 01/17/2017 Procedure: ESOPHAGOGASTRODUODENOSCOPY (EGD); Surgeon: Mauricio Harrison MD; Loca tion: [facility]; Service: Gastroenterology; Laterality: N/A; TUBAL LIGATION [...] questions or concerns. Magali Cedillo MD Pager [phone] * Gino López MD - 01/18/2017 3:56 PM CDT Associated Order(s): IP CONSULT TO GASTROENTEROLOGY This note was created to satisfy Epic consult request. Please refer to progress note from same date for recommendations. * Rashaun Sandoval MD - 01/14/2017 11:28 AM CDT Associated Order(s): IP CONSULT TO GASTROENTEROLOGY [facility] GASTROINTESTINAL CONSULT NOTE Patient: Seema [...] tablet 325-650 mg 325-650 mg Oral Q6H [place] N Lucy Mccord NP Or [OCT Hold] acetaminophen (TYLENOL) suppository 325-650 mg 325-650 mg Rectal Q6H PRN Lucy Mccord NP [OCT Hold] benzocaine (HURRICAINE) 20 % mouth spray 2 spray 2 spray Mouth/T hroat 4x Daily PRN Ricardo Rosario DO 2 spray at 01/13/172057 [OCT Hold] fentaNYL (SUBLIMAZE) injection 25 mcg 25 mcg Intravenous Q3H PRN Liset Whatley DO 25 mcg at 01/14/17743 [OCT Hold] [...] education: N/A Occupational History [employer] Social History Main Topics Smoking status: [...] RN - 01/14/2017 1:17 PM CDT Bed: [facility] Expected date: Expected time: Means of arrival: Comments: GI patient * April Wise RN - 01/14/2017 1:15 PM CDT Pt ambulatory to and from restroom w/marcia RN for standby assist. Tolerated well. * Ricardo Rosario DO - 01/13/2017 6:54 PM CDT Associated Order(s): CRITICAL CARE 01/13/2017 [facility] History Chief Complaint Patient presents with Back [...] Negative Ketones Urine Negative Negative mg/dL Specific [place], UA >=1.030 1.001 - 1.030 Hemoglobin Urine [...] Villatoro DO - 01/19/2017 7:44 PM CDT [facility] Hospitalist - Significant Event Patient Name: Seema Bui Account No: [id number] Date of : 1990 Date of Admission: 01/13/2017 6:08 PM Ms. Seema Bui is a 26 y.o. female who was admitted on 01/13/2017 with Back P darwinn. Notified by the patient's nurse at approximately [...] re results (as indicated), current inpatient medications, work station support specialist notes, p rior admission/outpatient notes, prior to admission medications and [facility] with pertainent findings noted within the assessment/plan. I have pe rsonally spoken with the patient, another physican and nursing staff regarding t his patient's case. Room: - Diet: Diet-Regular Code Status: Full Code Prabhjot Villatoro DO [facility] Hospitalist Please page through physician paging. * [...] Harrison MD EGD Instrument(s): Fujinon Upper Endoscope G16([id number]) Colonoscopy Instrument(s): Fujinon Colonoscope C8([id number]) ASA Information: See Anesthesia Record Administered Medications: [...] being detected during the procedure. 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 The patient/patients loan servicing representative appeared to understand the procedure, the potential complications, and alternatives; had the opportunity to ask questions; and informed consent was obtained. The risk/benefit ratio was deemed appropriate to proceed with the procedure. Deep Sedation was administered by nurse digital librarian. Continuous pulse oximetry and blood pressure monitoring [...] Tuesday to prepare for the procedures Tuesday. Rashuan Sandoval MD Electronically signed on 01/14/2017 11:53:13 [...] ABORH TYPE Routine 01/18/2017 3:15 AM CDT CBC AND DIFF (MANUAL DIFF Routine 01/17/2017 [...] results within the time period is included. Sodium 142 133 - 147 MEQ/L [facility] Potassium 3.6 3.5 - 5.3 MEQ/L [facility] Chloride 110 96 - 112 MEQ/L [facility] Carbon Dioxide 23 20 - 32 MEQ/L [facility] Anion Gap 9 5 - 17 [facility] Calcium 8.1 (L) 8.4 - 10.5 mg/dL [facility] Glucose 84 70 - 100 mg/dL [facility] Blood Urea 13 7 - 26 mg/dL [facility] Nitrogen [facility] Creatinine 0.6 0.4 - 1.1 mg/dL [facility] eGFR Female AA >130 60 - [...] Performing Organization Address City/State/Zipcode Ph one Number [facility] [address] [place] [address] * CBC and Diff (manual diff if necessary) (01/20/2017 3:00 AM CDT) Only the most recent of 6 results within the time period is included. WBC 7.84 4.00 - 11.00 TH/uL [facility] RBC 3.88 (L) 4.00 - 5.00 MIL/uL [facility] Hemoglobin 9.1 (L) 12.0 - 15.0 g/dL [facility] Hematocrit 29 (L) 36 - 45 % [facility] MCV 74 (L) 80 - 99 fL [facility] MCH 24 (L) 27 - 34 pg [facility] MCHC 32 32 - 36 % [facility] RDW 17.2 (H) 9.0 - 14.5 % [facility] Platelet Count 421 (H) 140 - 400 TH/uL [facility] MPV 11.1 9.4 - 12.3 fL [facility] Nucleated RBCs 0 0 - 0 /100 [facility] % Neutrophils 62 45 - 78 % [facility] %Lymphocytes 29 15 - 47 % [facility] %Monocytes 6 0 - 12 % [facility] %Eosinophils 2 0 - 7 % [facility] %Basophils 1 0 - 2 % [facility] % Imm Grans 0 0 - 1 % [facility] # Granulocytes 4.91 1.70 - 6.80 TH/uL [facility] # Lymphocytes 2.27 1.00 - 3.30 TH/uL [facility] # Monocytes 0.43 0.20 - 0.90 TH/uL [facility] # Eosinophils 0.18 0.00 - 0.40 TH/uL [facility] # Basophils 0.05 0.00 - 0.10 TH/uL [facility] Specimen Blood Performing Organization Address City/[facility] Ph one Number [facility] [address] [place] [address] * Celiac Screen (01/19/2017 4:20 AM CDT) Celiac Screen 8 U [facility] Comment: REGIONAL Celiac Screen Interpretation: LABORATORIES Negative: <20 Weak Positive: 20 - 30 Positive: >30 Celiac Screen detects IgA and IgG antibodies to deamidated gliadin and tissue transglutaminase. Specimen Blood Performing Organization Address City/State/Zipcode Ph one Number [facility] [address] [address] LABORATORIES * Hemoglobin and Hematocrit (01/18/2017 2:09 PM CDT) Only the most recent of 4 results within the time period is included. Hemoglobin 9.5 (L) 12.0 - 15.0 g/dL [facility] Hematocrit 30 (L) 36 - 45 % [facility] Specimen Blood Performing Organization Address [facility] one Number [facility] [address] [place] [address] * Potassium (01/18/2017 2:08 PM CDT) Pathologist [facility] Potassium 4.4 3.5 - 5.3 MEQ/L [facility] Specimen Blood Performing Organization Address [facility] one Number [facility] [address] [place] [address] * XMATCH (01/18/2017 9:20 AM CDT) Specimen Blood Performing Organization Address [facility] one Number [facility] [address] [place], [place] [address] * RBCs 1 Unit (01/18/2017 3:15 AM CDT) Pathologist [facility] 01 - PRODUCT ID Red Blood Cells [facility] 01 - UNIT [id number] [facility] NUMBER [facility] 01 - CROSS Compatible [facility] 01 - STATUS Transfused [facility] 01 - PRODUCT [id number] [facility] 01 - BLOOD TYPE O Pos [facility] Specimen Blood Performing Organization Address [facility] one Number [facility] [address] [place] [address] * Antibody Screen (01/18/2017 3:15 AM CDT) Only the most recent of 2 results within the time period is included. Pathologist [facility] Antibody Screen Negative Negative [facility] Specimen Blood Performing Organization Address [facility] one Number [facility] [address] [place] [address] * ABORH Type (01/18/2017 3:15 AM CDT) Only the most recent of 2 results within the time period is included. ABORH Type O Positive [facility] Specimen Blood Performing Organization Address [facility] one Number [facility] [address] [place] [address] * Urine Test (01/15/2017 1:00 AM CDT) Only the most recent of 2 results within the time period is included. UCG Urine NegativeComment: Specific Negative SHRUTHI Coretta [facility] gravity is <1.005; dilute [facility] urines may cause false negative results. Specimen Urine Performing Organization Address [facility] one Number [facility] [place] [address] [place] [address] * Tissue Pathology or Biopsy (01/14/2017 1:49 PM CDT) Specimen Tissue - Small Bowel Tissue - Antrum Narrative Performed At PATIENT: SEEMA BUI [facility] SEX / : F 1990 (Age: 26) 6 VISIT: [id number] SUBMITTING PHYSICIAN: Rashaun meraz M.D. CLIENT: [...] in one cassette. BE/mdh Gross performed at [facility] y, [address] [facility], [address], [place]. [address] MICROSCOPIC DESCRIPTION: Microscopic examination performed. D3 , S3. Outlook: [facility], [address] [place] [address] Where applicable, all positive and nega tive controls demonstrate appropriate and expected re activity. Some or all of the immunoperoxidase tests utilized in this examination were developed and their performance ch aracteristics determined by [facility]. They have not been [...] complexity clinical laboratory testing. Performing Laboratory Location: [facility], Gene Banks M.D., [employer], [address] [place] [address] Technical processing at: [facility], Casimiro Almaguer, [employer], [address] [place] [address] [place] [address] END OF REPORT Performing Organization Address [facility] Ph one Number [facility] * Ferritin (01/14/2017 7:56 AM CDT) Ferritin 8 (L) 20 - 200 ng/mL [facility] Specimen Blood Performing Organization Address [facility] one Number [address] [address] LABORATORIES * Iron/Transferrin (01/14/2017 7:56 AM CDT) Iron <10 (L) 50 - 180 ug/dL [facility] Transferrin 316 206 - 381 mg/dL [facility] Total 379 204 - 408 ug/dL [facility] Iron-Binding REGIONAL Capacity LABORATORIES Iron/Transferri Not CalcComment: Result is 15 - 50 % [facility] % Saturation outside linear range. REGIONAL Calculation cannot be LABORATORIES performed Specimen Blood Performing Organization Address City/State/Zipcode Ph one Number [facility] [address] [place] [address] LABORATORIES * Lipase (01/14/2017 7:56 AM CDT) Lipase 35 23 - 300 IU/L [facility] Specimen Blood Performing Organization Address City/[facility]/Zipcode Ph one Number [facility] [address] [place] [address] * XR Chest single view frontal (01/14/2017 4:41 AM CDT) Specimen Impressions Performed At 1. Satisfactory placement of right PICC. TAAL 2. No acute cardiopulmonary process. Narrative Performed At Patient: SEEMA BUI Sex#: F # 1990 [place]#: [id number] Location: [facility] [place]- Procedure Requested: [id number] XR CHEST SINGLE VIEW FRONTAL Exam Ordered: [...] SEEMA BUI Sex#: F # 1990 [place]#: [id number] Location: [facility] [place]- Procedure Requested: [id number] XR CHEST SINGLE VIEW FRONTAL Exam Ordered: 01/14/2017 0437 Exam Date/Time: 01/14/2017 044 Begin exam date/time: 01/14/2017437 XR CHEST SINGLE [...] No acute cardiopulmonary process. Performing Organization Address [facility] one Number [facility] * Complete Blood Count (01/14/2017 2:15 AM CDT) WBC 6.30 4.00 - 11.00 TH/uL [facility] RBC 3.30 (L) 4.00 - 5.00 MIL/uL [facility] Hemoglobin 7.3 (L) 12.0 - 15.0 g/dL [facility] Hematocrit 24 (L) 36 - 45 % [facility] MCV 72 (L) 80 - 99 fL [facility] MCH 22 (L) 27 - 34 pg [facility] MCHC 31 (L) 32 - 36 % [facility] RDW 16.2 (H) 9.0 - 14.5 % [facility] Platelet Count 236 140 - 400 TH/uL [facility] MPV 11.6 9.4 - 12.3 fL [facility] Nucleated RBCs 0 0 - 0 /100 [facility] Specimen Blood Performing Organization Address [facility] one Number [facility] [address] [place] [address] * Retype Patient ABORH (01/13/2017 10:22 PM CDT) ABORH Type O Positive [facility] Confirm Blood Yes [facility] Specimen Performing Organization Address [facility]/Zipcode Ph one Number [facility] [address] [place] [address] * CRITICAL CARE (01/13/2017 10:02 PM CDT) Narrative Performed At Ricardo Rosario DO 01/13/2017 10:0 2 PM Critical Care Performed by: RICARDO ROSARIO Authorized by: RICARDO ROSARIO Total critical care time: 30 minutes Critical care time was exclusive of sep arately billable procedures and treating other patients. * Gastric Blood (01/13/2017 9:04 PM CDT) Gastric Blood Negative [facility] Specimen Gastric Performing Organization Address [facility] one Number [facility] [address] [place] [address] * CT Abdomen Pelvis wo contrast (01/13/2017 [...] SEEMA BUI Sex#: F # 1990 [place]#: [id number] Location: [place] [address] Procedure Requested: [id number] CT ABDOM EN PELVIS WO CONTRAST Reason for Exam: abdominal pain Exam Ordered: 01/13/2017 185 4 Exam Date/Time: 01/13/20171950 Begin exam date/time: 01/13/20171946 Reading Site: [place] CT ABDOMEN PELVIS WO CONTRAST Date: 01/13/2017 [...] SEEMA BUI Sex#: F # 1990 [place]#: [id number] Location: [place] [address] Procedure Requested: [id number] CT ABDOMEN PELVIS WO CONTRAST Reason for Exam: abdominal pain Exam Ordered: 01/13/2017 1854 Exam Date/Time: 01/13/20171950 Begin exam date/time: 01/13/20171946 Reading Site: [place] CT ABDOMEN PELVIS WO CONTRAST Date: 01/13/2017 [...] techniq ue -CT scan done according to ALARA, or ALA RA/IMAGE GENTLY Performing Organization Address City/State/Zipcode Ph one Number [facility] * Comprehensive Metabolic Panel (01/13/2017 7:36 PM CDT) Sodium 141 133 - 147 MEQ/L [facility] Potassium 3.9 3.5 - 5.3 MEQ/L [facility] Chloride 111 96 - 112 MEQ/L [facility] Carbon Dioxide 22 20 - 32 MEQ/L [facility] Anion Gap 7 5 - 17 [facility] Calcium 7.4 (L) 8.4 - 10.5 mg/dL [facility] Glucose 78 70 - 100 mg/dL [facility] Protein Total 6.1 6.0 - 8.2 g/dL [facility] Serum [facility] Albumin 3.4 (L) 3.5 - 5.0 g/dL [facility] Alkaline 116 42 - 140 IU/L [facility] Phosphatase [facility] Alanine 48 13 - 69 IU/L [facility] Aminotransferas [facility] e Aspartate 55 (H) 15 - 46 IU/L [facility] Aminotransferas [facility] e Bilirubin Total 0.3 0.2 - 1.3 mg/dL [facility] Blood Urea 11 7 - 26 mg/dL [facility] Nitrogen [facility] Creatinine 0.6 0.4 - 1.1 mg/dL [facility] eGFR Female AA >130 60 - 200 [facility] Comment: [facility] Chronic Kidney Disease less than 60 mL/min/1.73 sq.m Kidney failure less than 15 mL/min/1.73 sq.m eGFR Female 119 60 - 200 [facility] Non-AA Comment: [facility] Chronic Kidney Disease less than 60 mL/min/1.73 sq.m Kidney failure less than 15 mL/min/1.73 sq.m Specimen Blood Performing Organization Address [facility] Ph one Number [facility] [address] [place] [address] * Culture, Urine (01/13/2017 5:53 PM CDT) Pathologist [facility] Culture Result No growth [facility] LABORATORIES Specimen Clean Voided Urine Performing Organization Address City/[facility] Ph one Number [address] [address] LABORATORIES * Urinalysis Microscopic Only (01/13/2017 5:53 PM CDT) Microscopic RBC >40 (A) 1 - 5 /hpf [facility] Urine [facility] Microscopic WBC 6 - 10 (A) 1 - 5 /hpf [facility] Urine [facility] Epithelial Absent Absent [facility] Hyaline Cast Absent Absent [facility] Bacteria Small (A) Absent [facility] Mucus Large (A) Absent [facility] Specimen Clean Voided Urine Performing Organization Address [facility] one Number [facility] [address] [place] [address] * Urinalysis Reflex (01/13/2017 5:53 PM CDT) Appearance, Yellow [facility] Glucose Urine Negative Negative mg/dL [facility] Bilirubin Urine Negative Negative [facility] Ketones Urine Negative Negative mg/dL [facility] Specific >=1.030 1.001 - 1.030 [facility] [place] Hemoglobin Large (A) Negative [...] Specimen Clean Voided Urine Performing Organization Address [facility] one Number [facility] [address] [place] [address] documented in this encounter Visit Diagnoses Not on filedocumented [...] mL/hr, Continuous PRN, to flush line, Starting [place] 01/16/17 at 1253, Only use a New [...]
--- OUTSIDE RECORDS SUMMARY | 2019-08-15 02:44 | XMS REPORT | Summary of Care ---
Author Author [facility] er Organization [facility] er Address Unknown Phone Unavailable Encounter [facility] [place] [id number] Date(s): 10/10/16 - 10/10/16 [facility] [address] [address] Discharge Diagnosis: Acute right flank [...] Severity Status Reglan Active Zofran Active Medications [place] 5 mg-325 mg oral tablet 1 TAB, [...]
--- OUTSIDE RECORDS SUMMARY | 2019-08-15 02:44 | XMS REPORT | Summary of Care ---
Author Author [facility] er Organization [facility] Address Unknown Phone Unavailable Encounter [facility] [place] [id number] Date(s): 10/10/16 - 10/10/16 [facility] [address] [place] [id number] Discharge Diagnosis: Acute right flank pain [...] Severity Status Reglan Active Zofran Active Medications Zithromax Z-Johnathon 250 mg oral tablet 1 [...]
--- OUTSIDE RECORDS SUMMARY | 2019-08-15 02:44 | XMS REPORT | Summary of Care ---
Author Author [facility] er Organization [facility] er Address Unknown Phone Unavailable Encounter [facility] NAV [place] [id number] Date(s): 10/10/16 - 10/10/16 [facility] [address] [address] Discharge Diagnosis: Acute right [...] Severity Status Reglan Active Zofran Active Medications Unadilla 5 mg-325 mg oral tablet 1 TAB, [...]
--- OUTSIDE RECORDS SUMMARY | 2019-08-15 02:44 | XMS REPORT | Clinical Summary ---
Author Author [facility] Organization [facility] Address Unknown Phone Unavailable Care Team Providers Care Agile Business Analyst Name Role Phone Alyson Olivasfer Jd SCHULTZ PCP Source Comments Some departments are not documenting in the electronic medical record. If you d o not see the information that you expected, contact Release of Information in [facility] [employer] Information Management department at [phone] for further assistan ce in locating additional records.[facility] Allergies Comments Active Allergy Reactions Severity Noted Date Causes nausea, vomiting, diarhea Metoclopramide SEE COMMENTS Low 07/27/2016 Ondansetron HIVES Medium 11/16/2016 Medications End Date Status Medication Sig Dispensed Refills Start Date Active pregabalin (LYRICA) 100 Take 100 mg 0 mg capsule by mouth twice daily. Active gabapentin (NEURONTIN) Take 100 mg 0 100 mg capsule by mouth every 8 hours. Active TREPROSTINIL DIOLAMINE PO Take by 0 mouth. Active CLONAZEPAM (KLONOPIN PO) Take by 0 mouth. Active Problems Problem Noted Date Epilepsy 07/27/2016 Fibromyalgia 07/27/2016 Social History Date Tobacco Use Types Packs/Day Years Used Current Some Day Smoker Cigarettes 1 Drinks/Week oz/Week Comments Alcohol Use 0 Standard drinks or equivalent 0.0 No Sex Assigned at Date Recorded Not on file Industry Job Start Date Occupation Not on file Not on file Not on file Travel End Travel History Travel Start No recent travel history available. Last Filed Vital Signs Reading Time Taken Comments Vital Sign 142/73 01/13/2017 10:00 AM CDT Blood Pressure 91 11/16/2016 10:30 PM CDT Pulse 36.8 C (98.2 F) 01/13/2017 9:20 AM CDT Temperature - - Respiratory Rate 99% 01/13/2017 10:00 AM CDT Oxygen Saturation - - Inhaled Oxygen Concentration 66.2 kg (146 lb) 01/13/2017 9:20 AM CDT Weight 157.5 cm (5' 2") 01/13/2017 9:20 AM CDT Height 26.7 01/13/2017 9:20 AM CDT Body Mass Index Plan of Treatment Health Maintenance Due Date Last Done Comments DTAP/TDAP VACCINES (1 - 11/03/1999 Tdap) HIV SCREENING 11/03/2003 PHYSICAL (COMPREHENSIVE) 2006 EXAM CERVICAL CANCER SCREENING 2018 INFLUENZA VACCINE 03/15/2019 Results Not on filefrom Last 3 Months Insurance Type Payer Benefit Subscriber ID Effective Phone Address Plan / Dates Group Medicaid [place] [employer] xxxxxxxxxxx 2016-P [facility] [id number] 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
--- OUTSIDE RECORDS SUMMARY | 2019-08-15 02:44 | XMS REPORT | Summary of Care ---
Author Author [facility] er Organization [facility] Address Unknown Phone Unavailable Encounter [facility] NAV [place] [id number] Date(s): 10/10/16 - 10/10/16 [facility] [address] [place] [id number] Discharge Diagnosis: Acute right flank [...]
--- OUTSIDE RECORDS SUMMARY | 2019-08-15 02:44 | XMS REPORT | Summary of Care ---
Author Author [facility] er Organization [facility] Address Unknown Phone Unavailable Encounter [facility] NAV [place] [id number] Date(s): 10/10/16 - 10/10/16 [facility] [address] [place] [address] Discharge Diagnosis: Acute right flank [...] Attending Physician: RENEE MURPHY DO Admitting Physician: REENE MURPHY DO Vital Signs Most recent to [...]
--- OUTSIDE RECORDS SUMMARY | 2019-08-15 02:44 | XMS REPORT | Summary of Care ---
Author Author [facility] er Organization [facility] Address Unknown Phone Unavailable Encounter [facility] NAV [place] [id number] Date(s): 10/10/16 - 10/10/16 [facility] [address] [place] [address] Discharge Diagnosis: Acute right flank pain [...]
--- OUTSIDE RECORDS SUMMARY | 2019-08-15 02:45 | XMS REPORT | Summary of Care ---
Author Author [facility] er Organization [facility] Address Unknown Phone Unavailable Encounter [facility] NAV [place] [id number] Date(s): 10/10/16 - 10/10/16 [facility] [address] [place] [address] Discharge Diagnosis: Acute right flank pain Discharge [...]
--- OUTSIDE RECORDS SUMMARY | 2019-08-15 02:45 | XMS REPORT | Summary of Care ---
Author Author [facility] Organization [facility] Address Unknown Phone Unavailable Care Team Providers Care Phlebotomy Program Coordinator Name Role Phone DORETHA QUEZADAWASHINGTON PCP Encounter [facility] [id number] Date(s): 02/05/17 - 02/05/17 [facility] [address] [place] [address] [phone] Discharge Diagnosis: Back pain Discharge Diagnosis: Hematuria Discharge Disposition: Home - Attending Physician: ASHLEY MORENO MD Admitting Physician: ASHLEY MORENO MD Vital Signs Most recent to 1 oldest [Reference Range]: Temperature 97.9 DegF [96.8-99.7 DegF] (02/05/17 1:05 PM) Temp Method Oral (02/05/17 1:05 PM) Heart Rate 73 bpm (02/05/17 2:43 PM) Respiratory Rate 18 br/min [14-20 br/min] (02/05/17 2:43 PM) Blood Pressure 126/86 mmHg [90-180/50-90 mmHg] (02/05/17 2:43 PM) NIBP MAP 94 mmHg (02/05/17 2:43 PM) NIBP MAP Calc 99 (02/05/17 2:43 PM) Problem List No data available for this section Allergies, Adverse Reactions, Alerts Substance Reaction Severity Status Zofran Active Reglan Active Medications Keflex 500 mg oral capsule 1 CAP, PO, 4 times a day, # 40 CAP, 0 Refill(s), Indication: Bacterial Infection Start Date: 02/05/17 Status: Ordered Percocet 5/325 oral tablet 1 TAB, PO, Q4H (Every 4 hours), PRN Pain, # 24 TAB, 0 Refill(s), Indication: Mod erate Pain Start Date: 02/05/17 Status: Ordered Results HEMATOLOGY Most recent to 1 oldest [Reference Range]: WBC [4.0-11.0 10.9 x10'3/microL x10'3/microL] (02/05/17 1:36 PM) RBC [3.90-5.60 5.10 x10'6/microL x10'6/microL] (02/05/17 1:36 PM) Hgb [12.0-16.0 g/dL] 12.2 g/dL (02/05/17 1:36 PM) Hct [35-47 %] 39 % (02/05/17 1:36 PM) Platelet [140-400 445 x10'3/microL x10'3/microL] *HI* (02/05/17 1:36 PM) MCV [81-99 fL] 77 fL *LOW* (02/05/17 1:36 PM) MCH [27-34 pg] 24 pg *LOW* (02/05/17 1:36 PM) MCHC [30-36 g/dL] 31 g/dL (02/05/17 1:36 PM) RDW [<=16.5 %] 21.7 % *HI* (02/05/17 1:36 PM) MPV [6.5-10.4 fL] 10.0 fL (02/05/17 1:36 PM) Neutrophils % [44-76 72 % %] (02/05/17 1:36 PM) Lymphocytes % [13-43 20 % %] (02/05/17 1:36 PM) Monocytes % [0-13 %] 6 % (02/05/17 1:36 PM) Eosinophils % [0-7 1 % %] (02/05/17 1:36 PM) Basophils % [0-3 %] 1 % (02/05/17 1:36 PM) Neutrophils Abs 7.8 x10'3/microL [1.4-7.2 *HI* x10'3/microL] (02/05/17 1:36 PM) Lymphocytes Abs 2.2 x10'3/microL [1.2-3.4 (02/05/17 1:36 PM) x10'3/microL] Monocytes Abs 0.7 x10'3/microL [0.1-0.6 *HI* x10'3/microL] (02/05/17 1:36 PM) Eosinophils Abs 0.1 x10'3/microL [0.0-0.5 (02/05/17 1:36 PM) x10'3/microL] Basophils Abs 0.1 x10'3/microL [0.0-0.2 (02/05/17 1:36 PM) x10'3/microL] CHEMISTRY Most recent to 1 oldest [Reference Range]: Sodium [136-145 141 mmol/L mmol/L] (02/05/17 1:36 PM) Potassium [3.5-5.1 3.7 mmol/L mmol/L] (02/05/17 1:36 PM) Chloride [98-107 107 mmol/L mmol/L] (02/05/17 1:36 PM) CO2 [22-29 mmol/L] 20 mmol/L *LOW* (02/05/17 1:36 PM) AGAP [3-19 mmol/L] 14 mmol/L (02/05/17 1:36 PM) Glucose [70-100 103 mg/dL mg/dL] *HI* (02/05/17 1:36 PM) BUN [8-20 mg/dL] 8 mg/dL (02/05/17 1:36 PM) Creatinine [0.7-1.2 0.4 mg/dL mg/dL] *LOW* (02/05/17 1:36 PM) Calcium [8.6-10.2 8.8 mg/dL mg/dL] (02/05/17 1:36 PM) Est CrCL (CG) 161.2 mL/min 1 (02/05/17 1:36 PM) GFR (CKD-EPI) >110.0 mL/min/1.73 m2 2 *NA* (02/05/17 1:36 PM) Albumin Level 4.3 g/dL [3.5-5.2 g/dL] (02/05/17 1:36 PM) Total Protein 7.4 g/dL [6.6-8.7 g/dL] (02/05/17 1:36 PM) Alk Phos [40-130 104 Inter. Units/L Inter. Units/L] (02/05/17 1:36 PM) Lipase [13-60 80 Units/L Units/L] *HI* (02/05/17 1:36 PM) AST [0-40 Units/L] 25 Units/L (02/05/17 1:36 PM) ALT(SGPT) [0-33 50 Inter. Units/L Inter. Units/L] *HI* (02/05/17 1:36 PM) Bili Direct [0.0-0.3 <0.2 mg/dL mg/dL] (02/05/17 1:36 PM) Bili Total [0.0-1.2 <0.2 mg/dL mg/dL] (02/05/17 1:36 PM) 1Result Comment: Estimated Creatinine Clearance calculated based on the Cockcroft-Gault formula. 2Result Comment: GFR calculated based on CKD-EPI Creatinine Equation (2009). Age(years) Average GFR 20-29 116 mL/min/1.73 m^2 30-39 107 mL/min/1.73 m^2 40-49 99 mL/min/1.73 m^2 50-59 93 mL/min/1.73 m^2 60-69 85 mL/min/1.73 m^2 70+ 75 mL/min/1.73 m^2 Acceptable GFR =>60 mL/min/1.73 m^2 Chronic Kidney Disease <60 mL/min/1.73 m^2 Kidney Failure <15 mL/min/1.73 m^2 IMMUNO/SEROLOGY Most recent to 1 oldest [Reference Range]: U Preg Test Negative (02/05/17 1:13 PM) URINE Most recent to 1 oldest [Reference Range]: UA Color Straw (02/05/17 1:13 PM) UA pH [5.0-8.0] 6.0 (02/05/17 1:13 PM) UA Spec Grav 1.020 [1.001-1.030] (02/05/17 1:13 PM) UA Glucose [Negative Negative mg/dL mg/dL] (02/05/17 1:13 PM) UA Bili [Negative] Negative (02/05/17 1:13 PM) UA Ketones [Negative Negative mg/dL mg/dL] (02/05/17 1:13 PM) UA Blood [Negative] Large *ABN* (02/05/17 1:13 PM) UA Protein [Negative Negative mg/dL mg/dL] (02/05/17 1:13 PM) UA Nitrite Negative [Negative] (02/05/17 1:13 PM) UA Leuk Est Negative [Negative] (02/05/17 1:13 PM) UA Urobilinogen 0.2 EU per dL [0.2-1.0 EU per dL] (02/05/17 1:13 PM) UA Spec Type Clean Catch (02/05/17 1:13 PM) UA WBC [0-5 /hpf] 0-5 /hpf (02/05/17 1:13 PM) UA RBC [0-2 /hpf] >50 /hpf *ABN* (02/05/17 1:13 PM) UA Bacteria Moderate /hpf [Negative /hpf] *ABN* (02/05/17 1:13 PM) UA Epithelial Moderate /hpf [Negative to Few *ABN* /hpf] (02/05/17 1:13 PM) UA Mucous [None Present Seen] *ABN* (02/05/17 1:13 PM) Microscopic? Yes *ABN* (02/05/17 1:13 PM) Culture? No (02/05/17 1:13 PM) Immunizations No data available for this section Procedures No data available for this section Social History No data available for this section Functional Status No data available for this section Assessment and Plan No data available for this section Hospital Discharge Instructions No data available for this section
--- OUTSIDE RECORDS SUMMARY | 2019-08-15 02:45 | XMS REPORT | Summary of Care ---
Author Author [facility] er Organization [facility] er Address Unknown Phone Unavailable Encounter [facility] NAV [place] [id number] Date(s): 10/10/16 - 10/10/16 [facility] [address] [place] [address] Discharge Diagnosis: [...]
--- OUTSIDE RECORDS SUMMARY | 2019-08-15 02:45 | XMS REPORT | Summary of Care ---
Author Author [facility] er Organization [facility] er Address Unknown Phone Unavailable Encounter [facility] NAV [place] [id number] Date(s): 11/11/16 - 11/11/16 [facility] [address] [address] Discharge Diagnosis: Right lower quadrant pain Discharge Diagnosis: Microscopic hematuria Discharge Disposition: Home - Attending Physician: YASMIN MCKINLEY MD Admitting Physician: YASMIN MCKINLEY MD Vital Signs Most recent to 1 oldest [Reference Range]: Temperature 99.1 DegF [96.8-99.7 DegF] (11/11/16 7:00 PM) Temp Method Temporal (11/11/16 7:00 PM) Heart Rate 68 bpm (11/11/16 9:39 PM) Respiratory Rate 16 br/min [14-20 br/min] (11/11/16 9:00 PM) Blood Pressure 104/69 mmHg [90-180/50-90 mmHg] (11/11/16 9:39 PM) NIBP MAP 78 mmHg (11/11/16 9:39 PM) NIBP MAP Calc 81 (11/11/16 9:39 PM) Problem List No data available for this section Allergies, Adverse Reactions, Alerts Substance Reaction Severity Status Reglan Active Zofran Active Medications Phenergan 25 mg oral tablet 25 mg =, PO, Q4H (Every 4 hours), PRN Nausea/Vomiting, # 10 TAB, 0 Refill(s), In dication: Nausea/Vomiting Start Date: 11/11/16 Status: Ordered Results HEMATOLOGY Most recent to 1 oldest [Reference Range]: WBC [4.0-11.0 11.1 x10'3/microL x10'3/microL] *HI* (11/11/16 7:36 PM) RBC [3.90-5.60 4.01 x10'6/microL x10'6/microL] (11/11/16 7:36 PM) Hgb [12.0-16.0 g/dL] 9.4 g/dL *LOW* (11/11/16 7:36 PM) Hct [35-47 %] 31 % *LOW* (11/11/16 7:36 PM) Platelet [140-400 371 x10'3/microL x10'3/microL] (11/11/16 7:36 PM) MCV [81-99 fL] 77 fL *LOW* (11/11/16 7:36 PM) MCH [27-34 pg] 23 pg *LOW* (11/11/16 7:36 PM) MCHC [30-36 g/dL] 30 g/dL (11/11/16 7:36 PM) RDW [<=16.4 %] 17.3 % *HI* (11/11/16 7:36 PM) MPV [6.5-10.4 fL] 11.5 fL *HI* (11/11/16 7:36 PM) Neutrophils % [44-76 65 % %] (11/11/16 7:36 PM) Lymphocytes % [13-43 26 % %] (11/11/16 7:36 PM) Monocytes % [0-13 %] 7 % (11/11/16 7:36 PM) Eosinophils % [0-7 2 % %] (11/11/16 7:36 PM) Basophils % [0-3 %] 1 % (11/11/16 7:36 PM) Neutrophils Abs 7.2 x10'3/microL [1.4-7.2 (11/11/16 7:36 PM) x10'3/microL] Lymphocytes Abs 2.8 x10'3/microL [1.2-3.4 (11/11/16 7:36 PM) x10'3/microL] Monocytes Abs 0.8 x10'3/microL [0.1-0.6 *HI* x10'3/microL] (11/11/16 7:36 PM) Eosinophils Abs 0.2 x10'3/microL [0.0-0.5 (11/11/16 7:36 PM) x10'3/microL] Basophils Abs 0.1 x10'3/microL [0.0-0.2 (11/11/16 7:36 PM) x10'3/microL] Immature Grans Abs 0.0 x10'3/microL [0.0-0.0 (11/11/16 7:36 PM) x10'3/microL] Immature 0 % Granulocytes % [0-0 (11/11/16 7:36 PM) %] CHEMISTRY Most recent to 1 oldest [Reference Range]: Sodium [136-145 139 mmol/L mmol/L] (11/11/16 7:36 PM) Potassium [3.5-5.1 4.4 mmol/L mmol/L] (11/11/16 7:36 PM) Chloride [98-107 102 mmol/L mmol/L] (11/11/16 7:36 PM) CO2 [22-29 mmol/L] 23 mmol/L (11/11/16 7:36 PM) AGAP [3-19 mmol/L] 14 mmol/L (11/11/16 7:36 PM) Glucose [70-100 94 mg/dL mg/dL] (11/11/16 7:36 PM) BUN [8-20 mg/dL] 13 mg/dL (11/11/16 7:36 PM) Creatinine [0.7-1.2 0.6 mg/dL mg/dL] *LOW* (11/11/16 7:36 PM) Calcium [8.6-10.2 8.5 mg/dL mg/dL] *LOW* (11/11/16 7:36 PM) Est CrCL (CG) 107.5 mL/min 1 (11/11/16 7:36 PM) GFR (CKD-EPI) >110.0 mL/min/1.73 m2 2 *NA* (11/11/16 7:36 PM) 1Result Comment: Estimated Creatinine Clearance calculated [...] oldest [Reference Range]: U Preg Test Negative (11/11/16 7:36 PM) URINE Most recent to 1 oldest [Reference Range]: UA Color Yellow (11/11/16 7:36 PM) UA pH [5.0-8.0] 6.5 (11/11/16 7:36 PM) UA Spec Grav 1.020 [1.001-1.030] (11/11/16 7:36 PM) UA Glucose [Negative Negative mg/dL mg/dL] (11/11/16 7:36 PM) UA Bili [Negative] Negative (11/11/16 7:36 PM) UA Ketones [Negative Negative mg/dL mg/dL] (11/11/16 7:36 PM) UA Blood [Negative] Small *ABN* (11/11/16 7:36 PM) UA Protein [Negative Negative mg/dL mg/dL] (11/11/16 7:36 PM) UA Nitrite Negative [Negative] (11/11/16 7:36 PM) UA Leuk Est Negative [Negative] (11/11/16 7:36 PM) UA Urobilinogen 0.2 EU per dL [0.2-1.0 EU per dL] (11/11/16 7:36 PM) UA Spec Type Clean Catch (11/11/16 7:36 PM) UA RBC [0-2 /hpf] 3-10 /hpf *ABN* (11/11/16 7:36 PM) UA Epithelial Negative to Few /hpf [Negative to Few (11/11/16 7:36 PM) /hpf] UA Mucous [None Present Seen] *ABN* (11/11/16 7:36 PM) Microscopic? Yes *ABN* (11/11/16 7:36 PM) Culture? No (11/11/16 7:36 PM) Immunizations No data available for this section Procedures No data available for this section Social History No data available for this section Functional Status No data available for this section Assessment and Plan No data available for this section Hospital Discharge Instructions No data available for this section
--- OUTSIDE RECORDS SUMMARY | 2019-08-15 02:45 | XMS REPORT | Summary of Care ---
Author Author [facility] Organization [facility] Address Unknown Phone Unavailable Care Team Providers Care Solderer Assembly Repair Name Role Phone DORETHA QUEZADAWASHINGTON PCP Encounter [facility] [id number] Date(s): 02/05/17 - 02/05/17 [facility] [address] [place] [address] [phone] Discharge Diagnosis: Back pain Discharge Diagnosis: Hematuria Final: Hematuria, unspecified Final: Right lower quadrant pain Final: Low back pain Final: Other specified bacterial agents as the cause of diseases classified else where Final: Calculus of kidney Discharge Disposition: Home - 01 Attending Physician: ASHLEY MORENO MD Admitting Physician: [...]
--- OUTSIDE RECORDS SUMMARY | 2019-08-15 02:45 | XMS REPORT | Summary of Care ---
Author Author [facility] Organization [facility] Address Unknown Phone Unavailable Care Team Providers Care Motor Equipment Captain Name Role Phone DORETHA QUEZADAWASHINGTON PCP Encounter [facility] [id number] Date(s): 02/05/17 - 02/05/17 [facility] [address] [place] [address] [phone] Discharge Diagnosis: Back pain Discharge Diagnosis: Hematuria [...]
--- OUTSIDE RECORDS SUMMARY | 2019-08-15 02:45 | XMS REPORT | Summary of Care ---
Author Author [facility] er Organization [facility] er Address Unknown Phone Unavailable Encounter [facility] [place] [id number] Date(s): 11/11/16 - 11/11/16 [facility] [address] [address] Discharge Diagnosis: Right lower quadrant pain Discharge Diagnosis: Microscopic hematuria Final: Other microscopic hematuria Final: Nausea with vomiting, unspecified Final: Personal history of urinary calculi Final: Low back pain 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, not intractable, with out status epilepticus Final: Right lower quadrant pain Final: Calculus of kidney Discharge Disposition: Home - Attending Physician: YASMIN [...]
--- OUTSIDE RECORDS SUMMARY | 2019-08-15 02:45 | XMS REPORT | Summary of Care ---
Author Author [facility] er Organization [facility] er Address Unknown Phone Unavailable Encounter [facility] [place] [id number] Date(s): 11/11/16 - 11/11/16 [facility] [address] [address] Discharge Diagnosis: Right lower quadrant pain [...]
--- OUTSIDE RECORDS SUMMARY | 2019-08-15 02:45 | XMS REPORT | Summary of Care ---
Author Author [facility] er Organization [facility] er Address Unknown Phone Unavailable Encounter [facility] [place] [id number] Date(s): 11/11/16 - 11/11/16 [facility] [address] [email or web address] Discharge Diagnosis: Right lower quadrant pain Discharge [...]
--- OUTSIDE RECORDS SUMMARY | 2019-08-15 02:45 | XMS REPORT | Summary of Care ---
Author Author [facility] er Organization [facility] er Address Unknown Phone Unavailable Encounter [facility] [place] [id number] Date(s): 11/11/16 - 11/11/16 [facility] [address] [address] Discharge Diagnosis: Right lower quadrant pain [...]
--- OUTSIDE RECORDS SUMMARY | 2019-08-15 02:45 | XMS REPORT | Summary of Care ---
Author Author [facility] er Organization [facility] er Address Unknown Phone Unavailable Encounter [facility] [place] [id number] Date(s): 11/11/16 - 11/11/16 [facility] [address] [address] Discharge Diagnosis: Right lower quadrant pain [...]
--- OUTSIDE RECORDS SUMMARY | 2019-08-15 02:45 | XMS REPORT | Summary of Care ---
Author Author [facility] er Organization [facility] er Address Unknown Phone Unavailable Encounter [facility] [place] [id number] Date(s): 11/11/16 - 11/11/16 [facility] [address] [address] Discharge Diagnosis: Right lower quadrant [...]
--- OUTSIDE RECORDS SUMMARY | 2019-08-15 02:45 | XMS REPORT | Summary of Care ---
Author Author [facility] er Organization [facility] er Address Unknown Phone Unavailable Encounter [facility] [place] [id number] Date(s): 11/11/16 - 11/11/16 [facility] [address] [address] Discharge Diagnosis: Right lower quadrant [...]
--- OUTSIDE RECORDS SUMMARY | 2019-08-15 02:45 | XMS REPORT | Summary of Care ---
Author Author [facility] Organization [facility] Address Unknown Phone Unavailable Encounter [facility] [place] [id number] Date(s): 11/11/16 - 11/11/16 [facility] [address] [address] Discharge Diagnosis: Right lower quadrant pain [...] Severity Status Reglan Active Zofran Active Medications Naprosyn 500 mg oral tablet 500 mg =, PO, BID (2 times a day), # 30 TAB, 0 Refill(s), Indication: Inflammati on Start Date: 11/11/16 Stop Date: 11/12/16 Status: Ordered Phenergan 25 mg oral tablet 25 mg [...]
--- OUTSIDE RECORDS SUMMARY | 2019-08-15 02:45 | XMS REPORT | Summary of Care ---
Author Author [facility] Organization [facility] er Address Unknown Phone Unavailable Encounter [facility] [place] [id number] Date(s): 11/11/16 - 11/11/16 [facility] [address] [address] Discharge Diagnosis: Right lower quadrant pain Discharge [...]
--- OUTSIDE RECORDS SUMMARY | 2019-08-15 02:46 | XMS REPORT | Summary of Care ---
Author Author [facility] Organization [facility] Address Unknown Phone Unavailable Care Team Providers Care Dragsaw Operator Name Role Phone DORETHA QUEZADAWASHINGTON PCP Encounter [facility] [id number] Date(s): 02/09/17 - 02/09/17 [facility] [address] [address] [phone] Discharge Diagnosis: Rt flank pain Discharge Disposition: Home - Attending Physician: JUAN DANIEL HAMM MD, GRISEL E Admitting Physician: JUAN DANIEL HAMM MD, GRISEL E Vital Signs Most recent to 1 oldest [Reference Range]: Temperature 98.1 DegF [96.8-99.7 DegF] (02/09/17 6:32 PM) Temp Method Temporal (02/09/17 6:32 PM) Heart Rate 88 bpm (02/09/17 6:32 PM) Respiratory Rate 16 br/min [14-20 br/min] (02/09/17 8:30 PM) Blood Pressure 113/92 mmHg [90-180/50-90 mmHg] (02/09/17 8:30 PM) NIBP MAP Calc 102 (02/09/17 6:32 PM) Problem List No data available for this section Allergies, Adverse Reactions, Alerts Substance Reaction Severity Status Toradol Mild Active Zofran Active Reglan Active Medications No data available for this section Results HEMATOLOGY Most recent to 1 oldest [Reference Range]: WBC [4.0-11.0 10.9 x10'3/microL x10'3/microL] (02/09/17 7:13 PM) RBC [3.90-5.60 4.57 x10'6/microL x10'6/microL] (02/09/17 7:13 PM) Hgb [12.0-16.0 g/dL] 11.0 g/dL *LOW* (02/09/17 7:13 PM) Hct [35-47 %] 36 % (02/09/17 7:13 PM) Platelet [140-400 346 x10'3/microL x10'3/microL] (02/09/17 7:13 PM) MCV [81-99 fL] 78 fL *LOW* (02/09/17 7:13 PM) MCH [27-34 pg] 24 pg *LOW* (02/09/17 7:13 PM) MCHC [30-36 g/dL] 31 g/dL (02/09/17 7:13 PM) RDW [<=16.5 %] 22.4 % *HI* (02/09/17 7:13 PM) MPV [6.5-10.4 fL] 10.4 fL (02/09/17 7:13 PM) Neutrophils % [44-76 67 % %] (02/09/17 7:13 PM) Lymphocytes % [13-43 25 % %] (02/09/17 7:13 PM) Monocytes % [0-13 %] 7 % (02/09/17 7:13 PM) Eosinophils % [0-7 1 % %] (02/09/17 7:13 PM) Basophils % [0-3 %] 0 % (02/09/17 7:13 PM) Neutrophils Abs 7.3 x10'3/microL [1.4-7.2 *HI* x10'3/microL] (02/09/17 7:13 PM) Lymphocytes Abs 2.7 x10'3/microL [1.2-3.4 (02/09/17 7:13 PM) x10'3/microL] Monocytes Abs 0.7 x10'3/microL [0.1-0.6 *HI* x10'3/microL] (02/09/17 7:13 PM) Eosinophils Abs 0.1 x10'3/microL [0.0-0.5 (02/09/17 7:13 PM) x10'3/microL] Basophils Abs 0.0 x10'3/microL [0.0-0.2 (02/09/17 7:13 PM) x10'3/microL] CHEMISTRY Most recent to 1 oldest [Reference Range]: Sodium [136-145 142 mmol/L mmol/L] (02/09/17 7:13 PM) Potassium [3.5-5.1 4.2 mmol/L mmol/L] (02/09/17 7:13 PM) Chloride [98-107 109 mmol/L mmol/L] *HI* (02/09/17:13 PM) CO2 [22-29 mmol/L] 20 mmol/L *LOW* (02/09/17:13 PM) AGAP [3-19 mmol/L] 13 mmol/L (02/09/17 7:13 PM) Glucose [70-100 89 mg/dL mg/dL] (02/09/17:13 PM) BUN [8-20 mg/dL] 16 mg/dL (02/09/17 7:13 PM) Creatinine [0.7-1.2 0.6 mg/dL mg/dL] *LOW* (02/09/17:13 PM) Calcium [8.6-10.2 9.0 mg/dL mg/dL] (02/09/17:13 PM) Est CrCL (CG) 107.5 mL/min 1 (02/09/17 7:13 PM) GFR (CKD-EPI) >110.0 mL/min/1.73 m2 2 *NA* (02/09/17 7:13 PM) Albumin Level 4.3 g/dL [3.5-5.2 g/dL] (02/09/17 7:13 PM) Total Protein 7.2 g/dL [6.6-8.7 g/dL] (02/09/17:13 PM) Alk Phos [40-130 103 Inter. Units/L Inter. Units/L] (02/09/17 7:13 PM) Lipase [13-60 63 Units/L Units/L] *HI* (02/09/17:13 PM) AST [0-40 Units/L] 20 Units/L (02/09/17 7:13 PM) ALT(SGPT) [0-33 44 Inter. Units/L Inter. Units/L] *HI* (02/09/17:13 PM) Bili Total [0.0-1.2 <0.2 mg/dL mg/dL] (02/09/17 7:13 PM) 1Result Comment: Estimated Creatinine Clearance calculated [...] mL/min/1.73 m^2 Kidney Failure <15 mL/min/1.73 m^2 Immunizations No data available for this section Procedures No data available for this section Social History No data available for this section Functional Status No data available for this section Assessment and Plan No data available for this section Hospital Discharge Instructions No data available for this section
--- OUTSIDE RECORDS SUMMARY | 2019-08-15 02:46 | XMS REPORT | Summary of Care ---
Author Author [facility] Organization [facility] Address Unknown Phone Unavailable Care Team Providers Care Stationary Engineer Name Role Phone DORETHA QUEZADAWASHINGTON PCP [phone] Encounter [facility] [id number] Date(s): 02/09/17 - 02/09/17 [facility] [address] [address] [phone] Discharge Diagnosis: Rt flank pain Discharge Disposition: [...]
--- OUTSIDE RECORDS SUMMARY | 2019-08-15 02:46 | XMS REPORT | Summary of Care ---
Author Author [facility] Organization [facility] Address Unknown Phone Unavailable Care Team Providers Care Patient Safety Manager Name Role Phone DORETHA QUEZADAWASHINGTON PCP Encounter [facility] [id number] Date(s): 02/09/17 - 02/09/17 [facility] [address] [address] [phone] Discharge Diagnosis: Rt flank pain Discharge Disposition: Home - Attending Physician: JUAN DANIEL HAMM MD, GRISEL E Admitting Physician: JUA NDANIEL HAMM MD, GRISEL E Vital Signs Most [...]
--- OUTSIDE RECORDS SUMMARY | 2019-08-15 02:46 | XMS REPORT | Summary of Care ---
Author Author [facility] Organization [facility] Address Unknown Phone Unavailable Care Team Providers Care Merchandise Presentation Manager Name Role Phone DORETHA QUEZADAWASHINGTON PCP [phone] Encounter [facility] [id number] Date(s): 02/05/17 - 02/05/17 [facility] [address] [place] [address] [phone] Discharge Diagnosis: Back pain Discharge Diagnosis: Hematuria [...] Mild Active Zofran Active Reglan Active Medications Keflex 500 [...]
--- OUTSIDE RECORDS SUMMARY | 2019-08-15 02:46 | XMS REPORT | Summary of Care ---
Author Author [facility] Organization [facility] Address Unknown Phone Unavailable Care Team Providers Care University Extension Specialist Name Role Phone DORETHA QUEZADAWASHINGTON PCP [phone] Encounter [facility] [id number] Date(s): 02/05/17 - 02/05/17 [facility] [address] [place] [address] [phone] Discharge Diagnosis: Back pain Discharge Diagnosis: Hematuria Discharge Disposition: Home - Attending Physician: ASHLYE MORENO MD Admitting Physician: ASHLEY MORENO MD [...]
--- OUTSIDE RECORDS SUMMARY | 2019-08-15 02:46 | XMS REPORT | Summary of Care ---
Author Author [facility] Address Unknown Phone Unavailable Care Team Providers Care I&C Technician Name Role Phone DORETHA QUEZADAWASHINGTON PCP [phone] Encounter [facility] [id number] Date(s): 02/05/17 - 02/05/17 [facility] [address] [facility] [address] [phone] Discharge Diagnosis: Back pain Discharge Diagnosis: Hematuria [...]
--- OUTSIDE RECORDS SUMMARY | 2019-08-15 02:46 | XMS REPORT | Summary of Care ---
Author Author [facility] Organization [facility] Address Unknown Phone Unavailable Care Team Providers Care Lining Marker Name Role Phone DORETHA QUEZADAWASHINGTON PCP Encounter [facility] [id number] Date(s): 02/09/17 - 02/09/17 [facility] [address] [place] [address] [phone] Discharge Diagnosis: Rt flank pain Final: Vomiting, unspecified Final: Unspecified abdominal pain Final: Diarrhea, unspecified Final: Dizziness and giddiness Final: Anxiety disorder, unspecified Final: Personal history of urinary calculi 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, not intractable, with out status epilepticus Discharge Disposition: Home - 01 Attending Physician: JUAN DANIEL HAMM MD, GRISEL [...] PM) Hgb [12.0-16.0 g/dL] 11.0 g/dL *LOW* (02/09/17:13 PM) Hct [35-47 %] 36 % (02/09/17 7:13 PM) Platelet [140-400 346 x10'3/microL x10'3/microL] (02/09/17 7:13 PM) MCV [81-99 fL] 78 fL *LOW* (02/09/17:13 PM) MCH [27-34 pg] 24 pg *LOW* (02/09/17:13 PM) MCHC [30-36 g/dL] 31 g/dL (02/09/17 7:13 PM) RDW [<=16.5 %] 22.4 % *HI* (02/09/17:13 PM) MPV [6.5-10.4 fL] 10.4 fL (02/09/17 7:13 PM) Neutrophils % [44-76 67 % %] (02/09/17:13 PM) Lymphocytes % [13-43 25 % %] (02/09/17 7:13 PM) Monocytes % [0-13 %] 7 % (02/09/17 7:13 PM) Eosinophils % [0-7 1 % %] (02/09/17:13 PM) Basophils % [0-3 %] 0 % (02/09/17:13 PM) Neutrophils Abs 7.3 x10'3/microL [1.4-7.2 *HI* x10'3/microL] (02/09/17 7:13 PM) Lymphocytes Abs 2.7 x10'3/microL [1.2-3.4 (02/09/17 7:13 PM) x10'3/microL] Monocytes Abs 0.7 x10'3/microL [0.1-0.6 *HI* x10'3/microL] (02/09/17 7:13 PM) Eosinophils Abs 0.1 x10'3/microL [0.0-0.5 (02/09/17 7:13 PM) x10'3/microL] Basophils Abs 0.0 x10'3/microL [0.0-0.2 (02/09/17 7:13 PM) x10'3/microL] CHEMISTRY Most recent to 1 oldest [Reference Range]: Sodium [136-145 142 mmol/L mmol/L] (02/09/17:13 PM) Potassium [3.5-5.1 4.2 mmol/L mmol/L] (02/09/17 7:13 PM) Chloride [98-107 109 mmol/L mmol/L] *HI* (02/09/17:13 PM) CO2 [22-29 mmol/L] 20 mmol/L *LOW* (02/09/17:13 PM) AGAP [3-19 mmol/L] 13 mmol/L (02/09/17:13 PM) Glucose [70-100 89 mg/dL mg/dL] (02/09/17:13 PM) BUN [8-20 mg/dL] 16 mg/dL (02/09/17 7:13 PM) Creatinine [0.7-1.2 0.6 mg/dL mg/dL] *LOW* (02/09/17:13 PM) Calcium [8.6-10.2 9.0 mg/dL mg/dL] (02/09/17:13 PM) Est CrCL (CG) 107.5 mL/min 1 (02/09/17 7:13 PM) GFR (CKD-EPI) >110.0 mL/min/1.73 m2 2 *NA* (02/09/17:13 PM) Albumin Level 4.3 g/dL [3.5-5.2 g/dL] (02/09/17 7:13 PM) Total Protein 7.2 g/dL [6.6-8.7 g/dL] (02/09/17:13 PM) Alk Phos [40-130 103 Inter. Units/L Inter. Units/L] (02/09/17 7:13 PM) Lipase [13-60 63 Units/L Units/L] *HI* (02/09/17:13 PM) AST [0-40 Units/L] 20 Units/L (02/09/17 7:13 PM) ALT(SGPT) [0-33 44 Inter. Units/L Inter. Units/L] *HI* (02/09/17 7:13 PM) Bili Total [0.0-1.2 <0.2 mg/dL mg/dL] [...]
--- OUTSIDE RECORDS SUMMARY | 2019-08-15 02:46 | XMS REPORT | Summary of Care ---
Author Author [facility] Organization [facility] Address Unknown Phone Unavailable Care Team Providers Care Clinical Nurse Occupational Medicine Name Role Phone DORETHA QUEZADAWASHINGTON PCP Encounter [facility] [id number] Date(s): 02/09/17 - 02/09/17 [facility] [address] [address] [phone] Discharge Diagnosis: Rt flank pain Discharge Disposition: [...]
--- OUTSIDE RECORDS SUMMARY | 2019-08-15 02:47 | XMS REPORT | Summary of Care ---
Author Author [facility] Organization [facility] Address Unknown Phone Unavailable Care Team Providers Care Public Policy Analyst Name Role Phone DORETHA QUEZADAWASHINGTON PCP Encounter [facility] [id number] Date(s): 02/09/17 - 02/09/17 [facility] [address] [place] [address] [phone] Discharge Diagnosis: Rt flank pain Final: Vomiting, [...]
--- OUTSIDE RECORDS SUMMARY | 2019-08-15 02:47 | XMS REPORT | Summary of Care ---
Author Author [facility] Organization [facility] Address Unknown Phone Unavailable Care Team Providers Care Cash Van Salesperson Name Role Phone DORETHA QUEZADAWASHINGTON PCP Encounter [facility] [id number] Date(s): 04/21/17 - 04/21/17 [facility] [address] [place] [phone]- [phone] Discharge Diagnosis: Abdominal pain Discharge Diagnosis: Nausea Discharge Diagnosis: Hematuria Discharge Disposition: Home - Attending Physician: LISE JURADO MD Admitting Physician: LISE JURADO MD Vital Signs Most recent to 1 oldest [Reference Range]: Temperature 97.0 DegF [96.8-99.7 DegF] (04/21/17 9:20 PM) Temp Method Temporal (04/21/17 9:20 PM) Heart Rate 69 bpm (04/21/17 10:30 PM) Respiratory Rate 21 br/min [14-20 br/min] *HI* (04/21/17 10:30 PM) Blood Pressure 95/62 mmHg [90-180/50-90 mmHg] (04/21/17 10:30 PM) NIBP MAP 73 mmHg (04/21/17 10:30 PM) NIBP MAP Calc 73 (04/21/17 10:30 PM) Problem List No data available for this section Allergies, Adverse Reactions, Alerts Substance Reaction Severity Status metoclopramide Active Toradol Mild Active Zofran Active Reglan Active Medications No data available for this section Results HEMATOLOGY Most recent to 1 oldest [Reference Range]: WBC [4.0-11.0 10.7 x10'3/microL x10'3/microL] (04/21/17 9:37 PM) RBC [3.90-5.60 4.10 x10'6/microL x10'6/microL] (04/21/17 9:37 PM) Hgb [12.0-16.0 g/dL] 11.1 g/dL *LOW* (04/21/17 9:37 PM) Hct [35-47 %] 35 % (04/21/17 9:37 PM) Platelet [140-400 352 x10'3/microL x10'3/microL] (04/21/17 9:37 PM) MCV [81-99 fL] 86 fL (04/21/17 9:37 PM) MCH [27-34 pg] 27 pg (04/21/17 9:37 PM) MCHC [30-36 g/dL] 32 g/dL (04/21/17 9:37 PM) RDW [<=16.5 %] 17.6 % *HI* (04/21/17 9:37 PM) MPV [6.5-10.4 fL] 10.3 fL (04/21/17 9:37 PM) Neutrophils % [44-76 64 % %] (04/21/17 9:37 PM) Lymphocytes % [13-43 28 % %] (04/21/17 9:37 PM) Monocytes % [0-13 %] 7 % (04/21/17 9:37 PM) Eosinophils % [0-7 1 % %] (04/21/17 9:37 PM) Basophils % [0-3 %] 0 % (04/21/17 9:37 PM) Neutrophils Abs 6.8 x10'3/microL [1.4-7.2 (04/21/17 9:37 PM) x10'3/microL] Lymphocytes Abs 3.0 x10'3/microL [1.2-3.4 (04/21/17 9:37 PM) x10'3/microL] Monocytes Abs 0.7 x10'3/microL [0.1-0.6 *HI* x10'3/microL] (04/21/17 9:37 PM) Eosinophils Abs 0.1 x10'3/microL [0.0-0.5 (04/21/17 9:37 PM) x10'3/microL] Basophils Abs 0.0 x10'3/microL [0.0-0.2 (04/21/17 9:37 PM) x10'3/microL] CHEMISTRY Most recent to 1 oldest [Reference Range]: Sodium [136-145 143 mmol/L mmol/L] (04/21/17 9:37 PM) Potassium [3.5-5.1 4.2 mmol/L mmol/L] (04/21/17 9:37 PM) Chloride [98-107 106 mmol/L mmol/L] (04/21/17 9:37 PM) CO2 [22-29 mmol/L] 22 mmol/L (04/21/17 9:37 PM) AGAP [3-19 mmol/L] 15 mmol/L (04/21/17 9:37 PM) Glucose [70-100 89 mg/dL mg/dL] (04/21/17 9:37 PM) BUN [8-20 mg/dL] 18 mg/dL (04/21/17 9:37 PM) Creatinine [0.7-1.2 0.6 mg/dL mg/dL] *LOW* (04/21/17 9:37 PM) Calcium [8.6-10.2 8.8 mg/dL mg/dL] (04/21/17 9:37 PM) GFR (CKD-EPI) >110.0 mL/min/1.73 m2 1 *NA* (04/21/17 9:37 PM) Albumin Level 4.5 g/dL [3.5-5.2 g/dL] (04/21/17 9:37 PM) Total Protein 6.9 g/dL [6.6-8.7 g/dL] (04/21/17 9:37 PM) Alk Phos [40-130 75 Inter. Units/L Inter. Units/L] (04/21/17 9:37 PM) Lipase [13-60 71 Units/L Units/L] *HI* (04/21/17 9:37 PM) AST [0-40 Units/L] 14 Units/L (04/21/17 9:37 PM) ALT(SGPT) [0-33 12 Inter. Units/L Inter. Units/L] (04/21/17 9:37 PM) Bili Total [0.0-1.2 <0.2 mg/dL mg/dL] (04/21/17 9:37 PM) 1Result Comment: GFR calculated based on [...] oldest [Reference Range]: U Preg Test Negative (04/21/17 9:37 PM) URINE Most recent to 1 oldest [Reference Range]: UA Color Straw (04/21/17 9:37 PM) UA pH [5.0-8.0] 5.5 (04/21/17 9:37 PM) UA Spec Grav 1.025 [1.001-1.030] (04/21/17 9:37 PM) UA Glucose [Negative Negative mg/dL mg/dL] (04/21/17 9:37 PM) UA Bili [Negative] Negative (04/21/17 9:37 PM) UA Ketones [Negative Trace mg/dL mg/dL] *ABN* (04/21/17 9:37 PM) UA Blood [Negative] Large *ABN* (04/21/17 9:37 PM) UA Protein [Negative Trace mg/dL mg/dL] *ABN* (04/21/17 9:37 PM) UA Nitrite Negative [Negative] (04/21/17 9:37 PM) UA Leuk Est Positive [Negative] *ABN* (04/21/17 9:37 PM) UA Urobilinogen 0.2 EU per dL [0.2-1.0 EU per dL] (04/21/17 9:37 PM) UA Spec Type Clean Catch (04/21/17 9:37 PM) UA WBC [0-5 /hpf] 6-10 /hpf *ABN* (04/21/17 9:37 PM) UA RBC [0-2 /hpf] >50 /hpf *ABN* (04/21/17 9:37 PM) UA Bacteria Few /hpf [Negative /hpf] *ABN* (04/21/17 9:37 PM) UA Epithelial Negative to Few /hpf [Negative to Few (04/21/17 9:37 PM) /hpf] UA Mucous [None Present Seen] *ABN* (04/21/17 9:37 PM) Microscopic? Yes *ABN* (04/21/17 9:37 PM) Culture? Yes *ABN* (04/21/17 9:37 PM) Immunizations No data available for this section Procedures No data available for this section Social History No data available for this section Functional Status No data available for this section Assessment and Plan No data available for this section Hospital Discharge Instructions No data available for this section
--- OUTSIDE RECORDS SUMMARY | 2019-08-15 02:47 | XMS REPORT | Summary of Care ---
Author [facility] Address Unknown Phone Unavailable Care Team Providers Care Vp Site Name Role Phone DORETHA QUEZADAWASHINGTON PCP Encounter [facility] [id number] Date(s): 02/09/17 - 02/09/17 [facility] [address] [place] [address] [phone] Discharge Diagnosis: Rt flank pain Final: Vomiting, [...]
--- OUTSIDE RECORDS SUMMARY | 2019-08-15 02:47 | XMS REPORT | Summary of Care ---
Author Author [facility] Organization [facility] Address Unknown Phone Unavailable Care Team Providers Care Senior Enterprise Architect Name Role Phone DORETHA QUEZADAWASHINGTON PCP Encounter [facility] [id number] Date(s): 04/21/17 - 04/21/17 [facility] [address] [place] [phone] Discharge Diagnosis: Abdominal pain Discharge Diagnosis: Nausea [...]
--- OUTSIDE RECORDS SUMMARY | 2019-08-15 02:47 | XMS REPORT | Summary of Care ---
Author Author [facility] Organization [facility] Address Unknown Phone Unavailable Care Team Providers Care Mva Operator Name Role Phone SWATIKERWIN QUEZADAWASHINGTON PCP [phone] Encounter [facility] [id number] Date(s): 04/21/17 - 04/21/17 [facility] [address] [place] [phone] Discharge Diagnosis: Abdominal pain Discharge Diagnosis: Nausea Discharge Diagnosis: Hematuria Final: Periumbilical pain Final: Nausea with vomiting, unspecified Final: Nicotine dependence, cigarettes, uncomplicated Final: Hematuria, unspecified Discharge Disposition: Home - 01 Attending Physician: LISE JURADO MD Admitting Physician: [...]
--- OUTSIDE RECORDS SUMMARY | 2019-08-15 02:47 | XMS REPORT | Summary of Care ---
Author Author [facility] Organization [facility] Address Unknown Phone Unavailable Care Team Providers Care Commercial Floor Covering Installer Name Role Phone DORETHA QUEZADAWASHINGTON PCP [phone] Encounter [facility] [id number] Date(s): 02/09/17 - 02/09/17 [facility] [address] [place] [address] [phone] Discharge Diagnosis: Rt flank pain Final: Vomiting, [...]
--- OUTSIDE RECORDS SUMMARY | 2019-08-15 02:47 | XMS REPORT | Summary of Care ---
Author Author [facility] Organization [facility] Address Unknown Phone Unavailable Care Team Providers Care Seismic Engineer Name Role Phone DORETHA QUEZADAWASHINGTON PCP [phone] Encounter [facility] [id number] Date(s): 04/21/17 - 04/21/17 [facility] [address] [place] [phone] Discharge Diagnosis: Abdominal pain Discharge Diagnosis: Nausea [...]
--- OUTSIDE RECORDS SUMMARY | 2019-08-15 02:47 | XMS REPORT | Summary of Care ---
Author Author [facility] Organization [facility] Address Unknown Phone Unavailable Care Team Providers Care Pool Cleaner Name Role Phone SWATIKERWIN QUEZADAWASHINGTON PCP Encounter [facility] [id number] Date(s): 04/21/17 - 04/21/17 [facility] [address] [place] [phone] Discharge Diagnosis: Abdominal pain Discharge Diagnosis: Nausea [...]
--- OUTSIDE RECORDS SUMMARY | 2019-08-15 02:47 | XMS REPORT | Summary of Care ---
Author Author [facility] Organization [facility] Address Unknown Phone Unavailable Care Team Providers Care Gear Coding Machine Operator Name Role Phone DORETHA QUEZADAWASHINGTON PCP [phone] Encounter [facility] [id number] Date(s): 02/09/17 - 02/09/17 [facility] [address] [place] [email or web address] [phone] Discharge Diagnosis: Rt flank pain Final: Vomiting, [...]
--- OUTSIDE RECORDS SUMMARY | 2019-08-15 02:47 | XMS REPORT | Summary of Care ---
Author Author [facility] Organization [facility] Address Unknown Phone Unavailable Care Team Providers Care Global Implementation Manager Name Role Phone DORETHA QUEZADAWASHINGTON PCP [phone] Encounter [facility] [id number] Date(s): 04/21/17 - 04/21/17 [facility] [address] [place] [phone]- [phone] Discharge Diagnosis: Abdominal pain Discharge Diagnosis: Nausea [...]
--- OUTSIDE RECORDS SUMMARY | 2019-08-15 02:47 | XMS REPORT | Summary of Care ---
Author Author [facility] Address Unknown Phone Unavailable Care Team Providers Care Pharmacology Associate Name Role Phone DORETHA QUEZADAWASHINGTON PCP Encounter [facility] [id number] Date(s): 04/21/17 - 04/21/17 [facility] [address] [place] [phone] Discharge Diagnosis: Abdominal pain Discharge Diagnosis: Nausea [...]
--- OUTSIDE RECORDS SUMMARY | 2019-08-15 02:47 | XMS REPORT | Summary of Care ---
Author Author [facility] Organization [facility] Address Unknown Phone Unavailable Care Team Providers Care Film Casting Operator Name Role Phone DORETHA QUEZADAWASHINGTON PCP Encounter [facility] [id number] Date(s): 02/09/17 - 02/09/17 [facility] [address] [place] [address] [phone] Discharge Diagnosis: Rt flank pain Final: Vomiting, [...]
--- OUTSIDE RECORDS SUMMARY | 2019-08-15 02:47 | XMS REPORT | Summary of Care ---
Author Author [facility] Organization [facility] Address Unknown Phone Unavailable Care Team Providers Care Warehouse Hand Name Role Phone DORETHA QUEZADAWASHINGTON PCP Encounter [facility] [phone] Date(s): 02/05/17 - 02/05/17 [facility] [address] [place] [id number] [phone] Discharge Diagnosis: Back pain Discharge Diagnosis: Hematuria [...]
--- OUTSIDE RECORDS SUMMARY | 2019-08-15 02:47 | XMS REPORT | Summary of Care ---
Author Author [facility] Organization [facility] Address Unknown Phone Unavailable Care Team Providers Care Water Aerobics Instructor Name Role Phone DORETHA QUEZADAWASHINGTON PCP Encounter [facility] [id number] Date(s): 02/05/17 - 02/05/17 [facility] [address] [place] [id number] [phone] Discharge Diagnosis: Back pain Discharge Diagnosis: Hematuria [...]
--- OUTSIDE RECORDS SUMMARY | 2019-08-15 02:47 | XMS REPORT | Summary of Care ---
Author Author [facility] Organization [facility] Address Unknown Phone Unavailable Care Team Providers Care Equipment Washer Name Role Phone DORETHA QUEZADAWASHINGTON PCP Encounter [facility] [phone] Date(s): 02/05/17 - 02/05/17 [facility] [address] [place] [id number] [phone] Discharge Diagnosis: Back pain Discharge Diagnosis: Hematuria [...]
--- OUTSIDE RECORDS SUMMARY | 2019-08-15 02:48 | XMS REPORT | Continuity of Care Document ---
Author Author [employer] [facility] [employer] Address Unknown Phone Unavailable Care Team Providers Care Tugger Operator Name Role Phone [facility] Unavailable Unavailable Problems Problem Status Onset Date Classification Date Reported Comments Source VOMITING, UNSPECIFIED Active 02/09/2017 [facility] [place] UNSPEC[place] ABDOMINAL PAIN Act tricia 02/09/2017 [facility] DIARRHEA, UNSPECIFIED Active 02/09/2017 [facility] DIZZINESS AND GIDDINESS Active 02/09/2017 [facility] ANXIETY DISORDER, UNSPECIFIED Active 02/09/2017 [facility] PERSONAL HISTORY OF URINARY CALCULI Active 02/09/2017 [facility] OTHER GENERALIZED EPILEPSY AND EPILEPTIC Active 02/09/2017 [facility] RIGHT LOWER QUADRANT PAIN Acti ve 02/05/2017 [facility] LOW BACK PAIN Active 02/05/2017 [facility] OTHER SPECIFIED BACTERIAL AGENTS THE Active 02/05/2017 [facility] CALCULUS OF KIDNEY Active 02/05/2017 [facility] OTHER MICROSCOPIC HEMATURIA Ac tive 11/11/2016 [facility] Right lower quadrant pain 11/11/2016 Discharge Diagnosis 11/21/2016 [facility] Other microscopic hematuria 11/11/2016 Discharge Diagnosis 11/21/2016 [facility] PNEUMONIA, UNSPECIFIED ORGANISM Active 10/10/2016 [facility] SOLITARY PULMONARY NODULE Acti ve 10/10/2016 [facility] UMBILICAL HERNIA WITHOUT OBSTRUCTION OR Active 10/10/2016 [facility] ENCOUNTER FOR ISSUE OF REPEAT PRESCRIPTI Active 10/10/2016 [facility] Unspecified abdominal pain 10/10/2016 Discharge Diagnosis 10/20/2016 [facility] Calculus of kidney 10/10/2016 Discharge Diagnosis 10/20/2016 [facility] Pneumonia, unspecified organism 10/10/2016 Discharge Diagnosis 10/20/2016 [facility] Solitary pulmonary nodule 10/10/2016 Discharge Diagnosis 10/20/2016 [facility] Epilepsy, unspecified, not intractable, without status epilepticus 10/10/2016 Discharge Diagnosis 10/20/2016 [facility] Encounter for issue of repeat prescription 10/10/2016 Discharge Diagnosis 10/20/2016 [facility] Other microscopic hematuria Final 11/21/2016 [facility] Nausea with vomiting, unspecified Final 11/21 [facility] Personal history of urinary calculi Final 11/21 [facility] Low back pain Final 11/21/2016 [facility] Other generalized epilepsy and epileptic syndromes, not intractable, without status epilepticus Final 11/21/2016 [facility] Right lower quadrant pain Final 11/21/2016 [facility] Calculus of kidney Final 11/21/2016 [facility] Pneumonia, unspecified organism Final 10/20 [facility] Solitary pulmonary nodule Final 10/20/2016 [facility] Other specified bacterial agents as the cause of diseases classified elsewhere Final 10/20/2016 [facility] Umbilical hernia without obstruction or gangrene Final 10/20/2016 [facility] Encounter for issue of repeat prescription Final 10/20 [facility] Medications Medication Details Route Status Patient Instructions Ordering Provider Order Date Source Phenergan 25 mg oral tablet 25 mg =, PO, Q4H (Every 4 hours), PRN Nausea/Vomiting, # 10 TAB, 0 Refill(s), Indication: Nausea/Vomiting Active 11/12/2016 [facility] Naproxen 500 MG Oral Tablet [Naprosyn] 500 mg =, PO, BID (2 times a day), # 30 TAB, 0 Refill(s), Indication: Inflammation Active 11/12/2016 [facility] Acetaminophen 325 MG / Hydrocodone Harjeet trate 5 MG Oral Tablet [[place] 5/325] 1 TAB, PO, Q4H (Every 4 hours), PRN Pain , X 3 day, # 18 TAB, 0 Refill(s), KATHERINE RENEE QUZEADA, Indication: Moderate Pain Active 10/11/2016 [facility] {6 (Azithromycin 250 MG Oral Tablet [Zit hromax]) } Pack [Z-PAKS] 1 TAB, PO, Daily, X 5 day, # 1 pack, 0 R efill(s), Take 2 tablets on Day 1, then 1 tablet daily., Indication: Bacterial Infection Active 10/11/2016 [facility] Allergies, Adverse Reactions, Alerts Substance Category Reaction Severity Reaction type Status Date Reported Comments Source Reglan Assertion Drug allergy Active [facility] Zofran Assertion Drug allergy Active [facility] Immunizations No Data Provided for This Section Results Order Name Results Value Reference Range Date Interpretation Comments Source Renal Funct Index GFR (CKD-EPI) >110.0 mL/min/1.73 m2 02/09/2017 NA GFR calculated based on CKD -EPI Creatinine Equation (2009).
Age(years) Average GFR
20-29 116 mL/min/1.73 m^2
30-39 107 mL/min/1.73 m^2
40-49 99 mL/min/1.73 m^2
50-59 93 mL/min/1.73 m^2
60-69 85 mL/min/1.73 m^2
70+ 75 mL/min/1.73 m^2

Acceptable GFR =>60 mL/min/1.73 m^2
Chronic Kidney Disease <60 mL/min/1.73 m^2
Kidney Failure <15 mL/min/1.73 m^2
[facility] CMP Sodium 142 mmol/L 136 - 145 02/09/2017 N [facility] CMP Potassium 4.2 mmol/L 3.5 - 5.1 02/09/2017 N [facility] CMP Chloride 109 mmol/L 98 - 107 02/09/2017 H [facility] CMP CO2 20 mmol/L 22 - 29 02/09/2017 L [facility] [place] CMP AGAP 13 mmol/L 3 - 19 02/09/2017 N [facility] [place] CMP Glucose 89 mg/dL 70 - 100 02/09/2017 N [facility] [place] CMP BUN 16 mg/dL 8 - 20 02/09/2017 N [facility] [place] CMP Creatinine 0.6 mg/dL 0.7 - 1.2 02/09/2017 L [facility] CMP Calcium 9.0 mg/dL 8.6 - 10.2 02/09/2017 [facility] C[facility] Total Protein 7.2 g/dL 6.6 - 8.7 02/09/2017 N [facility] CMP Albumin Level 4.3 g/dL 3.5 - 5.2 02/09/2017 N [facility] CMP Bili Total <0.2 mg/dL 0.0 - 1.2 02/09/2017 N Samples containing indocyanine green mus t not be measured.
[facility] CMP Alk Phos 103 Inter. U nits/L 40 - 130 02/09/2017 N [facility] CMP AST 20 Units/L 0 - 40 02/09/2017 N [facility] CMP ALT(SGPT) 44 Inter. Un its/L 0 - 33 02/09/2017 H [facility] Lipase Lipase 63 Units/L 13 - 60 02/09/2017 H [facility] Auto Diff Neutrophils 67 % 44 - 76 02/09/2017 N [facility] Auto Diff Lymphocytes % 25 % 13 - 43 02/09/2017 N [facility] Auto Diff Monocytes % 7 % 0 - 13 02/09/2017 N [facility] Auto Diff Eosinophils % 1 % 0 - 7 02/09/[address] [facility] [place] Auto Diff Basophils % 0 % 0 - 3 02/09/2017 N [facility] Auto Diff Neutro Absolute 7.3 x1 0'3/microL 1.4 - 7.2 02/09/2017 H [facility] Auto Diff Lymph Absolute 2.7 x1 0'3/microL 1.2 - 3.4 02/09/2017 N [facility] [place] Auto Diff [place] Absolute 0.7 x1 0'3/microL 0.1 - 0.6 02/09/2017 H [facility] [place] Auto Diff Eos Absolute 0.1 x1 0'3/microL 0.0 - 0.5 02/09/2017 N [facility] [place] Auto Diff Basophil Absolute 0.0 x1 0'3/microL 0.0 - 0.2 02/09/2017 N [facility] [place] CBC/Diff WBC 10.9 x10'3/micr oL 4.0 - 11.0 02/09/2017 N [facility] [place] CBC/Diff RBC 4.57 x10'6/micr oL 3.90 - 5.60 02/09/2017 N [facility] CBC/Diff Hgb 11.0 g/dL 12.0 - 16.0 02/09/2017 [facility] CBC/Diff Hct 36 % 35 - 47 02/09/2017 [facility] CBC/Diff MCV 78 fL 81 - 99 02/09/2017 [facility] CBC/Diff MCH 24 pg 27 - 34 02/09/2017 L [facility] CBC/Diff MCHC 31 g/dL 30 - 36 02/09/2017 N [facility] CBC/Diff RDW 22.4 % - <=16.5 02/09/2017 [facility] CBC/Diff Platelet 346 x10 '3/microL 140 - 400 02/09/2017 N [facility] CBC/Diff MPV 10.4 fL 6.5 - 10.4 02/09/2017 N [facility] [place] Liver Fx ALT(SGPT) 50 Inte r. Units/L 0 - 33 02/05/2017 H [facility] Fx AST 25 Units/L 0 - 40 02/05/2017 N [facility] Liver Fx Total Protein 7.4 g/d L 6.6 - 8.7 02/05/2017 N [facility] Liver Fx Albumin Level 4.3 g/d L 3.5 - 5.2 02/05/2017 N [facility] Liver Fx Alk Phos 104 Int er. Units/L 40 - 130 02/05/2017 N [facility] Liver Fx Bili Total <0.2 mg/dL 0.0 - 1.2 02/05/2017 N Samples containing indocyanine green mus t not be measured.
[facility] Liver Fx Bili Direct <0.2 mg /dL 0.0 - 0.3 02/05/2017 N Samples containing indocyanine green mus t not be measured.
[facility] Renal Funct Index GFR (CKD-EPI) >110.0 mL/min/1.73 m2 02/05/2017 NA GFR calculated based on CKD -EPI Creatinine Equation (2009).
Age(years) Average GFR
20-29 116 mL/min/1.73 m^2
30-39 107 mL/min/1.73 m^2
40-49 99 mL/min/1.73 m^2
50-59 93 mL/min/1.73 m^2
60-69 85 mL/min/1.73 m^2
70+ 75 mL/min/1.73 m^2

Acceptable GFR =>60 mL/min/1.73 m^2
Chronic Kidney Disease <60 mL/min/1.73 m^2
Kidney Failure <15 mL/min/1.73 m^2
[facility] BMP Sodium 141 mmol/L 136 - 145 02/05/2017 N [facility] BMP Potassium 3.7 mmol/L 3.5 - 5.1 02/05/2017 N [facility] BMP Chloride 107 mmol/L 98 - 107 02/05/2017 N [facility] BMP CO2 20 mmol/L 22 - 02/05/2017 L [facility] BMP AGAP 14 mmol/L 3 - 19 02/05/2017 N [facility] BMP Glucose 103 mg/dL 70 - 100 02/05/2017 H [facility] BMP BUN 8 mg/dL 8 - 02/05/2017 N [facility] [place] BMP Creatinine 0.4 mg/dL 0.7 - 1.2 02/05/2017 L [facility] [place] BMP Calcium 8.8 mg/dL 8.6 - 10.2 02/05/2017 N [facility] [place] Lipase Lipase 80 Units/L 13 - 60 02/05/2017 H [facility] [place] Auto Diff Neutrophils 72 % 44 - 76 02/05/2017 N [facility] [place] Auto Diff Lymphocytes % 20 % 13 - 43 02/05/2017 N [facility] [place] Auto Diff Monocytes % 6 % 0 - 13 02/05/2017 N [facility] [place] Auto Diff Eosinophils % 1 % 0 - 7 02/05/2017 N [facility] [place] Auto Diff Basophils % 1 % 0 - 3 02/05/2017 N [facility] [place] Auto Diff Neutro Absolute 7.8 x1 0'3/microL 1.4 - 7.2 02/05/2017 H [facility] [place] Auto Diff Lymph Absolute 2.2 x1 0'3/microL 1.2 - 3.4 02/05/2017 N [facility] [place] Auto Diff [place] Absolute 0.7 x1 0'3/microL 0.1 - 0.6 02/05/2017 H [facility] [place] Auto Diff Eos Absolute 0.1 x1 0'3/microL 0.0 - 0.5 02/05/2017 N [facility] [place] Auto Diff Basophil Absolute 0.1 x1 0'3/microL 0.0 - 0.2 02/05/2017 N [facility] [place] CBC/Diff WBC 10.9 x10'3/micr oL 4.0 - 11.0 02/05/2017 N [facility] [place] CBC/Diff RBC 5.10 x10'6/micr oL 3.90 - 5.60 02/05/2017 N [facility] [place] CBC/Diff Hgb 12.2 g/dL 12.0 - 16.0 02/05/2017 N [facility] [place] CBC/Diff Hct 39 % 35 - 47 02/05/2017 N [facility] [place] CBC/Diff MCV 77 fL 81 - 99 02/05/2017 L [facility] [place] CBC/Diff MCH 24 pg 27 - 34 02/05/2017 L [facility] [place] CBC/Diff MCHC 31 g/dL 30 - 36 02/05/2017 N [facility] [place] CBC/Diff RDW 21.7 % - <=16.5 02/05/2017 H [facility] [place] CBC/Diff Platelet 445 x10 '3/microL 140 - 400 02/05/2017 H [facility] [place] CBC/Diff MPV 10.0 fL 6.5 - 10.4 02/05/2017 [facility] CI Culture? No 02/05/2017 N [facility] [place] Ur Micro - [place] UA RBC >50 /hpf 0-2 02/05/2017 @ [facility] [place] Ur Micro - [place] UA WBC 0-5 /hpf 0-5 02/05/2017 [facility] Ur Micro - [place] UA Epithelial Mo derate /hpf Negative to Few 02/05/2017 @ [facility] [employer] Ur Micro - [place] UA Bacteria Mo derate /hpf Negative 02/05/2017 @ [facility] [place] [employer] Ur Micro - [place] UA Mucous Pr esent None Seen 02/05/2017 @ [facility] [place] U Preg U Preg Test Negative 02/05/2017 N [facility] [place] [employer] UA CI UA Spec Type Clean Catc h 02/05/2017 [facility] UA CI UA Color STRAW 02/05/2017 N [facility] [place] UA CI UA Glucose NEGATIVE m g/dL Negative 02/05/2017 [facility] UA CI UA Bili NEGATIVE Negative 02/05/2017 [facility] UA CI UA Ketones NEGATIVE m g/dL Negative 02/05/2017 [facility] UA CI UA Spec Grav 1.020 1.001 - 1.030 02/05/2017 [facility] UA CI UA pH 6.0 5.0 - 8.0 02/05/2017 [facility] UA CI UA Protein NEGATIVE m g/dL Negative 02/05/2017 [facility] UA CI UA Urobilinogen 0.2 EU per dL 0.2 - 1.0 02/05/2017 N [facility] UA CI UA Nitrite NEGATIVE Negative 02/05/2017 N [facility] UA CI UA Blood LARGE Negative 02/05/2017 @ [facility] UA CI UA Leuk Est TRACE Negative 02/05/2017 N [facility] UA CI Microscopic? Yes 02/05/2017 @ When result = No, Microscopic is not indicated. Specimen is held for 3 days. Call [phone] if further testing is needed.
[facility] Ur Micro - [place] UA RBC 3-10 /hpf 0-2 11/11/2016 @ [facility] Ur Micro - [place] UA Epithelial NE G/Few /hpf Negative to Few 11/11/2016 N [facility] Ur Micro - [place] UA Mucous Pr esent None Seen 11/11/2016 @ [facility] Renal Funct Index GFR (CKD-EPI) >110.0 mL/min/1.73 m2 11/11/2016 NA GFR calculated based on CKD -EPI Creatinine Equation (2009).
Age(years) Average GFR
20-29 116 mL/min/1.73 m^2
30-39 107 mL/min/1.73 m^2
40-49 99 mL/min/1.73 m^2
50-59 93 mL/min/1.73 m^2
60-69 85 mL/min/1.73 m^2
70+ 75 mL/min/1.73 m^2

Acceptable GFR =>60 mL/min/1.73 m^2
Chronic Kidney Disease <60 mL/min/1.73 m^2
Kidney Failure <15 mL/min/1.73 m^2
[facility] BMP Sodium 139 mmol/L 136 - 145 11/11/2016 N [facility] BMP Potassium 4.4 mmol/L 3.5 - 5.1 11/11/2016 N [facility] BMP Chloride 102 mmol/L 98 - 107 11/11/2016 N [email or web address] BMP CO2 23 mmol/L 22 - 29 11/11/2016 N [email or web address] [place] BMP AGAP 14 mmol/L 3 - 19 11/11/2016 [facility] BMP Glucose 94 mg/dL 70 - 100 11/11/2016 N [email or web address] [place] BMP BUN 13 mg/dL 8 - 20 11/11/2016 N [facility] BMP Creatinine 0.6 mg/dL 0.7 - 1.2 11/11/2016 L The presence of ketone bodies can cause artificially high results in serum, plasma and urine.
[employer] BMP Calcium 8.5 mg/dL 8.6 - 10.2 11/11/2016 [facility] UA CI UA Spec Type Clean Catc h 11/11/2016 N [employer] UA CI UA Color YELLOW 11/11/2016 N [employer] UA CI UA Glucose NEGATIVE m g/dL Negative 11/11/2016 N [employer] UA CI UA Bili SMALL Negative 11/11/2016 N [employer] UA CI UA Ketones NEGATIVE m g/dL Negative 11/11/2016 N [employer] UA CI UA Spec Grav 1.020 1.001 - 1.030 11/11/2016 N [employer] UA CI UA pH 6.5 5.0 - 8.0 11/11/2016 N [employer] UA CI UA Protein NEGATIVE m g/dL Negative 11/11/2016 N [employer] UA CI UA Urobilinogen 0.2 EU per dL 0.2 - 1.0 11/11/2016 N [employer] UA CI UA Nitrite NEGATIVE Negative 11/11/2016 N [employer] UA CI UA Blood SMALL Negative 11/11/2016 @ [employer] UA CI UA Leuk Est TRACE Negative 11/11/2016 N [employer] UA CI Culture? No 11/11/2016 N [employer] UA CI Microscopic? Yes 11/11/2016 @ When result = No, Microscopic is not indicated. Specimen is held for 3 days. Call [phone] if further testing is needed.
[facility] [place] U Preg U Preg Test Negative 11/11/2016 N [facility] [place] Auto Diff Neutrophils 65 % 44 - 76 11/11/2016 N [facility] Auto Diff Lymphocytes % 26 % 13 - 43 11/11/2016 N [facility] [place] Auto Diff Monocytes % 7 % 0 - 13 11/11/2016 N [facility] [place] Auto Diff Eosinophils % 2 % 0 - 7 11/11/2016 N [facility] [place] Auto Diff Basophils % 1 % 0 - 3 11/11/2016 N [facility] [place] Auto Diff Immature Granulocytes % 0 % 0 - 0 11/11/2016 N [facility] [place] Auto Diff Neutro Absolute 7.2 x1 0'3/microL 1.4 - 7.2 11/11/2016 N [facility] [place] Auto Diff Lymph Absolute 2.8 x1 0'3/microL 1.2 - 3.4 11/11/2016 N [facility] [place] Auto Diff [place] Absolute 0.8 x1 0'3/microL 0.1 - 0.6 11/11/2016 H [facility] [place] Auto Diff Eos Absolute 0.2 x1 0'3/microL 0.0 - 0.5 11/11/2016 N [facility] [place] Auto Diff Basophil Absolute 0.1 x1 0'3/microL 0.0 - 0.2 11/11/2016 N [facility] [place] Auto Diff Immature Grans Abs 0.0 x1 0'3/microL 0.0 - 0.0 11/11/2016 N [facility] [place] CBC/Diff WBC 11.1 x10'3/micr oL 4.0 - 11.0 11/11/2016 H [facility] [place] CBC/Diff RBC 4.01 x10'6/micr oL 3.90 - 5.60 11/11/2016 N [facility] [place] CBC/Diff Hgb 9.4 g/dL 12.0 - 16.0 11/11/2016 L [facility] [place] CBC/Diff Hct 31 % 35 - 47 11/11/2016 L [facility] [place] CBC/Diff MCV 77 fL 81 - 99 11/11/2016 L [facility] CBC/Diff MCH 23 pg 27 - 34 11/11/2016 L [facility] CBC/Diff MCHC 30 g/dL 30 - 36 11/11/2016 N [facility] CBC/Diff RDW 17.3 % - <=16.4 11/11/2016 H [facility] CBC/Diff Platelet 371 x10 '3/microL 140 - 400 11/11/2016 N [facility] CBC/Diff MPV 11.5 fL 6.5 - 10.4 11/11/2016 H [facility] Renal Funct Index GFR (CKD-EPI) >110.0 mL/min/1.73 m2 10/10/2016 NA GFR calculated based on CKD -EPI Creatinine Equation (2009).
Age(years) Average GFR
20-29 116 mL/min/1.73 m^2
30-39 107 mL/min/1.73 m^2
40-49 99 mL/min/1.73 m^2
50-59 93 mL/min/1.73 m^2
60-69 85 mL/min/1.73 m^2
70+ 75 mL/min/1.73 m^2

Acceptable GFR =>60 mL/min/1.73 m^2
Chronic Kidney Disease <60 mL/min/1.73 m^2
Kidney Failure <15 mL/min/1.73 m^2
[facility] [place] [facility] BMP Sodium 139 mmol/L 136 - 145 10/10/2016 N [facility] [place] BMP Potassium 4.1 mmol/L 3.5 - 5.1 10/10/2016 N [facility] BMP Chloride 104 mmol/L 98 - 107 10/10/2016 N [facility] BMP CO2 18 mmol/L 22 - 29 10/10/2016 L [facility] BMP AGAP 17 mmol/L 3 - 19 10/10/2016 N [facility] BMP Glucose 91 mg/dL 70 - 100 10/10/2016 N [facility] [place] BMP BUN 13 mg/dL 8 - 20 10/10/2016 N [facility] BMP Creatinine 0.4 mg/dL 0.7 - 1.2 10/10/2016 L The presence of ketone bodies can cause artificially high results in serum, plasma and urine.
[facility] [place] BMP Calcium 9.1 mg/dL 8.6 - 10.2 10/10/2016 N [facility] [place] Auto Diff Neutrophils 74 % 44 - 76 10/10/2016 N [facility] Auto Diff Lymphocytes % 20 % 13 - 43 10/10/2016 N [facility] Auto Diff Monocytes % 5 % 0 - 13 10/10/2016 N [facility] Auto Diff Eosinophils % 0 % 0 - 7 10/10/2016 N [facility] Auto Diff Basophils % 0 % 0 - 3 10/10/2016 N [facility] Auto Diff Immature Granulocytes % 0 % 0 - 0 10/10/2016 N [facility] Auto Diff Neutro Absolute 7.9 x1 0'3/microL 1.4 - 7.2 10/10/2016 H [facility] Auto Diff Lymph Absolute 2.2 x1 0'3/microL 1.2 - 3.4 10/10/2016 N [facility] Auto Diff [place] Absolute 0.5 x1 0'3/microL 0.1 - 0.6 10/10/2016 N [facility] Auto Diff Eos Absolute 0.0 x1 0'3/microL 0.0 - 0.5 10/10/2016 N [facility] Auto Diff Basophil Absolute 0.0 x1 0'3/microL 0.0 - 0.2 10/10/2016 N [facility] [place] Auto Diff Immature Grans Abs 0.0 x1 0'3/microL 0.0 - 0.0 10/10/2016 N [facility] [place] CBC/Diff WBC 10.7 x10'3/micr oL 4.0 - 11.0 10/10/2016 N [facility] [place] [facility] CBC/Diff RBC 4.40 x10'6/micr oL 3.90 - 5.60 10/10/2016 N [facility] [place] [facility] CBC/Diff Hgb 9.8 g/dL 12.0 - 16.0 10/10/2016 L [facility] [place] [facility] CBC/Diff Hct 33 % 35 - 47 10/10/2016 L [facility] [place] [facility] CBC/Diff MCV 75 fL 81 - 99 10/10/2016 L [facility] [place] [facility] CBC/Diff MCH 22 pg 27 - 34 10/10/2016 L [facility] [place] Wheeler CBC/Diff MCHC 30 g/dL 30 - 36 10/10/2016 N [facility] [place] Wheeler CBC/Diff RDW 17.2 % - <=16.4 10/10/2016 H [facility] [place] Wheeler CBC/Diff Platelet 445 x10 '3/microL 140 - 400 10/10/2016 H [facility] [place] Wheeler CBC/Diff MPV 10.6 fL 6.5 - 10.4 10/10/2016 H [facility] [place] Ur Micro - [place] UA RBC >50 /hpf 0-2 10/10/2016 @ [facility] [place] [facility] Ur Micro - [place] UA WBC 0-5 /hpf 0-5 10/10/2016 N [facility] [place] Ur Micro - NC UA Epithelial Fe w /hpf Negative to Few 10/10/2016 N [facility] [place] [facility] Ur Micro - [place] UA Bacteria Fe w /hpf Negative 10/10/2016 @ [facility] [place] [facility] Ur Micro - [place] UA Mucous Pr esent None Seen 10/10/2016 @ [facility] [place] [facility] Ur Micro - [place] UA Amorphous Crystals Present None Seen 10/10/2016 @ [facility] [place] UA CI UA Spec Type Clean Catc h [facility]10[facility] UA Color DK YELLOW 10/10/2016 N [facility] [place] UA CI UA Glucose NEGATIVE m g/dL Negative 10/10/2016 [facility] UA Bili SMALL Negative 10/10/2016 N [facility] [place] [facility] UA CI UA Ketones >=80 mg/dL Negative 10/10/2016 @ [facility] Spec Grav >=1.030 1.001 - 1.030 10/10/2016 N [facility] UA CI UA pH 6.0 5.0 - 8.0 10/10/2016 N [facility] UA CI UA Protein 30 mg/dL Negative 10/10/2016 @ [facility] UA CI UA Urobilinogen 0.2 EU per dL 0.2 - 1.0 10/10/2016 N [facility] UA CI UA Nitrite NEGATIVE Negative 10/10/2016 N [facility] UA CI UA Blood LARGE Negative 10/10/2016 @ [facility] UA CI UA Leuk Est SMALL Negative 10/10/2016 @ [facility] UA CI Culture? Yes 10/10/2016 @ [facility] UA CI Microscopic? Yes 10/10/2016 @ When result = No, Microscopic is not indicated. Specimen is held for 3 days. Call [phone] if further testing is needed.
[facility] C Urine C Urine
[facility]
[address]
[place] [address]

M i c r o b i o l o g y

PROCEDURE: Culture Urine
SOURCE: Urine COLLECTED: 10/10/2016 17:28 HYDROELECTRIC COMPONENT MACHINIST
BODY SITE: RECEIVED: 10/10/2016 21:03 HYDROELECTRIC COMPONENT MACHINIST
FREE TEXT SOURCE: STARTED: 10/10/2016 21:03 HYDROELECTRIC COMPONENT MACHINIST

FINAL REPORT

Final Report
Verified:10/11/2016 16:06 HYDROELECTRIC COMPONENT MACHINIST
No growth (<1,000 cfu/ml)

ORDER COMMENTS
UA Spec Type: Clean Catch

10/11/2016 06:45 HYDROELECTRIC COMPONENT MACHINIST Culture Urine:
Test Performed at [facility], [address],
[place] [address].

10/10/2016 [facility] Pathology Reports No Data Provided for This Section Diagnostic Reports Report Value Date Source CT Abdomen Stone WO Pelvis Stone WO Cont [address] [address] Radiology Reports CPT Codes: 66969 CDM Codes: 7831802 (CT Abdomen Stone WO Pelvis Stone WO Cont) Reason for exam: right flank pain and hemauria Report CT ABDOMEN AND PELVIS WITHOUT ORAL OR IV CONTRAST INDICATION: Right flank pain hematuria COMPARISON: Renal stone CT November 11, 2016 PROCEDURE: Routine CT scan of the abdomen and pelvis was performed without contrast. Automated exposure control (AEC) dose reduction technique was used. CT ABDOMEN: The lung bases are clear. No pleural or pericardial effusion is present. Unenhanced images of the liver and spleen are grossly normal. The gallbladder is surgically absent. The pancreas and adrenal glands are unremarkable. The kidneys are normal in size and position. There are small bilateral nonobstructing renal calculi unchanged from previous study. There is no hydronephrosis or hydroureter. No abdominal adenopathy or free fluid is seen. No thickened or dilated bowel loops are identified. CT PELVIS: The distal ureters and urinary bladder are normal. The uterus is unremarkable. No pelvic adenopathy or free fluid is seen. No thickened or dilated bowel loops are identified. The appendix is normal. IMPRESSION: 1. No acute abnormality is identified. 2. Tiny bilateral nonobstructing renal calculi are unchanged. No ureteral calculi are identified. There is no hydronephrosis or hydroureter. 3. Normal appendix. 4. Cholecystectomy. Please note: Non-contrast CT has significantly decreased sensitivity and specificity for pathology other than obstructive uropathy. A contrast enhanced CT should be considered if these results are discordant with clinical findings. GOKUL LOCKWOOD [id number] Radiology Reports Dictating Shahab Watkins Dictated 02/05/2017 14:14 Signing Shahab Watkins Location [id number] Final Transcribed by: KASSIDY 02/05/17 14:17 Signed by: SHAHAB BARRETT MD 02/05/17 14:17 02/05/2017 [facility] CT Abdomen Stone WO Pelvis Stone WO Cont [facility] [address] [address] Radiology Reports CPT Codes: 85862 CDM Codes: 3709217 (CT Abdomen Stone WO Pelvis Stone WO Cont) Reason for exam: R flank pain Report CT ABDOMEN AND PELVIS WITHOUT CONTRAST. CLINICAL HISTORY: Right flank pain. TECHNIQUE: Multiple contiguous axial CT images of the abdomen and pelvis were obtained without contrast. Automated exposure control (AEC) dose reduction technique was utilized. Comparison to the CT abdomen and pelvis from 10/10/2016. FINDINGS: CT ABDOMEN FINDINGS: The lung bases are clear. The small nodular opacity previously seen in the left lung base has resolved. The gallbladder is surgically absent. The unopacified liver, spleen, pancreas and adrenal glands are normal. There are two tiny nonobstructing 1-2 mm right renal calculi. Assessment is suboptimal of both kidneys due to patient movement. There is no hydronephrosis or ureteral calculus. There is no bowel obstruction, lymphadenopathy or ascites. There is no aortic aneurysm. CT PELVIS FINDINGS: There is no distal ureteral or urinary bladder calculus. Mild free pelvic fluid is likely physiologic. The unopacified ovaries and uterus appear unremarkable. There is no appendicitis. There is no bowel inflammation or obstruction identified. There is no acute osseous abnormality. IMPRESSION: GOKUL LOCKWOOD [id number] Radiology Reports 1. No evidence of obstructing urinary tract calculus or hydronephrosis. 2-3 punctate 1-2 mm nonobstructing right renal calculi. No ureteral calculus. 2. Normal appendix. Dictating Pilar Rodriguez Dictated 11/11/2016 20:57 Signing Pilar Rodriguez Location RAD8 Final Transcribed by: JJJ 11/11/16 21:02 Signed by: PILAR BARR MD 11/11/16 21:03 11/11/2016 [facility] CT Abdomen Stone WO Pelvis Stone WO Cont [facility] [address] [address] Radiology Reports CPT Codes: 12032 CDM Codes: [id number] (CT Abdomen Stone WO Pelvis Stone WO Cont) Reason for exam: FLANK PAIN Report CT ABDOMEN and PELVIS RENAL STONE STUDY without CONTRAST CLINICAL DATA: Abdominal and flank pain. COMPARISON: None available TECHNIQUE: CT imaging was performed according to standard protocol. Automated exposure control (AEC) dose reduction technique was utilized. ABDOMEN FINDINGS: Ill-defined opacities in the left lower lobe which have a nodular configuration and measure up to approximately 9 mm likely due to infectious or inflammatory pneumonitis. Recommend three month followup chest CT without contrast. The heart size is normal. Limited evaluation of solid organs without intravenous contrast. The liver is normal in size. No focal hepatic lesion is seen. Prior cholecystectomy. The pancreas is unremarkable. The spleen appears normal. The adrenal glands appear normal. Multiple bilateral renal stones measuring up to 2-3 mm. No hydronephrosis. No ureteral stone identified. The abdominal aorta is within normal limits for size. No pathologically enlarged lymph nodes according to CT size criteria. Limited evaluation of the bowel due to lack of oral and intravenous contrast. The stomach and small bowel appear normal. The colon maintains normal caliber and wall thickness. No pericolonic inflammation is detected. Hyperdensity seen within the appendix although the appendix is nondilated without adjacent stranding. PELVIS FINDINGS: The urinary bladder is unremarkable. No free fluid is present. Small fat-containing umbilical hernia. GOKUL LOCKWOOD [id number] Radiology Reports IMPRESSION: 1. Multiple bilateral renal stones measuring up to 2-3 mm. No hydronephrosis. 2. Ill-defined opacities in the left lower lobe which have a nodular configuration and measure up to approximately 9 mm likely due to infectious or inflammatory pneumonitis. Recommend three month followup chest CT without contrast. Dictating Linn Gonsales Dictated 10/10/2016 19:10 Signing Linn Gonsales [place] [id number] Final Transcribed by: PRAKASH 10/10/16 19:13 Signed by: LINN RAMÍREZ MD 10/10/16 19:13 10/10/2016 [facility] Consultation Notes Results Value Date Source Emergency Room Record Emergency Room Record Document Name Signed Date Emergency Room Record 02/10/2017 3:07:19 AM CDT Abdominal pain Patient: GOKUL LOCKWOOD Age: 26 years Sex: Female : 1990 Associated Diagnoses: None Author: AGNES SOTOMAYOR DO Basic Information History of Present Illness The patient presents with abdominal pain and vomiting. The onset was 4 days ago. The course/duration of symptoms is worsening. The Location of pain at onset was abdominal. Associated symptoms: nausea and denies vomiting. Pt was originally seen by Dr. Frances. See his note for complete note.. Physical Examination Gastrointestinal: Soft, Rebound, Tenderness: Mild, generalized, Guarding: Negative, Signs: None. Medical Decision Making Orders Launch Orders Pharmacy: Benadryl (Order Processing): 25 mg, INJ, IV Push, Once, PRN Itch, 02/09/2017 19:29 CDT, Launch Orders Pharmacy: [facility] (Order Processing): 30 mL, PO, Once, 02/09/2017 20:00 CDT, Stop date 02/09/2017 20:00 CDT. Reexamination/ Reevaluation Time: 02/09/17 20:18:00 . Notes: I reevaluated the patient after the pt's blood work was completed. Pt had not given a UA at this time. Pt was very angry upon me entering the room. Pt states her pain is not resolved. Pt states she has been vomiting constantly all day but had not vomited here in the ED. Pt was given Phenergan IM but she states she is unable to have Zofran or Reglan due to allergies. I ordered a Velvet glove to see if it improved her symptoms. Shortly after the nurse left a noise sounding like gagging was heard and when I checked on her she had a basin with vomit. The emesis was the color of the Velvet glove but it also had food contents. I asked her when she last ate something and she said she hasn't eaten for 4 days but later "remembered" that she ate chicken noodle soup today. I discussed with the pt that her labs are unremarkable including a lipase that improved from 4 days ago. I told her that I am hesitant to get a CT scan because she has had multiple in the past and I do not think that the radiation exposure outweighs the risks especially with her current labs.. She then became angry stating that we don't care about her illness. She also states that she never gets CT scans (Chart review shows she has had a CT scan at all of her previous ED visits this year alone.). I reluctantly agreed to a CT scan but then she refused one stating she doesn't want one anyway. I told her that with unremarkable labs and without a CT showing a surgical abdomen admission is not indicated. Pt then states that she doesn't want to be admitted. She then stated that oral Phenergan does not work when she is vomiting because she can't keep it down. I offered Phenergan suppositories as she is allergic to Zofran but she states they don't work because they don't stay in. I offered to have the nurse show her who to properly insert them but she refused. I then asked her what Emergency Room Record Document Name Signed Date Emergency Room Record 02/10/2017 3:07:19 AM CDT she wants us to do for her as she is refusing a CT scan, a non oral route of Phenergan, she states she does not want to be admitted. She stated that she wants to know why she always feels this way. I reminded her that she is refusing to do further workup of CT scan or UA. She then continued to yell and stated she wanted to go home. As her workup is unremarkable she was not being discharge AMA. While I was getting her discharge arranged I was at my computer reviewing the chart one more time. I was discussing her chart with the nurse that was in charge of the pt and mentioned that the pt had 3 CT scans in the past several months for similar symptoms which the pt had denied. The conversation was at my computer away from the pt's room. The pt had left her room and was eavesdropping and over heard this conversation. She then continued to be angry yelling and accusing everyone of saying "shit" about her. I did discuss the pt with nursing staff and they stated the pt was very inconsistent with her exam and hx during her stay which is in line with my interaction with her. . Impression and Plan Diagnosis Vomiting (PNED [id number]) Abdominal pain (PNED [id number]) Plan Condition: Unchanged. Patient was given the following educational materials: ABDOMINAL PAIN, Unknown Cause, (Female), You were offered a CT scan but you declined. You had not given a UA prior to asking to go home. You were offered Phenergan suppositories to help you with your nausea and vomiting when you are unable to keep pills down but you declined.. Follow up with: Return to Emergency Department Within As needed As needed if your symptoms are not controlled or if new symptoms arise such as Fever, black tarry stools, abdominal distension.; [place] Within 1-2 days Call your doctor for follow-up appt for further workup of your nausea and vomiting.. Disposition: Discharged: Launch Order Patient Care: Discharge (CPOE) (Order Processing): 02/09/2017 20:19 CDT, time 02/09/17 20:19:00, to home. Counseled: Patient, Regarding diagnosis, Regarding diagnostic results, Patient indicated understanding of instructions. [Electronically Signed By:] DO AGNES SOTOMAYOR DO On, 02/10/2017 03:07 AM 02/09/2017 [facility] Emergency Room Record Emergency Room Record Document Name Signed Date Emergency Room Record 02/09/2017 7:23:29 PM CDT Vomiting Patient: GOKUL LOCKWOOD Age: 26 years Sex: Female : 1990 Associated Diagnoses: None Author: JUA NDANIEL HAMM MD, GRISEL Mcpherson Basic Information Time seen: Provider First contact date and time Provider Contact Date and Time Provider 02/09/2017 18:32 JUAN DANIEL HAMM MD, GRISEL Mcpherson . History source: Patient. Arrival mode: Private vehicle. History limitation: None. History of Present Illness The patient presents with vomiting and right flank pain. The onset was 4 days ago. The course/duration of symptoms is worsening. The character of symptoms is bloody. Risk factors consist of none. Therapy today: none. Associated symptoms: diarrhea, dizziness, back pain, flank pain, denies fever and denies blood in stool. Additional history: seen in ED last tuesday with similar symptoms and negative evaluation including CT, started on keflex. Review of Systems Constitutional symptoms: Negative except as documented in HPI. Skin symptoms: No rash, Eye symptoms: Negative except as documented in HPI. ENMT symptoms: Negative except as documented in HPI. Respiratory symptoms: No cough, Cardiovascular symptoms: Negative except as documented in HPI. Gastrointestinal symptoms: Negative except as documented in HPI. Genitourinary symptoms: No dysuria, Musculoskeletal symptoms: Negative except as documented in HPI. Neurologic symptoms: Negative except as documented in HPI. Endocrine symptoms: Negative except as documented in HPI. Hematologic/Lymphatic symptoms: Negative except as documented in HPI. Allergy/immunologic symptoms: Negative except as documented in HPI. Health Status Allergies: Allergic Reactions (Selected) Severity Not Documented Reglan- No reactions were documented. Zofran- No reactions were documented.. Past Medical/ Family/ Social History Emergency Room Record Document Name Signed Date Emergency Room Record 02/09/2017 7:23:29 PM CDT Medical history Psychiatric: anxiety. HEALTH HISTORY Kidney stone Patient Seizure Patient . Social history: Alcohol use: no recent. Physical Examination Cardiovascular: Lower extremity pulses: . Cardiovascular: Regular rate and rhythm, No murmur, Normal peripheral perfusion, Lower extremity pulses (repeat): . Vital Signs Vital Signs 02/09/2017 18:32 CDT Temperature 98.1 DegF Temp Method Temporal Heart Rate 88 bpm Respiratory Rate 18 br/min Inet NIBP Systolic 125 mmHg Inet NIBP Diastolic 91 mmHg HI NIBP MAP Calc 102 . Oxygen Saturation 02/09/2017 18:32 CDT Oxygen Saturation 98 % . General: Alert, mild distress. Skin: Warm, dry, no rash, Not cyanotic, Head: Normocephalic, atraumatic. Neck: Trachea midline. Eye: Pupils are equal, round and reactive to light, extraocular movements are intact, normal conjunctiva. Respiratory: Lungs are clear to auscultation, respirations are non-labored, breath sounds are equal. Gastrointestinal: Soft, Non distended, Tenderness: Mild, right flank, Guarding: Negative, Rebound: Negative, Bowel sounds: not normal. Back: Nontender, Normal range of motion. Musculoskeletal: Normal ROM. Neurological: Alert and oriented to person, place, time, and situation, No focal neurological deficit observed, CN II-XII intact, normal sensory observed, normal motor observed, normal speech observed, normal coordination observed. Psychiatric: Cooperative, appropriate mood and affect, normal judgment. Medical Decision Making Orders Launch Orders Laboratory: Urinalysis / Reflex Microscopic and Cult (Order Processing): Urine, Clean Catch, Stat collect, 02/09/2017 18:45 CDT, Nurse collect, Hold Until Collected, Clean catch Comp Metabolic Panel (Order Processing): Blood, Stat collect, 02/09/2017 18:45 CDT Lipase Level (Order Processing): Blood, Stat collect, 02/09/2017 18:45 CDT Emergency Room Record Document Name Signed Date Emergency Room Record 02/09/2017 7:23:29 PM CDT CBC and Plt w Diff (Order Processing): Blood, Stat collect, 02/09/2017 18:45 CDT Patient Care: Saline lock insertion (Order Processing): 02/09/2017 18:45 CDT, Stat, Once, 02/09/2017 18:45 CDT RN Cont Pulse Oximeter (Order Processing): 02/09/2017 18:45 CDT, Continuous Order, Stat, Continuous Pharmacy: Phenergan (Order Processing): 25 mg, IM, Once, 02/09/2017 19:00 CDT, Stop date 02/09/2017 19:00 CDT Toradol (Order Processing): 30 mg, IV Push, Once, 02/09/2017 19:00 CDT, Stop date 02/09/2017 19:00 CDT Sodium Chloride 0.9% Bolus (Order Processing): 1,000 mL, IV, Once, STAT, 02/09/2017 18:45 CDT, Stop date 02/09/2017 18:45 CDT, 1,000 mL/hr, Infuse over 1 HR. Impression and Plan Diagnosis Rt flank pain ([id number]) Plan Condition: Improved. Disposition: Patient care transitioned to: time: 02/09/17 19:23:00. [Electronically Signed By:] MD JUAN DANIEL HAMM MD, GRISEL Mcpherson On, 02/09/2017 07:23 PM 02/09/2017 [facility] Emergency Room Record Emergency Room Record Document Name Signed Date Emergency Room Record 02/05/2017 2:29:36 PM CDT Flank pain Patient: GOKUL LOCKWOOD Age: 26 years Sex: Female : 1990 Associated Diagnoses: None Author: ASHLEY MORENO MD Basic Information Time seen: Provider First contact date and time Provider Contact Date and Time Provider 02/05/2017 13:15 ASHLEY MORENO MD , Date and time 02/05/17 13:16:00. History source: Patient. Arrival mode: Arrival Mode Walk In , private vehicle. History limitation: None. Additional information: Primary Care Physician WASHINGTON COYNE DO, Chief Complaint from Nursing Triage Note: 02/05/2017 13:05 CDT Chief Complaint right sided flank pain since last night with hematuria. History of Present Illness The patient presents with flank pain. The onset was 12 hours ago. The course/duration of symptoms is constant. The character of symptoms is sharp. The Location of pain at onset was right. The degree at present is moderate. Radiating pain: none. The exacerbating factor is none. The relieving factor is none. Therapy today: none. Associated symptoms: nausea. Additional history: none. Review of Systems Constitutional symptoms: Negative except as documented in HPI. Skin symptoms: Negative except as documented in HPI. Eye symptoms: Negative except as documented in HPI. ENMT symptoms: Negative except as documented in HPI. Respiratory symptoms: Negative except as documented in HPI. Cardiovascular symptoms: Negative except as documented in HPI. Gastrointestinal symptoms: Negative except as documented in HPI. Genitourinary symptoms: Negative except as documented in HPI. Musculoskeletal symptoms: Negative except as documented in HPI. Neurologic symptoms: Negative except as documented in HPI. Psychiatric symptoms: Negative except as documented in HPI. Allergy/immunologic symptoms: Negative except as documented in HPI. Additional review of systems information: All other systems reviewed and otherwise negative. Emergency Room Record Document Name Signed Date Emergency Room Record 02/05/2017 2:29:36 PM CDT Health Status Allergies: Allergic Reactions (Selected) Severity Not Documented Reglan- No reactions were documented. Zofran- No reactions were documented.. Immunizations: Up to date. Menstrual history: Last menstrual period: 7 day(s) ago. Past Medical/ Family/ Social History Medical history HEALTH HISTORY Kidney stone Patient Seizure Patient . Surgical history: Reviewed as documented in chart, cholecystectomy. Family history: Reviewed as documented in chart. Social history: Alcohol use: Denies, Tobacco use: Denies, Drug use: Denies. Physical Examination General: Alert. Vital Signs VITALS: BP: 142 / 91 Pulse: 80 Temp: 97.9 Resp Rate: 20 Tmax: 97.9 Wt(kg): 60 Pain Score: O2 Sat: 97 02/05/17 13:05 O2 Status: Room air 21% . Gastrointestinal: Signs: None. Gastrointestinal: Nontender, Scars, Signs, No abdominal distention, , Guarding: Negative, Rebound: Negative, Bowel sounds: Normal, Organomegaly: Negative, Trauma: Negative, Mass: Negative. Skin: Warm, dry. Head: Normocephalic, atraumatic. Neck: Supple. Eye: Pupils are equal, round and reactive to light, extraocular movements are intact. Ears, nose, mouth and throat: Oral mucosa moist. Cardiovascular: Lower extremity pulses (repeat): Normal. Respiratory: Lungs are clear to auscultation. Chest wall: No tenderness. Back: Nontender. Musculoskeletal: Normal ROM, normal strength, no tenderness. Emergency Room Record Document Name Signed Date Emergency Room Record 02/05/2017 2:29:36 PM CDT Genitourinary: No tenderness. Neurological: Alert and oriented to person, place, time, and situation, No focal neurological deficit observed, normal sensory observed, normal motor observed, normal speech observed, normal coordination observed. Lymphatics: No lymphadenopathy. Psychiatric: Cooperative, appropriate mood and affect. Medical Decision Making Differential Diagnosis: Renal stone, ureteral stone, hepatitis, pancreatitis, irritable bowel syndrome, urinary tract infection, pyelonephritis, ectopic not biliary colic, not cholecystitis. Orders Launch Orders Laboratory: Lipase Level (Order Processing): Blood, Stat collect, 02/05/2017 13:19 CDT Liver Profile (Order Processing): Blood, Stat collect, 02/05/2017 13:19 CDT CBC and Plt w Diff (Order Processing): Blood, Stat collect, 02/05/2017 13:18 CDT BMP (Basic Metabolic Panel) (Order Processing): Blood, Stat collect, 02/05/2017 13:18 CDT Patient Care: IV insertion (Order Processing): 02/05/2017 13:19 CDT Pharmacy: Dilaudid (Order Processing): 0.5 mg, IV Push, Q20MIN (Every 20 minutes), PRN Pain, 02/05/2017 13:19 CDT, to a max dose of 2 mg Sodium Chloride 0.9% 1000 mL (Order Processing): 1,000 mL, IV, 02/05/2017 13:19 CDT, 2 HR, Stop date 02/05/2017 15:18 CDT, 2,000 mL/hr, Infuse over 0.5 HR Phenergan (Order Processing): 12.5 mg, IM, Now, PRN Nausea/Vomiting, 02/05/2017 13:19 CDT Toradol (Order Processing): 30 mg, IV Push, Now, 02/05/2017 13:18 CDT, Stop date 02/05/2017 13:18 CDT Radiology: CT Abdomen Stone WO Pelvis Stone WO Cont (Order Processing): 02/05/2017 13:18 CDT Stat, Reason: right flank pain and hemauria, ? Unknown Transport Mode: Ambulatory, IV? Yes, O2? No, Standard Precautions, Written. Results review: Lab results : Laboratory 02/05/2017 13:36 CDT WBC 10.9 x10'3/microL RBC 5.10 x10'6/microL Hgb 12.2 g/dL Hct 39 % Platelet 445 x10'3/microL HI MCV 77 fL LOW MCH 24 pg LOW MCHC 31 g/dL RDW 21.7 % HI MPV 10.0 fL Neutrophils % 72 % Lymphocytes % 20 % Monocytes % 6 % Eosinophils % 1 % Basophils % 1 % Neutrophils Abs 7.8 x10'3/microL HI Emergency Room Record Document Name Signed Date Emergency Room Record 02/05/2017 2:29:36 PM CDT Lymphocytes Abs 2.2 x10'3/microL Monocytes Abs 0.7 x10'3/microL HI Eosinophils Abs 0.1 x10'3/microL Basophils Abs 0.1 x10'3/microL Sodium 141 mmol/L Potassium 3.7 mmol/L Chloride 107 mmol/L CO2 20 mmol/L LOW AGAP 14 mmol/L Glucose 103 mg/dL HI BUN 8 mg/dL Creatinine 0.4 mg/dL LOW Calcium 8.8 mg/dL Est CrCL (CG) 161.2 mL/min GFR (CKD-EPI) >110.0 mL/min/1.73 m2 NA Albumin Level 4.3 g/dL Total Protein 7.4 g/dL Alk Phos 104 Inter. Units/L Lipase 80 Units/L HI AST 25 Units/L ALT(SGPT) 50 Inter. Units/L HI Bili Direct <0.2 mg/dL Bili Total <0.2 mg/dL 02/05/2017 13:13 CDT U Preg Test Negative UA Color Straw UA pH 6.0 UA Spec Grav 1.020 UA Glucose Negative mg/dL UA Bili Negative UA Ketones Negative mg/dL UA Blood Large UA Protein Negative mg/dL UA Nitrite Negative UA Leuk Est Negative UA Urobilinogen 0.2 EU per dL UA Spec Type Clean Catch UA WBC 0-5 /hpf UA RBC >50 /hpf UA Bacteria Moderate /hpf UA Epithelial Moderate /hpf UA Mucous Present Microscopic? Yes Culture? No . Radiology results: COMPLETED RADIOLOGY IMAGING STUDIES: Emergency Room Record Document Name Signed Date Emergency Room Record 02/05/2017 2:29:[address] Abdomen Stone WO Pelvis Sto [Auth (Verified)] (02/05 5658): FINAL IMPRESSION:1. No acute abnormality is identified.2. Tiny bilateral nonobstructing renal calculi are unchanged. No ureteral calculi are identified. There is no hydronephrosis or hydroureter.3. Normal appendix.4. Cholecystectomy.Please note: Non-contrast CT has significantly decreased sensitivity and specificity for pathology other than obstructive uropathy. A contrast enhanced CT should be considered if these results are discordant with clinical findings.Dictating Dennys Watkinsated 02/05/2017 14:14Signing Dorina Watkins [id number] . Reexamination/ Reevaluation Time: 02/05/17 14:27:00 . Course: well controlled. Impression and Plan Diagnosis Back pain (MPO06-WV M54.9) Flank pain (PNED [id number]) Hematuria (XUP10-QB R31.9) Plan Condition: Improved, Stable. Prescriptions: Launch prescriptions Pharmacy: Keflex 500 mg oral capsule (Prescribe): 1 CAP, PO, 4 times a day, # 40 CAP, 0 Refill(s), Indication: Bacterial Infection, 02/05/2017 14:27 CDT Percocet 5/325 oral tablet (Prescribe): 1 TAB, PO, Q4H (Every 4 hours), PRN Pain, # 24 TAB, 0 Refill(s), Indication: Moderate Pain, 02/05/2017 14:27 CDT. Patient was given the following educational materials: BACK AND NECK PAIN, General, What Is Hematuria?, Magnetic Resonance Imaging (MRI), Oxycodone Hydrochloride Oral tablet, Cephalexin Hydrochloride Oral tablet. Follow up with: [facility] Within 1-2 days Call office(s) above for follow-up appt. Return to ED if your symptoms worsen; [facility] Within 1-2 days Call office(s) above for follow-up appt. Return to ED if your symptoms worsen. Disposition: Discharged: Time 02/05/17 14:29:00, to home. Counseled: Patient, Family, Regarding diagnosis, Regarding diagnostic results, Regarding treatment plan, Regarding prescription, Patient indicated understanding of instructions. [Electronically Signed By:] ASHLEY GRIDER MD On, 02/05/2017 02:29 PM 02/05/2017 [facility] Emergency Room Record Emergency Room Record Document Name Signed Date Emergency Room Record 11/11/2016 9:25:43 PM CDT Flank pain Patient: GOKUL LOCKWOOD Age: 26 years Sex: Female : 1990 Associated Diagnoses: None Author: YASMIN MCKINLEY MD Basic Information Time seen: Provider First contact date and time Provider Contact Date and Time Provider 11/11/2016 19:12 CROSS MD, YASMIN E . History source: Patient. Arrival mode: Private vehicle. History limitation: None. History of Present Illness The patient presents with flank pain. The onset was 3 hours ago. The course/duration of symptoms is constant and worsening. The character of symptoms is sharp and pressure. The degree at onset was severe. The Location of pain at onset was right and flank. The degree at present is severe. The Location of pain at present is right and flank. Radiating pain: right side of the back. lower back. The exacerbating factor is none. The relieving factor is none. Therapy today: none. Associated symptoms: nausea, vomiting, chills and denies fever. Risk factors consist of AAA: None. Pt with severe R flank pain tonight. H/o ovarian cysts and renal stones. This feels worse than either of those.. Review of Systems Constitutional symptoms: Chills, No fever, Gastrointestinal symptoms: Abdominal pain, nausea, vomiting, No diarrhea, Genitourinary symptoms: No dysuria, no hematuria. Musculoskeletal symptoms: Back pain. Additional review of systems information: All other systems reviewed and otherwise negative. Health Status Allergies: Allergic Reactions (Selected) Severity Not Documented Reglan- No reactions were documented. Zofran- No reactions were documented.. Medications: Medications reviewed.. Past Medical/ Family/ Social History Emergency Room Record Document Name Signed Date Emergency Room Record 11/11/2016 9:25:43 PM CDT Medical history HEALTH HISTORY Kidney stone Patient Seizure Patient . Social history: Alcohol use: Denies, Drug use: Denies. Physical Examination Vital Signs VITALS: BP: 144 / 107 Pulse: 97 Temp: 99.1 Resp Rate: 18 Tmax: 99.1 Wt(kg): 64 Pain Score: O2 Sat: 98 11/11/16 19:00 O2 Status: Room air 21% . Skin: Warm, dry, pale. Head: Normocephalic. Eye: Extraocular movements are intact. Ears, nose, mouth and throat: Mouth: Dry mucous membranes. Respiratory: Lungs are clear to auscultation, respirations are non-labored, breath sounds are equal. Cardiovascular: Regular rate and rhythm, No murmur, Normal peripheral perfusion, Lower extremity pulses: Normal. Gastrointestinal: Soft, Nontender, Normal bowel sounds, Mass: Negative, Signs: None. Neurological: Alert and oriented to person, place, time, and situation, No focal neurological deficit observed, CN II-XII intact. Psychiatric: Cooperative. Medical Decision Making Documents reviewed: Emergency department nurses' notes, emergency department records. Orders Launch Orders Laboratory: Urinalysis / Reflex Microscopic and Cult (Order Processing): Urine, Clean Catch, Stat collect, 11/11/2016 19:18 CDT, Nurse collect, Hold Until Collected, Clean catch Test Urine (Order Processing): Urine Clean Catch, Stat collect, 11/11/2016 19:18 CDT, Nurse collect, Hold Until Collected Basic Metabolic Panel (Order Processing): Blood, Stat collect, 11/11/2016 19:18 CDT CBC and Plt w Diff (Order Processing): Blood, Stat collect, 11/11/2016 19:18 CDT Patient Care: Saline lock insertion (Order Processing): 11/11/2016 19:18 CDT, Stat, Once, 11/11/2016 19:18 CDT RN Cont Pulse Oximeter (Order Processing): 11/11/2016 19:18 CDT, Continuous Order, Stat Pharmacy: Phenergan (Order Processing): 25 mg, IM, Once, 11/11/2016 20:00 CDT, Stop date 11/11/2016 20:00 CDT Emergency Room Record Document Name Signed Date Emergency Room Record 11/11/2016 9:25:43 PM CDT ketorolac (Order Processing): 30 mg, IV Push, Once, STAT, 11/11/2016 19:18 CDT, Stop date 11/11/2016 19:18 CDT, (Toradol) Sodium Chloride 0.9% Bolus (Order Processing): 1,000 mL, IV, Once, STAT, 11/11/2016 19:18 CDT, Stop date 11/11/2016 19:18 CDT, 1,000 mL/hr, Infuse over 1 HR Radiology: CT Abdomen Stone WO Pelvis Stone WO Cont (Order Processing): 11/11/2016 19:18 CDT Stat, Reason: R flank pain, ? No Transport Mode: Cart, IV? Yes, Standard Precautions, Written. Results review: Lab results : Laboratory 11/11/2016 19:36 CDT WBC 11.1 x10'3/microL HI RBC 4.01 x10'6/microL Hgb 9.4 g/dL LOW Hct 31 % LOW Platelet 371 x10'3/microL MCV 77 fL LOW MCH 23 pg LOW MCHC 30 g/dL RDW 17.3 % HI MPV 11.5 fL HI Neutrophils % 65 % Lymphocytes % 26 % Monocytes % 7 % Eosinophils % 2 % Basophils % 1 % Neutrophils Abs 7.2 x10'3/microL Lymphocytes Abs 2.8 x10'3/microL Monocytes Abs 0.8 x10'3/microL HI Eosinophils Abs 0.2 x10'3/microL Basophils Abs 0.1 x10'3/microL Immature Grans Abs 0.0 x10'3/microL Immature Granulocytes % 0 % Sodium 139 mmol/L Potassium 4.4 mmol/L Chloride 102 mmol/L CO2 23 mmol/L AGAP 14 mmol/L Glucose 94 mg/dL BUN 13 mg/dL Creatinine 0.6 mg/dL LOW Calcium 8.5 mg/dL LOW Est CrCL (CG) 107.5 mL/min GFR (CKD-EPI) >110.0 mL/min/1.73 m2 NA U Preg Test Negative UA Color Yellow UA pH 6.5 UA Spec Grav 1.020 UA Glucose Negative mg/dL UA Bili Negative Emergency Room Record Document Name Signed Date Emergency Room Record 11/11/2016 9:25:43 PM CDT UA Ketones Negative mg/dL UA Blood Small UA Protein Negative mg/dL UA Nitrite Negative UA Leuk Est Negative UA Urobilinogen 0.2 EU per dL UA Spec Type Clean Catch UA RBC 3-10 /hpf UA Epithelial Negative to Few /hpf UA Mucous Present Microscopic? Yes Culture? No . Radiology results: COMPLETED RADIOLOGY IMAGING STUDIES: CT Abdomen Stone WO Pelvis Sto [Auth (Verified)] (11/11 2044): FINAL IMPRESSION:1. No evidence of obstructing urinary tract calculus or hydronephrosis. 2-3 punctate 1-2 mm nonobstructing right renal calculi. No ureteral calculus.2. Normal appendix.Dictating Gurvinder Rodriguezictated 11/11/2016 20:57Signing Slava RodriguezyLocation RAD8 . Impression and Plan Diagnosis Microscopic hematuria (GLA89-HX R31.29) Right lower quadrant pain (FQZ32-KV R10.31) Plan Condition: Stable. Disposition: Discharged: Launch Order Patient Care: Discharge (Order Processing): 11/11/2016 21:23 CDT, to home. Prescriptions: Launch prescriptions Pharmacy: Phenergan 25 mg oral tablet (Prescribe): 25 mg =, PO, Q4H (Every 4 hours), PRN Nausea/Vomiting, # 10 TAB, 0 Refill(s), Indication: Nausea/Vomiting, 11/11/2016 21:23 CDT Naprosyn 500 mg oral tablet (Prescribe): 500 mg =, PO, BID (2 times a day), # 30 TAB, 0 Refill(s), Indication: Inflammation, 11/11/2016 21:23 CDT. Patient was given the following educational materials: ABDOMINAL PAIN, Unknown Cause, (Female). Follow up with: [facility] Within 1 week Take the Naprosyn twice daily with food for 1 week. See the clinic for continued care.. Counseled: Patient, Regarding diagnosis, Regarding diagnostic results, Regarding treatment plan, Patient indicated understanding of instructions. [Electronically Signed By:] YASMIN HOLDEN MD On, 11/11/2016 09:25 PM 11/11/2016 [facility] Emergency Room Record Emergency Room Record Flank pain Patient: GOKUL LOCKWOOD Age: 25 years Sex: Female : 1990 Associated Diagnoses: None Author: GURVINDER VALVERDE APRN Basic Information Time seen: Provider First contact date and time Provider Contact Date and Time Provider 10/10/2016 18:30 GURVINDER VALVERDE APRN . History source: Patient. Arrival mode: Private vehicle. History limitation: None. 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 History of Present Illness The patient presents with flank pain. The onset was abrupt. The course/duration of symptoms is constant. The character of symptoms is sharp. The degree at onset was severe. The Location of pain at onset was right and flank. The degree at present is severe. The Location of pain at present is right and flank. Radiating pain: none. The exacerbating factor is none. The relieving factor is none. Therapy today: none. Associated symptoms: nausea and vomiting. pt also notes that she is out of her seizure medications and that ask a nurse told her we could refill them for her, discussed with pt that pharmacy record shows meds filled 2 weeks ago for 30 day supply and that we would not be able to fill this medication . Review of Systems Respiratory symptoms: Cough, No shortness of breath, Gastrointestinal symptoms: Nausea, vomiting. Neurologic symptoms: Dizziness. Additional review of systems information: All other systems reviewed and otherwise negative. Health Status Allergies: Allergic Reactions (Selected) Severity Not Documented Reglan- No reactions were documented. Zofran- No reactions were documented. . Medications: Medications reviewed. . Menstrual history: Per nurse's notes. Past Medical/ Family/ Social History Emergency Room Record Medical history HEALTH HISTORY Kidney stone Patient Seizure Patient . Surgical history: Reviewed as documented in chart. Social history: Alcohol use: Denies, Tobacco use: Denies. 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 Per nurse's notes. General: Alert. Skin: Warm, dry, pink. Head: Atraumatic. Eye: Pupils are equal, round and reactive to light. Cardiovascular: Regular rate and rhythm, No murmur. Respiratory: Lungs are clear to auscultation, respirations are non-labored, breath sounds are equal. Gastrointestinal: Soft, Nontender, Non distended. Back: Costovertebral angle tenderness: Right. Neurological: Alert and oriented to person, place, time, and situation, No focal neurological deficit observed. Psychiatric: Cooperative, appropriate mood and affect. Medical Decision Making Differential Diagnosis: Abdominal pain, renal stone, ureteral stone, urinary tract infection, pyelonephritis. Documents reviewed: Emergency department records, prior records. 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 WBC 10.7 x10'3/microL RBC 4.40 x10'6/microL Hgb 9.8 g/dL LOW Hct 33 % LOW Platelet 445 x10'3/microL HI MCV 75 fL LOW MCH 22 pg LOW MCHC 30 g/dL RDW 17.2 % HI MPV 10.6 fL HI Neutrophils % 74 % Lymphocytes % 20 % Monocytes % 5 % Eosinophils % 0 % Basophils % 0 % Neutrophils Abs 7.9 x10'3/microL HI Lymphocytes Abs 2.2 x10'3/microL Monocytes Abs 0.5 x10'3/microL Eosinophils Abs 0.0 x10'3/microL Basophils Abs 0.0 x10'3/microL Immature Grans Abs 0.0 x10'3/microL Immature Granulocytes % 0 % Sodium 139 mmol/L Potassium 4.1 mmol/L Chloride 104 mmol/L CO2 18 mmol/L LOW AGAP 17 mmol/L Glucose 91 mg/dL BUN 13 mg/dL Creatinine 0.4 mg/dL LOW Calcium 9.1 mg/dL GFR (CKD-EPI) >110.0 mL/min/1.73 m2 NA 10/10/2016 17:28 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 Yes Culture? Yes . Radiology results: COMPLETED RADIOLOGY IMAGING STUDIES: CT Abdomen Stone WO Pelvis Sto [Auth (Verified)] (10/10 1853): FINAL IMPRESSION:1. Multiple bilateral renal stones measuring up to 2-3 mm. No hydronephrosis.2. Ill-defined opacities in the left lower lobe which have a nodular configuration and measure up to approximately 9 mm likely due to infectious or inflammatory pneumonitis. Recommend three month followup chest CT without contrast.Dictating Linn GonsalesDictated 10/10/2016 19:10Signing Linn GonsalesLocation [facility] . Reexamination/ Reevaluation Time: 10/10/16 19:38:00 . Course: improving. Pain status: decreased. Impression and Plan Diagnosis Acute right flank pain (TWS56-SS R10.9) Lung nodule (BUU18-BQ R91.1) Pneumonitis (WML45-NF J18.9) Renal stones (KNJ15-KD N20.0) Plan Condition: Stable. Disposition: Discharged: Time 10/10/16 19:38:00, to home. 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 Patient was given the following educational materials: FLANK PAIN, Uncertain Cause, Follow up with: [facility]RI[facility]AL[facility] Within 1-2 days a nodule was seen on your left lung today. Follow up with PCP in [address] of chest to reevaluate; ; PERNELL VIERA Within 1-2 days, Emergency Room Record Counseled: Discussed my diagnosis and disposition plan with patient. This includes any tests/labs done. Answered all questions and we agreed on outpatient plan and further follow up. Pt will come back if feeling worse or symptoms change. Notes: I evaluated and treated this patient myself, and discussed the pertinent findings, workup decisions, and concerns with my attending physician, Dr. Avalos. [Electronically Signed By:] GURVINDER SAMPSON APRN On, 10/10/2016 07:51 PM [Electronically Signed by:] GURVINDER VALVERDE APRN, APRN On, 10/10/16 08:43 PM [Electronically Signed by:] GURVINDER VALVERDE APRN, APRN On, 10/10/16 08:43 PM [Electronically Signed by:] KATHERINE RENEE QUEZADA DO On, 10/12/16 01:18 PM 10/10/2016 [facility] Discharge Summaries No Data Provided for This Section History and Physicals No Data Provided for This Section Vital Signs Vital Sign Value Date Comments Source NIBP MAP Calc 81 11/12/2016 [facility] er Inet NIBP Systolic 104 mm[Hg] 11/12/2016 [facility] Inet NIBP Diastolic 69 mm[Hg] 11/12/2016 [facility] Heart Rate 68 bpm 11/12/2016 [facility] er NIBP MAP 78 mm[Hg] 11/12/2016 [facility] er Respiratory Rate 16 br/min 11/12/2016 [facility] Temperature 99.1 [degF] 11/12/2016 [facility] Temp Method Temporal (11/11/16 7:00 PM) 11/12/2016 [facility] Inet NIBP Systolic 114 mm[Hg] 10/11/2016 [facility] Inet NIBP Diastolic 68 mm[Hg] 10/11/2016 [facility] Heart Rate 76 bpm 10/11/2016 [facility] er NIBP MAP 80 mm[Hg] 10/11/2016 [facility] er NIBP MAP Calc 83 10/11/2016 [facility] er Heart Rate Location Auto BP ( 6:50 PM) 10/11/2016 [facility] Respiratory Rate 18 br/min 10/11/2016 [facility] Temperature 98.5 [degF] 10/10/2016 [facility] Temp Method Temporal (10/10/16 5:29 PM) 10/10/2016 [facility] Encounters Location Location Details Encounter Type Encounter Number Reason For Visit Attending Provider ADM Date DC Date Status Source 006O 006O E [id number] DELGADO FRANCES II, MD 02/09/2017 02/09/2017 Active [facility] ssion 006O 006O E [id number] TAL MORENO MD 02/05/2017 02/05/2017 Active [facility] ssion [facility] Emergency [id number] YASMIN MCKINLEY MD 11/11/2016 11/12/2016 [facility] 006 006 E [id number] FLANK PAIN RENEE RAISDANA DO 10/10/2016 10/10/2016 Active [facility] Procedures No Data Provided for This Section Plan of Care No Data Provided for This Section Social History No Data Provided for This Section Assessment and Plan No Data Provided for This Section Family History No Data Provided for This Section Advance Directives No Data Provided for This Section Functional Status No Data Provided for This Section
--- OUTSIDE RECORDS SUMMARY | 2019-08-15 02:48 | XMS REPORT | Summary of Care ---
Author Author [facility] Organization [facility] Address Unknown Phone Unavailable Care Team Providers Care Shuttle Preparation Supervisor Name Role Phone SWATIKERWIN QUEZADAWASHINGTON PCP Encounter [facility] [id number] Date(s): 04/21/17 - 04/21/17 [facility] [address] [place] [phone] Discharge Diagnosis: Abdominal pain Discharge Diagnosis: Nausea [...]
--- OUTSIDE RECORDS SUMMARY | 2019-08-15 02:48 | XMS REPORT ---
Author Author Seema Branham Doctor Organization [facility] Address Unknown Phone Unavailable Care Team Providers Care Information Security Director Name Role Phone Migration, Doctor Unavailable Unavailable PROBLEMS Type Condition ICD9-CM Code [id number] Code Onset Dates Condition S tatus SNOMED Code Problem Acute upper respiratory infections of unspecified site 465.9 Active [id number] Problem Acute pharyngitis 462 Active 36 [id number] ALLERGIES No Information ENCOUNTERS Encounter Location Date Diagnosis [facility] [address] [id number] [address] [place] [id number] Mar, Dental examination Z01.20 an d Dental caries K02.9 [facility] [address] [id number] [address] [place] [phone] Nov, [facility] [address] [id number] [address] [place] [phone] Nov, [facility] [address] [id number] [address] [place] [phone] Jun, [facility] [address] [id number] [address] [place] [phone] Jun, [facility] [address] [id number] [address] [place] [phone] Jun, [facility] [address] [id number] [address] [place] [phone] Jun, [facility] [address] [id number] [address] [place] [phone] Jun, [facility] [address] [id number] [address] [place] [phone] December, [facility] [address] [id number] [address] [place] [phone] 16 Jun, 2010 [facility] [address] [facility] [id number] [address] [address] Jun, [facility] [address] [facility] [id number] [address] [place] [phone] Aug, IMMUNIZATIONS No Known Immunizations SOCIAL HISTORY Never Assessed REASON FOR VISIT [facility] [place] OF CARE VITAL SIGNS MEDICATIONS Medication Instructions Dosage Frequency Start Date End Date Duration S tatus Flonase 50 mcg/actuation take 1 sprays b y Nasal route 2 times per dayin each nostril Jun, Active Claritin 10 mg take 1 tablet by Oral route 1 time per day Jun, Active RESULTS No Results PROCEDURES No Known procedures INSTRUCTIONS MEDICATIONS ADMINISTERED No Known Medications MEDICAL (GENERAL) HISTORY Type Description Date Medical History Anemia Surgical History Tubes tied Surgical History Gall bladder removed Hospitalization History Previous surgeries
--- OUTSIDE RECORDS SUMMARY | 2019-08-15 02:48 | XMS REPORT | Summary of Care ---
Author Author [facility] Organization [facility] Address Unknown Phone Unavailable Care Team Providers Care Instrumentation Chemist Name Role Phone SWATIKERWIN QUEZADAWASHINGTON PCP [phone] Encounter [facility] [id number] Date(s): 04/21/17 - 04/21/17 [facility] [address] [place] [phone] Discharge Diagnosis: Abdominal pain Discharge Diagnosis: Nausea [...]
--- OUTSIDE RECORDS SUMMARY | 2019-08-15 02:48 | XMS REPORT ---
Author Author Seema Branham Doctor Organization [facility] Address Unknown Phone Unavailable Care Team Providers Care Bilingual Medical Assistant Name Role Phone Migration, Doctor Unavailable Unavailable PROBLEMS Type Condition ICD9-CM Code [id number] Code Onset Dates Condition S tatus SNOMED Code Problem Acute upper respiratory infections of unspecified site 465.9 Active [id number] Problem Acute pharyngitis 462 Active 36 [id number] ALLERGIES No Information ENCOUNTERS Encounter Location Date Diagnosis [facility] [address] [id number] [address] [place] [id number] Mar, Dental examination Z01.20 an d Dental caries K02.9 [facility] [address] [id number] [address] [place] [phone] Nov, [facility] [address] [id number] [address] [place] [phone] Nov, [facility] [address] [id number] [address] [place] [phone] Jun, [facility] [address] [id number] [address] [place] [phone] Jun, [facility] [address] [id number] [address] [place] [phone] Jun, [facility] [address] [id number] [address] [place] [phone] Jun, [facility] [address] [id number] [address] [place] [phone] Jun, [facility] [address] [id number] [address] [place] [phone] December, [facility] [address] [id number] [address] [place] [phone] 16 Jun, 2010 [facility] [address] [facility] [id number] [address] [place] [phone] Jun, [facility] [address] [facility] [id number] [address] [place] [phone] Aug, IMMUNIZATIONS No Known Immunizations SOCIAL HISTORY Never Assessed REASON FOR VISIT EMR-[facility] PLAN OF CARE VITAL SIGNS MEDICATIONS No Known Medications RESULTS No Results PROCEDURES No Known procedures INSTRUCTIONS MEDICATIONS ADMINISTERED No Known Medications MEDICAL (GENERAL) HISTORY Type Description Date Medical History Anemia Surgical History Tubes tied Surgical History Gall bladder removed Hospitalization History Previous surgeries
--- OUTSIDE RECORDS SUMMARY | 2019-08-15 02:48 | XMS REPORT | Summary of Care ---
Author Author [facility] Organization [facility] Address Unknown Phone Unavailable Care Team Providers Care Chief Inspector Name Role Phone SWATIKERWIN QUEZADAWASHINGTON PCP Encounter [facility] [id number] Date(s): 04/21/17 - 04/21/17 [facility] [address] [place] [phone] Discharge Diagnosis: Abdominal pain Discharge Diagnosis: Nausea [...]
== END 2019-07-19 21:58 | disposition home or self-care (01) ==
LOC: EDUNIT# 20:02 → ER 20:03
DX: G43.909 Migraine, unspecified, not intractable, without status migrainosus (principal); N39.0 Urinary tract infection, site not specified; G40.909 Epilepsy, unspecified, not intractable, without status epilepticus; M79.7 Fibromyalgia; F41.9 Anxiety disorder, unspecified; F17.210 Nicotine dependence, cigarettes, uncomplicated; Z87.442 Personal history of urinary calculi; Z98.51 Tubal ligation status; Z88.8 Allergy status to other drugs, medicaments and biological substances; Z88.2 Allergy status to sulfonamides; Z88.6 Allergy status to analgesic agent; Z88.5 Allergy status to narcotic agent; Z82.49 Family history of ischemic heart disease and other diseases of the circulatory system
CPT/HCPCS: 81000; 84703; 87088; 96361; 96374; 96375

== ENCOUNTER 2020-07-20 12:22 | Emergency (ER) | payer MEDICAID ==
[~2020-07-20] VITALS: Ht 154.9 cm; Wt 55.7 kg
[~2020-07-20 12:22] MED LIST changes: +CEPH-507 PO; +PROM25TA14 PO
--- NOTE | 2020-07-20 12:56 | ED Upper Extremity ---
General Stated Complaint: FALL/R HAND INJ History of Present Illness Date Seen by Provider: Jul 20, 2020 Time Seen by Provider: 12:40 Initial Comments 29-year-old female presents for Right hand injury. She reports that approximately 0 400 this morning she was out on her deck letting her cats in the house, there was warner on the deck causing it to be slippery. She fell landing on an outstretched right arm. She had immediate onset of pain in her right hand in the third and fourth metacarpals. She denies any other trauma at the time of her fall. She has had no loss of consciousness, neck pain or head injury. She last took Tylenol at 10:00. She has a small abrasion over the fifth metacarpal head, she is unsure of her last tetanus vaccine. Onset: this morning Pain/Injury Location: right hand Method of Injury: fell Modifying Factors: Improves With Rest Allergies and Home Medications Allergies Coded Allergies: adhesive tape (Verified Allergy, Severe, RASH, 01/20/17) metoclopramide (Verified Allergy, Severe, HIVES, VOMITING, 01/20/17) ondansetron (Verified Allergy, Severe, HIVES, VOMITING, 01/20/17) Sulfa (Sulfonamide Antibiotics) (Verified Allergy, Unknown, 01/20/17) ketorolac (Verified Allergy, Unknown, 01/20/17) morphine (Verified Allergy, Unknown, 01/20/17) Home Medications Cephalexin 500 Mg Capsule, 500 MG PO BID Prescribed by: GRIFFIN TYLER on 07/19/192123 Gabapentin 300 Mg Capsule, 300 MG PO TID Prescribed by: GRIFFIN TYLER on 05/19/1754 Hyoscyamine Sulfate 0.125 Mg Tab.subl, 1-2 TAB SL Q4H Prescribed by: GOKUL SARMIENTO on 04/19/17 005 Naproxen 500 Mg Tablet, 500 MG PO BID PRN for PAIN-MODERATE Prescribed by: PRANEETH SCANLON on 12/16/17 140 Nitrofurantoin Monohyd/M-Cryst 100 Mg Capsule, 100 MG PO BID Prescribed by: GOKUL SARMIENTO on 04/19/17 005 Orphenadrine Citrate 100 Mg Tablet.er, 100 MG PO BID PRN for PAIN-MODERATE TO SEVERE Prescribed by: PRANEETH SCANLON on 12/16/17 1401 Pantoprazole Sodium 40 Mg Tablet.dr, 40 MG PO DAILY Prescribed by: GOKUL SARMIENTO on 04/19/1757 Promethazine HCl 25 Mg Supp.rect, 25 MG RC Q4H Prescribed by: GOKUL SARMIENTO on 04/19/1757 Promethazine HCl 25 Mg Tablet, 25 MG PO Q6H PRN for NAUSEA/VOMITING Prescribed by: GRIFFIN TYLER on 07/19/192123 Patient Home Medication List Home Medication List Reviewed: Yes Review of Systems Constitutional: no symptoms reported, see HPI Musculoskeletal: see HPI; No back pain; joint pain (Third and fourth metacarpals right hand), joint swelling; No neck pain All Other Systems Reviewed Negative Unless Noted: Yes Past Jagwqir-Qznshl-Oafhco Hx Past Med/Social Hx: Reviewed Nursing Past Med/Soc Hx Patient Social History Type Used: Cigarettes 2nd Hand Smoke Exposure: Yes Recent Foreign Travel: No Contact w/Someone Who Travel: No Recent Hopitalizations: No Immunizations Up To Date Tetanus Booster (TDap): More than 5yrs PED Vaccines UTD: Yes Seasonal Allergies Seasonal Allergies: No Past Medical History Surgeries: Yes (RUPTURED OVARIAN CYST; X 1) Section, Gallbladder, Tubal Ligation Respiratory: No Cardiac: No Neurological: Yes (PSEUDOSEIZURES) Seizure Disorder Reproductive Disorders: Yes (CERVICAL DYSPLASIA--S/P LEEP) Female Reproductive Disorders: Denies Genitourinary: Yes Kidney Stones 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; S/P FRANCO) Ulcer, Gall Bladder Disease Musculoskeletal: Yes Fibromyalgia Endocrine: No HEENT: No Cancer: No Psychosocial: Yes Pseudo Seizures, Anxiety Integumentary: No Blood Disorders: No Adverse Reaction/Blood Tranf: No Family Medical History Family history: Cardiovascular disease maternal gma Heart disease maternal gma No Family History of: Abdominal aortic aneurysm [place]'s disease Alcoholism Aphasia Cancer Cancer of colon Cataract Chest pain Congenital heart disease Congestive heart failure Cystic fibrosis Dementia Dysphagia Family history: Allergy Family history: Alzheimer's disease Family history: Arthritis Family history: Asthma Family history: Breast disease Family history: Coronary thrombosis Family history: Diabetes mellitus Family history: Gastrointestinal disease Family history: Glaucoma Family history: Hypertension Family history: Osteoporosis Family history: Thyroid disorder Headache Hearing loss Hereditary disease History of - anemia History of - disorder History of - respiratory disease History of drug abuse Human immunodeficiency virus (HIV) seropositivity Hypercholesterolemia Infertile Kidney disease Malignant neoplasm of lung Myocardial infarction Parkinson's disease Prostate cancer Psychotic disorder Seizure disorder Stroke Tuberculosis Visual impairment Physical Exam Vital Signs Vital Signs - First Documented 07/20/20 12:44 Pulse 95 Resp 20 B/P (MAP) 111/91 (98) Pulse Ox 96 O2 Delivery Room Air Capillary Refill : Height, Weight, BMI Height: 5'3.00" Weight: 160lbs. 2.0oz. 72.917778dd; 24.00 BMI Method:Stated General Appearance: WD/WN, no apparent distress Neck: non-tender, full range of motion, supple, normal inspection Cardiovascular: normal peripheral pulses, regular rate, rhythm Respiratory: chest non-tender, lungs clear, normal breath sounds Wrist: Yes normal inspection, Yes non-tender, Yes no evidence of injury, Yes normal ROM; No abrasions Hand: Right, abrasions (Superficial, fifth metacarpal), asymmetry, bone tenderness (Third and fourth metacarpals), limited ROM, swelling Neurologic/Tendon: normal sensation, normal motor functions, normal tendon functions Neurologic/Psychiatric: no motor/sensory deficits, alert, normal mood/affect, oriented x 3 Skin: normal color, warm/dry Progress/Results/Core Measures Results/Orders My Orders Orders - NIKKY WILDE Hand, Right, 3 Views (07/20/20 12:49) Dipht,Pertuss(Acell),Tet Adult (Boostrix (07/20/20 13:00) Ibuprofen Tablet (Motrin Tablet) (07/20/20 13:45) Vital Signs/I&O 07/20/20 12:44 Pulse 95 Resp 20 B/P (MAP) 111/91 (98) Pulse Ox 96 O2 Delivery Room Air Progress Progress Note : Time: 12:40 Progress Note Patient seen and evaluated. Will give tetanus vaccine, x-rays of the right hand and reevaluate. 1320 x-rays show no fx or d/l. Don wrap and wrist splint applied. Discharge instructions and return precautions reviewed with the patient. All questions answered. Diagnostic Imaging Diagonstic Imaging: Xray Plain Films/CT/US/NM/MRI: hand Comments NAME: GOKUL LOCKWOOD MED REC#: [id number] PT STATUS: REG ER : 1990 PHYSICIAN: NIKKY WILDE ADMIT DATE: 07/20/20/ER Signed Date of Exam:07/20/20 HAND, RIGHT, 3 VIEWS HAND, RIGHT, 3 VIEWS COMPARISON: Right hand radiographs of 04/19/2017 INDICATION: Right hand pain TECHNIQUE: PA, oblique and lateral views of the hand. FINDINGS: No fracture or traumatic malalignment. No radiopaque foreign body. Joint spaces are well-maintained. IMPRESSION: 1. No acute fracture or malalignment. Dictated by: Dictated on workstation # [id number] Dict: 07/20/20 1311 Trans: 07/20/20 1312 [facility] [id number] Interpreted by: MINNIE CHARLES MD Electronically signed by: MINNIE CHARLES MD 07/20/20 1312 Reviewed: Reviewed by Me Departure Impression Primary Impression: Fall Qualified Codes: W19.XXXA - Unspecified fall, initial encounter Additional Impression: Sprain of right hand Qualified Codes: S63.91XA - Sprain of unspecified part of right wrist and hand, initial encounter Disposition: 01 HOME, SELF-CARE Condition: Improved Departure-Patient Inst. Decision time for Depature: 13:20 Referrals: WASHINGTON COYNE DO (PCP/Family) Primary Care Physician Patient Instructions: Sprain (DC) Add. Discharge Instructions: Ice and elevate right hand for 20 minutes every 2 hours while awake. Wear splint as needed for your right hand. Follow-up with your primary care provider if symptoms or not improving or worsen. Alternate between Tylenol 650 mg and ibuprofen 600 mg every 4 hours for pain or swelling. Progress activity with the right hand as tolerated. Return to the emergency department for new, urgent healthcare needs. NIKKY WILDE Jul 20, 2020 12:56
[2020-07-20] MEDS ORDERED: TETANUS,DIPTH,PERTUSS P/F (BOOSTRIX) 0.5 ML VIAL IM ONE (13:00)
--- NOTE | 2020-07-20 13:14 | Diagnostic Imaging Report ---
HAND, RIGHT, 3 VIEWS COMPARISON: Right hand radiographs of 04/19/2017 INDICATION: Right hand pain TECHNIQUE: PA, oblique and lateral views of the hand. FINDINGS: No fracture or traumatic malalignment. No radiopaque foreign body. Joint spaces are well-maintained. IMPRESSION: 1. No acute fracture or malalignment. Dictated by: Dictated on workstation # [id number]
[2020-07-20] MEDS ORDERED: IBUPROFEN 800 MG (MOTRIN) TAB PO ONE ×2 (13:43→13:45)
[2020-07-20 13:49] VITALS: BP 110/86
== END 2020-07-20 13:49 | disposition home or self-care (01) ==
LOC: EDUNIT# 12:22 → ER 12:24
DX: S63.8X1A Sprain of other part of right wrist and hand, initial encounter (principal); G40.909 Epilepsy, unspecified, not intractable, without status epilepticus; Z82.49 Family history of ischemic heart disease and other diseases of the circulatory system; Z77.22 Contact with and (suspected) exposure to environmental tobacco smoke (acute) (chronic); Z23 Encounter for immunization; Z88.5 Allergy status to narcotic agent; Z88.2 Allergy status to sulfonamides; Z88.8 Allergy status to other drugs, medicaments and biological substances; W18.39XA Other fall on same level, initial encounter
CPT/HCPCS: 73130; 90715

== ENCOUNTER 2021-11-11 09:24 | Emergency (ER) | payer MEDICAID ==
[~2021-11-11] VITALS: Ht 154 cm; Wt 49.0 kg
[~2021-11-11 09:24] MED LIST changes: +SERT-414; -SERT100T8
--- NOTE | 2021-11-11 09:48 | ED Upper Extremity ---
General Chief Complaint: Laceration Stated Complaint: R RING FINGER LAC Source: patient Exam Limitations: no limitations (ANMOL YOUNGER MED STUDENT) History of Present Illness Date Seen by Provider: Nov 11, 2021 Time Seen by Provider: 09:38 Initial Comments Mrs. Bui is a 31yo female with PMH anemia that presents today due to laceration on R ring finger. States she tripped over a pair of shoes in the dark and hit her hand on a mirror this morning. She sustained a laceration to her ring finger and a smaller superficial cut on the middle finger. She states it feels like there might be piece of glass in her hand but she isn't sure. Bleeding is well controlled in the room and the lac is cleaned. She is not up to date on tetanus shot. She does not have any other medical complaints. (ANMOL YOUNGER MED STUDENT) Allergies and Home Medications Allergies Coded Allergies: adhesive tape (Verified Allergy, Severe, RASH, 01/20/17) metoclopramide (Verified Allergy, Severe, HIVES, VOMITING, 01/20/17) ondansetron (Verified Allergy, Severe, HIVES, VOMITING, 01/20/17) Sulfa (Sulfonamide Antibiotics) (Verified Allergy, Unknown, 01/20/17) ketorolac (Verified Allergy, Unknown, 01/20/17) morphine (Verified Allergy, Unknown, 01/20/17) Patient Home Medication List Cephalexin (Keflex) 500 Mg Capsule, 500 MG PO BID Prescribed by: GRIFFIN TYLER on 07/19/192123 Clonazepam (Clonazepam) 1 Mg Tablet, (Reported) Entered as Reported by: MAY HERRERA on 04/18/172117 Gabapentin (Gabapentin) 300 Mg Capsule, 300 MG PO TID Prescribed by: GRIFFIN TYLER on 05/19/17 005 Hyoscyamine Sulfate (Levsin-Sl) 0.125 Mg Tab.subl, 1-2 TAB SL Q4H Prescribed by: GOKUL SARMIENTO on 04/19/17 0058 Naproxen (Naprosyn) 500 Mg Tablet, 500 MG PO BID PRN for PAIN-MODERATE Prescribed by: PRANEETH SCANLON on 12/16/17 1401 Nitrofurantoin Monohyd/M-Cryst (Macrobid 100 mg Capsule) 100 Mg Capsule, 100 MG PO BID Prescribed by: GOKUL SARMIENTO on 04/19/1757 Orphenadrine Citrate (Orphenadrine Citrate) 100 Mg Tablet.er, 100 MG PO BID PRN for PAIN-MODERATE TO SEVERE Prescribed by: PRANEETH SCANLON on 12/16/17 1401 Pantoprazole Sodium (Protonix) 40 Mg Tablet.dr, 40 MG PO DAILY Prescribed by: GOKUL SARMIENTO on 04/19/1757 Promethazine HCl (Phenergan) 25 Mg Supp.rect, 25 MG RC Q4H Prescribed by: GOKUL SARMIENTO on 04/19/1757 Promethazine HCl (Promethazine Tablet) 25 Mg Tablet, 25 MG PO Q6H PRN for NAUSEA/VOMITING Prescribed by: GRIFFIN TYLER on 07/19/192123 Sertraline HCl (Sertraline HCl) 100 Mg Tablet, (Reported) Entered as Reported by: MAY HERRERA on 04/18/172117 Review of Systems Constitutional: No chills, No fever Respiratory: No cough, No short of breath Cardiovascular: No chest pain, No palpitations Gastrointestinal: No abdominal pain, No constipation, No diarrhea, No nausea, No vomiting Genitourinary: No dysuria, No hematuria Musculoskeletal: No joint pain, No muscle weakness Skin: No lesions, No rash; other (Laceration of R ring finger, superficial cuts on other fingers of R hand) Psychiatric/Neurological: Denies Numbness, Denies Paresthesia, Denies Weakness (CARISAIRAIDA BOLDENLama Lab STUDENT) Past Ihzxljt-Iugmnv-Dxidkw Hx Immunizations Up To Date Tetanus Booster (TDap): More than 5yrs PED Vaccines UTD: Yes (IRAIDA YOUNGERLama Lab STUDENT) Seasonal Allergies Seasonal Allergies: No (CARISAIRAIDA BOLDENLama Lab STUDENT) Past Medical History Surgeries: Yes (RUPTURED OVARIAN CYST; X 1) Section, Gallbladder, Tubal Ligation Respiratory: No Cardiac: No Neurological: Yes (PSEUDOSEIZURES) Seizure Disorder Reproductive Disorders: Yes (CERVICAL DYSPLASIA--S/P LEEP) Female Reproductive Disorders: Denies Genitourinary: Yes Kidney Stones 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; S/P FRANCO) Ulcer, Gall Bladder Disease Musculoskeletal: Yes Fibromyalgia Endocrine: No HEENT: No Cancer: No Psychosocial: Yes Pseudo Seizures, Anxiety Integumentary: No Blood Disorders: No Adverse Reaction/Blood Tranf: No (ANMOL YOUNGER MED STUDENT) Family Medical History Family history: Cardiovascular disease maternal gma Heart disease maternal gma No Family History of: Abdominal aortic aneurysm [place]'s disease Alcoholism Aphasia Cancer Cancer of colon Cataract Chest pain Congenital heart disease Congestive heart failure Cystic fibrosis Dementia Dysphagia Family history: Allergy Family history: Alzheimer's disease Family history: Arthritis Family history: Asthma Family history: Breast disease Family history: Coronary thrombosis Family history: Diabetes mellitus Family history: Gastrointestinal disease Family history: Glaucoma Family history: Hypertension Family history: Osteoporosis Family history: Thyroid disorder Headache Hearing loss Hereditary disease History of - anemia History of - disorder History of - respiratory disease History of drug abuse Human immunodeficiency virus (HIV) seropositivity Hypercholesterolemia Infertile Kidney disease Malignant neoplasm of lung Myocardial infarction Parkinson's disease Prostate cancer Psychotic disorder Seizure disorder Stroke Tuberculosis Visual impairment Physical Exam Vital Signs Vital Signs - First Documented 11/11/21 09:33 Temp 36.9 Pulse 102 Resp 20 B/P (MAP) 161/98 (119) Pulse Ox 97 (JOCELINE GUEVAAR MD) Vital Signs Capillary Refill : (ANMOL YOUNGER MED STUDENT) Height, Weight, BMI Height: 5'3.00" Weight: 160lbs. 2.0oz. 72.923014tk; 23.00 BMI Method:Stated General Appearance: WD/WN, no apparent distress Cardiovascular: normal peripheral pulses, regular rate, rhythm, no edema, no murmur Respiratory: chest non-tender, lungs clear, normal breath sounds Gastrointestinal: normal bowel sounds, non tender, soft Hand: asymmetry, laceration (R ring finger about 1.5cm long horizontally across the middle phalange), swelling Neurologic/Tendon: normal sensation, normal motor functions Neurologic/Psychiatric: alert, normal mood/affect, oriented x 3 Skin: normal color, warm/dry (ANMOL YOUNGER MED STUDENT) Progress/Results/Core Measures Results/Orders My Orders Orders - JOCELINE GUEVARA MD Lidocaine 1% Inj 20 Ml (Xylocaine 1% Inj (11/11/21 10:15) Dipht,Pertuss(Acell),Tet Adult (Boostrix (11/11/21 10:15) Lidocaine 1% Inj 50 Ml (Xylocaine 1% Inj (11/11/21 10:15) (JOCELINE GUEVARA MD) Medications Given in ED Current Medications Medications Dose Ordered Sig/Karolina Route Start Time Stop Time Status Last Admin Dose Admin Diphtheria/ Tetanus/Acell Pertussis 0.5 ml ONCE ONCE IM 11/11/21 10:15 11/11/21 10:16 DC 11/11/21 10:18 0.5 ML Lidocaine HCl 50 ml STK-MED ONCE .ROUTE 11/11/21 10:15 11/11/21 10:19 DC 11/11/21 10:20 5 ML (JOCELINE GUEVARA MD) Vital Signs/I&O 11/11/21 09:33 Temp 36.9 Pulse 102 Resp 20 B/P (MAP) 161/98 (119) Pulse Ox 97 (JOCELINE GUEVARA MD) Departure Impression Primary Impression: Laceration of finger Qualified Codes: S61.214A - Laceration without foreign body of right ring finger without damage to nail, initial encounter Disposition: HOME, SELF-CARE Condition: Improved Departure-Patient Inst. Referrals: WASHINGTON COYNE DO (PCP/Family) Primary Care Physician Patient Instructions: Laceration Repair With Stitches (DC) Add. Discharge Instructions: Keep the wound clean and dry. Starting late this evening you can shower and wash your hands. Keep the finger in the splint until that time. That will help the tissue layers stick to each other before getting wet. Cover the wound when active or sleeping to avoid disrupting the sutures. You may leave open to air when you are awake and at rest. Do not submerge until sutures are removed. Return in 10 days to have the sutures removed. You do not need an appointment when there will be no additional charge. Expect the wound to ooze a little bit of blood and yellowish fluid for the next 24 to 48 hours. If there is heavier bleeding, elevate and apply direct pressure with a clean cloth or tissue for about 15 minutes and reevaluate. Monitor for signs of infection such as increasing redness, increasing swelling, puslike drainage, or fever. Return to care if you notice these symptoms. Call with questions or concerns. Return to care if you have any other urgent concerns All discharge instructions reviewed with patient and/or family. 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 Work/School Note: Work Release Form Date Seen in the Emergency Department: Nov 11, 2021 Other Restrictions Listed Below: Keep wound covered at work until stitches removed. Restrictions: No submersion until stitches are removed. ANMOL YOUNGER MED STUDENT Nov 11, 2021 09:48 JOCELINE GUEVARA MD Nov 11, 2021 11:29
[2021-11-11] MEDS ORDERED: LIDOCAINE 1% INJ 20 ML VIAL INJ ONE (10:15)
[2021-11-11] MEDS ORDERED: LIDOCAINE 1% INJ 50 ML (XYLOCAINE) VIAL ONE (10:15)
[2021-11-11] MEDS ORDERED: TETANUS,DIPTH,PERTUSS P/F (BOOSTRIX) 0.5 ML VIAL IM ONE (10:15)
[2021-11-11 12:05] VITALS: BP 161/98
== END 2021-11-11 12:05 | disposition home or self-care (01) ==
LOC: EDUNIT# 09:24 → ER 09:25
DX: S61.214A Laceration without foreign body of right ring finger without damage to nail, initial encounter (principal); Z23 Encounter for immunization; W01.198A Fall on same level from slipping, tripping and stumbling with subsequent striking against other object, initial encounter
CPT/HCPCS: 12001; 90715

== ENCOUNTER 2022-08-23 12:20 | Observation (INO) | payer MEDICAID ==
[~2022-08-23] VITALS: Ht 155 cm; Wt 55.0 kg
[2022-08-23] MEDS ORDERED: ceFAZolin INJECTION 1,000 MG in NS (IVPB) 50 ML IV ONE (14:45)
[2022-08-23] MEDS ORDERED: LACTATED RINGERS 1,000 ML IV ONE (14:45)
[2022-08-23] MEDS ORDERED: VANCOMYCIN INJECTION 1,000 MG in NS (IVPB) 250 ML IV ONE (14:45)
[2022-08-23 15:09] LABS: BASOPHILS % (AUTO) 0 % (0-10); BILIRUBIN,URINE NEGATIVE (NEGATIVE); CLARITY,URINE CLEAR; COLOR,URINE YELLOW; EOSINOPHILS % (AUTO) 0 % (0-10); GLUCOSE, URINE (UA) NEGATIVE (NEGATIVE); HEMATOCRIT 42 % (35-52); HEMOGLOBIN 13.9 g/dL (11.5-16.0); KETONES,URINE NEGATIVE (NEGATIVE); LEUKOCYTE ESTERASE ,URINE NEGATIVE (NEGATIVE); LYMPHOCYTES % (AUTO) 15 % (12-44); MEAN CORPUSCULAR HEMOGLOBIN 29 pg (25-34); MEAN CORPUSCULAR HGB CONC 33 g/dL (32-36); MEAN CORPUSCULAR VOLUME 88 fL (80-99); MEAN PLATELET VOLUME 10.3 fL (9.0-12.2); MONOCYTES # (AUTO) 0.7 X 10^3 (0.0-1.0); MONOCYTES % (AUTO) 6 % (0-12); NEUTROPHILS # (AUTO) 10.4 X 10^3 (1.8-7.8); NEUTROPHILS % (AUTO) 79 % (42-75); NITRITE,URINE NEGATIVE (NEGATIVE); PH,URINE 5.5 (5-9); PLATELET COUNT 327 10^3/uL (130-400); PROTEIN,URINE NEGATIVE (NEGATIVE); WHITE BLOOD COUNT 13.2 10^3/uL (4.3-11.0)
--- NOTE | 2022-08-23 15:13 | ED Integumentary General ---
General Chief Complaint: Bite-Animal/Human/Insect Stated Complaint: INSECT/SPIDER BITE ON FACE Nursing Triage Note: Pt ambulates to ER with c/o spider bite to the left cheek. Pt states she went to [facility] and doctor prescribed her Bactrim. Pt states she has not picked up med from pharmacy. Source: patient History of Present Illness Date Seen by Provider: Aug 23, 2022 Time Seen by Provider: 14:30 Initial Comments PT ARRIVES VIA POV FROM HOME STATES SHE THINKS SHE "MIGHT HAVE BEEN BITTEN BY A SPIDER OR SOMETHING"--DID NOT SEE OR FEEL ANYTHING BITE HER AND DID NOT SEE A SPIDER ANYWHERE SHE NOTICED A SORE ON HER LEFT CHEEK YESTERDAY SHE WOKE UP THIS MORNING AND HER LEFT CHEEK, BAPTISM AND PERIORBITAL AREA HAVE SWELLING AND REDNESS AND PAIN NO FEVER SHE WENT TO [facility] THIS MORNING, AND WAS GIVEN A SHOT OF STEROIDS AND GIVEN RX FOR AN ANTIBIOTIC--BACTRIM, BUT SHE DID NOT PASTE THINNER THE PRESCRIPTION SHE CAME HERE INSTEAD NO HISTORY OF SIMILAR PCP: [facility] Allergies and Home Medications Allergies Coded Allergies: adhesive tape (Verified Allergy, Severe, RASH, 01/20/17) metoclopramide (Verified Allergy, Severe, HIVES, VOMITING, 01/20/17) ondansetron (Verified Allergy, Severe, HIVES, VOMITING, 01/20/17) Patient Home Medication List Home Medication List Reviewed: Yes Cephalexin (Keflex) 500 Mg Capsule, 500 MG PO BID Prescribed by: GRIFFIN TYLER on 07/19/192123 Clonazepam (Clonazepam) 1 Mg Tablet, (Reported) Entered as Reported by: MAY HERRERA on 04/18/172117 Gabapentin (Gabapentin) 300 Mg Capsule, 300 MG PO TID Prescribed by: GRIFFIN TYLER on 05/19/17 005 Hyoscyamine Sulfate (Levsin-Sl) 0.125 Mg Tab.subl, 1-2 TAB SL Q4H Prescribed by: GOKUL SARMIENTO on 04/19/17 0058 Naproxen (Naprosyn) 500 Mg Tablet, 500 MG PO BID PRN for PAIN-MODERATE Prescribed by: PRANEETH SCANLON on 12/16/17 1401 Nitrofurantoin Monohyd/M-Cryst (Macrobid 100 mg Capsule) 100 Mg Capsule, 100 MG PO BID Prescribed by: GOKUL SARMIENTO on 04/19/1757 Orphenadrine Citrate (Orphenadrine Citrate) 100 Mg Tablet.er, 100 MG PO BID PRN for PAIN-MODERATE TO SEVERE Prescribed by: PRANEETH SCANLON on 12/16/17 1401 Pantoprazole Sodium (Protonix) 40 Mg Tablet.dr, 40 MG PO DAILY Prescribed by: GOKUL SARMIENTO on 04/19/1757 Promethazine HCl (Phenergan) 25 Mg Supp.rect, 25 MG RC Q4H Prescribed by: GOKUL SARMIENTO on 04/19/1757 Promethazine HCl (Promethazine Tablet) 25 Mg Tablet, 25 MG PO Q6H PRN for NAUSEA/VOMITING Prescribed by: GRIFFIN TYLER on 07/19/192123 Sertraline HCl (Sertraline HCl) 100 Mg Tablet, (Reported) Entered as Reported by: MAY HERRERA on 04/18/172117 Review of Systems Review of Systems Constitutional: no symptoms reported; No fever EENTM: see HPI Respiratory: no symptoms reported Cardiovascular: no symptoms reported Gastrointestinal: no symptoms reported Genitourinary: no symptoms reported Musculoskeletal: no symptoms reported Skin: see HPI Psychiatric/Neurological: No Symptoms Reported Endocrine: No Symptoms Reported Hematologic/Lymphatic: No Symptoms Reported Past [id number]-[id number]-[id number] Hx Patient Social History Tobacco Use?: Yes Smoking Status: Current Someday Smoker Use of E-Cig and/or Vaping dev: No Substance use?: Yes Substance type: Methamphetamine, Marijuana Additional substance use comme: UDS + FOR METH AND THC 08/23/22 Alcohol Use?: No Pt feels they are or have been: No Immunizations Up To Date Tetanus Booster (TDap): More than 5yrs PED Vaccines UTD: Yes First/Initial COVID19 Vaccinat: RECEIVED UNK WHEN Second COVID19 Vaccination Jorgito: RECEIVED UNK WHEN COVID19 Vaccine 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 Seasonal Allergies Seasonal Allergies: No Past Medical History Surgery/Hospitalization HX: SEIZURES Surgeries: Yes (RUPTURED OVARIAN CYST; X 1) Section, Gallbladder, Tubal Ligation Respiratory: No Cardiac: No Neurological: Yes (PSEUDOSEIZURES) Seizure Disorder Reproductive Disorders: Yes (CERVICAL DYSPLASIA--S/P LEEP) Genitourinary: Yes Kidney Stones 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; S/P FRANCO) Ulcer, Gall Bladder Disease Musculoskeletal: Yes Fibromyalgia Endocrine: No HEENT: No Cancer: No Psychosocial: Yes Pseudo Seizures, Anxiety Integumentary: No Blood Disorders: No Adverse Reaction/Blood Tranf: No Family Medical History Family history: Cardiovascular disease maternal gma Heart disease maternal gma No Family History of: Abdominal aortic aneurysm Orion's disease Alcoholism Aphasia Cancer Cancer of colon Cataract Chest pain Congenital heart disease Congestive heart failure Cystic fibrosis Dementia Dysphagia Family history: Allergy Family history: Alzheimer's disease Family history: Arthritis Family history: Asthma Family history: Breast disease Family history: Coronary thrombosis Family history: Diabetes mellitus Family history: Gastrointestinal disease Family history: Glaucoma Family history: Hypertension Family history: Osteoporosis Family history: Thyroid disorder Headache Hearing loss Hereditary disease History of - anemia History of - disorder History of - respiratory disease History of drug abuse Human immunodeficiency virus (HIV) seropositivity Hypercholesterolemia Infertile Kidney disease Malignant neoplasm of lung Myocardial infarction Parkinson's disease Prostate cancer Psychotic disorder Seizure disorder Stroke Tuberculosis Visual impairment Physical Exam Vital Signs Vital Signs - First Documented 08/23/22 12:42 Temp 36.9 Pulse 88 Resp 18 B/P (MAP) 179/109 (132) Pulse Ox 100 O2 Delivery Room Air Capillary Refill : Less Than 3 Seconds General Appearance: WD/WN, no apparent distress HEENT: PERRL/EOMI, TMs normal, pharynx normal, other (SCABBED WOUND TO LEFT CHEEK, NEAR TMJ AREA. SHE HAS MODERATE SWELLING, WITH ERYTHEMA, WARMTH, AND TENDENRESS TO LEFT CHEEK, LEFT BAPTISM AND LEFT PERIORBITAL AREA. CONJUNCTIVA IS CLEAR AND NO DRAINAGE FROM EYE. EXTENSIVE DENTAL DECAY. 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, no motor/sensory deficits, al ert, normal mood/affect, oriented x 3 Skin: normal color, warm/dry, other ( ABOVE) Procedures/Interventions Suture Size: 4-0 Progress/Results/Core Measures Results/Orders Lab Results Laboratory Tests Test 08/23/22 15:01 08/23/22 15:35 Range/Units White Blood Count 13.2 H 4.3-11.0 10^3/uL Red Blood Count 4.80 3.80-5.11 10^6/uL Hemoglobin 13.9 11.5-16.0 g/dL Hematocrit 42 35-52 % Mean Corpuscular Volume 88 80-99 fL Mean Corpuscular Hemoglobin 29 25-34 pg Mean Corpuscular Hemoglobin Concent 33 32-36 g/dL Red Cell Distribution Width 12.2 10.0-14.5 % Platelet Count 327 130-400 10^3/uL Mean Platelet Volume 10.3 9.0-12.2 fL Immature Granulocyte % (Auto) 0 % Neutrophils (%) (Auto) 79 H 42-75 % Lymphocytes (%) (Auto) 15 12-44 % Monocytes (%) (Auto) 6 0-12 % Eosinophils (%) (Auto) 0 0-10 % Basophils (%) (Auto) 0 0-10 % Neutrophils # (Auto) 10.4 H 1.8-7.8 X 10^3 Lymphocytes # (Auto) 2.0 1.0-4.0 X 10^3 Monocytes # (Auto) 0.7 0.0-1.0 X 10^3 Eosinophils # (Auto) 0.0 0.0-0.3 10^3/uL Basophils # (Auto) 0.0 0.0-0.1 10^3/uL Immature Granulocyte # (Auto) 0.0 0.0-0.1 10^3/uL Erythrocyte Sedimentation Rate 3 0-20 MM/HR Urine Color YELLOW Urine Clarity CLEAR Urine pH 5.5 5-9 Urine Specific [place] 1.020 1.016-1.022 Urine Protein NEGATIVE NEGATIVE Urine Glucose (UA) NEGATIVE NEGATIVE Urine Ketones NEGATIVE NEGATIVE Urine Nitrite NEGATIVE NEGATIVE Urine Bilirubin NEGATIVE NEGATIVE Urine Urobilinogen 0.2 < = 1.0 MG/DL Urine Leukocyte Esterase NEGATIVE NEGATIVE Urine RBC (Auto) NEGATIVE NEGATIVE Urine RBC NONE /HPF Urine WBC 0-2 /HPF Urine Squamous Epithelial Cells 2-5 /HPF Urine Crystals NONE /LPF Urine Bacteria TRACE /HPF Urine Casts NONE /LPF Urine Mucus MODERATE H /LPF Urine Culture Indicated NO Urine Test NEGATIVE NEGATIVE Sodium Level 137 135-145 MMOL/L Potassium Level 3.9 3.6-5.0 MMOL/L Chloride Level 104 98-107 MMOL/L Carbon Dioxide Level 26 21-32 MMOL/L Anion Gap 7 5-14 MMOL/L Blood Urea Nitrogen 8 7-18 MG/DL Creatinine 0.78 0.60-1.30 MG/DL Estimat Glomerular Filtration Rate 103 BUN/Creatinine Ratio 10 Glucose Level 82 70-105 MG/DL Calcium Level 9.3 8.5-10.1 MG/DL Corrected Calcium 8.5-10.1 MG/DL Total Bilirubin 0.4 0.1-1.0 MG/DL Aspartate Amino Transf (AST/SGOT) 20 5-34 U/L Alanine Aminotransferase (ALT/SGPT) 19 0-55 U/L Alkaline Phosphatase 79 40-136 U/L C-Reactive Protein High Sensitivity 0.56 H 0.00-0.50 MG/DL Total Protein 7.7 6.4-8.2 GM/DL Albumin 4.7 H 3.2-4.5 GM/DL Urine Opiates Screen NEGATIVE NEGATIVE Urine Oxycodone Screen NEGATIVE NEGATIVE Urine Methadone Screen NEGATIVE NEGATIVE Urine Propoxyphene Screen NEGATIVE NEGATIVE Urine Barbiturates Screen NEGATIVE NEGATIVE Ur Tricyclic Antidepressants Screen NEGATIVE NEGATIVE Urine Phencyclidine Screen NEGATIVE NEGATIVE Urine Amphetamines Screen POSITIVE H NEGATIVE Urine Methamphetamines Screen POSITIVE H NEGATIVE Urine Benzodiazepines Screen NEGATIVE NEGATIVE Urine Cocaine Screen NEGATIVE NEGATIVE Urine Cannabinoids Screen POSITIVE H NEGATIVE Lactic Acid Level 0.82 0.50-2.00 MMOL/L My Orders Orders - GOKUL SARMIENTO DO Ed Iv/Invasive Line Start (08/23/22 14:35) Ct Maxillofacial Wo (08/23/22 14:35) Cbc With Automated Diff (08/23/22 14:35) Comprehensive Metabolic Panel (08/23/22 14:35) Hs C Reactive Protein (08/23/22 14:35) Drug Screen Stat (Urine) (08/23/22 14:35) Hcg,Qualitative Urine (08/23/22 14:35) Ua Culture If Indicated (08/23/22 14:35) Erythrocyte Sedimentation Rate (08/23/22 14:35) Ed Iv/Invasive Line Start (08/23/22 14:35) Lactated Ringers (Lr 1000 Ml Iv Solution (08/23/22 14:45) Cefazolin Injection (Ancef Injection) (08/23/22 14:45) Vancomycin Injection (Vancomycin Injecti (08/23/22 14:45) Lactic Acid Analyzer (08/23/22 15:16) Blood Culture (08/23/22 15:16) Ed Iv/Invasive Line Start (08/23/22 15:16) Vital Signs Adult Sepsis Patie Q15M (08/23/22 15:16) Remove Rings In Anticipation O (08/23/22 15:16) Ed Admission (Communication) (08/23/22 16:21) Medications Given in ED Vital Signs/I&O 08/23/22 12:42 Temp 36.9 Pulse 88 Resp 18 B/P (MAP) 179/109 (132) Pulse Ox 100 O2 Delivery Room Air Blood Pressure Mean: 132 Progress Progress Note : Progress Note GIVEN: -IV FLUIDS -ANTIBIOTICS -TORADOL FOR PAIN -HYDRALAZINE FOR ELEVATED BLOOD PRESSURE SEPSIS PROTOCOL INITIATED FOCUS EXAM AT 1610 EXAM UNCHANGED. HAS MILDLY ELEVATED WBC, BUT NO OTHER CRITERIA FOR SEPSIS--NO FEVER, NO T ACHYCARDIA OR HYPOTENSION, LACTIC ACID IS NORMAL, OTHER LAB NORMAL. NO DETERIORATION IN PT'S CONDITION DURING ER STAY. PT CALM AND COOPERATIVE FOR ENTIRE ER STAY. BP CONTINUED TO BE ELEVATED. PT STATES SHE HAS NOT HAD PROBLEMS WITH HIGH BLOOD PRESSURE HYDRALAZINE ORDERED/GIVEN AND PT WAS MONITORED PRIOR TO TRANSFERRING TO THE FLOOR. Diagnostic Imaging Comments CT MAXILLOFACIALS--PER RADIOLOGIST REPORT AT 161 FINDINGS: Globes are intact without evidence of intraorbital inflammation or hematoma. There is diffuse swelling and increased density within the subcutaneous tissues of the left face which may represent contusion. No definite fracture is identified. There is no paranasal sinus air-fluid level. Carious lesions involve multiple teeth bilaterally with periapical lucency involving anterior right maxillary teeth. There is no evidence of organized fluid collection to suggest significant hematoma or abscess. Temporomandibular joints are intact. IMPRESSION: Left facial contusions without acute fracture identified. Carious lesions involve multiple teeth and dental consultation would be of use. Reviewed: Reviewed by Me Departure Communication (Admissions) 1614--SPOKE WITH DR. FREITAS, HOSPITALIST FOR [facility] [place]. SHE WILL DO ADMIT ORDERS. Impression Primary Impression: LEFT FACIAL CELLULITIS Additional Impressions: Methamphetamine use Marijuana use HTN (hypertension) Disposition: ADMITTED INPATIENT Condition: Stable Admissions Decision to Admit Reason: Admit from ER (General) Decision to Admit/Date: Aug 23, 2022 Time/Decision to Admit Time: 16:15 Departure-Patient Inst. Referrals: [facility] (PCP/Family) Primary Care Physician GOKUL SARMIENTO DO Aug 23, 2022 15:13
[2022-08-23 15:14] LABS: HCG,QUALITATIVE URINE NEGATIVE (NEGATIVE)
[2022-08-23 15:21] LABS: AMPHETAMINE SCREEN, URINE POSITIVE (NEGATIVE); BARBITURATE SCREEN URINE NEGATIVE (NEGATIVE); BENZODIAZEPINES SCREEN URINE NEGATIVE (NEGATIVE); CANNABINOID SCREEN, URINE POSITIVE (NEGATIVE); COCAINE SCREEN URINE NEGATIVE (NEGATIVE); METHADONE STAT NEGATIVE (NEGATIVE); OPIATE SCREEN URINE NEGATIVE (NEGATIVE); OXYCODONE STAT NEGATIVE (NEGATIVE); PROPOXYPHENE STAT NEGATIVE (NEGATIVE); TRICYCLIC ANTIDEPRESSANTS SCRE NEGATIVE (NEGATIVE)
[2022-08-23 15:33] LABS: ERYTHROCYTE SEDIMENTATION RATE 3 MM/HR (0-20)
[2022-08-23 15:35] LABS: ALANINE AMINOTRANSFERASE 19 U/L (0-55); ALBUMIN 4.7 GM/DL (3.2-4.5); ALKALINE PHOSPHATASE 79 U/L (40-136); BILIRUBIN,TOTAL 0.4 MG/DL (0.1-1.0); BUN/CREATININE RATIO 10; CALCIUM 9.3 MG/DL (8.5-10.1); CARBON DIOXIDE 26 MMOL/L (21-32); CHLORIDE 104 MMOL/L (98-107); CREATININE SERUM 0.78 MG/DL (0.60-1.30); GFR ESTIMATED 103; GLUCOSE 82 MG/DL (70-105); POTASSIUM 3.9 MMOL/L (3.6-5.0); SODIUM 137 MMOL/L (135-145); TOTAL PROTEIN 7.7 GM/DL (6.4-8.2)
[2022-08-23 15:58] LABS: BACTERIA,URINE TRACE /HPF; WBC,URINE 0-2 /HPF
--- NOTE | 2022-08-23 16:04 | Diagnostic Imaging Report ---
PROCEDURE: CT maxillofacial without contrast. TECHNIQUE: Multiple contiguous axial images were obtained through the facial bones without the use of intravenous contrast. Auto Exposure Controls were utilized during the CT exam to meet ALARA standards for radiation dose reduction. INDICATION: Facial trauma. FINDINGS: Globes are intact without evidence of intraorbital inflammation or hematoma. There is diffuse swelling and increased density within the subcutaneous tissues of the left face which may represent contusion. No definite fracture is identified. There is no paranasal sinus air-fluid level. Carious lesions involve multiple teeth bilaterally with periapical lucency involving anterior right maxillary teeth. There is no evidence of organized fluid collection to suggest significant hematoma or abscess. Temporomandibular joints are intact. IMPRESSION: Left facial contusions without acute fracture identified. Carious lesions involve multiple teeth and dental consultation would be of use. Dictated by: Dictated on workstation # [id number]
[2022-08-23] MEDS ORDERED: hydrALAZINE (APESOLINE) 20 MG/ML VIAL IV ONE ×2 (18:00→19:30)
[2022-08-23] MEDS ORDERED: KETOROLAC 30 MG/ML VIAL IV ONE (18:00)
[2022-08-23 20:40] VITALS: BP 140/88
[2022-08-23 20:50] VITALS: BP 140/88
[2022-08-23 20:54] VITALS: BP 179/109
[2022-08-23] MEDS ORDERED: BISACODYL 10 MG SUPP (DULCOLAX) PR PRN (21:00)
[2022-08-23] MEDS ORDERED: ACETAMINOPHEN 325 MG TABLET PO PRN (21:00)
[2022-08-23] MEDS ORDERED: CALCIUM CARBONATE 500 MG (TUMS) TAB.CHEW PO PRN (21:00)
[2022-08-23] MEDS ORDERED: VANCOMYCIN INJECTION 0.1 MG in NS (IVPB) 250 ML IV SCH (21:00)
[2022-08-23] MEDS ORDERED: LACTULOSE SYRUP 10GM/15ML (ENULOSE) 30ML UDC PO PRN (21:00)
[2022-08-23] MEDS ORDERED: MILK OF MAGNESIA 400 MG/5 ML 30 ML UDC PO PRN (21:00)
[2022-08-23] MEDS ORDERED: diphenhydrAMINE 25 MG TAB (BENADRYL) PO PRN (21:00)
[2022-08-23] MEDS ORDERED: LORazepam 0.5 MG (ATIVAN) TABLET PO PRN (21:00)
[2022-08-23] MEDS ORDERED: MELATONIN 3 MG TABLET PO PRN (21:00)
[2022-08-23] MEDS ORDERED: ANTACID SUSP 30 ML UDC (MYLANTA) PO PRN (21:00)
[2022-08-23] MEDS ORDERED: polyethylene glycoL POWDER 17 GM (MIRALAX) PACK PO PRN (21:00)
[2022-08-23] MEDS ORDERED: diphenhydrAMINE 50 MG/ML INJ (BENADRYL) IVP PRN (21:00)
[2022-08-23] MEDS ORDERED: LORazepam INJ 2 MG/ML (ATIVAN) VIAL IVP PRN (21:00)
[2022-08-23] MEDS ORDERED: PIPERACILLIN SODIUM/TAZOBACTAM 4.5 GM in NS (IVPB) 100 ML IV ONE (21:30)
[2022-08-23] MEDS: ENOXAPARIN 40 MG/0.4 ML (LOVENOX) SYR SC SCH (21:35)
[2022-08-23] MEDS: NS IV 1000 ML 1,000 ML IV SCH (21:35)
[2022-08-23] MEDS: SENNOSIDES 8.6 MG (SENOKOT) TAB PO SCH (21:36)
[2022-08-23] MEDS: DOCUSATE SODIUM 100 MG (COLACE) CAP PO SCH (21:36)
[2022-08-23] MEDS: PROMETHAZINE INJ 25 MG/ML (PHENERGAN) AMP IM PRN (23:04)
[2022-08-23 23:18] VITALS: BP 165/98
[2022-08-24] VITALS (15 sets, daily range): BP systolic 101–159; BP diastolic 71–102
[2022-08-24] MEDS: VANCOMYCIN 500 MG/NS 100 ML IVPB IV SCH ×4 (00:51→07:35)
[2022-08-24] MEDS: HYDROmorphone 2 MG/ML VIAL (DILAUDID) IV PRN ×7 (00:57→23:36)
[2022-08-24] MEDS: PIPERACILLIN SODIUM/TAZOBACTAM 4.5 GM in NS (IVPB) 100 ML IV SCH ×3 (04:36→19:34)
[2022-08-24] MEDS: PROMETHAZINE INJ 25 MG/ML (PHENERGAN) AMP IM PRN ×3 (05:01→18:01)
--- NOTE | 2022-08-24 05:07 | History & Physical-Hospitalist ---
History of Present Illness HPI/Chief Complaint CC: Left facial cellulitis HPI: This is a 31 yr old female clinic pt of [facility]. She has a history of meth use. She presented with left sided facial swelling and erythema. Patient sleeping most of my conversation. Male friend at bedside. Dr Valle consulted. Source: patient Exam Limitations: clinical condition (sleeping) Date Seen 08/24/22 Time Seen by a Provider: 09:00 Attending Physician [place] PCP Admitting Physician: Ashley Diaz DO Attending Physician: Ashley Diaz DO Referring Physician Date of Admission Aug 23, 2022 at 16:22 Home Medications & Allergies Home Medications Reviewed patient Home Medication Reconciliation performed by pharmacy medication reconciliations planetarium technician and/or nursing. Patients Allergies have been reviewed. Allergies Allergies Coded Allergies adhesive tape (Verified Allergy, Severe, RASH, 01/20/17) metoclopramide (Verified Allergy, Severe, HIVES, VOMITING, 01/20/17) ondansetron (Verified Allergy, Severe, HIVES, VOMITING, 01/20/17) Past [id number] Hx Patient Social History Marrital Status: single Employed/Student: unemployed Tobacco Use?: No Smoking Status: Current Everyday Smoker Use of E-Cig and/or Vaping dev: Yes E-Cig or Vaping type used: Nicotine Use of E-Cig and/or Vaping Antoni: Current Everyday User Substance use?: No Substance type: Methamphetamine, Marijuana Additional substance use comme: UDS + FOR METH AND THC 08/23/22 Alcohol Use?: No Pt feels they are or have been: No Immunizations Up To Date First/Initial COVID19 Vaccinat: RECEIVED UNK WHEN Second COVID19 Vaccination Jorgito: RECEIVED UNK WHEN Tetanus Booster (TDap): Unknown Hepatitis A: No Hepatitis B: No PED Vaccines UTD: Yes Seasonal Allergies Seasonal Allergies: No Current Status status: No Advance Directives: No Communicates: Verbally Primary Language: Omani Preferred Spoken Language: Omani Is interpretation needed?: No Implanted or Applied Medical D: None Past Medical History Surgeries: Section, Gallbladder, Tubal Ligation Seizure Disorder Kidney Stones Ulcer, Gall Bladder Disease Fibromyalgia Pseudo Seizures, Anxiety Blood Disorders: No Adverse Reaction/Blood Tranf: No Family Medical History Family history: Cardiovascular disease maternal gma Heart disease maternal gma No Family History of: Abdominal aortic aneurysm Montrose's disease Alcoholism Aphasia Cancer Cancer of colon Cataract Chest pain Congenital heart disease Congestive heart failure Cystic fibrosis Dementia Dysphagia Family history: Allergy Family history: Alzheimer's disease Family history: Arthritis Family history: Asthma Family history: Breast disease Family history: Coronary thrombosis Family history: Diabetes mellitus Family history: Gastrointestinal disease Family history: Glaucoma Family history: Hypertension Family history: Osteoporosis Family history: Thyroid disorder Headache Hearing loss Hereditary disease History of - anemia History of - disorder History of - respiratory disease History of drug abuse Human immunodeficiency virus (HIV) seropositivity Hypercholesterolemia Infertile Kidney disease Malignant neoplasm of lung Myocardial infarction Parkinson's disease Prostate cancer Psychotic disorder Seizure disorder Stroke Tuberculosis Visual impairment Review of Systems Constitutional: see HPI Physical Exam Physical Exam Vital Signs Vital Signs - First Documented 08/23/22 08/23/22 08/24/22 12:42 20:54 16:35 Temp 36.9 Pulse 88 Resp 18 B/P (MAP) 179/109 (132) Pulse Ox 100 O2 Delivery Room Air O2 Flow Rate 3.00 FiO2 21 Capillary Refill : Less Than 3 Seconds Height, Weight, BMI Height: 5'3.00" Weight: 160lbs. 2.0oz. 72.313653bo; 22.89 BMI Method:Stated General Appearance: No Apparent Distress, Chronically ill HEENT: Other (left facial edema and erythema) Respiratory: Lungs Clear, Normal Breath Sounds Cardiovascular: Regular Rate, Rhythm Neurologic/Psychiatric: Alert, Oriented x3, No Motor/Sensory Deficits, Normal Mood/Affect Results Results/Procedures Labs Laboratory Tests 08/23/22 15:01 08/24/22 05:43 Patient resulted labs reviewed. Assessment/Plan Admission Diagnosis Assessment: Left facial cellulitis Pseudoseizures Plan: IV abx Valle consult Admission Status: Observation Diagnosis/Problems Diagnosis/Problems (1) Facial cellulitis (2) Methamphetamine use Status: Acute (3) Pseudoseizures Status: Acute ASHLEY DIAZ DO Aug 24, 2022 05:07
[2022-08-24] MEDS: NS IV 1000 ML 1,000 ML IV SCH ×3 (05:11→20:17)
[2022-08-24 06:58] LABS: BASOPHILS # (AUTO) 0.1 10^3/uL (0.0-0.1); BASOPHILS % (AUTO) 1 % (0-10); EOSINOPHILS # (AUTO) 0.1 10^3/uL (0.0-0.3); EOSINOPHILS % (AUTO) 1 % (0-10); HEMATOCRIT 39 % (35-52); HEMOGLOBIN 12.7 g/dL (11.5-16.0); LYMPHOCYTES # (AUTO) 1.9 10^3/uL (1.0-4.0); LYMPHOCYTES % (AUTO) 19 % (12-44); MEAN CORPUSCULAR HEMOGLOBIN 29 pg (25-34); MEAN CORPUSCULAR HGB CONC 33 g/dL (32-36); MEAN CORPUSCULAR VOLUME 89 fL (80-99); MEAN PLATELET VOLUME 11.3 fL (9.0-12.2); MONOCYTES # (AUTO) 0.6 10^3/uL (0.0-1.0); MONOCYTES % (AUTO) 6 % (0-12); NEUTROPHILS # (AUTO) 7.4 10^3/uL (1.8-7.8); NEUTROPHILS % (AUTO) 74 % (42-75); PLATELET COUNT 283 10^3/uL (130-400)
[2022-08-24 07:12] LABS: ALBUMIN 3.8 GM/DL (3.2-4.5); BILIRUBIN,TOTAL 0.6 MG/DL (0.1-1.0); CALCIUM 8.5 MG/DL (8.5-10.1); CREATININE SERUM 0.65 MG/DL (0.60-1.30); POTASSIUM 3.4 MMOL/L (3.6-5.0)
[2022-08-24] MEDS: DOCUSATE SODIUM 100 MG (COLACE) CAP PO SCH ×2 (07:29→20:17)
[2022-08-24] MEDS: SENNOSIDES 8.6 MG (SENOKOT) TAB PO SCH ×2 (07:29→20:17)
[2022-08-24] MEDS ORDERED: cloNIDine 0.1 MG (CATAPRES) TAB PO PRN (08:45)
[2022-08-24] MEDS: amLODIPine 5 MG (NORVASC) TAB PO SCH (09:17)
[2022-08-24] MEDS ORDERED: MELA10TA2 PO (12:02)
[2022-08-24] MEDS ORDERED: TROUGH ORDER-PHARMACY XX NR (15:00)
--- NOTE | 2022-08-24 15:58 | Consultation - Surgery ---
History of Present Illness History of Present Illness Patient Consulted On(caitlyn/time) 08/24/22 15:53 Date Seen by Provider: Aug 24, 2022 Time Seen by Provider: 15:53 History of Present Illness Consult for left facial abscess. Patient is a 31 year old female who began having erythema and swelling to left face 2 days ago. Significant tenderness to the area. Patient reports no trauma. Patient has no drainage from the area. Not had anything like this before. Has been having nausea and emesis along with headache. Ct scan:Left facial contusions without acute fracture identified. Carious lesions involve multiple teeth. Patient reports no illicit drug use, but drug screen positive for methamphetamine, amphetamine and marijuana. Allergies and Home Medications Allergies Coded Allergies: adhesive tape (Verified Allergy, Severe, RASH, 01/20/17) metoclopramide (Verified Allergy, Severe, HIVES, VOMITING, 01/20/17) ondansetron (Verified Allergy, Severe, HIVES, VOMITING, 01/20/17) Patient Home Medication List Home Medication List Reviewed: Yes Melatonin (Melatonin) 10 Mg Tablet, 10 MG PO HS PRN for SLEEP, (Reported) Entered as Reported by: PRINCESS MICHAUD on 08/24/22 1202 Last Action: Reviewed Discontinued Medications Cephalexin (Keflex) 500 Mg Capsule, 500 MG PO BID Discontinued Reason: No Longer Taking Prescribed by: GRIFFIN TYLER on 07/19/192123 Last Action: Discontinued Clonazepam (Clonazepam) 1 Mg Tablet, (Reported) Discontinued Reason: No Longer Taking Entered as Reported by: MAY HERRERA on 04/18/172117 Last Action: Discontinued Gabapentin (Gabapentin) 300 Mg Capsule, 300 MG PO TID Discontinued Reason: No Longer Taking Prescribed by: GRIFFIN TYLER on 05/19/17 0055 Last Action: Discontinued Hyoscyamine Sulfate (Levsin-Sl) 0.125 Mg Tab.subl, 1-2 TAB SL Q4H Discontinued Reason: No Longer Taking Prescribed by: GOKUL SARMIENTO on 04/19/178 Last Action: Discontinued Naproxen (Naprosyn) 500 Mg Tablet, 500 MG PO BID PRN for PAIN-MODERATE Discontinued Reason: No Longer Taking Prescribed by: PRANEETH SCANLON on 12/16/17 1401 Last Action: Discontinued Nitrofurantoin Monohyd/M-Cryst (Macrobid 100 mg Capsule) 100 Mg Capsule, 100 MG PO BID Discontinued Reason: No Longer Taking Prescribed by: GOKUL SARMIENTO on 04/19/1757 Last Action: Discontinued Orphenadrine Citrate (Orphenadrine Citrate) 100 Mg Tablet.er, 100 MG PO BID PRN for PAIN-MODERATE TO SEVERE Discontinued Reason: No Longer Taking Prescribed by: PRANEETH SCANLON on 12/16/17 1401 Last Action: Discontinued Pantoprazole Sodium (Protonix) 40 Mg Tablet.dr, 40 MG PO DAILY Discontinued Reason: No Longer Taking Prescribed by: GOKUL SARMIENTO on 04/19/1757 Last Action: Discontinued Promethazine HCl (Phenergan) 25 Mg Supp.rect, 25 MG RC Q4H Discontinued Reason: No Longer Taking Prescribed by: GOKUL SARMIENTO on 04/19/1757 Last Action: Discontinued Promethazine HCl (Promethazine Tablet) 25 Mg Tablet, 25 MG PO Q6H PRN for NAUSEA/VOMITING Discontinued Reason: No Longer Taking Prescribed by: GRIFFIN TYLER on 07/19/192123 Last Action: Discontinued Sertraline HCl (Sertraline HCl) 100 Mg Tablet, (Reported) Discontinued Reason: No Longer Taking Entered as Reported by: MAY HERRERA on 04/18/172117 Last Action: Discontinued Past Fkxgeii-Pqjgkh-Nbimyx Hx Patient Social History Smoking Status: Current Someday Smoker Type Used: Cigarettes 2nd Hand Smoke Exposure: Yes Recent Hopitalizations: No Alcohol Use?: No Substance type: Methamphetamine, Marijuana Have you traveled recently?: No Immunizations Up To Date Tetanus Booster (TDap): More than 5yrs PED Vaccines UTD: Yes Seasonal Allergies Seasonal Allergies: No Surgeries History of Surgeries: Yes (RUPTURED OVARIAN CYST; X 1) Surgeries: Section, Gallbladder, Tubal Ligation Respiratory History of Respiratory Disorde: No Cardiovascular History of Cardiac Disorders: No Neurological History of Neurological Disord: Yes (PSEUDOSEIZURES) Neurological Disorders: Seizure Disorder Reproductive System Hx Reproductive Disorders: Yes (CERVICAL DYSPLASIA--S/P LEEP) Genitourinary History of Genitourinary Disor: Yes Genitourinary Disorders: Kidney Stones Gastrointestinal History of Gastrointestinal Di: Yes ("ULI OLIVA SYNDROME" PER PT; S/P FARNCO) Gastrointestinal Disorders: Ulcer, Gall Bladder Disease Musculoskeletal History of Musculoskeletal Dis: Yes Musculoskeletal Disorders: Fibromyalgia Endocrine History of Endocrine Disorders: No HEENT History of HEENT Disorders: No Cancer History of Cancer: No Psychosocial History of Psychiatric Problem: Yes Behavioral Health Disorders: Pseudo Seizures, Anxiety Integumentary History of Skin or Integumenta: No Blood Transfusions History of Blood Disorders: No Adverse Reaction to a Blood Tr: No Reviewed Nursing Assessment Reviewed/Agree w Nursing PMH: Yes Family Medical History Significant Family History: No Pertinent Family Hx Family Medial History: Family history: Cardiovascular disease maternal gma Heart disease maternal gma No Family History of: Abdominal aortic aneurysm Aiken's disease Alcoholism Aphasia Cancer Cancer of colon Cataract Chest pain Congenital heart disease Congestive heart failure Cystic fibrosis Dementia Dysphagia Family history: Allergy Family history: Alzheimer's disease Family history: Arthritis Family history: Asthma Family history: Breast disease Family history: Coronary thrombosis Family history: Diabetes mellitus Family history: Gastrointestinal disease Family history: Glaucoma Family history: Hypertension Family history: Osteoporosis Family history: Thyroid disorder Headache Hearing loss Hereditary disease History of - anemia History of - disorder History of - respiratory disease History of drug abuse Human immunodeficiency virus (HIV) seropositivity Hypercholesterolemia Infertile Kidney disease Malignant neoplasm of lung Myocardial infarction Parkinson's disease Prostate cancer Psychotic disorder Seizure disorder Stroke Tuberculosis Visual impairment Review of Systems-General Constitutional: No chills, No diaphoresis EENTM: No blurred vision, No double vision Respiratory: No cough Cardiovascular: No chest pain, No edema Gastrointestinal: No abdominal pain; nausea, vomiting Genitourinary: No decreased output, No discharge Musculoskeletal: No back pain, No joint pain Skin: other (erythema swelling left face) Psychiatric/Neurological: Denies Anxiety, Denies Depressed, Denies Emotional Problems All Other Systems Reviewed Negative Unless Noted: Yes (Negative excepted noted.) Physical Exam-General Problems Physical Exam Vital Signs Vital Signs - First Documented 08/23/22 08/23/22 12:42 20:54 Temp 36.9 Pulse 88 Resp 18 B/P (MAP) 179/109 (132) Pulse Ox 100 O2 Delivery Room Air FiO2 21 Capillary Refill : Less Than 3 Seconds General Appearance: no apparent distress, thin HEENT: PERRL/EOMI, normal ENT inspection, other (left facail swelling with area of black eschar center with surrounding erythema and swelling, poor dentition) Neck: non-tender, supple Respiratory: chest non-tender, no respiratory distress, no accessory muscle use Cardiovascular: regular rate, rhythm, no JVD Gastrointestinal: non tender, soft Rectal: deferred Back: normal inspection, no CVA tenderness Extremities: non-tender, normal inspection Neurologic/Psychiatric: alert, normal mood/affect, oriented x 3 Skin: warm/dry, other (facial erythema and small central black eschar ) Lymphatic: no adenopathy Data Review Labs Laboratory Tests 08/24/22 05:43: White Blood Count 10.0, Red Blood Count 4.35, Hemoglobin 12.7, Hematocrit 39, Mean Corpuscular Volume 89, Mean Corpuscular Hemoglobin 29, Mean Corpuscular Hemoglobin Concent 33, Red Cell Distribution Width 12.1, Platelet Count 283, Mean Platelet Volume 11.3, Immature Granulocyte % (Auto) 0, Neutrophils (%) (Auto) 74, Lymphocytes (%) (Auto) 19, Monocytes (%) (Auto) 6, Eosinophils (%) (Auto) 1, Basophils (%) (Auto) 1, Neutrophils # (Auto) 7.4, Lymphocytes # (Auto) 1.9, Monocytes # (Auto) 0.6, Eosinophils # (Auto) 0.1, Basophils # (Auto) 0.1, Immature Granulocyte # (Auto) 0.0, Sodium Level 136, Potassium Level 3.4L, Chloride Level 105, Carbon Dioxide Level 23, Anion Gap 8, Blood Urea Nitrogen 5L , Creatinine 0.65, Estimat Glomerular Filtration Rate 119, BUN/Creatinine Ratio 8, Glucose Level 86, Calcium Level 8.5, Corrected Calcium 8.7, Total Bilirubin 0.6, Aspartate Amino Transf (AST/SGOT) 10, Alanine Aminotransferase (ALT/SGPT) 13, Alkaline Phosphatase 77, Total Protein 6.0L, Albumin 3.8 08/24/22 15:20: Vancomycin Level Trough 8.7L Assessment/Plan Assessment/Plan Assessment/Plan left facial cellulitis left facial abscess small area of facial eschar methamphetamine and marijuana positive toxicology screen-patient denies use feel there is a abscess and left face with area of black eschar that needs debrided. could be related to spider bite or infection patient NPO to OR for incision and drainage all other indicated procedures. patient understands risks and benefits along with family and wishes to proceed. TO OR. Continue abx. SAMANTHA SUAREZ DO Aug 24, 2022 15:58
[2022-08-24] MEDS ORDERED: MIDAZOLAM 2 MG/2 ML (VERSED) VIAL ONE (16:04)
[2022-08-24] MEDS ORDERED: fentaNYL INJ 100 MCG/2 ML AMP ONE (16:04)
[2022-08-24] MEDS ORDERED: LIDOCAINE PF 2% 5 ML (XYLOCAINE) VIAL ONE (16:11)
[2022-08-24] MEDS ORDERED: ONDANSETRON 4 MG/2 ML (SDV) Z0FRAN ONE (16:11)
[2022-08-24] MEDS ORDERED: proPOfol 200 MG/20 ML (DIPRIVAN) VIAL IV ONE (16:11)
--- NOTE | 2022-08-24 16:44 | Anesthesia-General Post-Op ---
General Patient Condition Mental Status/LOC: Same as Preop Cardiovascular: Satisfactory Nausea/Vomiting: Absent Respiratory: Satisfactory Pain: Controlled Complications: Absent Post Op Complications Complications None Follow Up Care/Instructions Patient Instructions None needed. Anesthesia/Patient Condition Patient Condition Patient is doing well, no complaints, stable vital signs, no apparent adverse anesthesia problems. No complications reported per nursing. COBY FAUST CRNA Aug 24, 2022 16:44
[2022-08-24] MEDS ORDERED: LACTATED RINGERS 1,000 ML IV PRN (16:45)
[2022-08-24] MEDS ORDERED: fentaNYL INJ 100 MCG/2 ML AMP IVP ONE (16:45)
[2022-08-24] MEDS ORDERED: ONDANSETRON 4 MG/2 ML (SDV) Z0FRAN IVP PRN (16:45)
[2022-08-24] MEDS: VANCOMYCIN 750 MG/NS 250 ML IVPB IV SCH ×2 (16:52)
[2022-08-24] MEDS: ENOXAPARIN 40 MG/0.4 ML (LOVENOX) SYR SC SCH (19:34)
[2022-08-25] MEDS: VANCOMYCIN 750 MG/NS 250 ML IVPB IV SCH ×4 (00:10→08:24)
[2022-08-25 03:12] VITALS: BP 123/79
[2022-08-25] MEDS: PIPERACILLIN SODIUM/TAZOBACTAM 4.5 GM in NS (IVPB) 100 ML IV SCH ×2 (03:30→12:00)
[2022-08-25] MEDS ORDERED: MELATONIN 10 MG TABLET PO PRN (04:45)
[2022-08-25] MEDS: NS IV 1000 ML 1,000 ML IV SCH (04:57)
[2022-08-25] MEDS: PROMETHAZINE INJ 25 MG/ML (PHENERGAN) AMP IM PRN ×2 (04:58→10:20)
[2022-08-25] MEDS: HYDROmorphone 2 MG/ML VIAL (DILAUDID) IV PRN ×2 (05:02→08:25)
--- NOTE | 2022-08-25 05:14 | OPERATIVE REPORT ---
DATE OF SERVICE: 08/24/2022 PREOPERATIVE DIAGNOSIS: Left face cellulitis/abscess. POSTOPERATIVE DIAGNOSIS: Left face cellulitis/abscess. PROCEDURE: Incision and drainage of left face with debridement of skin and subcutaneous tissue 0.7 x 1 cm. SURGEON: Samantha Valle DO ANESTHESIA: General. ESTIMATED BLOOD LOSS: Minimal. COMPLICATIONS: None. INDICATIONS: The patient is a 31-year-old female with an abscess to the left face. She had some black eschar to the area as well centrally located. She understands the risks and benefits of the procedure and wishes to proceed. Consent was signed and on chart. DESCRIPTION OF PROCEDURE: The patient was taken to the operating suite. She was prepped and draped in sterile fashion. Timeout was performed. A 15 blade scalpel was used to excise the superficial eschar and necrotic-appearing skin, which went through the skin into the subcutaneous tissue, which continued to be dissected. Some purulent-appearing material erupted. Culture was obtained. All the necrotic-appearing skin and subcutaneous tissues were excised sharply measuring 0.7 x 1 cm. The pocket was then irrigated with copious amounts of irrigation. The wound was then packed with quarter inch iodoform. The area was washed and dried and sterile bandage was applied. The patient tolerated the procedure well without complications, taken to recovery room in stable condition. Job ID: [id number] DocumentID: [id number] Dictated Date: 08/24/2022 22:27:08 Utilities And Maintenance Supervisor Date: 08/25/2022 05:14:00 Dictated By: SAMANTHA VALLE DO
[2022-08-25 05:44] LABS: BASOPHILS # (AUTO) 0.1 10^3/uL (0.0-0.1); BASOPHILS % (AUTO) 1 % (0-10); EOSINOPHILS # (AUTO) 0.1 10^3/uL (0.0-0.3); EOSINOPHILS % (AUTO) 1 % (0-10); HEMATOCRIT 35 % (35-52); HEMOGLOBIN 11.2 g/dL (11.5-16.0); LYMPHOCYTES # (AUTO) 2.1 10^3/uL (1.0-4.0); LYMPHOCYTES % (AUTO) 23 % (12-44); MEAN CORPUSCULAR HEMOGLOBIN 29 pg (25-34); MEAN CORPUSCULAR HGB CONC 32 g/dL (32-36); MEAN CORPUSCULAR VOLUME 90 fL (80-99); MEAN PLATELET VOLUME 11.3 fL (9.0-12.2); MONOCYTES # (AUTO) 0.6 10^3/uL (0.0-1.0); MONOCYTES % (AUTO) 7 % (0-12); NEUTROPHILS # (AUTO) 6.2 10^3/uL (1.8-7.8); NEUTROPHILS % (AUTO) 68 % (42-75); PLATELET COUNT 258 10^3/uL (130-400); WHITE BLOOD COUNT 9.1 10^3/uL (4.3-11.0)
[2022-08-25 06:17] LABS: ALBUMIN 3.2 GM/DL (3.2-4.5); BILIRUBIN,TOTAL 0.3 MG/DL (0.1-1.0); CALCIUM 7.9 MG/DL (8.5-10.1); CREATININE SERUM 0.8 MG/DL (0.60-1.30); POTASSIUM 3.8 MMOL/L (3.6-5.0); TOTAL PROTEIN 5.3 GM/DL (6.4-8.2)
--- NOTE | 2022-08-25 06:54 | Progress Note - Hospitalist ---
Subjective HPI/CC On Admission Date Seen by Provider: Aug 25, 2022 Time Seen by Provider: 10:00 CC: Left facial cellulitis HPI: This is a 31 yr old female clinic pt of [facility]. She has a history of meth use. She presented with left sided facial swelling and erythema. Patient sleeping most of my conversation. Male friend at bedside. Dr Valle consulted. Focused Exam Lactate Level 08/23/22 15:35: Lactic Acid Level 0.82 Objective Exam Vital Signs Vital Signs Date Time Temp Pulse Resp B/P (MAP) Pulse Ox O2 Delivery O2 Flow Rate FiO2 08/25/22 08:00 Room Air 08/25/22 07:28 36.9 70 20 138/95 (109) 96 08/24/22 17:10 2.00 08/23/22 20:54 21 Capillary Refill : Less Than 3 SecondsLess Than 3 Seconds Results/Procedures Lab Laboratory Tests 08/25/22 05:11 Patient resulted labs reviewed. Diagnosis/Problems Diagnosis/Problems (1) Facial cellulitis (2) Methamphetamine use Status: Acute (3) Pseudoseizures Status: Acute ELISABETH FREITAS DO Aug 25, 2022 06:54
[2022-08-25 07:28] VITALS: BP 138/95
--- NOTE | 2022-08-25 07:55 | Progress Note - Surgery ---
MICHAEL STINSON 08/25/22 0755: Subjective Date Seen by a Provider: Aug 25, 2022 Time Seen by a Provider: 07:00 Subjective/Events-last exam Pt resting comfortably, states she is feeling better than yesterday. Pain has slightly improved, with less pressure. Reports she still has a slight headache and pain at the base of her head radiating into her neck. She had one episode of vomiting last night and is slightly nauseous this morning. She has no urinary sx and has not had a bowel movement yet. She denies fever, chills, abdominal pain, shortness of breath, chest pain. Review of Systems General: No Chills, No Night Sweats HEENT: Head Aches; No Visual Changes; Other (facial pain/cellulitis, improving) Pulmonary: No Dyspnea, No Cough Cardiovascular: No: Chest Pain, Orthopnea Gastrointestinal: Nausea (improving), Vomiting (improved); No: Abdominal Pain, Diarrhea, Melena, Hematochezia Genitourinary: No Dysuria, No Frequency Musculoskeletal: neck pain Neurological: No: Weakness, Numbness Focused Exam Lactate Level 08/23/22 15:35: Lactic Acid Level 0.82 Objective Exam Vital Signs Date Time Temp Pulse Resp B/P (MAP) Pulse Ox O2 Delivery O2 Flow Rate FiO2 08/25/22 07:28 36.9 70 20 138/95 (109) 96 Room Air 08/25/22 03:12 36.7 87 18 123/79 (94) 97 Room Air 08/24/22 23:23 37.6 92 20 134/91 (105) 97 Room Air 08/24/22 19:45 Room Air 08/24/22 19:18 98 Room Air 08/24/22 19:02 37.0 85 18 128/84 (99) 98 Room Air 08/24/22 17:31 36.8 71 18 133/90 (104) 99 Room Air 08/24/22 17:30 Room Air 08/24/22 17:30 36.4 20 123/92 (102) 100 Room Air 08/24/22 17:20 20 124/90 (101) 100 Room Air 08/24/22 17:15 Room Air 08/24/22 17:10 20 122/90 (101) 100 OxyMask 2.00 08/24/22 17:00 OxyMask 2.00 08/24/22 17:00 20 122/86 (98) 100 OxyMask 2.00 08/24/22 16:50 20 107/77 (87) 100 OxyMask 3.00 08/24/22 16:45 OxyMask 3.00 08/24/22 16:40 20 106/74 (85) 100 OxyMask 3.00 08/24/22 16:35 OxyMask 3.00 08/24/22 16:35 36.4 20 101/71 (81) 100 OxyMask 3.00 08/24/22 15:09 37.1 67 20 159/102 (121) 98 Room Air 08/24/22 11:06 36.5 69 18 134/84 (101) 99 Room Air 08/24/22 07:58 65 150/98 (115) I & O0 08/25/22 07:00 Intake Total 1560 ml Output Total 3200 ml Balance -1640 ml Capillary Refill : Less Than 3 SecondsLess Than 3 Seconds General Appearance: No Apparent Distress, WD/WN HEENT: PERRL/EOMI, Moist Mucous Membranes, Other (left facial edema and erythema - significant improvement. I&D packing and dressing in place, c/d/i. Minimal drainage noted. She has less periorbital swelling, tenderness and erythema) Neck: Supple; No JVD; Tender Lateral (mild tenderness to left lateral neck, has much improved since yesterday), Other (mild tenderness to cervical paraspinal muscles, especially at base of head. No bony midline tenderness) Respiratory: Lungs Clear, Normal Breath Sounds, No Accessory Muscle Use, No Respiratory Distress Cardiovascular: Regular Rate, Rhythm, No JVD, No Murmur, Normal Peripheral Pulses Peripheral Pulses: 2+ Dorsalis Pedis (R), 2+ Left Dors-Pedis (L), 2+ Radial Pulses (R), 2+ Radial Pulses (L) Gastrointestinal: normal bowel sounds, non tender, soft Extremity: Non Tender, No Calf Tenderness, No Pedal Edema Neurologic/Psychiatric: Alert, Oriented x3, Normal Mood/Affect Skin: Normal Color Lymphatic: No Adenopathy Results Lab Laboratory Tests 08/24/22 15:20: Vancomycin Level Trough 8.7L 08/25/22 05:11: White Blood Count 9.1, Red Blood Count 3.85, Hemoglobin 11.2L, Hematocrit 35, Mean Corpuscular Volume 90, Mean Corpuscular Hemoglobin 29, Mean Corpuscular Hemoglobin Concent 32, Red Cell Distribution Width 12.6, Platelet Count 258, Mean Platelet Volume 11.3, Immature Granulocyte % (Auto) 0, Neutrophils (%) (Auto) 68, Lymphocytes (%) (Auto) 23, Monocytes (%) (Auto) 7, Eosinophils (%) (Auto) 1, Basophils (%) (Auto) 1, Neutrophils # (Auto) 6.2, Lymphocytes # (Auto) 2.1, Monocytes # (Auto) 0.6, Eosinophils # (Auto) 0.1, Basophils # (Auto) 0.1, Immature Granulocyte # (Auto) 0.0, Sodium Level 138, Potassium Level 3.8, Chloride Level 106, Carbon Dioxide Level 25, Anion Gap 7, Blood Urea Nitrogen 7, Creatinine 0.80, Estimat Glomerular Filtration Rate 100, BUN/Creatinine Ratio 9, Glucose Level 98, Calcium Level 7.9L, Corrected Calcium 8.5, Total Bilirubin 0.3, Aspartate Amino Transf (AST/SGOT) 10, Alanine Aminotransferase (ALT/SGPT) 11, Alkaline Phosphatase 71, Total Protein 5.3L, Albumin 3.2 Microbiology 08/24/22 Gram Stain, Resulted Pending 08/24/22 Anaerobic Culture, Resulted Pending 08/24/22 Surgical Culture - Preliminary, Resulted Staphylococcus aureus 08/23/22 Blood Culture - Preliminary, Resulted No growth Assessment/Plan Assessment/Plan Assessment/Plan left facial cellulitis left facial abscess - I&D POD 1 small area of facial eschar methamphetamine and marijuana positive toxicology screen-patient denies use Pt tolerated yesterday's surgical I&D well. Packing and dressing in place with minimal drainage noted. Irrigate with saline and pack. Discussed appropriate wound care with pt Negative blood cultures. White count within normal limits. Continue abx. She is agreeable with plan. SAMANTHA VALLE DO 08/25/221950: Subjective Subjective/Events-last exam Pain better to left face. Wound packed. Swelling/erythema improving. Emesis last night. Feeling better. Denies fever sweats chills shortness of breath or chest pain. Objective Exam General Appearance: No Apparent Distress HEENT: PERRL/EOMI, Normal ENT Inspection, Other (left facial edema and erythema - significant improvement. I&D packing and dressing in place, c/d/i. Minimal drainage noted. She has less periorbital swelling, tenderness and erythema less) Neck: Normal Inspection, Supple, Tender Lateral (mild tenderness to left lateral neck, has much improved since yesterday), Other (mild tenderness to cervical paraspinal muscles, especially at base of head. No bony midline tenderness) Gastrointestinal: non tender, soft Extremity: Non Tender, No Calf Tenderness Neurologic/Psychiatric: Alert, Oriented x3, Normal Mood/Affect Skin: Normal Color, Other (open wound left face no necrotic tissue) Lymphatic: No Adenopathy Assessment/Plan Assessment/Plan Assessment/Plan left facial cellulitis left facial abscess - I&D POD 1 small area of facial eschar methamphetamine and marijuana positive toxicology screen-patient denies use Pt tolerated yesterday's surgical I&D well. Packing and dressing in place with minimal drainage noted. Irrigate with saline and pack. Discussed appropriate wound care with pt Negative blood cultures. White count within normal limits. Continue abx. can dc home with close follow up to assist with wound care She is agreeable with plan. Supervisory-Addendum Brief Verification & Attestation Participated in pt care: history, MDM, physical Personally performed: exam, history, MDM, supervision of care Care discussed with: Medical Student Procedures: n/a Results interpretation: Verified all documentation Verification and Attestation of Medical Student E/M Service A medical student performed and documented this service in my presence. I reviewed and verified all information documented by the medical student and made modifications to such information, when appropriate. I personally performed the physical exam and medical decision making. Samantha Valle, Aug 25, 2022,19:52 MICHAEL STINSON Aug 25, 2022 07:55 SAMANTHA VALLE DO Aug 25, 2022 19:51
[2022-08-25] MEDS: amLODIPine 5 MG (NORVASC) TAB PO SCH (08:25)
[2022-08-25] MEDS: SENNOSIDES 8.6 MG (SENOKOT) TAB PO SCH (09:00)
[2022-08-25] MEDS: DOCUSATE SODIUM 100 MG (COLACE) CAP PO SCH (09:00)
[2022-08-25] MEDS ORDERED: PROM25TA14 PO (10:48)
[2022-08-25] MEDS ORDERED: AMOX1TAB12 PO (10:48)
[2022-08-25] MEDS ORDERED: ACHD5005 PO (10:48)
--- NOTE | 2022-08-25 10:50 | Discharge Summary ---
Discharge Summary Hospital Course Was the Problem List Reviewed?: Yes Problems/Dx: (1) Facial cellulitis (2) Methamphetamine use Status: Acute (3) Pseudoseizures Status: Acute Hospital Course Date of Admission: Aug 23, 2022 at 16:22 Admission Diagnosis : [facility] Phys[facility] Date of Discharge: 08/25/22 Discharge Diagnosis: [ ] Hospital Course: Pt had a brief hospital course after she was admitted for left sided facial cellulitis. Pt was placed on broad spectrum antibiotics. Methamphetamine use was counseled to cease. Dr. Valle initiated an incision and drainage. Pt was deemed stable for discharge on Augmentin. Labs and Pending Lab Test: Laboratory Tests 08/24/22 15:20: Vancomycin Level Trough 8.7L 08/25/22 05:11: White Blood Count 9.1, Red Blood Count 3.85, Hemoglobin 11.2L, Hematocrit 35, Mean Corpuscular Volume 90, Mean Corpuscular Hemoglobin 29, Mean Corpuscular Hemoglobin Concent 32, Red Cell Distribution Width 12.6, Platelet Count 258, Mean Platelet Volume 11.3, Immature Granulocyte % (Auto) 0, Neutrophils (%) (Auto) 68, Lymphocytes (%) (Auto) 23, Monocytes (%) (Auto) 7, Eosinophils (%) (Auto) 1, Basophils (%) (Auto) 1, Neutrophils # (Auto) 6.2, Lymphocytes # (Auto) 2.1, Monocytes # (Auto) 0.6, Eosinophils # (Auto) 0.1, Basophils # (Auto) 0.1, Immature Granulocyte # (Auto) 0.0, Sodium Level 138, Potassium Level 3.8, Chloride Level 106, Carbon Dioxide Level 25, Anion Gap 7, Blood Urea Nitrogen 7, Creatinine 0.80, Estimat Glomerular Filtration Rate 100, BUN/Creatinine Ratio 9, Glucose Level 98, Calcium Level 7.9L, Corrected Calcium 8.5, Total Bilirubin 0.3, Aspartate Amino Transf (AST/SGOT) 10, Alanine Aminotransferase (ALT/SGPT) 11, Alkaline Phosphatase 71, Total Protein 5.3L, Albumin 3.2 Microbiology 08/24/22 Gram Stain, Resulted Pending 08/24/22 Anaerobic Culture, Resulted Pending 08/24/22 Surgical Culture - Preliminary, Resulted Staphylococcus aureus 08/23/22 Blood Culture - Preliminary, Resulted No growth Home Meds Active Hydrocodone-Acetamin 5-325 mg (Hydrocodone/Acetaminophen) 5 Mg-325 Mg Tablet 1 Tab PO Q4H PRN Promethazine Tablet (Promethazine HCl) 25 Mg Tablet 25 Mg PO Q6H PRN Amox Tr-K Clv 875-125 mg Tab (Amoxicillin/Potassium Clav) 875 Mg-125 Mg Tablet 1 Each PO BID Reported Melatonin 10 Mg Tablet 10 Mg PO HS PRN Assessment/Pt Instructions pcp 1 week Discharge Planning: <30 minutes discharge planning Discharge Physical Examination Vital Signs Vital Signs Date Time Temp Pulse Resp B/P (MAP) Pulse Ox O2 Delivery O2 Flow Rate FiO2 08/25/22 08:00 Room Air 08/25/22 07:28 36.9 70 20 138/95 (109) 96 08/24/22 17:10 2.00 08/23/22 20:54 21 General Appearance: No Apparent Distress, WD/WN Skin: Other (improved left face) Allergies: Coded Allergies: adhesive tape (Verified Allergy, Severe, RASH, 01/20/17) metoclopramide (Verified Allergy, Severe, HIVES, VOMITING, 01/20/17) ondansetron (Verified Allergy, Severe, HIVES, VOMITING, 01/20/17) Discharge Summary Date of Admission Aug 23, 2022 at 16:22 Date of Discharge Discharge Date: Aug 25, 2022 Admission Diagnosis Assessment: Left facial cellulitis Pseudoseizures Plan: IV abx Valle consult Discharge Diagnosis (1) Facial cellulitis (2) Methamphetamine use Status: Acute (3) Pseudoseizures Status: Acute ELISABETH FREITAS DO Aug 25, 2022 10:50
[2022-08-25 11:08] VITALS: BP 125/80
[2022-08-25 14:00] VITALS: BP 125/80
[2022-08-25] MEDS ORDERED: TROUGH ORDER-PHARMACY XX NR (15:30)
== END 2022-08-25 10:45 | disposition home or self-care (01) ==
LOC: EDUNIT# 12:20 → ER 12:22 → UNDOADMOB 16:22 → 4TH 16:22 → UNDODISOB 08-25 10:45
PROVIDERS: ADMIT Internal Medicine; ATTEND Internal Medicine
DX: L03.211 Cellulitis of face (principal); L02.01 Cutaneous abscess of face; B95.61 Methicillin susceptible Staphylococcus aureus infection as the cause of diseases classified elsewhere; R56.9 Unspecified convulsions; F15.90 Other stimulant use, unspecified, uncomplicated; F12.90 Cannabis use, unspecified, uncomplicated
CPT/HCPCS: 36415; 70486; 80053; 80202; 80306; 81000; 83605; 84703; 85025; 85652; 86141; 87040; 87070; 87075; 87077; 87081; 87186; 87205; 94760; 96366; 96372; 96375; 96376; G0378